=== PATIENT | male | born 1940 | race Caucasian/White ===

== ENCOUNTER 2023-05-02 14:39 | Inpatient (IN) | payer MEDICARE, SELFPAY ==
[2023-05-02] VITALS (7 sets, daily range): BP systolic 129–181; BP diastolic 87–95; PULSE 70–120; RESP 15–20; TEMP 36–36.6; O2SAT 93–97; BMI 24.8; BMI 24.3
--- NOTE | 2023-05-02 15:19 | EKG12_ITS ---
Test Reason : GEN ILLNESS Blood Pressure : / mmHG Vent. Rate : 091 BPM Atrial Rate : 091 BPM P-R Int : 204 ms QRS Dur : 074 ms QT Int : 342 ms P-R-T Axes : 068 -07 039 degrees QTc Int : 420 ms Normal sinus rhythm Low voltage QRS T wave abnormality, consider anterior ischemia Abnormal ECG Confirmed by BAN PALENCIA, ANA ([id number]), editor & co founder JENNIFFER BLANKENSHIP ([id number]) on 05/05/2023 9:10:39 AM Referred By: Confirmed By:ANA CEVALLOS MD
--- NOTE | 2023-05-02 15:19 | CT_ITS ---
EXAM: CT ABDOMEN AND PELVIS WITHOUT INTRAVENOUS CONTRAST CLINICAL INDICATION: Pain upper abd, n/v TECHNIQUE: Helically acquired images were obtained of the abdomen and pelvis without intravenous contrast. This CT exam was performed using one or more of the following dose reduction techniques: automated exposure control, adjustment of the mA and/or kV according to patient size, and/or use of iterative reconstruction technique. COMPARISON: No relevant prior studies available. FINDINGS: LOWER THORAX: There is a small bubble of gas in the pulmonary trunk likely iatrogenic from an IV line. There is minimal scarring in the right middle lobe. There is no focal consolidation. No cardiomegaly. No significant pericardial effusion. ABDOMEN: LIVER: Unremarkable. Homogeneous. GALLBLADDER AND BILE DUCTS: Unremarkable. No calcified gallstones. No gallbladder distention or wall edema. No intra- or extrahepatic biliary ductal dilation. PANCREAS: There is questionable haziness surrounding the head of the pancreas is vague to be due to very minimal pancreatitis or duodenitis. There is no fluid collection. No focal cystic mass. SPLEEN: Unremarkable. Normal size without focal cystic or solid mass. ADRENALS: Unremarkable. No nodules. KIDNEYS AND URETERS: Unremarkable. Normal renal size and position. No hydronephrosis. STOMACH AND BOWEL: Unremarkable. No stomach or bowel distention. No focal inflammatory change. PELVIS: APPENDIX: No evidence of acute appendicitis. BLADDER: Unremarkable. REPRODUCTIVE: Unremarkable as visualized. No mass. ABDOMEN and PELVIS: INTRAPERITONEAL SPACE: Unremarkable. No ascites or other fluid collection. No free air. BONES/JOINTS: Unremarkable. No suspicious lytic or blastic abnormality. SOFT TISSUES: Unremarkable. No discrete abdominal or pelvic wall hernia. VASCULATURE: Unremarkable. Abdominal aorta is non-dilated. LYMPH NODES: Unremarkable. No enlarged lymph nodes. CT/Abdomen/Pelvis without Cont IMPRESSION: Questionable haziness around the head of the pancreas which may be due to mild pancreatitis or duodenitis. No fluid collections are seen. No other acute abnormalities are identified. Electronically Signed: Stiven Rodriges MD at 16:15 EDT ,
--- NOTE | 2023-05-02 15:20 | EDS_ITS ---
HPI History of Present Illness Chief Complaint: General Illness Informant: patient and family (son) Onset/Context/Timing Onset: Days (2) Narrative Narrative: 83-year-old patient very poor historian presents with his son for vomiting for the past 2 days, unable to keep any fluids down. States he has been having some off and on periumbilical abdominal pain that he cannot describe further. It is not currently there. Due to gaze ago he also was having chest pain substernal that he also cannot describe but he does say that he was sweating for a good half hour without any good reason while he was having the pain. Chronic cough unchanged nonproductive, he is a smoker, does not have any known medical problems but that is because he states he has not seen a doctor in past 50+ years. No known fevers or chills. No known contacts with similar symptoms that he knows of. No diarrhea. States he is urinating but less than normal. Denies any travel out of the area recently. Son states he basically stays at home all the time. PFSH PFSH Medical History no medical history no medical history Home Medications NK 05/02/23 [History Last Taken Unknown] Allergy/AdvReac Type Severity Reaction Status Date / Time No Known Allergies Allergy Verified 05/02/23 14:40 Social History (Updated 05/02/23 @ 15:[address] Demetris Mcdonald MD) Smoking Status: Current every day smoker tobacco type: cigarettes ROS ROS ED Constitutional Constitutional ED: Reports weakness; Denies chills or fever(s) Eyes Eyes: Denies change in vision or diplopia ENT ENT ED: Denies rhinorrhea or sore throat Cardiovascular Cardiovascular: Reports chest pain; Denies palpitations Respiratory/Chest Respiratory/Chest: Reports cough; Denies dyspnea Gastrointestinal Gastrointestinal: Reports abdominal pain, nausea and vomiting; Denies diarrhea or melena Genitourinary Genitourinary ED: Denies dysuria, hematuria or urinary frequency Musculoskeletal Musculoskeletal: Denies back pain or neck pain Integumentary Denies abscess or rash Neurologic Neurologic: Denies headache(s), paresthesias or weakness Psychiatric Psychiatric: Denies anxiety or suicidal thoughts EXAM Physical Exam Const Vital Signs: 05/02/23 14:40 05/02/23 15:18 05/02/23 16:40 Temperature 98 F Temperature Source Temporal Pulse Rate 120 H 91 Respiratory Rate 20 H 15 Respiratory Effort Normal Non-Labored Respiratory Pattern Normal Blood Pressure 129/90 H Blood Pressure Mean 103 Pulse Ox 95 97 Oxygen Delivery Method Room Air Room Air 05/02/23 18:00 Temperature Temperature Source Pulse Rate 93 Respiratory Rate 15 Respiratory Effort Respiratory Pattern Blood Pressure Blood Pressure Mean Pulse Ox 97 Oxygen Delivery Method Room Air Positive well nourished and well developed General Appearance ED: well developed and NAD HEENT Reports moist mucous membranes normocephalic and atraumatic Eyes PERRL and EOMs intact bilaterally Neck full ROM and supple Resp normal respiratory effort Resp Narrative: Very faint/diminished breath sounds, symmetric, with end expiratory wheezes throughout. Effort and Inspection: able to speak in complete sentences Cardio regular rate and regular rhythm Cardio Narrative: Very faint heart sounds Rate: tachycardic GI non-tender and non-distended Auscultation: normoactive bowel sounds Palpation: soft Back/Spine no CVA tenderness General Back: other FROM Extremity normal to inspection and no calf tenderness General Extremety ED: Negative for edema, pulses abnormal or tenderness General Extremity: Negative for edema or pulses abnormal Neuro oriented x3, CN's II-XII intact bilaterally and no sensory deficits noted Sensorium / Orientation: awake and alert Motor Exam: strength 5/5 throughout Psych mental status grossly normal Skin no rashes or lesions noted and no wounds MDM MDM MDM Narrative Medical decision making narrative: Differential here includes lower lobe pneumonia, acute coronary syndrome/myocardial infarction, bowel obstruction, cholecystitis, pancreatitis, other GI functional process, including viral gastritis. Started with EKG, chest x-ray, CT of the abdomen and pelvis and labs/urinalysis. Chest x-ray 2 views of my interpretation shows no sign of pneumonia radiology in agreement. CT of the abdomen/pelvis images are reviewed, as well as the interpretation and agree with it, some potential radiographic signs of pancreatitis. I also note that he may have a few small gallstones however CT is not the best test for this, so I added an ultrasound since there was not a better explanation for his significant leukocytosis, his lipase is only 94, slightly elevated, total bilirubin is normal, arguing against an obstructive biliary process. On recheck the patient after IV fluids and Zofran he is doing well and not in significant pain declines an offer for analgesics his tachycardia is much better after the fluids. His EKG shows no acute ischemic abnormality and his high-sensitivity troponin is within normal limits. I reviewed the gallbladder ultrasound images and report which I agree with, basically a stone lodged in the neck of the gallbladder is a thickened wall mild pericholecystic fluid consistent with early acute cholecystitis, although sonographic Simpson was negative. Empiric Zosyn started, and it took a while to get urine from the patient. He tried multiple times to urinate, the nurses did a bladder scan and he was over 800 cc. He was able to give us about 150 cc urine with over 600 cc still left in his bladder but since he felt okay and did not feel comfortable, and did not want a catheter we held off. Family states that he has had issues urinating for some time, standing up and sitting down multiple times to try to get urine out. Discussed with surgery Dr. Hewitt. He saw and evaluated patient, no clinical positive Simpson's which I concur with, certainly cholecystitis is in the differential diagnosis but this may not be and he does have some inflammation around the duodenum, unclear if he needs to have his gallbladder out for this or not given his age and general health, will also consult medicine I discussed with. Will be admitted regardless. Lab Data Attestation: I reviewed the patient's lab results. Labs: Laboratory Results - last 24 hr 05/02/23 05/02/23 15:29 18:34 WBC 24.7 H RBC 5.32 Hgb 17.0 H Hct 49.4 MCV 92.9 MCH 32.0 MCHC 34.4 RDW Std Deviation 45.1 H RDW Coeff of Yari 13.2 Plt Count 211 MPV 8.4 Immature Gran % (Auto) 0.400 Neut % (Auto) 91.8 H Lymph % (Auto) 3.0 L Dawson % (Auto) 4.6 Eos % (Auto) 0.0 Baso % (Auto) 0.2 Absolute Neuts (auto) 22.7 H Absolute Lymphs (auto) 0.73 L Nucleated RBC % 0 Differential Comment SCANNED Sodium 137 Potassium 3.4 L Chloride 101 Carbon Dioxide 28.0 Anion Gap 8 BUN 24 H Creatinine 1.57 H Estim Creat Clear Calc 35.02 Est GFR (MDRD) Af Amer 59 L Est GFR (MDRD) Non-Af 49 L BUN/Creatinine Ratio 15.3 Glucose 135 H Calcium 9.7 Total Bilirubin 0.90 AST 19 ALT 36 Alkaline Phosphatase 82 Troponin I High Sens 35 Total Protein 7.7 Albumin 3.7 Globulin 4.0 Albumin/Globulin Ratio 0.9 Lipase 94 H Urine Color Yellow Urine Clarity Sl. Cloudy Urine pH 6.5 Ur Specific [place] 1.020 Urine Protein 100 H Urine Glucose (UA) 50 H Urine Ketones 5 H Urine Occult Blood 150 H Urine Nitrite Negative Urine Bilirubin Negative Urine Urobilinogen 1 H Ur Leukocyte Esterase 25 H Urine RBC 10-25 SEEN Urine WBC 0-5 SEEN Ur Squamous Epith Cells 0-5 SEEN Amorphous Sediment 1+ URATE Urine Bacteria 0 SEEN Urine Mucus 0 SEEN Radiography Diagnostic Testing: Clinical Impression(s) from Imaging Studies Abdomen/Pelvis CT 05/02/23 15:19 IMPRESSION: Questionable haziness around the head of the pancreas which may be due to mild pancreatitis or duodenitis. No fluid collections are seen. No other acute abnormalities are identified. Electronically Signed: Stiven Rodriges MD at 16:15 EDT , Chest X-Ray 05/02/23 15:50 IMPRESSION: No acute findings in the chest. Electronically Signed: Stiven Rodriges MD at 16:30 EDT , Gallbladder Ultrasound 05/02/23 16:43 IMPRESSION: Cholelithiasis with gallbladder wall thickening. There is questionable pericholecystic fluid. These findings can be seen in cholecystitis. Patient had a negative sonographic Simpson''s sign. 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
[2023-05-02] MEDS: Ondansetron 4 MG/2 ML Vial IV (15:28)
[2023-05-02] MEDS: 0.9% Normal Saline 1,000 ML 1000 ML IV (15:28)
--- NOTE | 2023-05-02 15:28 | NURSING ---
NO OLD EKGS
[2023-05-02 15:36] LABS: Absolute Lymphocyte Count 0.73 X10^3/uL (0.83-4.51); Absolute Neutrophil Count 22.7 X10^3/uL (2.0-7.7); Basophil# 0.04 X10^3/uL; Basophil% 0.2 % (0-1); Eosinophil# 0.01 X10^3/uL; Hematocrit 49.4 % (40-54); Lymphocyte # 0.73 X10^3/ul (0.83-4.51); Mean Corp Hgb Conc 34.4 g/dL (32-36); Mean Corpuscular Volume 92.9 fL (80-94); Mean Platelet Vol. 8.4 fl (6.2-12.0); Monocyte# 1.13 X10^3/uL; Monocyte% 4.6 % (0-10); NRBC Flagged by Analyzer 0 % (0-5); Neutrophil # 22.69 X10^3/uL (2.7-7.7); Neutrophil % 91.8 % (47-70); POSITIVE DIFFERENTIAL YES; Platelet Count 211 K/mm3 (150-450); RBC Distribution Width CV 13.2 % (11.6-14.6); RBC Distribution Width SD 45.1 fl (35.1-43.9); Red Blood Count 5.32 M/mm3 (4.6-6.2); White Blood Count 24.7 K/mm3 (4.4-11.0)
[2023-05-02 15:40] LABS: Differential Indicated SCAN CRITERIA MET
--- NOTE | 2023-05-02 15:50 | RAD_ITS ---
EXAM: XR CHEST, 2 VIEWS CLINICAL INDICATION: cough, cp TECHNIQUE: Frontal and lateral views of the chest. COMPARISON: No relevant prior studies available. FINDINGS: LUNGS AND PLEURAL SPACES: There is minimal scarring in the right lower lobe side port. No pneumothorax. No effusion. HEART: Unremarkable. Cardiac silhouette not enlarged. MEDIASTINUM: Central airways and mediastinal contour are unremarkable. BONES/JOINTS: Unremarkable. SOFT TISSUES: Unremarkable. RAD/Chest PA and Lateral IMPRESSION: No acute findings in the chest. Electronically Signed: Stiven Rodriges MD at 16:30 EDT ,
[2023-05-02 15:57] LABS: ALB/GLOB Ratio 0.9 RATIO (0.9-2.4); AST(SGOT) 19 U/L (15-37); Alanine Aminotransfer ALT/SGPT 36 U/L (16-61); Albumin, Serum 3.7 g/dL (3.2-5.0); Alkaline Phosphatase 82 U/L (45-117); Anion Gap 8 (5-15); BUN 24 mg/dL (7-18); BUN/Creat Ratio 15.3 RATIO (10-20); Calcium,Total 9.7 mg/dL (8.5-10.1); Chloride 101 mmol/L (98-107); Creatinine, Serum 1.57 mg/dL (0.70-1.30); EST Glomerular Filtration Rate 49 mL/min (>60); Est Glom Filt Rate - Afr Amer 59 mL/min (>60); Estimated Creatinine Clearance 35.02 ml/min; Glucose 135 mg/dL (74-106); Lipase 94 U/L (13-75); Potassium 3.4 mmol/L (3.5-5.1); Protein, Total 7.7 g/dL (6.4-8.2); Sodium Level 137 mmol/L (136-145); Troponin-I HS 35 pg/mL (3.0-78.0)
[2023-05-02 16:01] LABS: Differential Comment SCANNED
--- NOTE | 2023-05-02 16:43 | US_ITS ---
EXAM: US ABDOMEN LIMITED, RIGHT UPPER QUADRANT CLINICAL INDICATION: pain, n/v, leukocytosis TECHNIQUE: Real-time ultrasound of the right upper quadrant with image documentation. COMPARISON: No relevant prior studies available. FINDINGS: LIVER: The liver measures 12.7 cm in length. There is normal echotexture. No intrahepatic biliary ductal dilation. GALLBLADDER: There are multiple echogenic foci in the gallbladder compatible with gallstones. The gallbladder wall thickened measuring 8 mm. There is a small hypoechoic area adjacent gallbladder may represent fatty sparing of the liver possibly a trace amount of pericholecystic fluid. Negative sonographic Simpson''s sign. COMMON BILE DUCT: Common bile duct measures 4 mm. The proximal common bile duct is within normal limits for the patient''s age. PANCREAS: The pancreas is obscured by overlying bowel gas. RIGHT KIDNEY: Right kidney measures 11.0 x 5.1 x 4.7 cm. There is no hydronephrosis. No shadowing calculus. No focal lesion or perinephric collection is demonstrated. US/Gallbladder IMPRESSION: Cholelithiasis with gallbladder wall thickening. There is questionable pericholecystic fluid. These findings can be seen in cholecystitis. Patient had a negative sonographic Simpson''s sign. Electronically Signed: Stiven Rodriges MD at 19:18 EDT ,
[2023-05-02 18:37] LABS: Bacteria 0 SEEN /hpf (None Seen); Mucous, Urine 0 SEEN /hpf (<or=2+)
[2023-05-02 18:38] LABS: Color, Urine Yellow (Yellow); Glucose, Dipstick 50 mg/dl (Normal); Ketone-Dipstick 5 mg/dl (Negative); Leukocyte Esterase-Dipstick 25 /ul (Negative); Nitrite-Dipstick Negative (Negative); Occult Blood-Urine 150 /ul (Negative); Protein-Dipstick 100 mg/dl (Negative); Urine Bilirubin Dipstick Negative (Negative); Urine Clarity Sl. Cloudy (Clear); Urine Urobilinogen 1 mg/dl (Normal); Urine pH 6.5 (5.0 - 8.0)
[2023-05-02 18:47] LABS: Amorphous Sediment 1+ URATE; Red Blood Cells-Urine 10-25 SEEN /hpf (0-5); Squamous Epithelial Cells - UA 0-5 SEEN /hpf (0-5); White Blood Cells 0-5 SEEN /hpf (0-5)
--- NOTE | 2023-05-02 20:35 | PCM.HP.STD ---
[facility][1] Date of Service: 05/02/23 Chief Complaint: Nausea vomiting and inability to tolerate oral intake [facility] Narrative NATHALIE POWELL, is a 83 M who presents to [facility] at the prompting of his daughter after developing intractable nausea and vomiting on 04/30/2023. Patient lives with his son and he states his son brought him breakfast the morning his symptoms started. He states his breakfast consisted of a [employer] sausage biscuit. Shortly thereafter he began with nausea, vomiting, and some sweating. He states he had a rather large bowel movement the same day, but since has not had any further bowel activity. He has been unable to tolerate further oral intake since this time and patient's daughter reports that the vomitus has been described as brown like feces. In addition to the above the remarks of some abdominal discomfort which she states actually originated in his chest and then moved down into the stomach. Despite request for further details he is unable to provide this information. Patient's ER work-up is notable for CBC that demonstrates a leukocytosis and left shift as well as increased hemoglobin. Notably patient's LFTs and bilirubin are completely within normal limits. His lipase is mildly elevated at 94. CT of the abdomen pelvis was originally performed and shows evidence of possible mild pancreatitis versus duodenitis. Gallbladder was read by radiology as normal and yet follow-up right upper quadrant ultrasound on clinical suspicion demonstrates evidence of gallbladder wall thickening to 8 mm width and some trace pericholecystic fluid. Patient's daughter, and Mr. Powell agrees, relates that her father has very minimal contact with the medical community. Apparently 2 to 3 years ago he underwent injections for macular degeneration in his eyes before giving this up. Prior to this he has had very limited medical following even for maintenance care. To this end he has never had a colonoscopy. He does not take any medications and is unaware of any allergies. He reports at the age of 21 he was diagnosed with a busted appendix but when he went in to see a doctor he was given a series of shots and then dismissed home. He assumes that everything healed well and he has not had any subsequent troubles. He has no prior surgical history. He does smoke and states that he has done so since about the age of 4. At his most he smoked approximately 1 pack/day but is down to less than half a pack per day currently. He has limited activity simply shuffling between his room, his son's room, and the outdoor deck. He admits that he is otherwise isolated. [facility] Medical History no medical history Home Medications NK 05/02/23 [History Last Taken Unknown] Allergy/AdvReac Type Severity Reaction Status Date / Time No Known Allergies Allergy Verified 05/02/23 14:40 Social History (Updated 05/02/23 @ 15:[address] Demetris Mcdonald MD) Smoking Status: Current every day smoker tobacco type: cigarettes ROS Constitutional Constitutional: Reports anorexia, night sweats, weakness and weight loss; Denies chills Gastrointestinal Gastrointestinal: Reports abdominal pain, constipation, nausea and vomiting Vital Signs Vital Signs Vital Signs: 05/02/23 14:40 05/02/23 15:18 05/02/23 16:40 Temperature 98 F Temperature Source Temporal Pulse Rate 120 H 91 Respiratory Rate 20 H 15 Respiratory Effort Normal Non-Labored Respiratory Pattern Normal Blood Pressure 129/90 H Blood Pressure Mean 103 Pulse Ox 95 97 Oxygen Delivery Method Room Air Room Air 05/02/23 18:00 Temperature Temperature Source Pulse Rate 93 Respiratory Rate 15 Respiratory Effort Respiratory Pattern Blood Pressure Blood Pressure Mean Pulse Ox 97 Oxygen Delivery Method Room Air Weight Weight: 168 lb 6.931 oz Body Mass Index (BMI) 24.8 Physical Exam Resp normal respiratory effort GI GI Narrative: No scars, nondistended, soft, mildly tender to palpation right upper quadrant. Negative Simpson sign. Mild tenderness to palpation in the right lower quadrant. No visible or palpable hernia. Results Lab / Micro Data 05/02/23 15:29 05/02/23 15:29 Labs: Laboratory Results - last 24 hr 05/02/23 15:29: WBC 24.7 H, RBC 5.32, Hgb 17.0 H, Hct 49.4, MCV 92.9, MCH 32.0, MCHC 34.4, RDW Std Deviation 45.1 H, RDW Coeff of Yari 13.2, Plt Count 211, MPV 8.4, Immature Gran % (Auto) 0.400, Neut % (Auto) 91.8 H, Lymph % (Auto) 3.0 L, [place] % (Auto) 4.6, Eos % (Auto) 0.0, Baso % (Auto) 0.2, Absolute Neuts (auto) 22.7 H, Absolute Lymphs (auto) 0.73 L, Nucleated RBC % 0, Differential Comment SCANNED, Sodium 137, Potassium 3.4 L, Chloride 101, Carbon Dioxide 28.0, Anion Gap 8, BUN 24 H, Creatinine 1.57 H, Estim Creat Clear Calc 35.02, Est GFR (MDRD) Af Amer 59 L, Est GFR (MDRD) Non-Af 49 L, BUN/Creatinine Ratio 15.3, Glucose 135 H, Calcium 9.7, Total Bilirubin 0.90, AST 19, ALT 36, Alkaline Phosphatase 82, Troponin I High Sens 35, Total Protein 7.7, Albumin 3.7, Globulin 4.0, Albumin/Globulin Ratio 0.9, Lipase 94 H 05/02/23 18:34: Urine Color Yellow, Urine Clarity Sl. Cloudy, Urine pH 6.5, Ur Specific [place] 1.020, Urine Protein 100 H, Urine Glucose (UA) 50 H, Urine Ketones 5 H, Urine Occult Blood 150 H, Urine Nitrite Negative, Urine Bilirubin Negative, Urine Urobilinogen 1 H, Ur Leukocyte Esterase 25 H, Urine RBC 10-25 SEEN, Urine WBC 0-5 SEEN, Ur Squamous Epith Cells 0-5 SEEN, Amorphous Sediment 1+ URATE, Urine Bacteria 0 SEEN, Urine Mucus 0 SEEN Rhythm Strip Rhythm Strip: Sinus Tach Rate: 110 Ectopy: None Radiology Impression Abdomen/Pelvis CT 05/02/23 15:19 IMPRESSION: Questionable haziness around the head of the pancreas which may be due to mild pancreatitis or duodenitis. No fluid collections are seen. No other acute abnormalities are identified. Electronically Signed: Stiven Rodriges MD at 16:15 EDT , Chest X-Ray 05/02/23 15:50 IMPRESSION: No acute findings in the chest. Electronically Signed: Stiven Rodriges MD at 16:30 EDT , Gallbladder Ultrasound 05/02/23 16:43 IMPRESSION: Cholelithiasis with gallbladder wall thickening. There is questionable pericholecystic fluid. These findings can be seen in cholecystitis. Patient had a negative sonographic Simpson''s sign. Electronically Signed: Stiven Rodriges MD at 19:18 EDT , Assessment & Plan Assessment/Plan (1) Leukocytosis: (2) Cholelithiasis: (3) Acute upper abdominal pain: PLAN: Plan This is a 83-year-old male, with minimal medical community contact, who presents for intractable nausea and vomiting as well as some associated abdominal pain. History is very difficult to elicit both due to his lack of contact with the medical community as well as his seeming unwillingness to divulge much information. ER work-up is remarkable for significantly elevated white blood cell count as well as sonographic evidence of cholelithiasis and some gallbladder wall thickening. In my independent review of the imaging and hearing patient's story firsthand, I would question whether or not this actually represents primary gastroenteritis with an incidental finding of cholelithiasis and even possible chronic cholecystitis. However, given his reports of an inability to tolerate p.o. intake and his elevated white blood cell count, I find he warrants inpatient admission and further evaluation. Based on his exam demonstrated only mild evidence of cholecystitis and readily evident frailty, I would like to have our hospitalist service weigh in on his case as well as provide some risk stratification for Mr. Powell's risk for a general anesthetic. We will plan to reassess tomorrow and make a decision for surgery. Neuro: As needed Dilaudid Pulm/CV: I-S, as needed antihypertensives given evidence of hypertension with vitals, cardiac work-up per hospitalist service? FEN/GI: Trend electrolytes and creatinine, clear liquid diet and n.p.o. past midnight, trend CMP : No current issues Heme/ID: Trend CBC, provide empiric Zosyn therapy Endo: No current issues Proph: SCDs Dispo: Admit to inpatient with consult to hospitalist service
--- NOTE | 2023-05-02 21:15 | PCM.PN.HOSP ---
Reason for Visit Reason for Visit: Diagnoses Elevated white blood cell count, unspecified (05/02/23) Calculus of gallbladder without cholecystitis without obstruction (05/02/23) Upper abdominal pain, unspecified (05/02/23) Subjective Subjective Patient is an 83-year-old male with a significant history of tobacco abuse but have not seen a doctor for many years presents to the emergency department with abdominal pain. Patient is unable to elaborate on the exact position of the pain. However he states that his pain is with eating. Reports of nausea or vomiting. A week before presentation he has some chest pain but the chest pain has since resolved. Objective Data Objective Data Vital Signs: Vital Signs Temp Pulse Resp BP Pulse Ox O2 Del Method 96.8 F L 70 19 H 181/88 H 93 Room Air 05/02/23 20:43 05/02/23 20:43 05/02/23 20:43 05/02/23 20:43 05/02/23 20:43 05/02/23 20:43 Oxygen Delivery Method Room Air Weight: 76.4 kg Body Mass Index (BMI) 24.8 Intake & Output: Intake and Output for Last 24 Hours 04/30/23 05/01/23 05/02/23 23:59 23:59 23:59 Intake Total 1050 / 1050 Output Total 150 / 150 Balance 900 / 900 Lab / Micro Data 05/03/23 05:20 05/03/23 05:20 Labs: Laboratory Results - last 24 hr 05/02/23 15:29: WBC 24.7 H, RBC 5.32, Hgb 17.0 H, Hct 49.4, MCV 92.9, MCH 32.0, MCHC 34.4, RDW Std Deviation 45.1 H, RDW Coeff of Yari 13.2, Plt Count 211, MPV 8.4, Immature Gran % (Auto) 0.400, Neut % (Auto) 91.8 H, Lymph % (Auto) 3.0 L, [place] % (Auto) 4.6, Eos % (Auto) 0.0, Baso % (Auto) 0.2, Absolute Neuts (auto) 22.7 H, Absolute Lymphs (auto) 0.73 L, Nucleated RBC % 0, Differential Comment SCANNED, Sodium 137, Potassium 3.4 L, Chloride 101, Carbon Dioxide 28.0, Anion Gap 8, BUN 24 H, Creatinine 1.57 H, Estim Creat Clear Calc 35.02, Est GFR (MDRD) Af Amer 59 L, Est GFR (MDRD) Non-Af 49 L, BUN/Creatinine Ratio 15.3, Glucose 135 H, Calcium 9.7, Total Bilirubin 0.90, AST 19, ALT 36, Alkaline Phosphatase 82, Troponin I High Sens 35, Total Protein 7.7, Albumin 3.7, Globulin 4.0, Albumin/Globulin Ratio 0.9, Lipase 94 H 05/02/23 18:34: Urine Color Yellow, Urine Clarity Sl. Cloudy, Urine pH 6.5, Ur Specific [place] 1.020, Urine Protein 100 H, Urine Glucose (UA) 50 H, Urine Ketones 5 H, Urine Occult Blood 150 H, Urine Nitrite Negative, Urine Bilirubin Negative, Urine Urobilinogen 1 H, Ur Leukocyte Esterase 25 H, Urine RBC 10-25 SEEN, Urine WBC 0-5 SEEN, Ur Squamous Epith Cells 0-5 SEEN, Amorphous Sediment 1+ URATE, Urine Bacteria 0 SEEN, Urine Mucus 0 SEEN Radiography Diagnostic Testing: Radiology Impression Abdomen/Pelvis CT 05/02/23 15:19 IMPRESSION: Questionable haziness around the head of the pancreas which may be due to mild pancreatitis or duodenitis. No fluid collections are seen. No other acute abnormalities are identified. Electronically Signed: Stiven Rodriges MD at 16:15 EDT , Chest X-Ray 05/02/23 15:50 IMPRESSION: No acute findings in the chest. Electronically Signed: Stiven Rodriges MD at 16:30 EDT , Gallbladder Ultrasound 05/02/23 16:43 IMPRESSION: Cholelithiasis with gallbladder wall thickening. There is questionable pericholecystic fluid. These findings can be seen in cholecystitis. Patient had a negative sonographic Simpson''s sign. Electronically Signed: Stiven Rodriges MD at 19:18 EDT , Rhythm Strip Rhythm Strip: Sinus Tach Rate: 110 Ectopy: None Physical Exam Narrative Physical exam: General: Well-nourished, well-developed. Head: Normocephalic, atraumatic, no tenderness Eyes: Vision is grossly intact. EOMI ENT, no trauma, moist mucous membranes, no rhinorrhea Neck: Nontender, No thyromegaly. CVS: Regular rate and rhythm. S1-S2 present. No murmur, gallop or rub. Respiratory : Diminished; mild wheezing; mild rhonchi chest wall nontender Abdomen: Soft, nontender, nondistended, normal bowel sounds, no masses : Deferred Back: Nontender, no CVA tenderness, no midline spinal tenderness, deformities, step-offs Extremities: Nontender full range of motion, no trauma Skin: Normal color, no trauma, abrasions Neuro: Alert, oriented, cranial nerves II through XII grossly intact. Psychiatry: Normal mood. Normal affect. Not depressed. Not anxious. Assessment & Plan Assessment/Plan (1) Acute upper abdominal pain: (2) Leukocytosis: QUALIFIERS: Leukocytosis type: unspecified Qualified Code(s): D72.829 - Elevated white blood cell count, unspecified (3) Cholelithiasis: QUALIFIERS: Biliary obstruction: without biliary obstruction Cholecystitis acuity: unspecified acuity Cholecystitis presence: with cholecystitis Cholelithiasis location: gallbladder and bile duct Qualified Code(s): K80.60 - Calculus of gallbladder and bile duct with cholecystitis, unspecified, without obstruction (4) Pre-operative cardiovascular examination: PLAN: Plan Preoperative cardiovascular examination Patient with T wave inversions in lead V1 to V4 and T wave flattening in lateral leads. We will get BNP and echocardiogram for baseline. Patient has no active chest pain although he had chest pain a week before presentation. If echocardiogram is okay I think is reasonable to go on with surgery. Leukocytosis/cholelithiasis/abdominal pain/Possible duodenitis. Radiologist interpretation of CT scan with Questionable haziness around the head of the pancreas which may be due to mild pancreatitis or duodenitis. No fluid collections are seen. No other acute abnormalities are identified. CT abdomen and pelvis was independently interpreted by Hospitalist and I agree. Cannot rule out cholecystitis. Agree with Zosyn and pain control.. Also will add scheduled Protonix to regimen.Check lipase. Elevated creatinine Unclear whether GENOVEVA or CKD. No records in community system. Gentle IV fluids. Trend CMP DVT prophylaxis: SCD ordered. Time spent in the patient's overall evaluation,decision-making process, review of diagnostic data, adjustment of management, discussion with other providers, nursing nursing and ancillary staff involved in patient's care documentation, 30 minutes. Total clinical time spent by myself addressing the patient's medical issues, reviewing all the data, and collaborating with the patient's care team: 45 minutes Charges/Coding Visit Charges Inpatient E&M: 03236 [facility] Hosp L3
--- NOTE | 2023-05-02 21:38 | ECHOCS_ITS ---
Reason For Study: Pre Op Procedure This was a 2D Doppler, Color Flow transthoracic echocardiogram. The study was technically difficult. Contrast injection was performed. Exam performed portable in patient room. Left Ventricle Normal LV size. Left ventricular systolic function is normal. The estimated ejection fraction is 65 %. Stage 1 diastolic dysfunction. No regional wall motion abnormalities noted. Right Ventricle Normal RV size. Normal systolic function. Atria Normal left atrium. Normal right atrium. Mitral Valve Normal mitral valve. Tricuspid Valve Normal tricuspid valve. Aortic Valve Normal aortic valve. Pulmonic Valve Normal pulmonic valve. Great Vessels Mildly dilated aortic root. The pulmonary artery is normal size. Normal inferior vena cava. Pericardium/Pleural No pericardial effusion. Medication Diluted definity 2.5ml given slow IV push to enhance endocardial definition. MMode/2D Measurements & Calculations LVIDd: 3.4 cm IVSd: 0.83 cm Ao root diam: 4.4 cm LVIDs: 2.0 cm LVPWd: 0.87 cm LA dimension: 3.3 cm FS: 40.9 % LAV(MOD-bp): 19.2 ml LA A4 area: 10.6 cm2 RA A4 area: 9.4 cm2 LAV(MOD-bp) Indexed: 10.0 ml/m2 LAV(MOD-sp2): 18.9 ml LAV(MOD-sp4): 19.0 ml Time Measurements MV dec time: 0.16 sec Doppler Measurements & Calculations MV E max pb: 56.5 cm/sec Lat Peak E' Pb: 4.2 cm/sec Med Peak E' Pb: 7.4 cm/sec MV A max pb: 114.0 cm/sec E/E' lat: 13.5 E/E' med: 7.6 MV E/A: 0.50 MV V2 max: 111.2 cm/sec MV P1/2t max pb: 73.5 cm/sec Ao V2 max: 121.6 cm/sec MV max P.9 mmHg MV P1/2t: 71.8 msec Ao max P.9 mmHg MV V2 mean: 62.4 cm/sec MV dec slope: 299.5 cm/sec2 Ao V2 mean: 88.9 cm/sec MV mean P.8 mmHg Ao mean P.5 mmHg MV V2 VTI: 18.6 cm MVA(P1/2t): 3.1 cm2 Ao V2 VTI: 22.3 cm AV (velocity ratio): 0.87 LV V1 max: 100.6 cm/sec LV V1 max P.1 mmHg LV V1 mean P.1 mmHg LV V1 mean: 66.7 cm/sec LV V1 VTI: 19.5 cm ECHO/Echo Complete W/ Contrast Interpretation Summary Normal LV size. Left ventricular systolic function is normal. The estimated ejection fraction is 65 %. Stage 1 diastolic dysfunction. Contrast injection was performed. Ordering Physician: Chetan Duffy Referring Physician: Cheryl Sage [facility] Performed By: Justin Brown RCS
[2023-05-02] MEDS: hydrALAZINE 20 MG/ML Vial 10 MG IV (22:29)
[2023-05-02] MEDS: 0.9% Normal Saline 1,000 ML 100 ML IV (22:29)
[2023-05-03] VITALS (10 sets, daily range): BP systolic 147–187; BP diastolic 67–97; PULSE 85–102; RESP 16–24; TEMP 36.3–37.1; O2SAT 94–97
[2023-05-03] MEDS: Nystatin Powder 15gm Bottle 1 APPLIC TOPICAL ×3 (00:06→20:56)
[2023-05-03] MEDS: hydrALAZINE 20 MG/ML Vial 10 MG IV ×2 (05:22→20:55)
[2023-05-03 05:31] LABS: Absolute Lymphocyte Count 0.83 X10^3/uL (0.83-4.51); Basophil# 0.02 X10^3/uL; Basophil% 0.1 % (0-1); Eosinophil# 0.02 X10^3/uL; Eosinophils% 0.1 % (0-5); Hematocrit 42.8 % (40-54); Hemoglobin 14.7 g/dL (13.0-16.5); Lymphocyte # 0.83 X10^3/ul (0.83-4.51); Lymphocyte % 3.9 % (19-41); Mean Corp Hgb Conc 34.3 g/dL (32-36); Mean Corpuscular Volume 93.2 fL (80-94); Mean Platelet Vol. 7.9 fl (6.2-12.0); Monocyte# 1.27 X10^3/uL; NRBC Flagged by Analyzer 0 % (0-5); Neutrophil # 19.04 X10^3/uL (2.7-7.7); Neutrophil % 89.4 % (47-70); Platelet Count 166 K/mm3 (150-450); RBC Distribution Width CV 13.3 % (11.6-14.6); RBC Distribution Width SD 45.6 fl (35.1-43.9); Red Blood Count 4.59 M/mm3 (4.6-6.2); White Blood Count 21.3 K/mm3 (4.4-11.0)
[2023-05-03 06:03] LABS: AST(SGOT) 26 U/L (15-37); Alanine Aminotransfer ALT/SGPT 41 U/L (16-61); Alkaline Phosphatase 66 U/L (45-117); Anion Gap 5 (5-15); BUN 18 mg/dL (7-18); BUN/Creat Ratio 16.5 RATIO (10-20); Calcium,Total 8.4 mg/dL (8.5-10.1); Chloride 110 mmol/L (98-107); Creatinine, Serum 1.09 mg/dL (0.70-1.30); EST Glomerular Filtration Rate 68 mL/min (>60); Est Glom Filt Rate - Afr Amer 83 mL/min (>60); Estimated Creatinine Clearance 50.45 ml/min; Globulin 3.1 g/dL (2.2-4.2); Glucose 106 mg/dL (74-106); Magnesium 1.9 mg/dL (1.6-2.6); Phosphorus 1.8 mg/dL (2.5-4.9); Potassium 3.4 mmol/L (3.5-5.1); Protein, Total 6.1 g/dL (6.4-8.2); Sodium Level 139 mmol/L (136-145)
[2023-05-03 06:42] LABS: Lipase 35 U/L (13-75)
[2023-05-03 08:20] LABS: BNP,B-Type NATRIURETIC PEPTIDE 76.6 pg/mL (0-100)
--- NOTE | 2023-05-03 08:30 | PN.HOSP_ITS ---
Reason for Visit Reason for Visit: Diagnoses Elevated white blood cell count, unspecified (05/02/23) Calculus of gallbladder without cholecystitis without obstruction (05/02/23) Calculus of gallbladder and bile duct with cholecystitis, unspecified, without obstruction (05/02/23) Upper abdominal pain, unspecified (05/02/23) Encounter for preprocedural cardiovascular examination (05/02/23) Subjective Subjective Patient is an 83-year-old gentleman admitted with abdominal pain nausea and vomiting of 3 days duration Objective Data Objective Data Vital Signs: Vital Signs Temp Pulse Resp BP Pulse Ox O2 Del Method 97.4 F L 92 16 154/87 H 94 Room Air 05/03/23 05:20 05/03/23 05:22 05/03/23 05:20 05/03/23 06:32 05/03/23 05:20 05/03/23 05:20 Oxygen Delivery Method Room Air Weight: 74.6 kg Body Mass Index (BMI) 24.3 Intake & Output: Intake and Output for Last 24 Hours 05/01/23 05/02/23 05/03/23 23:59 23:59 23:59 Intake Total 1050 / 1100 50 / 50 Output Total 150 / 450 650 / 650 Balance 900 / 650 -600 / -600 Lab / Micro Data 05/03/23 05:20 05/03/23 05:20 Labs: Laboratory Results - last 24 hr 05/02/23 15:29: WBC 24.7 H, RBC 5.32, Hgb 17.0 H, Hct 49.4, MCV 92.9, MCH 32.0, MCHC 34.4, RDW Std Deviation 45.1 H, RDW Coeff of Yari 13.2, Plt Count 211, MPV 8.4, Immature Gran % (Auto) 0.400, Neut % (Auto) 91.8 H, Lymph % (Auto) 3.0 L, [place] % (Auto) 4.6, Eos % (Auto) 0.0, Baso % (Auto) 0.2, Absolute Neuts (auto) 22.7 H, Absolute Lymphs (auto) 0.73 L, Nucleated RBC % 0, Differential Comment SCANNED, Sodium 137, Potassium 3.4 L, Chloride 101, Carbon Dioxide 28.0, Anion Gap 8, BUN 24 H, Creatinine 1.57 H, Estim Creat Clear Calc 35.02, Est GFR (MDRD) Af Amer 59 L, Est GFR (MDRD) Non-Af 49 L, BUN/Creatinine Ratio 15.3, Glucose 135 H, Calcium 9.7, Total Bilirubin 0.90, AST 19, ALT 36, Alkaline Phosphatase 82, Troponin I High Sens 35, Total Protein 7.7, Albumin 3.7, Globulin 4.0, Albumin/Globulin Ratio 0.9, Lipase 94 H 05/02/23 18:34: Urine Color Yellow, Urine Clarity Sl. Cloudy, Urine pH 6.5, Ur Specific [place] 1.020, Urine Protein 100 H, Urine Glucose (UA) 50 H, Urine Ketones 5 H, Urine Occult Blood 150 H, Urine Nitrite Negative, Urine Bilirubin Negative, Urine Urobilinogen 1 H, Ur Leukocyte Esterase 25 H, Urine RBC 10-25 SEEN, Urine WBC 0-5 SEEN, Ur Squamous Epith Cells 0-5 SEEN, Amorphous Sediment 1+ URATE, Urine Bacteria 0 SEEN, Urine Mucus 0 SEEN 05/03/23 05:20: WBC 21.3 H, RBC 4.59 L, Hgb 14.7, Hct 42.8, MCV 93.2, MCH 32.0, MCHC 34.3, RDW Std Deviation 45.6 H, RDW Coeff of Yari 13.3, Plt Count 166, MPV 7.9, Immature Gran % (Auto) 0.500, Neut % (Auto) 89.4 H, Lymph % (Auto) 3.9 L, [place] % (Auto) 6.0, Eos % (Auto) 0.1, Baso % (Auto) 0.1, Absolute Neuts (auto) 19.0 H, Absolute Lymphs (auto) 0.83, Nucleated RBC % 0, Sodium 139, Potassium 3.4 L, Chloride 110 H, Carbon Dioxide 24.0, Anion Gap 5, BUN 18, Creatinine 1.09, Estim Creat Clear Calc 50.45, Est GFR (MDRD) Af Amer 83, Est GFR (MDRD) Non-Af 68, BUN/Creatinine Ratio 16.5, Glucose 106, Calcium 8.4 L, Phosphorus 1.8 L, Magnesium 1.9, Total Bilirubin 0.90, AST 26, ALT 41, Alkaline Phosphatase 66, B-Natriuretic Peptide 76.6, Total Protein 6.1 L, Albumin 3.0 L, Globulin 3.1, Albumin/Globulin Ratio 1.0, Lipase 35 Radiography Diagnostic Testing: Radiology Impression Abdomen/Pelvis CT 05/02/23 15:19 IMPRESSION: Questionable haziness around the head of the pancreas which may be due to mild pancreatitis or duodenitis. No fluid collections are seen. No other acute abnormalities are identified. Electronically Signed: Stiven Rodriges MD at 16:15 EDT , Chest X-Ray 05/02/23 15:50 IMPRESSION: No acute findings in the chest. Electronically Signed: Stiven Rodriges MD at 16:30 EDT , Gallbladder Ultrasound 05/02/23 16:43 IMPRESSION: Cholelithiasis with gallbladder wall thickening. There is questionable pericholecystic fluid. These findings can be seen in cholecystitis. Patient had a negative sonographic Simpson''s sign. Electronically Signed: Stiven Rodriges MD at 19:18 EDT , Rhythm Strip Rhythm Strip: Sinus Tach Rate: 110 Ectopy: None Physical Exam Narrative GENERAL: cooperative HEENT: Atraumatic; normocephalic EYES; Anicteric, Normal Conjunctiva NECK; supple, normal thyroid, RESPIRATORY: Diminished to auscultation CARDIOVASCULAR: Regular S1 S2, GI: soft, normoactive bowel sounds, : No Renal angle tenderness; EXTREMITIES: No edema, no clubbing, MUSCULOSKELETAL: no muscle wasting NEURO: Awake; no lateralizing signs. SKIN: No Rash PSYCH; Flat affect Assessment & Plan Assessment/Plan (1) Acute upper abdominal pain: (2) Leukocytosis: QUALIFIERS: Leukocytosis type: unspecified Qualified Code(s): D72 .829 - Elevated white blood cell count, unspecified (3) Cholelithiasis: QUALIFIERS: Biliary obstruction: without biliary obstruction Cholecystitis acuity: unspecified acuity Cholecystitis presence: with cholecystitis Cholelithiasis location: gallbladder and bile duct Qualified Code(s): K80.60 - Calculus of gallbladder and bile duct with cholecystitis, unspecified, without obstruction (4) Pre-operative cardiovascular examination: PLAN: Plan Patient is an 83-year-old gentleman admitted with abdominal pain nausea and vomiting of 3 days duration 1. Abdominal pain ? Gallbladder ultrasound did show Cholelithiasis with gallbladder wall thickening. There is questionable pericholecystic fluid. These findings can be seen in cholecystitis. Patient had a negative sonographic Simpson''s sign. CT of the abdomen demonstrated Questionable haziness around the head of the pancreas which may be due to mild pancreatitis or duodenitis. Patient has been admitted to the surgical service. Definitive management deferred to general surgery 2. Hypophosphatemia ? Corrected per protocol 3. Hypokalemia -corrected per protocol 4. Acute kidney injury ? Creatinine on admission was 1.57 rehydrated down to 1.09 subsequent monitoring with daily electrolytes ordered 5. DVT prophylaxis ? SCDs for now with plans to initiate low molecular weight heparin following patient surgical procedure Time spent in the patient's overall evaluation,decision-making process, review of diagnostic data, adjustment of management, discussion with other providers, nursing nursing and ancillary staff involved in patient's care documentation, 50 Minutes Charges/Coding Visit Charges Inpatient E&M: [id number] [place] [address]
--- NOTE | 2023-05-03 08:33 | NM_ITS ---
CLINICAL: 83-year-old male with history of abdominal pain and nausea. RADIONUCLIDE HEPATOBILIARY SCINTIGRAPHY COMPARISON: CT of the abdomen-pelvis and gallbladder ultrasound reports 05/02/2023 FINDINGS: Following the intravenous administration of 5.5 mCi of 99m Tc Mebrofenin, hepatobiliary images reveal: 1. Relatively prompt and homogeneous radiopharmaceutical concentration is noted by a normal sized liver. No parenchymal defects are identified. 2. Gallbladder activity is identified at approximately 12 minutes post radiopharmaceutical administration. 3. Small intestinal tract is observed at 31-32 minutes post radiopharmaceutical administration. 4. Washout of the radiopharmaceutical by the hepatic parenchyma appears qualitatively delayed. NM/Hepatobilliary Imaging IMPRESSION: 1. Visualization of the gallbladder within 60 minutes post radiopharmaceutical administration excludes acute cholecystitis with 97% certitude. (Dimitrios et al, Nucl Med Liyah Kristel Press pg. 35, 1981). 2. 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 Electronically Signed: Abelino Torres, at 12:36 EDT ,
[2023-05-03] MEDS: 0.9% Normal Saline 1,000 ML 100 ML IV ×2 (08:55→20:03)
--- NOTE | 2023-05-03 09:46 | PN.SURG_ITS ---
Subjective Subjective Patient seen and examined during AM rounds. Is found resting in bed. He denies any nausea or vomiting overnight. He states that he is thirsty. He denies any abdominal pain this morning. Objective Data Objective Data Vital Signs: Vital Signs Temp Pulse Resp BP Pulse Ox O2 Del Method 97.4 F L 92 16 154/87 H 94 Room Air 05/03/23 05:20 05/03/23 05:22 05/03/23 05:20 05/03/23 06:32 05/03/23 05:20 05/03/23 09:04 Oxygen Delivery Method Room Air Weight: 164 lb 7.437 oz Body Mass Index (BMI) 24.3 Intake & Output: Intake and Output for Last 24 Hours 05/01/23 05/02/23 05/03/23 23:59 23:59 23:59 Intake Total 1050 / 1100 1100 / 1100 Output Total 150 / 450 650 / 650 Balance 900 / 650 450 / 450 Lab / Micro Data 05/03/23 05:20 05/03/23 05:20 Labs: Laboratory Results - last 24 hr 05/02/23 15:29: WBC 24.7 H, RBC 5.32, Hgb 17.0 H, Hct 49.4, MCV 92.9, MCH 32.0, MCHC 34.4, RDW Std Deviation 45.1 H, RDW Coeff of Yari 13.2, Plt Count 211, MPV 8.4, Immature Gran % (Auto) 0.400, Neut % (Auto) 91.8 H, Lymph % (Auto) 3.0 L, [place] % (Auto) 4.6, Eos % (Auto) 0.0, Baso % (Auto) 0.2, Absolute Neuts (auto) 22.7 H, Absolute Lymphs (auto) 0.73 L, Nucleated RBC % 0, Differential Comment SCANNED, Sodium 137, Potassium 3.4 L, Chloride 101, Carbon Dioxide 28.0, Anion Gap 8, BUN 24 H, Creatinine 1.57 H, Estim Creat Clear Calc 35.02, Est GFR (MDRD) Af Amer 59 L, Est GFR (MDRD) Non-Af 49 L, BUN/Creatinine Ratio 15.3, Glucose 135 H, Calcium 9.7, Total Bilirubin 0.90, AST 19, ALT 36, Alkaline Phosphatase 82, Troponin I High Sens 35, Total Protein 7.7, Albumin 3.7, Globulin 4.0, Albumin/Globulin Ratio 0.9, Lipase 94 H 05/02/23 18:34: Urine Color Yellow, Urine Clarity Sl. Cloudy, Urine pH 6.5, Ur Specific [place] 1.020, Urine Protein 100 H, Urine Glucose (UA) 50 H, Urine Ketones 5 H, Urine Occult Blood 150 H, Urine Nitrite Negative, Urine Bilirubin Negative, Urine Urobilinogen 1 H, Ur Leukocyte Esterase 25 H, Urine RBC 10-25 SEEN, Urine WBC 0-5 SEEN, Ur Squamous Epith Cells 0-5 SEEN, Amorphous Sediment 1+ URATE, Urine Bacteria 0 SEEN, Urine Mucus 0 SEEN 05/03/23 05:20: WBC 21.3 H, RBC 4.59 L, Hgb 14.7, Hct 42.8, MCV 93.2, MCH 32.0, MCHC 34.3, RDW Std Deviation 45.6 H, RDW Coeff of Yari 13.3, Plt Count 166, MPV 7.9, Immature Gran % (Auto) 0.500, Neut % (Auto) 89.4 H, Lymph % (Auto) 3.9 L, [place] % (Auto) 6.0, Eos % (Auto) 0.1, Baso % (Auto) 0.1, Absolute Neuts (auto) 19.0 H, Absolute Lymphs (auto) 0.83, Nucleated RBC % 0, Sodium 139, Potassium 3.4 L, Chloride 110 H, Carbon Dioxide 24.0, Anion Gap 5, BUN 18, Creatinine 1.09, Estim Creat Clear Calc 50.45, Est GFR (MDRD) Af Amer 83, Est GFR (MDRD) Non-Af 68, BUN/Creatinine Ratio 16.5, Glucose 106, Calcium 8.4 L, Phosphorus 1.8 L, Magnesium 1.9, Total Bilirubin 0.90, AST 26, ALT 41, Alkaline Phosphatase 66, B-Natriuretic Peptide 76.6, Total Protein 6.1 L, Albumin 3.0 L, Globulin 3.1, Albumin/Globulin Ratio 1.0, Lipase 35 Radiography Diagnostic Testing: Radiology Impression Abdomen/Pelvis CT 05/02/23 15:19 IMPRESSION: Questionable haziness around the head of the pancreas which may be due to mild pancreatitis or duodenitis. No fluid collections are seen. No other acute abnormalities are identified. Electronically Signed: Stiven Rodriges MD at 16:15 EDT , Chest X-Ray 05/02/23 15:50 IMPRESSION: No acute findings in the chest. Electronically Signed: Stiven Rodriges MD at 16:30 EDT , Gallbladder Ultrasound 05/02/23 16:43 IMPRESSION: Cholelithiasis with gallbladder wall thickening. There is questionable pericholecystic fluid. These findings can be seen in cholecystitis. Patient had a negative sonographic Simpson''s sign. Electronically Signed: Stiven Rodriges MD at 19:18 EDT , Rhythm Strip Rhythm Strip: Sinus Tach Rate: 110 Ectopy: None Physical Exam Const no apparent distress Constitutional Narrative: Oriented to person and place Resp normal respiratory effort GI GI Narrative: Nondistended, soft, minimally tender to palpation bilateral upper quadrants. Negative Simpson sign. Assessment & Plan Assessment/Plan (1) Leukocytosis: QUALIFIERS: Leukocytosis type: unspecified Qualified Code(s): D72.829 - Elevated white blood cell count, unspecified (2) Cholelithiasis: QUALIFIERS: Cholelithiasis location: gallbladder and bile duct Cholecystitis presence: with cholecystitis Cholecystitis acuity: unspecified acuity Biliary obstruction: without biliary obstruction Qualified Code(s): K80.60 - Calculus of gallbladder and bile duct with cholecystitis, unspecified, without obstruction (3) Acute upper abdominal pain: PLAN: Plan This is a 83-year-old male, with minimal medical community contact, who presents for intractable nausea and vomiting as well as some associated abdominal pain. Prior work-up shows cholelithiasis with gallbladder wall thickening on sonogram, yet this was read as unremarkable from patient's CT imaging of the abdomen. Patient's exam has been largely unremarkable with negative Simpson sign. Continuing work-up for this frail 83-year-old gentleman with minimal health history as to both his current fitness for surgery and need for an operation. To help better understand his gallbladder issue I would like him to go for a HIDA scan today to see if there is visualization of the gallbladder. We will plan to visit with both him and his family regarding this and the work-up initiated by hospitalist service. Appreciate their input. Neuro: As needed Dilaudid Pulm/CV: I-S, as needed antihypertensives given evidence of hypertension with vitals, cardiac work-up per hospitalist service FEN/GI: Trend electrolytes and creatinine, clear liquid diet and n.p.o. past midnight, trend CMP, follow-up HIDA : No current issues Heme/ID: Trend CBC, provide empiric Zosyn therapy Endo: No current issues Proph: SCDs Dispo: Continue inpatient stay Charges/Coding Visit Charges Inpatient E&M: 41215 Subs Hosp L2
[2023-05-03] MEDS: 0.9% Saline Lock 10 ML Syringe IV (11:59)
--- NOTE | 2023-05-03 13:30 | CASEMGMT ---
SIGRID OSORIO Assessment: Face to Face with pt for initial transition planning/care coordination assessment. SIGRID OSORIO introduced self and role at [facility], pt voices understanding and consents to assessment. Pt is A/O x4 and answers all questions appropriately at this time. Pt sitting up in chair in no distress. Family at bedside. Pt agreeable to assessment with family present, 2 dtrs and son. Care providers, pharmacy, and demographics verified/updated. Admitting Dx: cholecystitis PCP:Cheryl Sage NP Specialists:Pt denies [facility]erred [facility]acy[facility] Insurance: [facility] Prescription Benefit: yes LNOK: Hieu Noriega, son; Rubi Uriostegui, dtr Living Arrangements: Pt lives with son in a mobile home with 5 steps to enter with a rail. Pt reports he is I in ADL's but son does IADL's. Pt denies concerns at home. Transportation: Pt son transports him to medical appts. DME/HHC/SNF: Pt recently had a walk in shower put in with grab bars and a bath bench. Pt has a lift chair and cane and walker. Pt does not use AD to ambulate. Pt denies hx of HHC or SNF stays. Pt states no concerns with going home at time of dc. Family are interested in [facility] for pt for therapy. Pt is agreeable to this. Ordered therapy. Pt states no further concerns/needs. CM to follow. Advised pt to ask CM if any further question/concerns/needs arise, voices understanding. Pt Goal: Home, agreeable to HHC Plan: Home vs Home with HHC, pending therapy kristyn
--- NOTE | 2023-05-03 14:39 | CASEMGMT ---
Discharge Planning Asst. HH list created and given to RN CM. Lakshmi Storey, Discharge Planning Asst.
[2023-05-04] VITALS (11 sets, daily range): BP systolic 150–192; BP diastolic 74–96; PULSE 88–108; RESP 16–24; TEMP 36.4–36.7; O2SAT 94–97
[2023-05-04] MEDS: hydrALAZINE 20 MG/ML Vial 10 MG IV ×4 (00:51→22:33)
[2023-05-04] MEDS: 0.9% Normal Saline 1,000 ML 100 ML IV ×2 (04:59→15:43)
[2023-05-04 06:44] LABS: Absolute Lymphocyte Count 0.99 X10^3/uL (0.83-4.51); Absolute Neutrophil Count 15.5 X10^3/uL (2.0-7.7); Basophil# 0.03 X10^3/uL; Basophil% 0.2 % (0-1); Eosinophil# 0.09 X10^3/uL; Eosinophils% 0.5 % (0-5); Hematocrit 44.3 % (40-54); Hemoglobin 15.5 g/dL (13.0-16.5); Lymphocyte # 0.99 X10^3/ul (0.83-4.51); Lymphocyte % 5.6 % (19-41); Mean Corpuscular Hgb 32.5 pg (27.0-32.0); Mean Corpuscular Volume 92.9 fL (80-94); Mean Platelet Vol. 8.4 fl (6.2-12.0); Monocyte# 0.96 X10^3/uL; Monocyte% 5.4 % (0-10); NRBC Flagged by Analyzer 0 % (0-5); Neutrophil # 15.46 X10^3/uL (2.7-7.7); Neutrophil % 87.5 % (47-70); Platelet Count 177 K/mm3 (150-450); RBC Distribution Width CV 13.4 % (11.6-14.6); RBC Distribution Width SD 45.5 fl (35.1-43.9); Red Blood Count 4.77 M/mm3 (4.6-6.2); White Blood Count 17.7 K/mm3 (4.4-11.0)
[2023-05-04 07:18] LABS: AST(SGOT) 58 U/L (15-37); Alanine Aminotransfer ALT/SGPT 99 U/L (16-61); Albumin, Serum 2.6 g/dL (3.2-5.0); Alkaline Phosphatase 67 U/L (45-117); Anion Gap 7 (5-15); BUN 16 mg/dL (7-18); BUN/Creat Ratio 13.7 RATIO (10-20); Bilirubin, Direct 0.53 mg/dL (0.00-0.30); Calcium,Total 8.6 mg/dL (8.5-10.1); Chloride 110 mmol/L (98-107); Creatinine, Serum 1.17 mg/dL (0.70-1.30); EST Glomerular Filtration Rate 63 mL/min (>60); Est Glom Filt Rate - Afr Amer 76 mL/min (>60); Globulin 3.4 g/dL (2.2-4.2); Glucose 109 mg/dL (74-106); Lipase 53 U/L (13-75); Magnesium 2.1 mg/dL (1.6-2.6); Phosphorus 1.8 mg/dL (2.5-4.9); Sodium Level 138 mmol/L (136-145)
--- NOTE | 2023-05-04 07:47 | PCM.PN.HOSP ---
Reason for Visit Reason for Visit: Diagnoses Elevated white blood cell count, unspecified (05/02/23) Calculus of gallbladder without cholecystitis without obstruction (05/02/23) Calculus of gallbladder and bile duct with cholecystitis, unspecified, without obstruction (05/02/23) Upper abdominal pain, unspecified (05/02/23) Encounter for preprocedural cardiovascular examination (05/02/23) Subjective Subjective Patient seen appears stable at rest. HIDA scan was negative for acute cholecystitis. Case discussed with Dr. Hewitt. Plan is for patient to be assessed for possible discharge home Objective Data Objective Data Vital Signs: Vital Signs Temp Pulse Resp BP Pulse Ox O2 Del Method 97.7 F L 92 22 H 163/89 H 95 Room Air 05/04/23 04:46 05/04/23 04:48 05/04/23 04:46 05/04/23 06:52 05/04/23 04:46 05/04/23 04:46 Oxygen Delivery Method Room Air Weight: 74.6 kg Body Mass Index (BMI) 24.3 Intake & Output: Intake and Output for Last 24 Hours 05/02/23 05/03/23 05/04/23 23:59 23:59 23:59 Intake Total 1050 / 1100 2780.33 / 2880.33 1143.33 / 1143.33 Output Total 150 / 450 650 / 725 250 / 250 Balance 900 / 650 2130.33 / 2155.33 893.33 / 893.33 Lab / Micro Data 05/04/23 06:29 05/04/23 06:29 Labs: Laboratory Results - last 24 hr 05/03/23 05:20: B-Natriuretic Peptide 76.6 05/04/23 06:29: WBC 17.7 H, RBC 4.77, Hgb 15.5, Hct 44.3, MCV 92.9, MCH 32.5 H, MCHC 35.0, RDW Std Deviation 45.5 H, RDW Coeff of Yari 13.4, Plt Count 177, MPV 8.4, Immature Gran % (Auto) 0.800, Neut % (Auto) 87.5 H, Lymph % (Auto) 5.6 L, [place] % (Auto) 5.4, Eos % (Auto) 0.5, Baso % (Auto) 0.2, Absolute Neuts (auto) 15.5 H, Absolute Lymphs (auto) 0.99, Nucleated RBC % 0, Sodium 138, Potassium 3.0 L, Chloride 110 H, Carbon Dioxide 21.0, Anion Gap 7, BUN 16, Creatinine 1.17, Estim Creat Clear Calc 47.00, Est GFR (MDRD) Af Amer 76, Est GFR (MDRD) Non-Af 63, BUN/Creatinine Ratio 13.7, Glucose 109 H, Calcium 8.6, Phosphorus 1.8 L, Magnesium 2.1, Total Bilirubin 1.10 H, Direct Bilirubin 0.53 H, AST 58 H, ALT 99 H, Alkaline Phosphatase 67, Total Protein 6.0 L, Albumin 2.6 L, Globulin 3.4, Lipase 53 Radiography Diagnostic Testing: Radiology Impression Echocardiogram 05/02/23 21:38 Interpretation Summary Normal LV size. Left ventricular systolic function is normal. The estimated ejection fraction is 65 %. Stage 1 diastolic dysfunction. Contrast injection was performed. Ordering Physician: Chetan Duffy Referring Physician: Cheryl Sage [employer] Performed By: Justin Brown RCS Hepatobiliary Scan Nuclear Medicine 05/03/23 08:33 IMPRESSION: 1. Visualization of the gallbladder within 60 minutes post radiopharmaceutical administration excludes acute cholecystitis with 97% certitude. (Aj, Nucl Med Liyah Kristel Press pg. 35, 1981). 2. 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 Electronically Signed: Abelino Torres, at 12:36 EDT , Rhythm Strip Rhythm Strip: Sinus Tach Rate: 110 Ectopy: None Physical Exam Narrative GENERAL: cooperative HEENT: Atraumatic; normocephalic EYES; Anicteric, Normal Conjunctiva NECK; supple, normal thyroid, RESPIRATORY: Diminished to auscultation CARDIOVASCULAR: Regular S1 S2, GI: soft, normoactive bowel sounds, : No Renal angle tenderness; EXTREMITIES: No edema, no clubbing, MUSCULOSKELETAL: no muscle wasting NEURO: Awake; no lateralizing signs. SKIN: No Rash PSYCH; Flat affect Assessment & Plan Assessment/Plan (1) Acute upper abdominal pain: (2) Leukocytosis: QUALIFIERS: Leukocytosis type: unspecified Qualified Code(s): D72.829 - Elevated white blood cell count, unspecified (3) Cholelithiasis: QUALIFIERS: Biliary obstruction: without biliary obstruction Cholecystitis acuity: unspecified acuity Cholecystitis presence: with cholecystitis Cholelithiasis location: gallbladder and bile duct Qualified Code(s): K80.60 - Calculus of gallbladder and bile duct with cholecystitis, unspecified, without obstruction (4) Pre-operative cardiovascular examination: PLAN: Plan Patient is an 83-year-old gentleman admitted with abdominal pain nausea and vomiting of 3 days duration 1. Abdominal pain ? Gallbladder ultrasound did show Cholelithiasis with gallbladder wall thickening. There is questionable pericholecystic fluid. These findings can be seen in cholecystitis. Patient had a negative sonographic Simpson''s sign. CT of the abdomen demonstrated Questionable haziness around the head of the pancreas which may be due to mild pancreatitis or duodenitis. Patient has been admitted to the surgical service. Definitive management deferred to general surgery 2. Hypophosphatemia ? Corrected per protocol 3. Hypokalemia -corrected per protocol 4. Acute kidney injury ? Creatinine on admission was 1.57 rehydrated down to 1.09 subsequent monitoring with daily electrolytes ordered 5. DVT prophylaxis ? SCDs for now with plans to initiate low molecular weight heparin following patient surgical procedure Time spent in the patient's overall evaluation,decision-making process, review of diagnostic data, adjustment of management, discussion with other providers, nursing nursing and ancillary staff involved in patient's care documentation, 35 minutes Charges/Coding Visit Charges Inpatient E&M: 76287 Subs Hosp L2
--- NOTE | 2023-05-04 07:55 | RAD_ITS ---
STUDY: X-RAY - ABDOMEN/PELVIS REASON FOR EXAM: Male, 83 years old. Ab distention TECHNIQUE: Single AP view of the abdomen / pelvis. COMPARISON: None. FINDINGS: Normal visualized lung bases. Gaseous distention of the colon to the region of the splenic flexure. Gaseous distention of small bowel loops. Findings most likely represent an ileus pattern. There is no demonstrated free abdominal air. The visualized liver, spleen and kidneys are grossly normal in size and morphology. Normal soft tissue structures. There are diffuse degenerative changes of the visualized lumbar spine. RAD/Abdomen Single View IMPRESSION: Findings suggestive of ileus gas pattern. Electronically Signed: Gomez Beth MD at 12:19 EDT ,
[2023-05-04] MEDS: Ensure Clear 120 ML Liquid PO ×2 (08:26→22:23)
[2023-05-04] MEDS: Nystatin Powder 15gm Bottle 1 APPLIC TOPICAL ×2 (08:26→22:18)
[2023-05-04] MEDS: 0.9% Saline Lock 10 ML Syringe IV ×2 (08:27→14:12)
[2023-05-04] MEDS: Potassium Chloride Oral Tablet 20 MEQ 40 MEQ PO (09:47)
--- NOTE | 2023-05-04 11:11 | PCM.PN.SRG ---
Subjective Subjective Patient seen and examined during AM rounds. He reports feeling better today. He states that he did well with his clear liquid diet and expresses an appetite. He is hiccuping this morning, but states that he does this from time to time even at home. He also wishes to know when he will be able to go home. Objective Data Objective Data Vital Signs: Vital Signs Temp Pulse Resp BP Pulse Ox O2 Del Method 97.7 F L 108 H 18 150/74 H 97 Room Air 05/04/23 10:00 05/04/23 10:00 05/04/23 10:00 05/04/23 10:00 05/04/23 10:00 05/04/23 10:00 Oxygen Delivery Method Room Air Weight: 164 lb 7.437 oz Body Mass Index (BMI) 24.3 Intake & Output: Intake and Output for Last 24 Hours 05/02/23 05/03/23 05/04/23 23:59 23:59 23:59 Intake Total 1050 / 1100 2780.33 / 2880.33 1303.33 / 1303.33 Output Total 150 / 450 650 / 725 250 / 250 Balance 900 / 650 2130.33 / 2155.33 1053.33 / 1053.33 Lab / Micro Data 05/04/23 06:29 05/04/23 06:29 Labs: Laboratory Results - last 24 hr 05/04/23 06:29: WBC 17.7 H, RBC 4.77, Hgb 15.5, Hct 44.3, MCV 92.9, MCH 32.5 H, MCHC 35.0, RDW Std Deviation 45.5 H, RDW Coeff of Yari 13.4, Plt Count 177, MPV 8.4, Immature Gran % (Auto) 0.800, Neut % (Auto) 87.5 H, Lymph % (Auto) 5.6 L, [place] % (Auto) 5.4, Eos % (Auto) 0.5, Baso % (Auto) 0.2, Absolute Neuts (auto) 15.5 H, Absolute Lymphs (auto) 0.99, Nucleated RBC % 0, Sodium 138, Potassium 3.0 L, Chloride 110 H, Carbon Dioxide 21.0, Anion Gap 7, BUN 16, Creatinine 1.17, Estim Creat Clear Calc 47.00, Est GFR (MDRD) Af Amer 76, Est GFR (MDRD) Non-Af 63, BUN/Creatinine Ratio 13.7, Glucose 109 H, Calcium 8.6, Phosphorus 1.8 L, Magnesium 2.1, Total Bilirubin 1.10 H, Direct Bilirubin 0.53 H, AST 58 H, ALT 99 H, Alkaline Phosphatase 67, Total Protein 6.0 L, Albumin 2.6 L, Globulin 3.4, Lipase 53 Radiography Diagnostic Testing: Radiology Impression Hepatobiliary Scan Nuclear Medicine 05/03/23 08:33 IMPRESSION: 1. Visualization of the gallbladder within 60 minutes post radiopharmaceutical administration excludes acute cholecystitis with 97% certitude. (Dimitrios et al, Nucl Med Liyah Kristel Press pg. 35, 1980). 2. 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 Electronically Signed: Abelino Torres, at 12:36 EDT , Rhythm Strip Rhythm Strip: Sinus Tach Rate: 110 Ectopy: None Physical Exam Const no apparent distress Resp normal respiratory effort GI GI Narrative: Mildly distended and hiccuping. Soft and nontender to palpation x4 quadrants. Assessment & Plan Assessment/Plan (1) Leukocytosis: QUALIFIERS: Leukocytosis type: unspecified Qualified Code(s): D72.829 - Elevated white blood cell count, unspecified PLAN: Improved now hospital day 2 (17 from ) (2) Cholelithiasis: QUALIFIERS: Cholelithiasis location: gallbladder and bile duct Cholecystitis presence: with cholecystitis Cholecystitis acuity: unspecified acuity Biliary obstruction: without biliary obstruction Qualified Code(s): K80.60 - Calculus of gallbladder and bile duct with cholecystitis, unspecified, without obstruction PLAN: HIDA normal yesterday for gallbladder, but shows delayed parenchymal transit 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 Prior work-up shows cholelithiasis with gallbladder wall thickening on sonogram, yet this was read as unremarkable from patient's CT imaging of the abdomen. Patient's exam was largely unremarkable so HIDA imaging was pursued 05/03/2023 and radiology noted uptake by the gallbladder at 12 minutes?thereby rendering acute cholecystitis and probable. 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 Patient states that he feels better today, however is hiccuping and exhibits abdominal distention. KUB was performed given this finding and he demonstrates an ileus pattern with this x-ray. Neuro: As needed Dilaudid Pulm/CV: I-S, as needed antihypertensives given evidence of hypertension with vitals, echo performed yesterday with only mild dysfunction FEN/GI: Trend electrolytes and creatinine, patient requires repletion of potassium and phosphorus for the second day in a row, continue sips of clear liquid diet and await the results of Gastrografin enema study since there is poor visualization of the descending colon beginning at the level of the splenic flexure : No current issues Heme/ID: Trend CBC, provide empiric Zosyn therapy Endo: No current issues Proph: SCDs Dispo: Continue inpatient stay Charges/Coding Visit Charges Inpatient E&M: 05995 Subs Hosp L2
[2023-05-04] MEDS: Na Biphos/Potassium Phosphate PACKET 1 PACKET PO (13:56)
[2023-05-04] MEDS: HYDROmorphone 0.5 MG/0.5 ML SYRINGE IV (14:12)
--- NOTE | 2023-05-04 14:15 | RAD_ITS ---
INDICATION: eval distal large bowel -- GASTROGRAFIN EXAMINATION/TECHNIQUE: Single contrast Gastrograffin enema was performed. Total Fluoroscopic Time: 78 seconds AND number of Fluoroscopic Images: 8 OR Radiation dosage index: 34.58 mGy COMPARISON: FINDINGS: Single contrast study precludes mucosal detail. No obstructive lesions are identified. No strictures are identified. RAD/Barium Enema No Air Cont IMPRESSION: Negative single contrast enema. Electronically Signed: Gomez Beth MD at 15:01 EDT ,
--- NOTE | 2023-05-04 14:44 | CASEMGMT ---
Per hospitalist, pt is in need of PCP list. RN CM into pt room, pt is off of the floor at this time.
[2023-05-04] MEDS: Potassium Chloride Oral Tablet 20 MEQ PO (16:42)
[2023-05-05] VITALS (10 sets, daily range): BP systolic 148–178; BP diastolic 80–92; PULSE 73–106; RESP 18–22; TEMP 36.5–36.8; O2SAT 94–97
[2023-05-05] MEDS: 0.9% Normal Saline 1,000 ML 100 ML IV ×3 (01:16→20:22)
[2023-05-05] MEDS: Albuterol 2.5 MG/3 ML VIAL.NEB. INHALATION ×2 (01:25→07:46)
--- NOTE | 2023-05-05 05:55 | RAD_ITS ---
INDICATION: Dyspnea EXAMINATION/TECHNIQUE: X-RAY - XR Chest 1 View COMPARISON: May 02, 2023. FINDINGS: LINES/DEVICES: None. LUNGS: Symmetric low lung volumes, decreased from prior exam. Increased scattered subsegmental atelectasis in the left retrocardiac and right retrodiaphragmatic lower lung. Unchanged linear atelectasis scarring in the the lateral right lower lung. No florid edema or effusion. No pneumothorax. MEDIASTINUM AND CARDIOVASCULAR STRUCTURES: Cardiac silhouette not enlarged. BONES AND SOFT TISSUES: Unremarkable. RAD/Chest 1 View (Portable) IMPRESSION: Decreased lung volumes with increased atelectasis in the bilateral lung bases. Radiographic follow-up recommended to exclude developing pneumonia. Electronically Signed: Bala Gresham MD at 6:03 EDT ,
[2023-05-05] MEDS: Na Biphos/Potassium Phosphate PACKET 1 PACKET PO ×3 (06:09→22:15)
[2023-05-05 06:14] LABS: Absolute Neutrophil Count 12.6 X10^3/uL (2.0-7.7); Basophil# 0.02 X10^3/uL; Basophil% 0.1 % (0-1); Eosinophil# 0.31 X10^3/uL; Eosinophils% 2.1 % (0-5); Hematocrit 42.9 % (40-54); Hemoglobin 14.4 g/dL (13.0-16.5); Lymphocyte % 5.4 % (19-41); Mean Corp Hgb Conc 33.6 g/dL (32-36); Mean Corpuscular Hgb 31.4 pg (27.0-32.0); Mean Corpuscular Volume 93.7 fL (80-94); Mean Platelet Vol. 8.7 fl (6.2-12.0); Monocyte# 1.01 X10^3/uL; Monocyte% 6.8 % (0-10); NRBC Flagged by Analyzer 0 % (0-5); Neutrophil # 12.56 X10^3/uL (2.7-7.7); Neutrophil % 84.9 % (47-70); Platelet Count 177 K/mm3 (150-450); RBC Distribution Width CV 13.5 % (11.6-14.6); RBC Distribution Width SD 46.7 fl (35.1-43.9); Red Blood Count 4.58 M/mm3 (4.6-6.2); White Blood Count 14.8 K/mm3 (4.4-11.0)
[2023-05-05] MEDS: hydrALAZINE 20 MG/ML Vial 10 MG IV ×3 (06:17→18:16)
[2023-05-05 07:27] LABS: Anion Gap 6 (5-15); BUN 15 mg/dL (7-18); Calcium,Total 8.4 mg/dL (8.5-10.1); Chloride 113 mmol/L (98-107); Creatinine, Serum 1.15 mg/dL (0.70-1.30); EST Glomerular Filtration Rate 64 mL/min (>60); Est Glom Filt Rate - Afr Amer 78 mL/min (>60); Estimated Creatinine Clearance 47.82 ml/min; Glucose 94 mg/dL (74-106); Potassium 3.1 mmol/L (3.5-5.1); Sodium Level 141 mmol/L (136-145)
[2023-05-05] MEDS: Budesonide Respules 0.5 MG/2 ML AMPUL.NEB. INHALATION ×2 (07:46→19:40)
--- NOTE | 2023-05-05 08:02 | PN.HOSP_ITS ---
Reason for Visit Reason for Visit: Diagnoses Elevated white blood cell count, unspecified (05/02/23) Calculus of gallbladder without cholecystitis without obstruction (05/02/23) Calculus of gallbladder and bile duct with cholecystitis, unspecified, without obstruction (05/02/23) Upper abdominal pain, unspecified (05/02/23) Encounter for preprocedural cardiovascular examination (05/02/23) Subjective Subjective Patient WBC count trending down chest x-ray obtained this morning due to decreased volume as well as concern for atelectasis versus developing pneumonia. KUB obtained the day prior demonstrated ileus gas pattern. Objective Data Objective Data Vital Signs: Vital Signs Temp Pulse Resp BP Pulse Ox O2 Del Method 98.1 F 96 22 H 169/90 H 94 Room Air 05/05/23 01:55 05/05/23 06:17 05/05/23 01:55 05/05/23 06:12 05/05/23 01:55 05/05/23 01:55 Oxygen Delivery Method Room Air Weight: 74.6 kg Body Mass Index (BMI) 24.3 Intake & Output: Intake and Output for Last 24 Hours 05/03/23 05/04/23 05/05/23 23:59 23:59 23:59 Intake Total 2780.33 / 2880.33 2428.58 / 2578.58 1355 / 1355 Output Total 650 / 725 250 / 250 Balance 2130.33 / 2155.33 2178.58 / 2328.58 1355 / 1355 Lab / Micro Data 05/05/23 05:46 05/05/23 05:46 Labs: Laboratory Results - last 24 hr 05/05/23 05:46: WBC 14.8 H, RBC 4.58 L, Hgb 14.4, Hct 42.9, MCV 93.7, MCH 31.4, MCHC 33.6, RDW Std Deviation 46.7 H, RDW Coeff of Yari 13.5, Plt Count 177, MPV 8.7, Immature Gran % (Auto) 0.700, Neut % (Auto) 84.9 H, Lymph % (Auto) 5.4 L, [place] % (Auto) 6.8, Eos % (Auto) 2.1, Baso % (Auto) 0.1, Absolute Neuts (auto) 12.6 H, Absolute Lymphs (auto) 0.80 L, Nucleated RBC % 0, Sodium 141, Potassium 3.1 L, Chloride 113 H, Carbon Dioxide 22.0, Anion Gap 6, BUN 15, Creatinine 1.15, Estim Creat Clear Calc 47.82, Est GFR (MDRD) Af Amer 78, Est GFR (MDRD) Non-Af 64, BUN/Creatinine Ratio 13.0, Glucose 94, Calcium 8.4 L Radiography Diagnostic Testing: Radiology Impression KUB X-Ray 05/04/23 07:55 IMPRESSION: Findings suggestive of ileus gas pattern. Electronically Signed: Gomez Beth MD at 12:19 EDT , Barium Enema 05/04/23 14:15 IMPRESSION: Negative single contrast enema. Electronically Signed: Gomez Beth MD at 15:01 EDT , Chest X-Ray 05/05/23 05:55 IMPRESSION: Decreased lung volumes with increased atelectasis in the bilateral lung bases. Radiographic follow-up recommended to exclude developing pneumonia. Electronically Signed: Bala Gresham MD at 6:03 EDT , Rhythm Strip Rhythm Strip: Sinus Tach Rate: 110 Ectopy: None Physical Exam Narrative GENERAL: cooperative HEENT: Atraumatic; normocephalic EYES; Anicteric, Normal Conjunctiva NECK; supple, normal thyroid, RESPIRATORY: Diminished to auscultation CARDIOVASCULAR: Regular S1 S2, GI: Abdomen is distended and tympanitic to percussion : No Renal angle tenderness; EXTREMITIES: No edema, no clubbing, MUSCULOSKELETAL: no muscle wasting NEURO: Awake; no lateralizing signs. SKIN: No Rash PSYCH; Flat affect Assessment & Plan Assessment/Plan (1) Acute upper abdominal pain: (2) Leukocytosis: QUALIFIERS: Leukocytosis type: unspecified Qualified Code(s): D72.829 - Elevated white blood cell count, unspecified (3) Cholelithiasis: QUALIFIERS: Biliary obstruction: without biliary obstruction [place] lecystitis acuity: unspecified acuity Cholecystitis presence: with cholecystitis Cholelithiasis location: gallbladder and bile duct Qualified Code(s): K80.60 - Calculus of gallbladder and bile duct with cholecystitis, unspecified, without obstruction (4) Pre-operative cardiovascular examination: PLAN: Plan Patient is an 83-year-old gentleman admitted with abdominal pain nausea and vomiting of 3 days duration 1. Abdominal pain ? Gallbladder ultrasound did show Cholelithiasis with gallbladder wall thickening. There is questionable pericholecystic fluid. These findings can be seen in cholecystitis. Patient had a negative sonographic Simpson''s sign. CT of the abdomen demonstrated Questionable haziness around the head of the pancreas which may be due to mild pancreatitis or duodenitis. Patient has been admitted to the surgical service. Definitive management deferred to general surgery ? 05/05/2023; Patient WBC count trending down chest x-ray obtained this morning due to decreased volume as well as concern for atelectasis versus developing pneumonia. KUB obtained the day prior demonstrated ileus gas pattern. 2. Hypophosphatemia ? Corrected per protocol 3. Hypokalemia -corrected per protocol 4. Acute kidney injury ? Creatinine on admission was 1.57 rehydrated down to 1.09 subsequent monitoring with daily electrolytes ordered 5. DVT prophylaxis ? SCDs for now with plans to initiate low molecular weight heparin following patient surgical procedure Time spent in the patient's overall evaluation,decision-making process, review of diagnostic data, adjustment of management, discussion with other providers, nursing nursing and ancillary staff involved in patient's care documentation, 50 minutes Charges/Coding Visit Charges Inpatient E&M: 78747 [facility] Hosp L3
--- NOTE | 2023-05-05 08:29 | PCM.PN.SRG ---
Subjective Subjective Patient seen and examined during AM rounds. He reports diarrhea overnight, but states that he has not passed gas this morning. He also denies an appetite. He states that he was short of breath overnight, but this is better after coughing up some mucus. Chest x-ray was obtained yesterday and shows concern for possible developing pneumonia. Objective Data Objective Data Vital Signs: Vital Signs Temp Pulse Resp BP Pulse Ox O2 Del Method 98.1 F 96 22 H 169/90 H 94 Room Air 05/05/23 01:55 05/05/23 06:17 05/05/23 01:55 05/05/23 06:12 05/05/23 01:55 05/05/23 01:55 Oxygen Delivery Method Room Air Weight: 164 lb 7.437 oz Body Mass Index (BMI) 24.3 Intake & Output: Intake and Output for Last 24 Hours 05/03/23 05/04/23 05/05/23 23:59 23:59 23:59 Intake Total 2780.33 / 2880.33 2428.58 / 2578.58 1355 / 1355 Output Total 650 / 725 250 / 250 Balance 2130.33 / 2155.33 2178.58 / 2328.58 1355 / 1355 Lab / Micro Data 05/05/23 05:46 05/05/23 05:46 Labs: Laboratory Results - last 24 hr 05/05/23 05:46: WBC 14.8 H, RBC 4.58 L, Hgb 14.4, Hct 42.9, MCV 93.7, MCH 31.4, MCHC 33.6, RDW Std Deviation 46.7 H, RDW Coeff of Yari 13.5, Plt Count 177, MPV 8.7, Immature Gran % (Auto) 0.700, Neut % (Auto) 84.9 H, Lymph % (Auto) 5.4 L, [place] % (Auto) 6.8, Eos % (Auto) 2.1, Baso % (Auto) 0.1, Absolute Neuts (auto) 12.6 H, Absolute Lymphs (auto) 0.80 L, Nucleated RBC % 0, Sodium 141, Potassium 3.1 L, Chloride 113 H, Carbon Dioxide 22.0, Anion Gap 6, BUN 15, Creatinine 1.15, Estim Creat Clear Calc 47.82, Est GFR (MDRD) Af Amer 78, Est GFR (MDRD) Non-Af 64, BUN/Creatinine Ratio 13.0, Glucose 94, Calcium 8.4 L Radiography Diagnostic Testing: Radiology Impression KUB X-Ray 05/04/23 07:55 IMPRESSION: Findings suggestive of ileus gas pattern. Electronically Signed: Gomez Beth MD at 12:19 EDT , Barium Enema 05/04/23 14:15 IMPRESSION: Negative single contrast enema. Electronically Signed: Gomez Beth MD at 15:01 EDT , Chest X-Ray 05/05/23 05:55 IMPRESSION: Decreased lung volumes with increased atelectasis in the bilateral lung bases. Radiographic follow-up recommended to exclude developing pneumonia. Electronically Signed: Bala Gresham MD at 6:03 EDT , Rhythm Strip Rhythm Strip: Sinus Tach Rate: 110 Ectopy: None Physical Exam Const no apparent distress Constitutional Narrative: Oriented Resp Resp Narrative: Slightly shallow inspirations GI GI Narrative: Increased abdominal distention, nontender with palpation Assessment & Plan Assessment/Plan (1) Ileus: PLAN: Patient with hiccuping abdominal distention yesterday. KUB demonstrated diffuse distention of the small and large bowel through the splenic flexure. The distal segment to the splenic flexure was further evaluated with dedicated Gastrografin enema did not show any signs of mechanical obstruction. Suspect this is all secondary to patient's underlying infectious/inflammatory process yet to be identified. (2) Leukocytosis: QUALIFIERS: Leukocytosis type: unspecified Qualified Code(s): D72.829 - Elevated white blood cell count, unspecified PLAN: Further improved now hospital day 3 (14 from 17) (3) Cholelithiasis: QUALIFIERS: Cholelithiasis location: gallbladder and bile duct Cholecystitis presence: with cholecystitis Cholecystitis acuity: unspecified acuity Biliary obstruction: without biliary obstruction Qualified Code(s): K80.60 - Calculus of gallbladder and bile duct with cholecystitis, unspecified, without obstruction PLAN: HIDA normal for gallbladder visualization, but shows delayed parenchymal transit 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 Prior work-up shows cholelithiasis with gallbladder wall thickening on sonogram, yet this was read as unremarkable from patient's CT imaging of the abdomen. Patient's exam was largely unremarkable so HIDA imaging was pursued 05/03/2023 and radiology noted uptake by the gallbladder at 12 minutes?thereby rendering acute cholecystitis and probable. 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 Once again patient states that he feels better today, however he denies an appetite and has persistent abdominal distention. I would like to repeat his KUB to be sure that he is not developing any evidence of Racheal syndrome. If not, would consider potentially trying to stimulate bowel function from below with a suppository. We will continue to work to correct his electrolytes as this can play a role in this process. Neuro: As needed Dilaudid Pulm/CV: I-S, as needed antihypertensives given evidence of hypertension, echo performed FEN/GI: Trend electrolytes and creatinine, patient requires repletion of potassium once again, but is hyperchloremic. With ongoing abdominal distention, continue sips of clear liquid diet, Gastrografin enema study did not demonstrate any signs of distal obstruction : No current issues Heme/ID: Trend CBC, provide empiric Zosyn therapy Endo: No current issues Proph: SCDs Dispo: Continue inpatient stay Charges/Coding Visit Charges Inpatient E&M: 27558 Subs Hosp L2
[2023-05-05] MEDS: Potassium Chloride 10mEq/100mL 10 MEQ/100 ML IV.SOLN. 100 MEQ IV BOLUS ×4 (08:48→13:01)
[2023-05-05] MEDS: Potassium Chloride Oral Tablet 20 MEQ PO ×2 (08:48→16:49)
--- NOTE | 2023-05-05 09:07 | RAD_ITS ---
INDICATION: Abdominal distention EXAMINATION/TECHNIQUE: X-RAY - XR Abdomen 1 View COMPARISON: May 04 FINDINGS: BOWEL GAS PATTERN: There are moderately dilated loops of gas-filled small and large bowel throughout the abdomen appearing similar to the prior study. FREE AIR: Not assessed on a single supine view. ORGANOMEGALY: Not seen. CALCIFICATIONS: No abnormal calcifications observed. LOWER CHEST: No acute pathology. BONES AND SOFT TISSUES: No acute pathology. RAD/Abdomen Single View (Portable) IMPRESSION: Diffusely dilated loops of gas-filled bowel described may be consistent with ileus as previously noted. Correlate with recent studies. Electronically Signed: Yosef Bustamante, at 9:29 EDT ,
[2023-05-05] MEDS: Nystatin Powder 15gm Bottle 1 APPLIC TOPICAL ×2 (10:41→22:17)
[2023-05-05] MEDS: Ensure Clear 120 ML Liquid PO ×3 (10:41→17:26)
--- NOTE | 2023-05-05 14:16 | CASEMGMT ---
Addendum entered by Gege Trevino 05/05/23 15:50: Pt son and pt gave permission for SIGRID OSORIO to schedule appt with Cheryl Sage NP. TC to office, she is now not accepting new patients. Pt and family agreeable to anyone in the office. Appt set up with Digna AGUIRRE on 05/13/2023 at 10am. Placed on dc instructions and notified pt son. Pt will be receiving paperwork in the mail that will need completed and brought to appt along with insurance cards and ID. Pt son aware. Addendum entered by Gege Trevino 05/05/23 14:36: Received tc from Radha at [facility], she states Cheryl Sage's office will not follow for HHC as pt has not been seen in 5 years. HHC unable to see pt. RN JO into pt room, pt family still present. Pt is aware that HHC cannot come out. Pt son states he will schedule appt to follow upon dc. Instructed to take HH list and ask for referral for therapy. He verbalizes understanding and pt is agreeable to this as well. Original Note: SIGRID OSORIO into pt room, pt son and grandson present. Pt does see Cheryl Sage NP and will see her post hospitalization. Discussed [facility], pt is agreeable to therapy but declines a nurse. Patient was provided a list of [facility] providers including quality and resource use data and consistent with the patient?s preferred geographic region, medical needs, and insurance network were provided from the [employer] Guide. Pt asks for his grandson to choose an agency. He chose [facility]. TC to Radha at [facility], referral made, will await decision for acceptance.
[2023-05-05] MEDS: Bisacodyl 10 MG Suppository RC (16:49)
[2023-05-06] VITALS (8 sets, daily range): BP systolic 143–156; BP diastolic 72–78; PULSE 81–88; RESP 18–20; TEMP 36.6–37.1; O2SAT 94–96
[2023-05-06] MEDS: Na Biphos/Potassium Phosphate PACKET 1 PACKET PO ×3 (05:32→21:20)
[2023-05-06] MEDS: 0.9% Normal Saline 1,000 ML 100 ML IV ×2 (05:52→18:19)
[2023-05-06 06:00] LABS: Absolute Neutrophil Count 9.7 X10^3/uL (2.0-7.7); Basophil# 0.03 X10^3/uL; Basophil% 0.2 % (0-1); Eosinophil# 0.49 X10^3/uL; Hematocrit 39.4 % (40-54); Hemoglobin 13.2 g/dL (13.0-16.5); Lymphocyte % 7.4 % (19-41); Mean Corp Hgb Conc 33.5 g/dL (32-36); Mean Corpuscular Hgb 31.6 pg (27.0-32.0); Mean Corpuscular Volume 94.3 fL (80-94); Mean Platelet Vol. 8.6 fl (6.2-12.0); Monocyte# 0.93 X10^3/uL; Monocyte% 7.7 % (0-10); NRBC Flagged by Analyzer 0 % (0-5); Neutrophil # 9.66 X10^3/uL (2.7-7.7); Neutrophil % 79.9 % (47-70); Platelet Count 171 K/mm3 (150-450); RBC Distribution Width CV 13.3 % (11.6-14.6); RBC Distribution Width SD 45.7 fl (35.1-43.9); Red Blood Count 4.18 M/mm3 (4.6-6.2); White Blood Count 12.1 K/mm3 (4.4-11.0)
[2023-05-06 06:30] LABS: Phosphorus 2.1 mg/dL (2.5-4.9)
[2023-05-06 06:35] LABS: Anion Gap 4 (5-15); BUN 13 mg/dL (7-18); BUN/Creat Ratio 11.8 RATIO (10-20); Calcium,Total 8.2 mg/dL (8.5-10.1); Chloride 114 mmol/L (98-107); EST Glomerular Filtration Rate 68 mL/min (>60); Est Glom Filt Rate - Afr Amer 82 mL/min (>60); Estimated Creatinine Clearance 49.99 ml/min; Glucose 85 mg/dL (74-106); Magnesium 2.2 mg/dL (1.6-2.6); Potassium 3.4 mmol/L (3.5-5.1); Sodium Level 138 mmol/L (136-145)
[2023-05-06] MEDS: Budesonide Respules 0.5 MG/2 ML AMPUL.NEB. INHALATION ×2 (06:46→19:35)
--- NOTE | 2023-05-06 07:14 | PCM.PN.HOSP ---
Reason for Visit Reason for Visit: Diagnoses Elevated white blood cell count, unspecified (05/02/23) Ileus, unspecified (05/02/23) Calculus of gallbladder without cholecystitis without obstruction (05/02/23) Calculus of gallbladder and bile duct with cholecystitis, unspecified, without obstruction (05/02/23) Upper abdominal pain, unspecified (05/02/23) Encounter for preprocedural cardiovascular examination (05/02/23) Subjective Subjective Diagnostic data reviewed significant for potassium of 3.4 correction initiated. Imaging studies obtained the day prior did show evidence of persistent ileus. Objective Data Objective Data Vital Signs: Vital Signs Temp Pulse Resp BP Pulse Ox O2 Del Method 97.8 F 81 18 156/75 H 95 Room Air 05/06/23 05:45 05/06/23 06:48 05/06/23 06:48 05/06/23 05:45 05/06/23 05:45 05/06/23 06:00 Oxygen Delivery Method Room Air Weight: 74.6 kg Body Mass Index (BMI) 24.3 Intake & Output: Intake and Output for Last 24 Hours 05/04/23 05/05/23 05/06/23 23:59 23:59 23:59 Intake Total 2428.58 / 2578.58 3748.33 / 3748.33 1000 / 1000 Output Total 250 / 250 Balance 2178.58 / 2328.58 3748.33 / 3748.33 1000 / 1000 Lab / Micro Data 05/06/23 05:35 05/06/23 05:35 Labs: Laboratory Results - last 24 hr 05/05/23 05:46: Sodium 141, Potassium 3.1 L, Chloride 113 H, Carbon Dioxide 22.0, Anion Gap 6, BUN 15, Creatinine 1.15, Estim Creat Clear Calc 47.82, Est GFR (MDRD) Af Amer 78, Est GFR (MDRD) Non-Af 64, BUN/Creatinine Ratio 13.0, Glucose 94, Calcium 8.4 L 05/06/23 05:35: WBC 12.1 H, RBC 4.18 L, Hgb 13.2, Hct 39.4 L, MCV 94.3 H, MCH 31.6, MCHC 33.5, RDW Std Deviation 45.7 H, RDW Coeff of Yari 13.3, Plt Count 171, MPV 8.6, Immature Gran % (Auto) 0.800, Neut % (Auto) 79.9 H, Lymph % (Auto) 7.4 L, [place] % (Auto) 7.7, Eos % (Auto) 4.0, Baso % (Auto) 0.2, Absolute Neuts (auto) 9.7 H, Absolute Lymphs (auto) 0.90, Nucleated RBC % 0, Sodium 138, Potassium 3.4 L, Chloride 114 H, Carbon Dioxide 20.0 L, Anion Gap 4 L, BUN 13, Creatinine 1.10, Estim Creat Clear Calc 49.99, Est GFR (MDRD) Af Amer 82, Est GFR (MDRD) Non-Af 68, BUN/Creatinine Ratio 11.8, Glucose 85, Calcium 8.2 L, Phosphorus 2.1 L, Magnesium 2.2 Radiography Diagnostic Testing: Radiology Impression Chest X-Ray 05/05/23 05:55 IMPRESSION: Decreased lung volumes with increased atelectasis in the bilateral lung bases. Radiographic follow-up recommended to exclude developing pneumonia. Electronically Signed: Bala Gresham MD at 6:03 EDT , KUB X-Ray 05/05/23 09:07 IMPRESSION: Diffusely dilated loops of gas-filled bowel described may be consistent with ileus as previously noted. Correlate with recent studies. Electronically Signed: Yosef Bustamante at 9:29 EDT , Rhythm Strip Rhythm Strip: Sinus Tach Rate: 110 Ectopy: None Physical Exam Narrative GENERAL: cooperative HEENT: Atraumatic; normocephalic EYES; Anicteric, Normal Conjunctiva NECK; supple, normal thyroid, RESPIRATORY: Diminished to auscultation CARDIOVASCULAR: Regular S1 S2, GI: Abdomen is distended and tympanitic to percussion : No Renal angle tenderness; EXTREMITIES: No edema, no clubbing, MUSCULOSKELETAL: no muscle wasting NEURO: Awake; no lateralizing signs. SKIN: No Rash PSYCH; Flat affect Assessment & Plan Assessment/Plan (1) Acute upper abdominal pain: (2) Leukocytosis: QUALIFIERS: Leukocytosis type: unspecified Qualified Code(s): D72.829 - Elevated white blood cell count, unspecified (3) Cholelithiasis: QUALIFIERS: Biliary obstruction: without biliary obstruction Cholecystitis acuity: unspecified acuity Cholecystitis presence: with cholecystitis Cholelithiasis location: gallbladder and bile duct Qualified Code(s): K80.60 - Calculus of gallbladder and bile duct with cholecystitis, unspecified, without obstruction (4) Pre-operative cardiovascular examination: PLAN: Plan Patient is an 83-year-old gentleman admitted with abdominal pain nausea and vomiting of 3 days duration 1. Abdominal pain ? Gallbladder ultrasound did show Cholelithiasis with gallbladder wall thickening. There is questionable pericholecystic fluid. These findings can be seen in cholecystitis. Patient had a negative sonographic Simpson''s sign. CT of the abdomen demonstrated Questionable haziness around the head of the pancreas which may be due to mild pancreatitis or duodenitis. Patient has been admitted to the surgical service. Definitive management deferred to general surgery ? 05/05/2023; Patient WBC count trending down chest x-ray obtained this morning due to decreased volume as well as concern for atelectasis versus developing pneumonia. KUB obtained the day prior demonstrated ileus gas pattern. ?05/06/2023; patient's ileus persists 2. Hypophosphatemia ? Corrected per protocol 3. Hypokalemia -corrected per protocol 4. Acute kidney injury ? Creatinine on admission was 1.57 rehydrated down to 1.09 subsequent monitoring with daily electrolytes ordered 05/06/2023; GENOVEVA resolved 5. DVT prophylaxis ? SCDs for now with plans to initiate low molecular weight heparin following patient surgical procedure Time spent in the patient's overall evaluation,decision-making process, review of diagnostic data, adjustment of management, discussion with other providers, nursing nursing and ancillary staff involved in patient's care documentation, 35 minutes Charges/Coding Visit Charges Inpatient E&M: 41789 Subs Hosp L2
[2023-05-06] MEDS: Potassium Chloride Oral Tablet 20 MEQ PO ×2 (08:06→18:18)
[2023-05-06] MEDS: Potassium Chloride 10mEq/100mL 10 MEQ/100 ML IV.SOLN. 100 MEQ IV BOLUS ×4 (08:30→12:02)
[2023-05-06] MEDS: Nystatin Powder 15gm Bottle 1 APPLIC TOPICAL ×2 (09:45→21:13)
[2023-05-06] MEDS: Ensure Clear 120 ML Liquid PO ×3 (09:45→18:18)
--- NOTE | 2023-05-06 10:30 | RAD_ITS ---
STUDY: X-RAY - ABDOMEN/PELVIS REASON FOR EXAM: Male, 83 years old. F/u ileus TECHNIQUE: Single AP view of the abdomen / pelvis. COMPARISON: Comparison is made with prior study dated May 05, 2023. FINDINGS: Normal visualized lung bases. Residual dilatation of the colon. Less small bowel dilatation. The visualized liver, spleen and kidneys are grossly normal in size and morphology. Normal soft tissue structures. Normal visualized osseous structures. RAD/Abdomen Single View (Portable) IMPRESSION: Improvement in the ileus pattern. Electronically Signed: Gomez Beth MD at 13:53 EDT ,
--- NOTE | 2023-05-06 11:44 | PN.SURG_ITS ---
Subjective Subjective Patient seen and examined during AM rounds. He is found resting in bed but states that he had a restless night due to interruptions. He confirms that he had a number of bowel movements and has been passing gas. He states that his experience of hiccups and burping has been lessened. He still denies an appetite. Objective Data Objective Data Vital Signs: Vital Signs Temp Pulse Resp BP Pulse Ox O2 Del Method 97.8 F 88 18 143/72 H 94 Room Air 05/06/23 08:08 05/06/23 08:08 05/06/23 08:08 05/06/23 08:08 05/06/23 08:37 05/06/23 09:17 Oxygen Delivery Method Room Air Weight: 164 lb 7.437 oz Body Mass Index (BMI) 24.3 Intake & Output: Intake and Output for Last 24 Hours 05/04/23 05/05/23 05/06/23 23:59 23:59 23:59 Intake Total 2428.58 / 2578.58 3748.33 / 3748.33 1623.33 / 1623.33 Output Total 250 / 250 Balance 2178.58 / 2328.58 3748.33 / 3748.33 1623.33 / 1623.33 Lab / Micro Data 05/06/23 05:35 05/06/23 05:35 Labs: Laboratory Results - last 24 hr 05/06/23 05:35: WBC 12.1 H, RBC 4.18 L, Hgb 13.2, Hct 39.4 L, MCV 94.3 H, MCH 31.6, MCHC 33.5, RDW Std Deviation 45.7 H, RDW Coeff of Yari 13.3, Plt Count 171, MPV 8.6, Immature Gran % (Auto) 0.800, Neut % (Auto) 79.9 H, Lymph % (Auto) 7.4 L, [place] % (Auto) 7.7, Eos % (Auto) 4.0, Baso % (Auto) 0.2, Absolute Neuts (auto) 9.7 H, Absolute Lymphs (auto) 0.90, Nucleated RBC % 0, Sodium 138, Potassium 3.4 L, Chloride 114 H, Carbon Dioxide 20.0 L, Anion Gap 4 L, BUN 13, Creatinine 1.10, Estim Creat Clear Calc 49.99, Est GFR (MDRD) Af Amer 82, Est GFR (MDRD) Non-Af 68, BUN/Creatinine Ratio 11.8, Glucose 85, Calcium 8.2 L, Phosphorus 2.1 L, Magnesium 2.2 Rhythm Strip Rhythm Strip: Sinus Tach Rate: 110 Ectopy: None Physical Exam Const oriented x3 and no apparent distress Resp Resp Narrative: Slightly tachypneic GI GI Narrative: Decreased abdominal distention, but remains mildly tympanic, nontender to palpation x4 quadrants Assessment & Plan Assessment/Plan (1) Ileus: PLAN: Patient with hiccuping abdominal distention both improved. We will plan to repeat KUB which has shown evidence of ileus. If there are improvements we will plan to advance patient's diet as his last known substantial intake was 04/30/2023. (2) Leukocytosis: QUALIFIERS: Leukocytosis type: unspecified Qualified Code(s): D72.829 - Elevated white blood cell count, unspecified PLAN: Further improved now hospital day 4 (12 from 14) (3) Cholelithiasis: QUALIFIERS: Cholelithiasis location: gallbladder and bile duct Cholecystitis presence: with cholecystitis Cholecystitis acuity: unspecified acuity Biliary obstruction: without biliary obstruction Qualified Code(s): K80.60 - Calculus of gallbladder and bile duct with cholecystitis, unspecified, without obstruction PLAN: HIDA normal for gallbladder visualization, but shows delayed parenchymal transit 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 Prior work-up shows cholelithiasis with gallbladder wall thickening on sonogram, yet this was read as unremarkable from patient's CT imaging of the abdomen. P atient's exam was largely unremarkable so HIDA imaging was pursued 05/03/2023 and radiology noted uptake by the gallbladder at 12 minutes?thereby rendering acute cholecystitis and probable. 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 Once again patient states that he feels better today, however he denies an appetite and has persistent abdominal distention. This distention is mildly improved, but I would like to repeat a KUB to continue to objectively follow this issue. If it is improved I will look to advance his diet. We may need to repeat a suppository again today which did result in some diarrhea yesterday. Overall, Mr. Noriega's electrolytes are much improved over where they have been previously. Neuro: As needed Dilaudid Pulm/CV: I-S, as needed antihypertensives given evidence of hypertension, echo performed FEN/GI: Trend electrolytes and creatinine, patient requires repletion of potassium and phosphorus once again. Repeat KUB seems to show some modest improvement in small bowel loops, will advance patient's diet to full liquids to try to improve his nutrition, Gastrografin enema study did not demonstrate any signs of distal obstruction : No current issues Heme/ID: Trend CBC, provide empiric Zosyn therapy Endo: No current issues Proph: SCDs Dispo: Continue inpatient stay Charges/Coding Visit Charges Inpatient E&M: 92881 Subs Hosp L2
[2023-05-06] MEDS: Bisacodyl 10 MG Suppository RC (11:56)
[2023-05-07] VITALS (9 sets, daily range): BP systolic 151–176; BP diastolic 75–87; PULSE 71–86; RESP 15–20; TEMP 36.6–37.1; O2SAT 94–97
[2023-05-07] MEDS: Albuterol 2.5 MG/3 ML VIAL.NEB. INHALATION (03:04)
[2023-05-07] MEDS: 0.9% Normal Saline 1,000 ML 100 ML IV ×2 (04:39→13:46)
[2023-05-07] MEDS: Na Biphos/Potassium Phosphate PACKET 1 PACKET PO ×3 (05:14→20:31)
[2023-05-07 06:16] LABS: Absolute Lymphocyte Count 1.07 X10^3/uL (0.83-4.51); Absolute Neutrophil Count 7.5 X10^3/uL (2.0-7.7); Basophil# 0.03 X10^3/uL; Basophil% 0.3 % (0-1); Eosinophil# 0.66 X10^3/uL; Eosinophils% 6.5 % (0-5); Hematocrit 38.1 % (40-54); Hemoglobin 12.9 g/dL (13.0-16.5); Lymphocyte # 1.07 X10^3/ul (0.83-4.51); Lymphocyte % 10.5 % (19-41); Mean Corp Hgb Conc 33.9 g/dL (32-36); Mean Corpuscular Hgb 31.7 pg (27.0-32.0); Mean Corpuscular Volume 93.6 fL (80-94); Mean Platelet Vol. 8.4 fl (6.2-12.0); Monocyte# 0.89 X10^3/uL; Monocyte% 8.7 % (0-10); NRBC Flagged by Analyzer 0 % (0-5); Neutrophil # 7.45 X10^3/uL (2.7-7.7); Neutrophil % 73.1 % (47-70); Platelet Count 162 K/mm3 (150-450); RBC Distribution Width CV 13.4 % (11.6-14.6); Red Blood Count 4.07 M/mm3 (4.6-6.2); White Blood Count 10.2 K/mm3 (4.4-11.0)
[2023-05-07 07:02] LABS: Anion Gap 7 (5-15); BUN 9 mg/dL (7-18); BUN/Creat Ratio 7.9 RATIO (10-20); Chloride 111 mmol/L (98-107); Creatinine, Serum 1.14 mg/dL (0.70-1.30); EST Glomerular Filtration Rate 65 mL/min (>60); Est Glom Filt Rate - Afr Amer 79 mL/min (>60); Estimated Creatinine Clearance 48.24 ml/min; Glucose 87 mg/dL (74-106); Magnesium 1.7 mg/dL (1.6-2.6); Phosphorus 2.9 mg/dL (2.5-4.9); Potassium 3.5 mmol/L (3.5-5.1); Sodium Level 137 mmol/L (136-145)
[2023-05-07] MEDS: Budesonide Respules 0.5 MG/2 ML AMPUL.NEB. INHALATION ×2 (07:09→19:59)
--- NOTE | 2023-05-07 07:37 | PCM.PN.HOSP ---
Reason for Visit Reason for Visit: Diagnoses Elevated white blood cell count, unspecified (05/02/23) Ileus, unspecified (05/02/23) Calculus of gallbladder without cholecystitis without obstruction (05/02/23) Calculus of gallbladder and bile duct with cholecystitis, unspecified, without obstruction (05/02/23) Upper abdominal pain, unspecified (05/02/23) Encounter for preprocedural cardiovascular examination (05/02/23) Subjective Subjective Imaging studies obtained the day prior did show improvement in the ileus pattern. Patient WBC count also continue to trend down. Objective Data Objective Data Vital Signs: Vital Signs Temp Pulse Resp BP Pulse Ox O2 Del Method 98.4 F 71 15 165/80 H 94 Room Air 05/07/23 02:37 05/07/23 07:09 05/07/23 07:09 05/07/23 02:37 05/07/23 07:09 05/07/23 07:09 Oxygen Delivery Method Room Air Weight: 74.6 kg Body Mass Index (BMI) 24.3 Intake & Output: Intake and Output for Last 24 Hours 05/05/23 05/06/23 05/07/23 23:59 23:59 23:59 Intake Total 3748.33 / 3748.33 2593.33 / 2593.33 1050 / 1050 Balance 3748.33 / 3748.33 2593.33 / 2593.33 1050 / 1050 Lab / Micro Data 05/07/23 05:45 05/07/23 05:45 Labs: Laboratory Results - last 24 hr 05/07/23 05:45: WBC 10.2, RBC 4.07 L, Hgb 12.9 L, Hct 38.1 L, MCV 93.6, MCH 31.7, MCHC 33.9, RDW Std Deviation 46.0 H, RDW Coeff of Yari 13.4, Plt Count 162, MPV 8.4, Immature Gran % (Auto) 0.900, Neut % (Auto) 73.1 H, Lymph % (Auto) 10.5 L, [place] % (Auto) 8.7, Eos % (Auto) 6.5 H, Baso % (Auto) 0.3, Absolute Neuts (auto) 7.5, Absolute Lymphs (auto) 1.07, Nucleated RBC % 0, Sodium 137, Potassium 3.5, Chloride 111 H, Carbon Dioxide 19.0 L, Anion Gap 7, BUN 9, Creatinine 1.14, Estim Creat Clear Calc 48.24, Est GFR (MDRD) Af Amer 79, Est GFR (MDRD) Non-Af 65, BUN/Creatinine Ratio 7.9 L, Glucose 87, Calcium 8.0 L, Phosphorus 2.9, Magnesium 1.7 Radiography Diagnostic Testing: Radiology Impression KUB X-Ray 05/06/23 10:30 IMPRESSION: Improvement in the ileus pattern. Electronically Signed: Gomez Beth MD at 13:53 EDT , Rhythm Strip Rhythm Strip: Sinus Tach Rate: 110 Ectopy: None Physical Exam Narrative GENERAL: cooperative HEENT: Atraumatic; normocephalic EYES; Anicteric, Normal Conjunctiva NECK; supple, normal thyroid, RESPIRATORY: Diminished to auscultation CARDIOVASCULAR: Regular S1 S2, GI: Abdomen is distended and tympanitic to percussion : No Renal angle tenderness; EXTREMITIES: No edema, no clubbing, MUSCULOSKELETAL: no muscle wasting NEURO: Awake; no lateralizing signs. SKIN: No Rash PSYCH; Flat affect Assessment & Plan Assessment/Plan (1) Acute upper abdominal pain: (2) Leukocytosis: QUALIFIERS: Leukocytosis type: unspecified Qualified Code(s): D72.829 - Elevated white blood cell count, unspecified (3) Cholelithiasis: QUALIFIERS: Biliary obstruction: without biliary obstruction Cholecystitis acuity: unspecified acuity Cholecystitis presence: with cholecystitis Cholelithiasis location: gallbladder and bile duct Qualified Code(s): K80.60 - Calculus of gallbladder and bile duct with cholecystitis, unspecified, without obstruction (4) Pre-operative cardiovascular examination: PLAN: Plan Patient is an 83-year-old gentleman admitted with abdominal pain nausea and vomiting of 3 days duration 1. Abdominal pain ? Gallbladder ultrasound did show Cholelithiasis with gallbladder wall thickening. There is questionable pericholecystic fluid. These findings can be seen in cholecystitis. Patient had a negative sonographic Simpson''s sign. CT of the abdomen demonstrated Questionable haziness around the head of the pancreas which may be due to mild pancreatitis or duodenitis. Patient has been admitted to the surgical service. Definitive management deferred to general surgery ? 05/05/2023; Patient WBC count trending down chest x-ray obtained this morning due to decreased volume as well as concern for atelectasis versus developing pneumonia. KUB obtained the day prior demonstrated ileus gas pattern. ?05/06/2023; patient's ileus persists 05/07/2023; patient still has some abdominal distention 2. Hypophosphatemia ? Corrected per protocol 3. Hypokalemia -corrected per protocol 4. Acute kidney injury ? Creatinine on admission was 1.57 rehydrated down to 1.09 subsequent monitoring with daily electrolytes ordered 05/06/2023; GENOVEVA resolved 5. DVT prophylaxis ? SCDs for now with plans to initiate low molecular weight heparin following patient surgical procedure Time spent in the patient's overall evaluation,decision-making process, review of diagnostic data, adjustment of management, discussion with other providers, nursing nursing and ancillary staff involved in patient's care documentation, 35 minutes Charges/Coding Visit Charges Inpatient E&M: 04373 Subs Hosp L2
--- NOTE | 2023-05-07 07:58 | PN.SURG_ITS ---
Subjective Subjective Patient seen and examined during AM rounds. He reports that he is still having a little bit of hiccuping and burping. He denies any nausea. He repeatedly asked whether or not it would be possible for him to go home today. Overnight nursing reported that patient had 2 medium sized bowel movements and lots of g as. Objective Data Objective Data Vital Signs: Vital Signs Temp Pulse Resp BP Pulse Ox O2 Del Method 98.4 F 71 15 165/80 H 94 Room Air 05/07/23 02:37 05/07/23 07:09 05/07/23 07:09 05/07/23 02:37 05/07/23 07:09 05/07/23 07:09 Oxygen Delivery Method Room Air Weight: 164 lb 7.437 oz Body Mass Index (BMI) 24.3 Intake & Output: Intake and Output for Last 24 Hours 05/05/23 05/06/23 05/07/23 23:59 23:59 23:59 Intake Total 3748.33 / 3748.33 2593.33 / 2593.33 1050 / 1050 Balance 3748.33 / 3748.33 2593.33 / 2593.33 1050 / 1050 Lab / Micro Data 05/07/23 05:45 05/07/23 05:45 Labs: Laboratory Results - last 24 hr 05/07/23 05:45: WBC 10.2, RBC 4.07 L, Hgb 12.9 L, Hct 38.1 L, MCV 93.6, MCH 31.7, MCHC 33.9, RDW Std Deviation 46.0 H, RDW Coeff of Yari 13.4, Plt Count 162, MPV 8.4, Immature Gran % (Auto) 0.900, Neut % (Auto) 73.1 H, Lymph % (Auto) 10.5 L, [place] % (Auto) 8.7, Eos % (Auto) 6.5 H, Baso % (Auto) 0.3, Absolute Neuts (auto) 7.5, Absolute Lymphs (auto) 1.07, Nucleated RBC % 0, Sodium 137, Potassium 3.5, Chloride 111 H, Carbon Dioxide 19.0 L, Anion Gap 7, BUN 9, Creatinine 1.14, Estim Creat Clear Calc 48.24, Est GFR (MDRD) Af Amer 79, Est GFR (MDRD) Non-Af 65, BUN/Creatinine Ratio 7.9 L, Glucose 87, Calcium 8.0 L, Phosphorus 2.9, Magnesium 1.7 Radiography Diagnostic Testing: Radiology Impression KUB X-Ray 05/06/23 10:30 IMPRESSION: Improvement in the ileus pattern. Electronically Signed: Gomez Beth MD at 13:53 EDT , Rhythm Strip Rhythm Strip: Sinus Tach Rate: 110 Ectopy: None Physical Exam Const Constitutional Narrative: Oriented and mildly agitated GI GI Narrative: Abdominal distention present, firm, nontender Assessment & Plan Assessment/Plan (1) Ileus: PLAN: Patient with hiccuping abdominal distention both improved. We will plan to repeat KUB which has shown evidence of ileus. If there are improvements we will plan to advance patient's diet as his last known substantial intake was 04/30/2023. (2) Leukocytosis: QUALIFIERS: Leukocytosis type: unspecified Qualified Code(s): D72.829 - Elevated white blood cell count, unspecified PLAN: Further improved and now normal hospital day 5 (10 from 12) (3) Cholelithiasis: QUALIFIERS: Cholelithiasis location: gallbladder and bile duct Cholecystitis presence: with cholecystitis Cholecystitis acuity: unspecified acuity Biliary obstruction: without biliary obstruction Qualified Code(s): K80.60 - Calculus of gallbladder and bile duct with cholecystitis, unspecified, without obstruction PLAN: HIDA normal for gallbladder visualization, but shows delayed parenchymal transit 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 Prior work-up shows cholelithiasis with gallbladder wall thickening on sonogram, yet this was read as unremarkable from patient's CT imaging of the abdomen. Patient's exam was largely unremarkable so HIDA imaging was pursued 05/03/2023 a nd radiology noted uptake by the gallbladder at 12 minutes?thereby rendering acute cholecystitis and probable. 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 Mr. Noriega denies any nausea and repeatedly requests discharge to home, but has persistent abdominal distention. His motivation for leaving the hospital seems to be ever-increasing and I shared with him that I am concerned about letting him go too soon and experiencing a recurrence of the symptoms with which she presented. Given his persistent distention and questionable reporting, I would once again like to repeat a KUB to continue to objectively follow this issue. If it is improved I will look to further advance his diet. On a positive note Mr. Noriega has resolved his leukocytosis. Neuro: As needed Dilaudid Pulm/CV: I-S, as needed antihypertensives given evidence of hypertension, echo performed FEN/GI: Trend electrolytes and creatinine, patient requires repletion of potassium and phosphorus once again. Continue full liquid diet for now. Repeat KUB today. : No current issues Heme/ID: Trend CBC, provide empiric Zosyn therapy Endo: No current issues Proph: SCDs Dispo: Continue inpatient stay, with reevaluation of disposition later today (patient confirms that he has an outpatient appointment to establish a new primary care provider) Charges/Coding Visit Charges Inpatient E&M: 09929 Subs Hosp L2
[2023-05-07] MEDS: Potassium Chloride Oral Tablet 20 MEQ PO ×2 (08:38→17:21)
[2023-05-07] MEDS: Ensure Clear 120 ML Liquid PO ×4 (08:39→20:31)
[2023-05-07] MEDS: Nystatin Powder 15gm Bottle 1 APPLIC TOPICAL ×2 (08:39→20:31)
[2023-05-07] MEDS: hydrALAZINE 20 MG/ML Vial 10 MG IV (08:47)
--- NOTE | 2023-05-07 09:10 | RAD_ITS ---
STUDY: X-RAY - ABDOMEN/PELVIS REASON FOR EXAM: Male, 83 years old. Increased ab distention with recent ileus TECHNIQUE: Single AP view of the abdomen / pelvis. COMPARISON: Comparison is made with prior study dated May 06, 2023. FINDINGS: Mild increased markings at the lung bases suggestive of atelectasis. There is gaseous distention of the colon. Small bowel is not dilated. The visualized liver, spleen and kidneys are grossly normal in size and morphology. Normal soft tissue structures. There are diffuse degenerative changes of the visualized lumbar spine. RAD/Abdomen Single View (Portable) IMPRESSION: Gaseous distention of the colon down to the rectum. Electronically Signed: Gomez Beth MD at 9:41 EDT ,
[2023-05-07] MEDS: Bisacodyl 10 MG Suppository RC (11:07)
[2023-05-07] MEDS: MELATONIN 3 MG TABLET PO (20:39)
[2023-05-08] VITALS (19 sets, daily range): BP systolic 98–203; BP diastolic 58–108; PULSE 64–98; RESP 18–24; TEMP 36.3–37.1; O2SAT 93–99
[2023-05-08] MEDS: 0.9% Normal Saline 1,000 ML 100 ML IV ×4 (02:05→21:06)
--- NOTE | 2023-05-08 06:49 | RAD_ITS ---
INDICATION: ABD Distention EXAMINATION/TECHNIQUE: X-RAY - XR Abdomen 1 View 04/29/2023. COMPARISON: 05/07/2023. FINDINGS: BOWEL GAS PATTERN: Persistent markedly distended colon up to the level of mid descending colon. Gaseous small bowel loops. FREE AIR: Not assessed on a single supine view. ORGANOMEGALY: Not seen. CALCIFICATIONS: No abnormal calcifications observed. LOWER CHEST: No acute pathology. BONES AND SOFT TISSUES: No demonstrated acute osseous changes. RAD/Abdomen Single View (Portable) IMPRESSION: Persistent markedly distended colon could be due to colonic ileus. Distal colonic obstruction is less likely. Electronically Signed: Wilbur Welch MD at 9:05 EDT ,
[2023-05-08] MEDS: Na Biphos/Potassium Phosphate PACKET 1 PACKET PO ×3 (07:02→21:05)
--- NOTE | 2023-05-08 07:07 | PCM.PN.HOSP ---
Reason for Visit Reason for Visit: Diagnoses Elevated white blood cell count, unspecified (05/02/23) Ileus, unspecified (05/02/23) Calculus of gallbladder without cholecystitis without obstruction (05/02/23) Calculus of gallbladder and bile duct with cholecystitis, unspecified, without obstruction (05/02/23) Upper abdominal pain, unspecified (05/02/23) Encounter for preprocedural cardiovascular examination (05/02/23) Subjective Subjective Patient abdominal distention persist. Plan is for patient to be transferred to the intensive care unit for administration of neostigmine for his acute colonic pseudoobstruction Objective Data Objective Data Vital Signs: Vital Signs Temp Pulse Resp BP Pulse Ox O2 Del Method 98.4 F 84 18 154/74 H 97 Room Air 05/08/23 03:01 05/08/23 03:01 05/08/23 03:01 05/08/23 03:01 05/08/23 03:01 05/08/23 03:01 Oxygen Delivery Method Room Air Weight: 74.6 kg Body Mass Index (BMI) 24.3 Intake & Output: Intake and Output for Last 24 Hours 05/06/23 05/07/23 05/08/23 23:59 23:59 23:59 Intake Total 2593.33 / 2593.33 3281.67 / 3281.67 650 / 650 Output Total Balance 2593.33 / 2593.33 3280.67 / 3280.67 650 / 650 Lab / Micro Data 05/07/23 05:45 05/07/23 05:45 Radiography Diagnostic Testing: Radiology Impression KUB X-Ray 05/07/23 09:10 IMPRESSION: Gaseous distention of the colon down to the rectum. Electronically Signed: Gomez Beth MD at 9:41 EDT , Rhythm Strip Rhythm Strip: Sinus Tach Rate: 110 Ectopy: None Physical Exam Narrative GENERAL: cooperative HEENT: Atraumatic; normocephalic EYES; Anicteric, Normal Conjunctiva NECK; supple, normal thyroid, RESPIRATORY: Diminished to auscultation CARDIOVASCULAR: Regular S1 S2, GI: Abdomen is distended and tympanitic to percussion : No Renal angle tenderness; EXTREMITIES: No edema, no clubbing, MUSCULOSKELETAL: no muscle wasting NEURO: Awake; no lateralizing signs. SKIN: No Rash PSYCH; Flat affect Assessment & Plan Assessment/Plan (1) Acute upper abdominal pain: (2) Leukocytosis: QUALIFIERS: Leukocytosis type: unspecified Qualified Code(s): D72.829 - Elevated white blood cell count, unspecified (3) Cholelithiasis: QUALIFIERS: Biliary obstruction: without biliary obstruction Cholecystitis acuity: unspecified acuity Cholecystitis presence: with cholecystitis Cholelithiasis location: gallbladder and bile duct Qualified Code(s): K80.60 - Calculus of gallbladder and bile duct with cholecystitis, unspecified, without obstruction (4) Pre-operative cardiovascular examination: PLAN: Plan Patient is an 83-year-old gentleman admitted with abdominal pain nausea and vomiting of 3 days duration 1. Abdominal pain secondary to acute colonic pseudoobstruction ([place] syndrome) ? Gallbladder ultrasound did show Cholelithiasis with gallbladder wall thickening. There is questionable pericholecystic fluid. These findings can be seen in cholecystitis. Patient had a negative sonographic Simpson''s sign. CT of the abdomen demonstrated Questionable haziness around the head of the pancreas which may be due to mild pancreatitis or duodenitis. Patient has been admitted to the surgical service. Definitive management deferred to general surgery ? 05/05/2023; Patient WBC count trending down chest x-ray obtained this morning due to decreased volume as well as concern for atelectasis versus developing pneumonia. KUB obtained the day prior demonstrated ileus gas pattern. 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 Case discussed with general surgeon Dr. Louie Hicks plan is for patient to be transferred to the intensive care unit for administration of neostigmine 2. Hypophosphatemia ? Corrected per protocol 3. Hypokalemia -corrected per protocol 4. Acute kidney injury ? Creatinine on admission was 1.57 rehydrated down to 1.09 subsequent monitoring with daily electrolytes ordered 05/06/2023; GENOVEVA resolved 5. DVT prophylaxis ? SCDs for now with plans to initiate low molecular weight heparin following patient surgical procedure Time spent in the patient's overall evaluation,decision-making process, review of diagnostic data, adjustment of management, discussion with other providers, nursing nursing and ancillary staff involved in patient's care documentation, 50 minutes Charges/Coding Visit Charges Inpatient E&M: 08786 [facility] H[facility] L[facility]
--- NOTE | 2023-05-08 07:57 | PCM.PN.SRG ---
Subjective Subjective denies abd pain, abd still firm and distended Objective Data Objective Data Vital Signs: Vital Signs Temp Pulse Resp BP Pulse Ox O2 Del Method 98.4 F 84 18 154/74 H 97 Room Air 05/08/23 03:01 05/08/23 03:01 05/08/23 03:01 05/08/23 03:01 05/08/23 03:01 05/08/23 03:01 Oxygen Delivery Method Room Air Weight: 164 lb 7.437 oz Body Mass Index (BMI) 24.3 Intake & Output: Intake and Output for Last 24 Hours 05/06/23 05/07/23 05/08/23 23:59 23:59 23:59 Intake Total 2593.33 / 2593.33 3281.67 / 3281.67 650 / 650 Output Total Balance 2593.33 / 2593.33 3280.67 / 3280.67 650 / 650 Lab / Micro Data 05/07/23 05:45 05/07/23 05:45 Radiography Diagnostic Testing: Radiology Impression KUB X-Ray 05/07/23 09:10 IMPRESSION: Gaseous distention of the colon down to the rectum. Electronically Signed: Gomez Beth MD at 9:41 EDT , Rhythm Strip Rhythm Strip: Sinus Tach Rate: 110 Ectopy: None Physical Exam Const no apparent distress Resp normal respiratory effort Cardio regular rate GI GI Narrative: Abdomen firm no guarding or rebound Inspection: abdominal distention Palpation: Negative for tender Assessment & Plan Assessment/Plan (1) Ileus: PLAN: increased diameter of colon on KUB- ogilvies (2) Leukocytosis: QUALIFIERS: Leukocytosis type: unspecified Qualified Code(s): D72.829 - Elevated white blood cell count, unspecified PLAN: Further improved and now normal hospital day 5 (10 from 12) (3) Cholelithiasis: QUALIFIERS: Cholelithiasis location: gallbladder and bile duct Cholecystitis presence: with cholecystitis Cholecystitis acuity: unspecified acuity Biliary obstruction: without biliary obstruction Qualified Code(s): K80.60 - Calculus of gallbladder and bile duct with cholecystitis, unspecified, without obstruction PLAN: HIDA normal for gallbladder visualization, but shows delayed parenchymal transit 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 Also discussed with Dr. Youngblood and Dr. Bryant. Annika Hicks M.D. Pager: [phone] [facility] [address] [place] [address], [facility], [address] [place] [address] Office: [phone] Charges/Coding Visit Charges Inpatient E&M: 41998 Subs Hosp L3
[2023-05-08] MEDS: Budesonide Respules 0.5 MG/2 ML AMPUL.NEB. INHALATION ×2 (08:13→20:53)
[2023-05-08 08:32] LABS: Anion Gap 5 (5-15); BUN 7 mg/dL (7-18); BUN/Creat Ratio 5.4 RATIO (10-20); Calcium,Total 8.3 mg/dL (8.5-10.1); Chloride 109 mmol/L (98-107); Creatinine, Serum 1.29 mg/dL (0.70-1.30); EST Glomerular Filtration Rate 56 mL/min (>60); Est Glom Filt Rate - Afr Amer 68 mL/min (>60); Estimated Creatinine Clearance 42.63 ml/min; Glucose 88 mg/dL (74-106); Phosphorus 3.1 mg/dL (2.5-4.9); Potassium 3.3 mmol/L (3.5-5.1); Sodium Level 137 mmol/L (136-145)
[2023-05-08] MEDS: Potassium Chloride Oral Tablet 20 MEQ PO ×2 (08:32→17:36)
[2023-05-08] MEDS: Potassium Chloride 10mEq/100mL 10 MEQ/100 ML IV.SOLN. 100 MEQ IV BOLUS ×6 (10:03→22:56)
[2023-05-08] MEDS: Nystatin Powder 15gm Bottle 1 APPLIC TOPICAL ×2 (10:18→21:05)
[2023-05-08] MEDS: 0.9% Saline Lock 10 ML Syringe IV (14:38)
[2023-05-08] MEDS: hydrALAZINE 20 MG/ML Vial 10 MG IV (14:53)
[2023-05-08] MEDS: MELATONIN 3 MG TABLET PO (21:05)
[2023-05-09] VITALS (16 sets, daily range): BP systolic 106–171; BP diastolic 56–92; PULSE 71–85; RESP 16–25; TEMP 36.4–36.7; O2SAT 94–98
[2023-05-09 04:03] LABS: Absolute Lymphocyte Count 1.09 X10^3/uL (0.83-4.51); Basophil# 0.04 X10^3/uL; Basophil% 0.4 % (0-1); Eosinophil# 0.51 X10^3/uL; Eosinophils% 4.8 % (0-5); Hematocrit 37.8 % (40-54); Hemoglobin 12.6 g/dL (13.0-16.5); Lymphocyte # 1.09 X10^3/ul (0.83-4.51); Lymphocyte % 10.3 % (19-41); Mean Corp Hgb Conc 33.3 g/dL (32-36); Mean Corpuscular Hgb 31.4 pg (27.0-32.0); Mean Corpuscular Volume 94.3 fL (80-94); Mean Platelet Vol. 8.4 fl (6.2-12.0); Monocyte# 0.79 X10^3/uL; Monocyte% 7.5 % (0-10); NRBC Flagged by Analyzer 0 % (0-5); Neutrophil # 7.97 X10^3/uL (2.7-7.7); Neutrophil % 75.4 % (47-70); Platelet Count 183 K/mm3 (150-450); RBC Distribution Width CV 13.3 % (11.6-14.6); RBC Distribution Width SD 46.4 fl (35.1-43.9); Red Blood Count 4.01 M/mm3 (4.6-6.2); White Blood Count 10.6 K/mm3 (4.4-11.0)
[2023-05-09 04:21] LABS: AST(SGOT) 19 U/L (15-37); Alanine Aminotransfer ALT/SGPT 44 U/L (16-61); Albumin, Serum 2.1 g/dL (3.2-5.0); Alkaline Phosphatase 49 U/L (45-117); Anion Gap 7 (5-15); BUN 9 mg/dL (7-18); Bilirubin, Direct 0.27 mg/dL (0.00-0.30); Calcium,Total 7.8 mg/dL (8.5-10.1); Chloride 113 mmol/L (98-107); Creatinine, Serum 1.12 mg/dL (0.70-1.30); EST Glomerular Filtration Rate 66 mL/min (>60); Est Glom Filt Rate - Afr Amer 80 mL/min (>60); Globulin 2.8 g/dL (2.2-4.2); Glucose 78 mg/dL (74-106); Magnesium 1.8 mg/dL (1.6-2.6); Phosphorus 3.1 mg/dL (2.5-4.9); Protein, Total 4.9 g/dL (6.4-8.2); Sodium Level 139 mmol/L (136-145)
--- NOTE | 2023-05-09 05:15 | RAD_ITS ---
EXAM: XR ABDOMEN, 1 VIEW CLINICAL INDICATION: ileus -- portable TECHNIQUE: Frontal supine view of the abdomen/pelvis. COMPARISON: XR Abdomen dated 05/08/2023 FINDINGS: GASTROINTESTINAL TRACT: Improving distention of the large bowel. Persistent distention of multiple small bowel loops. ORGANS: No organomegaly. BONES/JOINTS: No acute abnormality. RAD/Abdomen Single View (Portable) IMPRESSION: Persistent diffuse bowel ileus with improving large bowel component. Electronically Signed: Antonio Galvez MD at 7:22 EDT ,
[2023-05-09] MEDS: Na Biphos/Potassium Phosphate PACKET 1 PACKET PO ×3 (05:29→22:44)
[2023-05-09] MEDS: 0.9% Normal Saline 1,000 ML 100 ML IV (06:10)
--- NOTE | 2023-05-09 06:12 | CON.PCM.CC_ITS ---
Assessment & Plan Assessment/Plan (1) Ileus: PLAN: Plan RECOMMENDATIONS: 1. Neostigmine as needed, per general surgery. 2. Repeat KUB is pending. 3. Encourage incentive spirometer use while in bed. Mobilize patient as tolerated. 4. As the patient has no active ICU needs, we will follow peripherally. We will be available if any issues arise. IMPRESSIONS: 1. Colonic pseudoobstruction ([place] syndrome) The patient developed progressive colonic distention despite conservative management, concerning for pseudoobstruction. Accordingly, the patient was transferred to the medical intensive care unit yesterday to receive neostigmine. The patient tolerated the medication well without any adverse reactions. He is clinically stable and maintaining appropriate oxygen saturations on room air. Will defer additional management to general surgery. This note was generated with [employer] [facility] [employer] dictation software. It may contain incorrect words, spelling, and punctuation that were not noted in checking the note before signing. HPI Consult Data Date of Consult: 05/09/23 HPI Narrative Reason for Consultation: ICU management HPI Narrative: The patient is an 83-year-old male, with a history as outlined below, who presented to the emergency department on May 02 with nausea, vomiting and abdominal pain. The patient has a history of chronic tobacco dependency, but has never regularly seen a doctor for routine preventative healthcare maintenance. As part of his initial work-up in the emergency department, the patient was identified as having cholelithiasis and some gallbladder wall thickening. He was seen in consultation by general surgery. Subsequent HIDA scan, however, excluded acute cholecystitis. The patient then went on to develop an ileus, which then progressed to colonic dilation, following conservative management. The patient's findings and clinical state were discussed by general surgery with the patient and his family. The decision was made to transfer him to the ICU so that he could be administered neostigmine, over concerns for underlying Racheal syndrome. The patient did ultimately receive neostigmine on the afternoon of May 08. PFSH Medical History Poor eyesight Smoker Medical History no medical history Home Medications NK 05/02/23 [History Last Taken Unknown] Allergy/AdvReac Type Severity Reaction Status Date / Time No Known Allergies Allergy Verified 05/02/23 22:10 Surgical History no surgical history Social History (Updated 05/02/23 @ 15:[address] Demetris Mcdonald MD) Smoking Status: Current every day smoker tobacco type: cigarettes ROS ROS Narrative 10 systems were reviewed with pertinent positives as noted in the HPI above. Physical Exam Const alert and no apparent distress General Appearance: cooperative HEENT normocephalic and head/scalp atraumatic HEENT Narrative: A dentulous Eyes PERRL, EOMs intact bilaterally and conjunctivae normal Neck supple General: trachea midline Chest inspection of chest normal Resp normal respiratory effort Auscultation: diminished lung sounds; Negative for rales, rhonchi or wheezes Cardio regular rate and regular rhythm GI soft to palpation Inspection: abdominal distention Extremity no clubbing, cyanosis or edema Skin no rashes or lesions noted Neuro CN's II-XII intact bilaterally and no focal motor deficits Psych Mood & Affect: flat affect Lab / Micro Data 05/09/23 03:55 05/09/23 03:55 Labs: Laboratory Results - last 24 hr 05/08/23 07:32: Sodium 137, Potassium 3.3 L, Chloride 109 H, Carbon Dioxide 23.0, Anion Gap 5, BUN 7, Creatinine 1.29, Estim Creat Clear Calc 42.63, Est GFR (MDRD) Af Amer 68, Est GFR (MDRD) Non-Af 56 L, BUN/Creatinine Ratio 5.4 L, Glucose 88, Calcium 8.3 L, Phosphorus 3.1, Magnesium 2.0 05/09/23 03:55: WBC 10.6, RBC 4.01 L, Hgb 12.6 L, Hct 37.8 L, MCV 94.3 H, MCH 31.4, MCHC 33.3, RDW Std Deviation 46.4 H, RDW Coeff of Yari 13.3, Plt Count 183, MPV 8.4, Immature Gran % (Auto) 1.600 H, Neut % (Auto) 75.4 H, Lymph % (Auto) 10.3 L, [place] % (Auto) 7.5, Eos % (Auto) 4.8, Baso % (Auto) 0.4, Absolute Neuts (auto) 8.0 H, Absolute Lymphs (auto) 1.09, Nucleated RBC % 0, Sodium 139, Potassium 4.0, Chloride 113 H, Carbon Dioxide 19.0 L, Anion Gap 7, BUN 9, Creatinine 1.12, Estim Creat Clear Calc 49.10, Est GFR (MDRD) Af Amer 80, Est GFR (MDRD) Non-Af 66, BUN/Creatinine Ratio 8.0 L, Glucose 78, Calcium 7.8 L, Phosphorus 3.1, Magnesium 1.8, Total Bilirubin 0.70, Direct Bilirubin 0.27, AST 19, ALT 44, Alkaline Phosphatase 49, Total Protein 4.9 L, Albumin 2.1 L, Globulin 2.8 Rhythm Strip Rhythm Strip: Sinus Tach Rate: 110 Ectopy: None Radiology Impression KUB X-Ray 05/08/23 06:49 IMPRESSION: Persistent markedly distended colon could be due to colonic ileus. Distal colonic obstruction is less likely. Electronically Signed: Wilbur Welch MD at 9:05 EDT , Charges/Coding Visit Charges Inpatient E&M: 68980 Init Hosp L2
[2023-05-09] MEDS: Budesonide Respules 0.5 MG/2 ML AMPUL.NEB. INHALATION ×2 (07:12→19:41)
--- NOTE | 2023-05-09 07:25 | PN.HOSP_ITS ---
Reason for Visit Reason for Visit: Diagnoses Elevated white blood cell count, unspecified (05/02/23) Ileus, unspecified (05/02/23) Calculus of gallbladder without cholecystitis without obstruction (05/02/23) Calculus of gallbladder and bile duct with cholecystitis, unspecified, without obstruction (05/02/23) Upper abdominal pain, unspecified (05/02/23) Encounter for preprocedural cardiovascular examination (05/02/23) Subjective Subjective Patient was transferred to the medical intensive care unit on 05/08/2023 to receive neostigmine. The patient tolerated the medication well without any adverse reactions. Per nursing staff patient had a good response following administration of neostigmine Objective Data Objective Data Vital Signs: Vital Signs Temp Pulse Resp BP Pulse Ox O2 Del Method 98.0 F 73 16 154/74 H 95 Room Air 05/09/23 04:00 05/09/23 07:00 05/09/23 07:00 05/09/23 07:00 05/09/23 07:00 05/09/23 07:00 Oxygen Delivery Method Room Air Weight: 74.6 kg Body Mass Index (BMI) 24.3 Intake & Output: Intake and Output for Last 24 Hours 05/07/23 05/08/23 05/09/23 23:59 23:59 23:59 Intake Total 3281.67 / 3281.67 3463.33 / 3563.33 1056.67 / 1056.67 Output Total 150 / 350 300 / 300 Balance 3280.67 / 3280.67 3313.33 / 3213.33 756.67 / 756.67 Lab / Micro Data 05/09/23 03:55 05/09/23 03:55 Labs: Laboratory Results - last 24 hr 05/08/23 07:32: Sodium 137, Potassium 3.3 L, Chloride 109 H, Carbon Dioxide 23.0, Anion Gap 5, BUN 7, Creatinine 1.29, Estim Creat Clear Calc 42.63, Est GFR (MDRD) Af Amer 68, Est GFR (MDRD) Non-Af 56 L, BUN/Creatinine Ratio 5.4 L, Glucose 88, Calcium 8.3 L, Phosphorus 3.1, Magnesium 2.0 05/09/23 03:55: WBC 10.6, RBC 4.01 L, Hgb 12.6 L, Hct 37.8 L, MCV 94.3 H, MCH 31.4, MCHC 33.3, RDW Std Deviation 46.4 H, RDW Coeff of Yari 13.3, Plt Count 183, MPV 8.4, Immature Gran % (Auto) 1.600 H, Neut % (Auto) 75.4 H, Lymph % (Auto) 10.3 L, [place] % (Auto) 7.5, Eos % (Auto) 4.8, Baso % (Auto) 0.4, Absolute Neuts (auto) 8.0 H, Absolute Lymphs (auto) 1.09, Nucleated RBC % 0, Sodium 139, Potassium 4.0, Chloride 113 H, Carbon Dioxide 19.0 L, Anion Gap 7, BUN 9, Creatinine 1.12, Estim Creat Clear Calc 49.10, Est GFR (MDRD) Af Amer 80, Est GFR (MDRD) Non-Af 66, BUN/Creatinine Ratio 8.0 L, Glucose 78, Calcium 7.8 L, Phosphorus 3.1, Magnesium 1.8, Total Bilirubin 0.70, Direct Bilirubin 0.27, AST 19, ALT 44, Alkaline Phosphatase 49, Total Protein 4.9 L, Albumin 2.1 L, Globulin 2.8 Radiography Diagnostic Testing: Radiology Impression KUB X-Ray 05/08/23 06:49 IMPRESSION: Persistent markedly distended colon could be due to colonic ileus. Distal colonic obstruction is less likely. Electronically Signed: Wilbur Welch MD at 9:05 EDT , KUB X-Ray 05/09/23 05:15 IMPRESSION: Persistent diffuse bowel ileus with improving large bowel component. Electronically Signed: Antonio Galvez MD at 7:22 EDT , Rhythm Strip Rhythm Strip: Sinus Tach Rate: 110 Ectopy: None Physical Exam Narrative GENERAL: cooperative HEENT: Atraumatic; normocephalic EYES; Anicteric, Normal Conjunctiva NECK; supple, normal thyroid, RESPIRATORY: Diminished to auscultation CARDIOVASCULAR: Regular S1 S2, GI: Abdomen is distended and tympanitic to percussion : No Renal angle tenderness; EXTREMITIES: No edema, no clubbing, MUSCULOSKELETAL: no muscle wasting NEURO: Awake; no lateralizing signs. SKIN: No Rash PSYCH; Flat affect Assessment & Plan Assessment/Plan (1) Acute upper abdominal pain: (2) Leukocytosis: QUALIFIERS: Leukocytosis type: unspecified Qualified Code(s): D72.829 - Elevated white blood cell count, unspecified (3) Cholelithiasis: QUALIFIERS: Biliary obstruction: without biliary obstruction Cholecystitis acuity: unspecified acuity Cholecystitis presence: with cho lecystitis Cholelithiasis location: gallbladder and bile duct Qualified Code(s): K80.60 - Calculus of gallbladder and bile duct with cholecystitis, unspecified, without obstruction (4) Pre-operative cardiovascular examination: PLAN: Plan Patient is an 83-year-old gentleman admitted with abdominal pain nausea and vomiting of 3 days duration 1. 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 Gallbladder ultrasound did show Cholelithiasis with gallbladder wall thickening. There is questionable pericholecystic fluid. These findings can be seen in cholecystitis. Patient had a negative sonographic Simpson''s sign. CT of the abdomen demonstrated Questionable haziness around the head of the pancreas which may be due to mild pancreatitis or duodenitis. Patient has been admitted to the surgical service. Definitive management deferred to general surgery ? 05/05/2023; Patient WBC count trending down chest x-ray obtained this morning due to decreased volume as well as concern for atelectasis versus developing pneumonia. KUB obtained the day prior demonstrated ileus gas pattern. ?05/06/2023; patient's ileus persists 05/07/2023; patient still has some abdominal distention 05/08/2023 patient presentation consistent with acute colonic pseudoobstruction ([place] syndrome). Case discussed with general surgeon Dr. Louie Hicks plan is for patient to be transferred to the intensive care unit for administration of neostigmine ?; was transferred to the medical intensive care unit on 05/08/2023 to receive neostigmine. The patient tolerated the medication well without any adverse reactions. Per nursing staff patient had a good response following administration of neostigmine. Patient abdominal distention markedly 2. Hypophosphatemia ? Corrected per protocol 3. Hypokalemia -corrected per protocol 4. Acute kidney injury ? Creatinine on admission was 1.57 rehydrated down to 1.09 subsequent monitoring with daily electrolytes ordered 05/06/2023; GENOVEVA resolved 5. DVT prophylaxis ? SCDs for now with plans to initiate low molecular weight heparin following patient surgical procedure Time spent in the patient's overall evaluation,decision-making process, review of diagnostic data, adjustment of management, discussion with other providers, nursing nursing and ancillary staff involved in patient's care documentation, 50 minutes Charges/Coding Visit Charges Inpatient E&M: 02115 [facility] Hosp L3
[2023-05-09] MEDS: 0.9% Saline Lock 10 ML Syringe IV ×2 (08:37→22:44)
[2023-05-09] MEDS: Potassium Chloride Oral Tablet 20 MEQ PO ×2 (08:38→16:06)
--- NOTE | 2023-05-09 08:53 | PCM.PN.SRG ---
Subjective Subjective Patient did have some results with the neostigmine-only brief bradycardia. Patient did also have a bowel movement this morning. KUB shows: Less distended but still has some distended small bowel. Objective Data Objective Data Vital Signs: Vital Signs Temp Pulse Resp BP Pulse Ox O2 Del Method 98.1 F 83 22 H 153/79 H 96 Room Air 05/09/23 08:00 05/09/23 08:00 05/09/23 08:00 05/09/23 08:00 05/09/23 08:00 05/09/23 08:00 Oxygen Delivery Method Room Air Weight: 164 lb 7.437 oz Body Mass Index (BMI) 24.3 Intake & Output: Intake and Output for Last 24 Hours 05/07/23 05/08/23 05/09/23 23:59 23:59 23:59 Intake Total 3281.67 / 3281.67 3463.33 / 3563.33 1316.67 / 1316.67 Output Total 150 / 350 300 / 300 Balance 3280.67 / 3280.67 3313.33 / 3213.33 1016.67 / 1016.67 Lab / Micro Data 05/09/23 03:55 05/09/23 03:55 Labs: Laboratory Results - last 24 hr 05/09/23 03:55: WBC 10.6, RBC 4.01 L, Hgb 12.6 L, Hct 37.8 L, MCV 94.3 H, MCH 31.4, MCHC 33.3, RDW Std Deviation 46.4 H, RDW Coeff of Yari 13.3, Plt Count 183, MPV 8.4, Immature Gran % (Auto) 1.600 H, Neut % (Auto) 75.4 H, Lymph % (Auto) 10.3 L, [place] % (Auto) 7.5, Eos % (Auto) 4.8, Baso % (Auto) 0.4, Absolute Neuts (auto) 8.0 H, Absolute Lymphs (auto) 1.09, Nucleated RBC % 0, Sodium 139, Potassium 4.0, Chloride 113 H, Carbon Dioxide 19.0 L, Anion Gap 7, BUN 9, Creatinine 1.12, Estim Creat Clear Calc 49.10, Est GFR (MDRD) Af Amer 80, Est GFR (MDRD) Non-Af 66, BUN/Creatinine Ratio 8.0 L, Glucose 78, Calcium 7.8 L, Phosphorus 3.1, Magnesium 1.8, Total Bilirubin 0.70, Direct Bilirubin 0.27, AST 19, ALT 44, Alkaline Phosphatase 49, Total Protein 4.9 L, Albumin 2.1 L, Globulin 2.8 Radiography Diagnostic Testing: Radiology Impression KUB X-Ray 05/08/23 06:49 IMPRESSION: Persistent markedly distended colon could be due to colonic ileus. Distal colonic obstruction is less likely. Electronically Signed: Wilbur Welch MD at 9:05 EDT , KUB X-Ray 05/09/23 05:15 IMPRESSION: Persistent diffuse bowel ileus with improving large bowel component. Electronically Signed: Antonio Galvez MD at 7:22 EDT , Rhythm Strip Rhythm Strip: Sinus Tach Rate: 110 Ectopy: None Physical Exam Const no apparent distress Resp normal respiratory effort Cardio regular rate GI GI Narrative: Abdomen firm?as patient is sitting in the chair?no guarding or rebound Inspection: abdominal distention Palpation: Negative for tender Assessment & Plan Assessment/Plan (1) Ileus: PLAN: KUB 05/09?colon distention improved, small bowel still distended (2) Leukocytosis: QUALIFIERS: Leukocytosis type: unspecified Qualified Code(s): D72.829 - Elevated white blood cell count, unspecified PLAN: Further improved and now normal hospital day 5 (10 from 12) (3) Cholelithiasis: QUALIFIERS: Biliary obstruction: without biliary obstruction Cholecystitis acuity: unspecified acuity Cholecystitis presence: with cholecystitis Cholelithiasis location: gallbladder and bile duct Qualified Code(s): K80.60 - Calculus of gallbladder and bile duct with cholecystitis, unspecified, without obstruction PLAN: HIDA normal for gallbladder visualization, but shows delayed parenchymal transit 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 We will advance patient's diet back to full liquids to allow him to get the Ensure. Okay to go to MS floor. Annika Hicks M.D. Pager: [phone] [facility] [address] [place] [address], [facility], [address] [place] [address] Office: [phone] Charges/Coding Visit Charges Inpatient E&M: 66643 Subs Hosp L2
[2023-05-09] MEDS: Nystatin Powder 15gm Bottle 1 APPLIC TOPICAL ×2 (09:53→22:44)
[2023-05-09] MEDS: Ensure Plus High Protein 120 ML LIQUID PO ×3 (13:44→22:44)
[2023-05-09] MEDS: MELATONIN 3 MG TABLET PO (22:44)
[2023-05-10] VITALS (8 sets, daily range): BP systolic 132–165; BP diastolic 58–82; PULSE 67–88; RESP 18–24; TEMP 36.5–36.7; O2SAT 96–99
[2023-05-10 06:10] LABS: Absolute Lymphocyte Count 1.49 X10^3/uL (0.83-4.51); Absolute Neutrophil Count 6.1 X10^3/uL (2.0-7.7); Basophil# 0.05 X10^3/uL; Basophil% 0.5 % (0-1); Eosinophil# 0.62 X10^3/uL; Eosinophils% 6.7 % (0-5); Hematocrit 39.4 % (40-54); Hemoglobin 13.2 g/dL (13.0-16.5); Lymphocyte # 1.49 X10^3/ul (0.83-4.51); Lymphocyte % 16.1 % (19-41); Mean Corp Hgb Conc 33.5 g/dL (32-36); Mean Corpuscular Hgb 31.3 pg (27.0-32.0); Mean Corpuscular Volume 93.4 fL (80-94); Mean Platelet Vol. 8.2 fl (6.2-12.0); Monocyte# 0.84 X10^3/uL; Monocyte% 9.1 % (0-10); NRBC Flagged by Analyzer 0 % (0-5); Neutrophil # 6.05 X10^3/uL (2.7-7.7); Neutrophil % 65.5 % (47-70); Platelet Count 207 K/mm3 (150-450); RBC Distribution Width CV 13.2 % (11.6-14.6); RBC Distribution Width SD 45.1 fl (35.1-43.9); Red Blood Count 4.22 M/mm3 (4.6-6.2); White Blood Count 9.2 K/mm3 (4.4-11.0)
[2023-05-10] MEDS: Na Biphos/Potassium Phosphate PACKET 1 PACKET PO ×2 (06:29→22:56)
[2023-05-10 06:30] LABS: Anion Gap 6 (5-15); BUN 8 mg/dL (7-18); BUN/Creat Ratio 6.7 RATIO (10-20); Calcium,Total 8.3 mg/dL (8.5-10.1); Chloride 109 mmol/L (98-107); EST Glomerular Filtration Rate 61 mL/min (>60); Est Glom Filt Rate - Afr Amer 74 mL/min (>60); Estimated Creatinine Clearance 45.82 ml/min; Glucose 95 mg/dL (74-106); Potassium 3.6 mmol/L (3.5-5.1); Sodium Level 137 mmol/L (136-145)
[2023-05-10] MEDS: Budesonide Respules 0.5 MG/2 ML AMPUL.NEB. INHALATION ×2 (07:20→19:43)
--- NOTE | 2023-05-10 07:22 | PCM.PN.SRG ---
Subjective Subjective Patient seen and examined during AM rounds. He is resting on my arrival to the room, but immediately arouses but whether it is possible for him to start solid food today. He denies any nausea, vomiting, or hiccuping. Objective Data Objective Data Vital Signs: Vital Signs Temp Pulse Resp BP Pulse Ox O2 Del Method 97.7 F L 67 22 H 132/63 H 96 Room Air 05/10/23 04:23 05/10/23 04:23 05/10/23 04:23 05/10/23 04:23 05/10/23 04:05/10/23 04:23 Oxygen Delivery Method Room Air Weight: 164 lb 7.437 oz Body Mass Index (BMI) 24.3 Intake & Output: Intake and Output for Last 24 Hours 05/08/23 05/09/23 05/10/23 23:59 23:59 23:59 Intake Total 3463.33 / 3563.33 1636.67 / 1636.67 50 / 50 Output Total 150 / 350 300 / 400 500 / 500 Balance 3313.33 / 3213.33 1336.67 / 1236.67 -450 / -450 Lab / Micro Data 05/10/23 05:53 05/10/23 05:53 Labs: Laboratory Results - last 24 hr 05/10/23 05:53: WBC 9.2, RBC 4.22 L, Hgb 13.2, Hct 39.4 L, MCV 93.4, MCH 31.3, MCHC 33.5, RDW Std Deviation 45.1 H, RDW Coeff of Yari 13.2, Plt Count 207, MPV 8.2, Immature Gran % (Auto) 2.100 H, Neut % (Auto) 65.5, Lymph % (Auto) 16.1 L, [place] % (Auto) 9.1, Eos % (Auto) 6.7 H, Baso % (Auto) 0.5, Absolute Neuts (auto) 6.1, Absolute Lymphs (auto) 1.49, Nucleated RBC % 0, Sodium 137, Potassium 3.6, Chloride 109 H, Carbon Dioxide 22.0, Anion Gap 6, BUN 8, Creatinine 1.20, Estim Creat Clear Calc 45.82, Est GFR (MDRD) Af Amer 74, Est GFR (MDRD) Non-Af 61, BUN/Creatinine Ratio 6.7 L, Glucose 95, Calcium 8.3 L Radiography Diagnostic Testing: Radiology Impression KUB X-Ray 05/09/23 05:15 IMPRESSION: Persistent diffuse bowel ileus with improving large bowel component. Electronically Signed: Antonio Galvez MD at 7:22 EDT , Rhythm Strip Rhythm Strip: Sinus Tach Rate: 110 Ectopy: None Physical Exam Const oriented x3 Resp Resp Narrative: Tachypneic with shallow inspirations GI GI Narrative: Abdominal distention improved but remains tympanitic. Nontender to palpation Assessment & Plan Assessment/Plan (1) Ileus: PLAN: Abdominal distention modestly improved. We will plan to repeat KUB which has shown evidence of ileus. If there are improvements we will plan to advance patient's diet. 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 Prior work-up shows cholelithiasis with gallbladder wall thickening on sonogram, yet this was read as unremarkable from patient's CT imaging of the abdomen. Patient's exam was largely unremarkable so HIDA imaging was pursued 05/03/2023 and radiology noted uptake by the gallbladder at 12 minutes?thereby rendering acute cholecystitis and probable. 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 Mr. Noriega denies any nausea this morning and requests advancement to regular diet. Still, he exhibits some abdominal distention and is tympanitic (this time to the left upper quadrant). Given his persistent distention, I would once again like to repeat a KUB to continue to objectively follow this issue. If it is improved I will look to further advance his diet. Neuro: As needed Tylenol Pulm/CV: I-S, as needed antihypertensives given evidence of hypertension, echo performed FEN/GI: Trend electrolytes and creatinine. Advance to regular soft diet given that KUB does show some small improvements in patient's ileus and he denies symptoms. : No current issues Heme/ID: Trend CBC, provide empiric Zosyn therapy?we will look to set a stop date with hospitalist service Endo: No current issues Proph: SCDs Dispo: Continue inpatient stay and monitor for tolerance of diet Charges/Coding Visit Charges Inpatient E&M: 36666 Init Hosp L2
[2023-05-10] MEDS: Nystatin Powder 15gm Bottle 1 APPLIC TOPICAL ×2 (09:09→22:57)
[2023-05-10] MEDS: Potassium Chloride Oral Tablet 20 MEQ PO ×2 (09:14→17:02)
--- NOTE | 2023-05-10 09:50 | RAD_ITS ---
STUDY: X-RAY - ABDOMEN/PELVIS REASON FOR EXAM: Male, 83 years old. ab distention and ileus TECHNIQUE: Single AP view of the abdomen / pelvis. COMPARISON: Comparison is made with prior study dated May 09, 2023. FINDINGS: Normal visualized lung bases. Since prior study, there has been improvement in the dilatation of the several small bowel loops. The visualized liver, spleen and kidneys are grossly normal in size and morphology. Normal soft tissue structures. There are diffuse degenerative changes of the visualized lumbar spine. RAD/Abdomen Single View (Portable) IMPRESSION: There has been some improvement in the small bowel distention as compared to prior study. Electronically Signed: Gomez Beth MD at 12:14 EDT ,
--- NOTE | 2023-05-10 11:36 | PCM.PN.HOSP ---
Reason for Visit Reason for Visit: Diagnoses Elevated white blood cell count, unspecified (05/02/23) Ileus, unspecified (05/02/23) Calculus of gallbladder without cholecystitis without obstruction (05/02/23) Calculus of gallbladder and bile duct with cholecystitis, unspecified, without obstruction (05/02/23) Upper abdominal pain, unspecified (05/02/23) Encounter for preprocedural cardiovascular examination (05/02/23) Subjective Subjective Patient feeling fairly well today, looking forward to eating lunch Objective Data Objective Data Vital Signs: Vital Signs Temp Pulse Resp BP Pulse Ox O2 Del Method 97.7 F L 88 19 H 132/63 H 98 Room Air 05/10/23 04:23 05/10/23 07:20 05/10/23 07:20 05/10/23 04:23 05/10/23 07:20 05/10/23 07:20 Oxygen Delivery Method Room Air Weight: 74.6 kg Body Mass Index (BMI) 24.3 Intake & Output: Intake and Output for Last 24 Hours 05/08/23 05/09/23 05/10/23 23:59 23:59 23:59 Intake Total 3463.33 / 3563.33 1636.67 / 1636.67 288.75 / 288.75 Output Total 150 / 350 300 / 400 500 / 500 Balance 3313.33 / 3213.33 1336.67 / 1236.67 -211.25 / -211.25 Lab / Micro Data 05/10/23 05:53 05/10/23 05:53 Labs: Laboratory Results - last 24 hr 05/10/23 05:53: WBC 9.2, RBC 4.22 L, Hgb 13.2, Hct 39.4 L, MCV 93.4, MCH 31.3, MCHC 33.5, RDW Std Deviation 45.1 H, RDW Coeff of Yari 13.2, Plt Count 207, MPV 8.2, Immature Gran % (Auto) 2.100 H, Neut % (Auto) 65.5, Lymph % (Auto) 16.1 L, [place] % (Auto) 9.1, Eos % (Auto) 6.7 H, Baso % (Auto) 0.5, Absolute Neuts (auto) 6.1, Absolute Lymphs (auto) 1.49, Nucleated RBC % 0, Sodium 137, Potassium 3.6, Chloride 109 H, Carbon Dioxide 22.0, Anion Gap 6, BUN 8, Creatinine 1.20, Estim Creat Clear Calc 45.82, Est GFR (MDRD) Af Amer 74, Est GFR (MDRD) Non-Af 61, BUN/Creatinine Ratio 6.7 L, Glucose 95, Calcium 8.3 L Rhythm Strip Rhythm Strip: Sinus Tach Rate: 110 Ectopy: None Physical Exam Narrative General: Alert, oriented, no apparent distress HEENT: Atraumatic, normocephalic Eyes: Anicteric, normal conjunctiva, extraocular movements grossly intact Neck: Supple Respiratory: Clear to auscultation bilaterally, normal respiratory effort Cardiovascular: Regular rate and rhythm GI: Slightly distended with no rebound, guarding, rigidity Extremities: Trace lower extremity edema Musculoskeletal: Moving all extremities Neuro: No overt focal neurological deficits Skin: No rashes appreciated Psych: Cooperative Assessment & Plan Assessment/Plan (1) Acute upper abdominal pain: (2) Leukocytosis: QUALIFIERS: Leukocytosis type: unspecified Qualified Code(s): D72.829 - Elevated white blood cell count, unspecified (3) Cholelithiasis: QUALIFIERS: Biliary obstruction: without biliary obstruction Cholecystitis acuity: unspecified acuity Cholecystitis presence: with cholecystitis Cholelithiasis location: gallbladder and bile duct Qualified Code(s): K80.60 - Calculus of gallbladder and bile duct with cholecystitis, unspecified, without obstruction (4) Pre-operative cardiovascular examination: PLAN: Plan Patient is an 83-year-old gentleman admitted with abdominal pain nausea and vomiting of 3 days duration #bdominal pain secondary to acute colonic pseudoobstruction ([place] syndrome) ? Gallbladder ultrasound did show Cholelithiasis with gallbladder wall thickening. There is questionable pericholecystic fluid. These findings can be seen in cholecystitis. Patient had a negative sonographic Simpson''s sign. CT of the abdomen demonstrated Questionable haziness around the head of the pancreas which may be due to mild pancreatitis or duodenitis. Patient has been admitted to the surgical service. Definitive management deferred to general surgery ? 05/05/2023; Patient WBC count trending down chest x-ray obtained this morning due to decreased volume as well as concern for atelectasis versus developing pneumonia. KUB obtained the day prior demonstrated ileus gas pattern. 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 Case discussed with general surgeon Dr. Louie Hicks plan is for patient to be transferred to the intensive care unit for administration of neostigmine ? was transferred to the medical intensive care unit on 05/08/2023 to receive neostigmine. The patient tolerated the medication well without any adverse reactions. Per nursing staff patient had a good response following administration of neostigmine. Patient abdominal distention markedly -05/10: Still somewhat distended, surgery following, repeat KUB ordered prior to advancing diet. We will continue to monitor on inpatient basis once diet advanced to verify tolerability. #Hypophosphatemia ? Corrected per protocol #Hypokalemia -corrected per protocol #Acute kidney injury ? Creatinine on admission was 1.57 rehydrated down to 1.09 subsequent monitoring with daily electrolytes ordered 05/06/2023; GENOVEVA resolved -05/10: Continue to monitor hydration status, advance diet as tolerated 5. DVT prophylaxis ?lovenox subq Time spent in the patient's overall evaluation,decision-making process, review of diagnostic data, adjustment of management, discussion with other providers, nursing nursing and ancillary staff involved in patient's care documentation, 36 minutes Charges/Coding Visit Charges Inpatient E&M: 66985 Subs Hosp L2
[2023-05-10] MEDS: Ensure Plus High Protein 120 ML LIQUID PO ×3 (14:20→22:57)
[2023-05-10] MEDS: 0.9% Saline Lock 10 ML Syringe IV (17:01)
[2023-05-10] MEDS: MELATONIN 3 MG TABLET PO (22:56)
[2023-05-11 04:00] VITALS: O2SAT 95
[2023-05-11 04:12] VITALS: BP 158/74; PULSE 72; RESP 20; TEMP 36.8; O2SAT 96
[2023-05-11] MEDS: Na Biphos/Potassium Phosphate PACKET 1 PACKET PO (05:36)
--- NOTE | 2023-05-11 05:55 | RAD_ITS ---
STUDY: X-RAY - ABDOMEN/PELVIS REASON FOR EXAM: Male, 83 years old. Ileus -- portable TECHNIQUE: Single AP view of the abdomen / pelvis. COMPARISON: Comparison is made with prior study dated May 10, 2023. FINDINGS: Stable elevation of the right hemidiaphragm. Since prior study, there has been improvement in the small bowel gas pattern. There is less bowel distention. The visualized liver, spleen and kidneys are grossly normal in size and morphology. Normal soft tissue structures. There are diffuse degenerative changes of the visualized lumbar spine. RAD/Abdomen Single View (Portable) IMPRESSION: Since prior study, there has been improvement in the small bowel gaseous distention. Electronically Signed: Gomez Beth MD at 9:10 EDT ,
[2023-05-11 06:05] LABS: Absolute Lymphocyte Count 0.93 X10^3/uL (0.83-4.51); Absolute Neutrophil Count 5.1 X10^3/uL (2.0-7.7); Basophil# 0.02 X10^3/uL; Basophil% 0.3 % (0-1); Eosinophils% 5.6 % (0-5); Hematocrit 36.3 % (40-54); Hemoglobin 12.5 g/dL (13.0-16.5); Lymphocyte # 0.93 X10^3/ul (0.83-4.51); Lymphocyte % 13.1 % (19-41); Mean Corp Hgb Conc 34.4 g/dL (32-36); Mean Corpuscular Hgb 31.8 pg (27.0-32.0); Mean Corpuscular Volume 92.4 fL (80-94); Mean Platelet Vol. 8.2 fl (6.2-12.0); Monocyte# 0.54 X10^3/uL; Monocyte% 7.6 % (0-10); NRBC Flagged by Analyzer 0 % (0-5); Neutrophil # 5.11 X10^3/uL (2.7-7.7); Neutrophil % 71.7 % (47-70); Platelet Count 193 K/mm3 (150-450); RBC Distribution Width CV 13.2 % (11.6-14.6); RBC Distribution Width SD 45.2 fl (35.1-43.9); Red Blood Count 3.93 M/mm3 (4.6-6.2); White Blood Count 7.1 K/mm3 (4.4-11.0)
[2023-05-11 06:38] LABS: Anion Gap 4 (5-15); BUN 7 mg/dL (7-18); BUN/Creat Ratio 5.6 RATIO (10-20); Calcium,Total 8.3 mg/dL (8.5-10.1); Chloride 110 mmol/L (98-107); Creatinine, Serum 1.24 mg/dL (0.70-1.30); EST Glomerular Filtration Rate 59 mL/min (>60); Est Glom Filt Rate - Afr Amer 71 mL/min (>60); Estimated Creatinine Clearance 44.35 ml/min; Glucose 103 mg/dL (74-106); Potassium 3.7 mmol/L (3.5-5.1); Sodium Level 139 mmol/L (136-145)
[2023-05-11] MEDS: Budesonide Respules 0.5 MG/2 ML AMPUL.NEB. INHALATION (07:22)
[2023-05-11 07:23] VITALS: PULSE 72; RESP 18
[2023-05-11 07:33] VITALS: O2SAT 94
--- NOTE | 2023-05-11 09:03 | PN.SURG_ITS ---
Subjective Subjective Patient seen and examined during AM rounds. He is found sitting out of bed in a chair eating a regular breakfast. He is tolerating this well and appears inconvenienced by the interruption to his breakfast. He request to know whether it be possible to go home today. He specifically denies abdominal pain, nausea, or vomiting. Objective Data Objective Data Vital Signs: Vital Signs Temp Pulse Resp BP Pulse Ox O2 Del Method 98.2 F 72 18 158/74 H 94 Room Air 05/11/23 04:12 05/11/23 07:23 05/11/23 07:23 05/11/23 04:12 05/11/23 07:33 05/11/23 07:33 Oxygen Delivery Method Room Air Weight: 164 lb 7.437 oz Body Mass Index (BMI) 24.3 Intake & Output: Intake and Output for Last 24 Hours 05/09/23 05/10/23 05/11/23 23:59 23:59 23:59 Intake Total 1636.67 / 1636.67 1446.75 / 1446.75 170 / 170 Output Total 300 / 400 500 / 500 1050 / 1050 Balance 1336.67 / 1236.67 946.75 / 946.75 -880 / -880 Lab / Micro Data 05/11/23 05:49 05/11/23 05:49 Labs: Laboratory Results - last 24 hr 05/11/23 05:49: WBC 7.1, RBC 3.93 L, Hgb 12.5 L, Hct 36.3 L, MCV 92.4, MCH 31.8, MCHC 34.4, RDW Std Deviation 45.2 H, RDW Coeff of Yari 13.2, Plt Count 193, MPV 8.2, Immature Gran % (Auto) 1.700 H, Neut % (Auto) 71.7 H, Lymph % (Auto) 13.1 L , [place] % (Auto) 7.6, Eos % (Auto) 5.6 H, Baso % (Auto) 0.3, Absolute Neuts (auto) 5.1, Absolute Lymphs (auto) 0.93, Nucleated RBC % 0, Sodium 139, Potassium 3.7, Chloride 110 H, Carbon Dioxide 25.0, Anion Gap 4 L, BUN 7, Creatinine 1.24, Estim Creat Clear Calc 44.35, Est GFR (MDRD) Af Amer 71, Est GFR (MDRD) Non-Af 59 L, BUN/Creatinine Ratio 5.6 L, Glucose 103, Calcium 8.3 L Radiography Diagnostic Testing: Radiology Impression KUB X-Ray 05/10/23 09:50 IMPRESSION: There has been some improvement in the small bowel distention as compared to prior study. Electronically Signed: Gomez Beth MD at 12:14 EDT , Rhythm Strip Rhythm Strip: Sinus Tach Rate: 110 Ectopy: None Physical Exam Const no apparent distress Constitutional Narrative: Oriented to person, place, and time Resp normal respiratory effort GI GI Narrative: Mild abdominal distention persists, patient remains tympanitic to percussion and left upper quadrant, nontender to palpation x4 quadrants Assessment & Plan Assessment/Plan (1) Ileus: PLAN: Abdominal distention modestly improved. KUB still shows persistent ileus with slight improvement in the small bowel affected in the diameter of the small bowel. Patient is tolerating regular diet without difficulty (2) Leukocytosis: QUALIFIERS: Leukocytosis type: unspecified Qualified Code(s): D72.829 - Elevated white blood cell count, unspecified PLAN: Remains normalized (3) Cholelithiasis: QUALIFIERS: Cholelithiasis location: gallbladder and bile duct Cholecystitis presence: with cholecystitis Cholecystitis acuity: unspecified acuity Biliary obstruction: without biliary obstruction Qualified Code(s): K80.60 - Calculus of gallbladder and bile duct with cholecystitis, unspecified, without obstruction PLAN: HIDA normal for gallbladder visualization, but shows delayed parenchymal transit 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 Prior work-up shows cholelithiasis with gallbladder wall thickening on sonogram, yet this was read as unremarkable from patient's CT imaging of the abdomen. Patient's exam was largely unremarkable so HIDA imaging was pursued 05/03/2023 and radiology noted uptake by the gallbladder at 12 minutes?thereby rendering acute cholecystitis and probable. 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 Mr. Noriega, once again, denies any nausea this morning and and appears to be tolerating regular diet. Still, he exhibits some abdominal distention and is tympanitic (this time to the left upper quadrant) and KUB shows some mild dilation of the small bowel. It is difficult to know how long this finding will persist. Given that he does appear to be tolerating a diet I believe we should assess 1 more meal for tolerance and then consider discharge to home with close follow-up. To this end patient's son confirms that he will establish primary care following on 05/13/2023 if he is permitted to go home by then. Neuro: As needed Tylenol Pulm/CV: I-S, as needed antihypertensives given evidence of hypertension, echo performed FEN/GI: Trend electrolytes and creatinine. Continue soft regular diet. Azithromycin 1 g IV was given yesterday, but evidence of mild ileus persists : No current issues Heme/ID: Trend CBC, look for stop date on antibiotic in collaboration with hospitalist service Endo: No current issues Proph: SCDs Dispo: We will consider possible discharge to home if patient continues to demonstrate tolerance of diet. Charges/Coding Visit Charges Inpatient E&M: 80545 Subs Hosp L2
[2023-05-11 09:45] VITALS: BP 161/69; PULSE 72; RESP 18; TEMP 36.6; O2SAT 98
[2023-05-11] MEDS: Potassium Chloride Oral Tablet 20 MEQ PO (09:58)
[2023-05-11] MEDS: Enoxaparin 40 MG/0.4 ML Syringe SC (09:58)
[2023-05-11] MEDS: Nystatin Powder 15gm Bottle 1 APPLIC TOPICAL (09:58)
[2023-05-11] MEDS: Ensure Plus High Protein 120 ML LIQUID PO (09:58)
[2023-05-11] MEDS: Menthol/Lanolin/Calamine/Znox 113 GM Tube 1 APPLIC TOPICAL (10:02)
--- NOTE | 2023-05-11 12:48 | PCM.DC ---
Discharge Instructions Diet Discharge Diet: Soft diet (Low fiber) Activity Discharge Activity: May Shower Dressing / Incision Call your doctor if you observe: Fever of 101 or Higher, Inability to have a bowel movement, Prolonged hiccupping and Uncontrolled pain Follow Up Care Please Follow Up With: pcp When: within one week of discharge Test Results: Test results from this visit will be discussed in further detail at your follow-up appointment, if applicable. Discharge Plan Admission Admit Date/Time: 05/02/23 20:30 Primary Reason for Your Visit: Concern for cholecystitis and ileus Attending Provider: Nava Hill Primary Care Provider: Cheryl Sage NP Consulting Providers: Herber Hewitt; Alivia Grant; Mohinder Block; Marie Blevins; Marie Tracy; Nena Wallace; Katherine Dior; Berto Youngblood; Yosef Caceres; Pedro Benitez; Blaine Perez; Chetan Duffy; Adriel Nichole; Jarocho Reveles; Remedios Ott; Samuel Rodriguez; Anni Danielson; Adi Hernandez; Alen Hu; Supa Recinos; Nava Hill; Thompson Holland; Cheryl Louie NP; Elias Mays; Ozzy Samuels; Ellis Bryant; Tru Couch; Jason Montesinos; Lisa Patrick UNCLAIMED PROPERTY MANAGER Instructions Additional Instructions / Restrictions: Patient should work to continue bowel regimen. I have suggested that he consider regular prune juice administration and suppositories if not having regular bowel movements. Discharge Orders/Prescriptions Prescriptions: No Action NK Referrals / Follow Up: Cheryl Sage NP, UNCLAIMED PROPERTY MANAGER-C [Primary Care Provider] - Disposition Disposition (needs filled in before D/C Order can be placed): Home, Self Care
--- NOTE | 2023-05-11 12:49 | PCM.PN.HOSP ---
Reason for Visit Reason for Visit: Diagnoses Elevated white blood cell count, unspecified (05/02/23) Ileus, unspecified (05/02/23) Calculus of gallbladder without cholecystitis without obstruction (05/02/23) Calculus of gallbladder and bile duct with cholecystitis, unspecified, without obstruction (05/02/23) Upper abdominal pain, unspecified (05/02/23) Encounter for preprocedural cardiovascular examination (05/02/23) Subjective Subjective Patient feeling much better today, tolerated food yesterday and tolerating breakfast today, possible DC if tolerating lunch Objective Data Objective Data Vital Signs: Vital Signs Temp Pulse Resp BP Pulse Ox O2 Del Method 98 F 72 18 161/69 H 98 Room Air 05/11/23 09:45 05/11/23 09:45 05/11/23 09:45 05/11/23 09:45 05/11/23 09:45 05/11/23 10:41 Oxygen Delivery Method Room Air Weight: 74.6 kg Body Mass Index (BMI) 24.3 Intake & Output: Intake and Output for Last 24 Hours 05/09/23 05/10/23 05/11/23 23:59 23:59 23:59 Intake Total 1636.67 / 1636.67 1446.75 / 1446.75 1029.75 / 1029.75 Output Total 300 / 400 500 / 500 1350 / 1350 Balance 1336.67 / 1236.67 946.75 / 946.75 -320.25 / -320.25 Lab / Micro Data 05/11/23 05:49 05/11/23 05:49 Labs: Laboratory Results - last 24 hr 05/11/23 05:49: WBC 7.1, RBC 3.93 L, Hgb 12.5 L, Hct 36.3 L, MCV 92.4, MCH 31.8, MCHC 34.4, RDW Std Deviation 45.2 H, RDW Coeff of Yari 13.2, Plt Count 193, MPV 8.2, Immature Gran % (Auto) 1.700 H, Neut % (Auto) 71.7 H, Lymph % (Auto) 13.1 L, [place] % (Auto) 7.6, Eos % (Auto) 5.6 H, Baso % (Auto) 0.3, Absolute Neuts (auto) 5.1, Absolute Lymphs (auto) 0.93, Nucleated RBC % 0, Sodium 139, Potassium 3.7, Chloride 110 H, Carbon Dioxide 25.0, Anion Gap 4 L, BUN 7, Creatinine 1.24, Estim Creat Clear Calc 44.35, Est GFR (MDRD) Af Amer 71, Est GFR (MDRD) Non-Af 59 L, BUN/Creatinine Ratio 5.6 L, Glucose 103, Calcium 8.3 L Radiography Diagnostic Testing: Radiology Impression KUB X-Ray 05/11/23 05:55 IMPRESSION: Since prior study, there has been improvement in the small bowel gaseous distention. Electronically Signed: Gomez Beth MD at 9:10 EDT , Rhythm Strip Rhythm Strip: Sinus Tach Rate: 110 Ectopy: None Physical Exam Narrative General: Alert, oriented, no apparent distress HEENT: Atraumatic, normocephalic Eyes: extraocular movements grossly intact Neck: Supple Respiratory: normal respiratory effort Cardiovascular: no edema appreciated GI: Slightly firm, nontender, no rebound, guarding, rigidity Extremities: Moving all extremities Neuro: No overt focal neurological deficits Psych: Cooperative Assessment & Plan Assessment/Plan (1) Acute upper abdominal pain: (2) Leukocytosis: QUALIFIERS: Leukocytosis type: unspecified Qualified Code(s): D72.829 - Elevated white blood cell count, unspecified (3) Cholelithiasis: QUALIFIERS: Cholelithiasis location: gallbladder and bile duct Cholecystitis presence: with cholecystitis Cholecystitis acuity: unspecified acuity Biliary obstruction: without biliary obstruction Qualified Code(s): K80.60 - Calculus of gallbladder and bile duct with cholecystitis, unspecified, without obstruction (4) Pre-operative cardiovascular examination: PLAN: Plan Patient is an 83-year-old gentleman admitted with abdominal pain nausea and vomiting of 3 days duration #abdominal pain secondary to acute colonic pseudoobstruction ([place] syndrome) ? Gallbladder ultrasound did show Cholelithiasis with gallbladder wall thickening. There is questionable pericholecystic fluid. These findings can be seen in cholecystitis. Patient had a negative sonographic Simpson''s sign. CT of the abdomen demonstrated Questionable haziness around the head of the pancreas which may be due to mild pancreatitis or duodenitis. Patient has been admitted to the surgical service. Definitive management deferred to general surgery ? 05/05/2023; Patient WBC count trending down chest x-ray obtained this morning due to decreased volume as well as concern for atelectasis versus developing pneumonia. KUB obtained the day prior demonstrated ileus gas pattern. 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 Case discussed with general surgeon Dr. Louie Hicks plan is for patient to be transferred to the intensive care unit for administration of neostigmine ?; was transferred to the medical intensive care unit on 05/08/2023 to receive neostigmine. The patient tolerated the medication well without any adverse reactions. Per nursing staff patient had a good response following administration of neostigmine. Patient abdominal distention markedly -05/10: Still somewhat distended, surgery following, repeat KUB ordered prior to advancing diet. We will continue to monitor on inpatient basis once diet advanced to verify tolerability. -05/11: Proving, possible DC today per surgery if patient is tolerating diet #Hypophosphatemia ? Corrected per protocol #Hypokalemia -corrected per protocol -Would advise patient to have BMP through primary care physician's office in 2 to 3 days to check potassium and phosphorus. Patient has appointment with PCP this for further continuity of care #Acute kidney injury ? Creatinine on admission was 1.57 rehydrated down to 1.09 subsequent monitoring with daily electrolytes ordered 05/06/2023; GENOVEVA resolved -05/10: Continue to monitor hydration status, advance diet as tolerated #Hypertension -Patient treated with supportive care during his admission, patient did continue to be hypertensive however but day of discharge a daily medication had not yet been started and given he is going home and already has PCP appointment will defer starting new medication to PCP 5. DVT prophylaxis ?lovenox subq Time spent in the patient's overall evaluation,decision-making process, review of diagnostic data, adjustment of management, discussion with other providers, nursing nursing and ancillary staff involved in patient's care documentation, 36 minutes Charges/Coding Visit Charges Inpatient E&M: 33417 Subs Hosp L2
--- NOTE | 2023-05-11 12:56 | DS.PCM_ITS ---
Providers Date of Admission: 05/02/23 Primary Care Physician: FRANKIE Haque Consultations 05/02/23 20:30 Consult: Hospitalist Routine Consulting Provider: [facility] Reason for Consult: Risk stratification in frail elderly pt w/o medical hx EMERGENT Consult: No Notified: Yes Date Notified: 05/02/23 Time Notified: 20:33 Method of Notification: Verbal 05/08/23 08:15 Consult: Technology Lab Teacher / Pulmonary Medicine Routine Consulting Provider: [facility] Reason for Consult: icu management EMERGENT Consult: No Notified: Yes Date Notified: 05/08/23 Time Notified: 08:15 Method of Notification: Verbal Reason For Visit: CHOLECYSTITIS Diagnosis Discharge Diagnosis (1) Acute upper abdominal pain: Status: Acute Code(s): R10.10 - Upper abdominal pain, unspecified (2) Leukocytosis: Status: Acute Code(s): D72.829 - Elevated white blood cell count, unspecified Qualifiers: Leukocytosis type: unspecified Qualified Code(s): D72.829 - Elevated white blood cell count, unspecified Plan: Remains normalized (3) Cholelithiasis: Status: Acute Code(s): K80.20 - Calculus of gallbladder without cholecystitis without obstruction Qualifiers: Biliary obstruction: without biliary obstruction Cholecystitis acuity: unspecified acuity Cholecystitis presence: with cholecystitis Cholelithiasis location: gallbladder and bile duct Qualified Code(s): K80.60 - Calculus of gallbladder and bile duct with cholecystitis, unspecified, without obstruction Plan: HIDA normal for gallbladder visualization, but shows delayed parenchymal transit 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 Prior work-up shows cholelithiasis with gallbladder wall thickening on sonogram, yet this was read as unremarkable from patient's CT imaging of the abdomen. Patient's exam was largely unremarkable so HIDA imaging was pursued 05/03/2023 and radiology noted uptake by the gallbladder at 12 minutes?thereby rendering acute cholecystitis and probable. 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 Mr. Noriega, once again, denies any nausea this morning and and appears to be tolerating regular diet. Still, he exhibits some abdominal distention and is tympanitic (this time to the left upper quadrant) and KUB shows some mild dilation of the small bowel. It is difficult to know how long this finding will persist. Given that he does appear to be tolerating a diet I believe we should assess 1 more meal for tolerance and then consider discharge to home with close follow-up. To this end patient's son confirms that he will establish primary care following on 05/13/2023 if he is permitted to go home by then. Neuro: As needed Tylenol Pulm/CV: I-S, as needed antihypertensives given evidence of hypertension, echo performed FEN/GI: Trend electrolytes and creatinine. Continue soft regular diet. Azithromycin 1 g IV was given yesterday, but evidence of mild ileus persists : No current issues Heme/ID: Trend CBC, look for stop date on antibiotic in collaboration with hospitalist service Endo: No current issues Proph: SCDs Dispo: We will consider possible discharge to home if patient continues to demonstrate tolerance of diet. Medications at Discharge Home Medications NK 05/02/23 Hospital Course Operations None Procedures None Summary of Care Provided Hospital Course: Patient is an 83-year-old male who was admitted via the ER on 05/02/2022 with reports of abdominal pain and associated nausea and vomiting. Although CT was unremarkable for findings within the gallbladder, emergency medicine obtained right upper quadrant ultrasound which demonstrated evidence of cholelithiasis, gallbladder wall thickening, and possible pericholecystic fluid. With these features radiology stated that they could not exclude cholecystitis. Patient did have mild tenderness on exam but had a negative Smipson sign and given the unknowns with the rest of his medical history as he has had limited contact with medical personnel through recent decades, I remained suspicious for an alternative source of his leukocytosis that started at 24,000 on intake. Therefore on 05/03/2023 I obtained HIDA imaging which demonstrated visualization of the gallbladder at 12 minutes into the study?effectively excluding cholecystitis. After this negative result, patient was returned to a diet, but the following day, 05/04/2023, he was noted to have some significant abdominal distention and a KUB was obtained which showed diffuse small bowel dilation co nsistent with an ileus pattern. Visualization of the left colon was suboptimal so a contrast enema was performed and showed no evidence of distal obstruction. Therefore I trialed a period of some bowel rest and suppositories, but patient's small bowel remained distended and included the right side of his colon as well. Concerned this could represent a postinfectious ileus I, jointly with the spitalist service, continued Zosyn that had begun empirically for presumptive diagnosis of cholecystitis. It was noted that patient had some evidence for possible pneumonia on his 05/05/2023 chest x-ray. Hospitalist service, however, felt that no further work-up was required given that he was already receiving his antibiotic therapy. Gradually, Mr. Noriega experienced progressive distention of his abdomen and further distention of his right colon, specifically. Therefore, on 05/08/2023 he was transferred to the ICU for administration of neostigmine. Mr. Noriega experienced a favorable result with this medication and his colonic distention dissipated. Still, after return to the floor he persisted with some small bowel dilatation and therefore was administered 1 g of azithromycin IV. He reported no further difficulties with nausea or vomiting and therefore his diet was advanced. He tolerated this advancement to a regular diet for 3 full meals and it was decided that he should be granted discharged home as the duration of this small bowel/abdominal distention could persist somewhat indefinitely and he had obviously demonstrated the ability to take nutrition orally. Establishment of a primary care provider was 1 condition of his discharge and this was arranged for 2 days from date of discharge. On day of discharge Mr. Noriega and his family expressed comfort with the discharge plan and we reviewed foods to consider remaining on until his abdominal distention improved further. I also recommended continuing some natural laxative agents such as prune juice and consideration of a suppository if not having a bowel movement each day. Hospitalist service confirmed that patient had been appropriately treated with empiric antibiotic coverage and did not request further medications upon discharge. Weight / BMI Weight Weight: 164 lb 7.437 oz Body Mass Index (BMI) 24.3 ABG / Lab / Microbiology Data 05/11/23 05:49 05/11/23 05:49 Laboratory: Laboratory Results - last 24 hr 05/11/23 05:49: WBC 7.1, RBC 3.93 L, Hgb 12.5 L, Hct 36.3 L, MCV 92.4, MCH 31.8, MCHC 34.4, RDW Std Deviation 45.2 H, RDW Coeff of Yari 13.2, Plt Count 193, MPV 8.2, Immature Gran % (Auto) 1.700 H, Neut % (Auto) 71.7 H, Lymph % (Auto) 13.1 L , [place] % (Auto) 7.6, Eos % (Auto) 5.6 H, Baso % (Auto) 0.3, Absolute Neuts (auto) 5.1, Absolute Lymphs (auto) 0.93, Nucleated RBC % 0, Sodium 139, Potassium 3.7, Chloride 110 H, Carbon Dioxide 25.0, Anion Gap 4 L, BUN 7, Creatinine 1.24, Estim Creat Clear Calc 44.35, Est GFR (MDRD) Af Amer 71, Est GFR (MDRD) Non-Af 59 L, BUN/Creatinine Ratio 5.6 L, Glucose 103, Calcium 8.3 L Radiography Diagnostic Testing: Radiology Impression KUB X-Ray 05/11/23 05:55 IMPRESSION: Since prior study, there has been improvement in the small bowel gaseous distention. Electronically Signed: Gomez Beth MD at 9:10 EDT , D/C Instructions Discharge Diet: Soft diet (Low fiber) Call your doctor if you observe: Fever of 101 or Higher, Inability to have a bowel movement, Prolonged hiccupping and Uncontrolled pain Please Follow Up With: pcp When: within one week of discharge Meaningful Use Info Meaningful Use Diagnoses (Choose all that apply): None applicable Discharge Plan Admission Admit Date/Time: 05/02/23 20:30 Primary Reason for Your Visit: Concern for cholecystitis and ileus Attending Provider: Nava Hill Primary Care Provider: Cheryl Sage NP Consulting Providers: Herber Hewitt; Alivia Grant; Mohinder Block; Marie Blevins; Marie Tracy; Nena Wallace; Katherine Dior; Berto Youngblood; Yosef Caceres; Pedro Benitez; Blaine Perez; Chetan Duffy; Adriel Nichole; Bridgett Reveles; Remedios Ott; Samuel Rodriguez; Anni Danielson; Adi Hernandez; Alen Hu; Supa Recinos; Nvaa Hill; Thompson Holland; Cheryl Louie NP; Elias Mays; Ozzy Samuels; Ellis Bryant; Tru Couch; Jason Montesinos; Lisa Patrick HEALTH AND SAFETY INSPECTOR Instructions Additional Instructions / Restrictions: Patient should work to continue bowel regimen. I have suggested that he consider regular prune juice administration and suppositories if not having re gular bowel movements. Discharge Orders/Prescriptions Prescriptions: No Action NK Referrals / Follow Up: Cheryl Sage NP, HEALTH AND SAFETY INSPECTOR-C [Primary Care Provider] - Disposition Disposition (needs filled in before D/C Order can be placed): Home, Self Care
--- NOTE | 2023-05-11 13:12 | NS ---
Marika RN requesting home going diet information per pt's son's request--low fiber nutrition therapy printed information from nutrition care manual provided today; questions answered and encouraged to call RD as needed; contact information provided. Oralia Kingsley, MS, RD, LD
--- NOTE | 2023-05-11 13:21 | CASEMGMT ---
SIGRID CM into pt room, pt ready for dc. Pt is aware of his appt on the 3rd to establish with PCP. Pt is aware that he should've received paperwork in the mail that needs to be taken into the appt as well as his insurance cards and ID. Pt verbalizes understanding. Pt aware then he can request HHC to be ordered.
[2023-05-11 14:06] VITALS: BP 160/63; PULSE 75; RESP 20; TEMP 36.8; O2SAT 97
== END 2023-05-11 14:06 | disposition home or self-care (01) | DRG 391 ==
LOC: ED 19:10 → MS3 21:00 → ICU 05-08 14:32 → MS3 05-09 18:36 → ICU 05-10 09:38 → MS3 05-10 09:38
PROVIDERS: Hospitalist; Internal Medicine; Admitting Provider Surgery; Emergency Provider Emergency Medicine; PCP Nurse Practitioner Primary Care; Visit Provider Internal Medicine
DX: K59.81 Ogilvie syndrome (principal); J18.9 Pneumonia, unspecified organism; K56.7 Ileus, unspecified; K80.60 Calculus of gallbladder and bile duct with cholecystitis, unspecified, without obstruction; N17.9 Acute kidney failure, unspecified; E83.39 Other disorders of phosphorus metabolism; D72.829 Elevated white blood cell count, unspecified; E87.6 Hypokalemia; I10 Essential (primary) hypertension; F17.210 Nicotine dependence, cigarettes, uncomplicated
CPT/HCPCS: 36415; 71045; 71046; 74018; 74176; 74270; 76705; 78226; 80048; 80053; 80076; 81001; 83690; 83735; 83880; 84100; 84484; 85025; 93005; 93306; 94640; 94668; 94762; 97110; 97162; 97166; 97530; 97535; 99284; 99406; A9537; J7030; J7050; Q9957; A4216; C8929; J2405

== ENCOUNTER 2025-09-07 23:36 | Emergency (ER) | payer MEDICARE, SELFPAY ==
[2025-09-07 23:37] VITALS: BP 159/71; PULSE 106; RESP 18; TEMP 36.6; O2SAT 95; BMI 24.3
--- NOTE | 2025-09-07 23:49 | EKG12_ITS ---
Test Reason : DYSRHYTHMIA Blood Pressure : */* mmHG Vent. Rate : 96 BPM Atrial Rate : 96 BPM P-R Int : 166 ms QRS Dur : 80 ms QT Int : 350 ms P-R-T Axes : -11 -2 58 degrees QTcB Int : 442 ms Normal sinus rhythm Normal ECG Confirmed by Herber Linda ([id number]), script editor PEDRO PABLO RESENDIZ ([id number]) on 09/10/2025 8:54:21 AM Referred By: Confirmed By: Herber Linda
--- NOTE | 2025-09-07 23:59 | RAD_ITS ---
PROCEDURE: CHEST 1 VIEW (PORTABLE) 09/08/2025 REASON FOR EXAM: WEAKNESS TECHNIQUE: Frontal view of the chest. COMPARISON: None provided. FINDINGS: There is mild left pleural effusion with faint underlying air space opacification Faint right basal infiltrates are seen. No definite pneumothorax or right pleural effusion noted bilaterally. Heart size appears normal. Aortic calcifications noted. Both the riddhi appear normal. Thoracic rib cage is intact. Right diaphragmatic hump is seen. RAD/Chest 1 View (Portable) IMPRESSION: Mild left pleuropulmonary inflammtory process. Faint right basal infiltrates Reading [facility]
[2025-09-08] VITALS (8 sets, daily range): BP systolic 102–142; BP diastolic 54–93; PULSE 84–100; RESP 14–20; TEMP 36.4–36.8; O2SAT 92–99
[2025-09-08] MEDS: 0.9% Normal Saline (1000mL) 1,000 ML 999 ML IV
[2025-09-08 00:13] LABS: SITE Not entered; VBG BASE EXCESS -2 mmol/L (-1.0-3.5); VBG PO2 29 mmHg (25-40); VBG SO2 53 % (50-70); VBG TCO2 25 mmol/L (23-33)
[2025-09-08 00:15] LABS: Hematocrit 41.2 % (40-54); Hemoglobin 13.4 g/dL (13.0-16.5); Immature Granulocytes Count 0.110 X10^3/uL (0.0-0.0); Mean Corp Hgb Conc 32.5 g/dL (32-36); Mean Corpuscular Volume 94.3 fL (80-94); Mean Platelet Vol. 8.4 fl (6.2-12.0); NRBC Flagged by Analyzer 0 % (0-5); Platelet Count 236 K/mm3 (150-450); RBC Distribution Width CV 14.4 % (11.6-14.6); RBC Distribution Width SD 50.0 fl (35.1-43.9); Red Blood Count 4.37 M/mm3 (4.6-6.2); White Blood Count 16.1 K/mm3 (4.4-11.0)
--- NOTE | 2025-09-08 00:20 | EDS_ITS ---
HPI History of Present Illness Chief Complaint: Weakness Narrative Narrative: Patient was seen and examined after presenting to ED for evaluation coming from home son apparently reports that the patient has been moving more slowly than usual does have a history of Parkinson's patient however denies any sort of complaints. [facility] Medical History Parkinson disease Smoker Poor eyesight Home Medications ?Medication ?Instructions ?Recorded ?Last Taken ?Type NK 05/02/23 Unknown History Allergy/AdvReac Type Severity Reaction Status Date / Time No Known Allergies Allergy Verified 09/07/25 23:39 Social History Smoking Status: Current every day smoker tobacco type: cigarettes ROS ROS ED ROS Narrative Pertinent Positives: Moving more slowly per son Pertinent Negatives: Fevers chills vomiting diarrhea black or bloody stools urinary symptoms The remainder of review of systems negative unless otherwise stated in the HPI above. Systems reviewed including constitutional, psychiatric, cardiovascular, respiratory, integument, HENT, gastrointestinal. EXAM Physical Exam Narrative Exam Narrative: Patient is afebrile hemodynamically stable does not appear toxic or in distress he has a resting tremor consistent with his Parkinson's disease. He has normal heart and lung sounds his abdomen is soft nontender nondistended. He has intact MSPs. Seems to be mentating appropriately at this time Const Vital Signs: 09/07/25 23:37 09/08/25 00:04 09/08/25 01:37 Temperature 97.8 F Temperature Source Oral Pulse Rate 106 H 95 Respiratory Rate 18 18 Respiratory Effort Normal Respiratory Pattern Normal Blood Pressure 159/71 H Blood Pressure Mean 100 Pulse Ox 95 99 Oxygen Delivery Method Room Air Room Air 09/08/25 03:00 09/08/25 03:47 09/08/25 03:47 Temperature 98.2 F 98.2 F Temperature Source Oral Pulse Rate 92 88 90 Respiratory Rate 18 14 18 Respiratory Effort Respiratory Pattern Blood Pressure 102/54 L 102/54 L Blood Pressure Mean 70 70 Pulse Ox 95 99 95 Oxygen Delivery Method Room Air Room Air 09/08/25 04:47 09/08/25 06:00 Temperature 98.3 F 98.2 F Temperature Source Oral Oral Pulse Rate 92 85 Respiratory Rate 18 16 Respiratory Effort Respiratory Pattern Blood Pressure 141/93 H 142/64 H Blood Pressure Mean 109 90 Pulse Ox 92 93 Oxygen Delivery Method Room Air Room Air MDM MDM MDM Narrative Medical decision making narrative: Nursing notes, triage notes, available previous documentation, and vital signs were reviewed. Any discrepancies noted were addressed. Differential Diagnoses: Could be a UTI could be viral could be pneumonia although lower suspicion does not seem to be consistent with meningitis Interventions: Antibiotics Given: Ceftriaxone Fluids Given: 1 L normal saline Labs Reviewed: Leukocytosis 16.1 hemoglobin 17.4. No coagulopathy or electrolyte abnormalities does seem to have an elevated BUN of 30 with a creatinine of 1.5 this is above baseline seems to have a bit of an GENOVEVA no transaminitis lactic acid is less than 1. Respiratory panel negative for flu COVID RSV Imaging Reviewed: Personally reviewed and interpreted by me: Chest x-ray interstitial streaking appears like there may be a left pleural effusion EKG: Sinus rhythm rate of [address] segment elevation [place] interval and QTc otherwise are appropriate. EKG interpretation is noted and agreed to in the EMR. The interpretation of this patient's EKG contributed directly to the care and management of this patient. Previous Documentation Reviewed: None available or applicable at this time. ED Course: Patient presenting with reportedly moving more slowly per son patient lives at home patient denies having any issues whatsoever but given my concerns and the mild tachycardia we will go ahead and evaluate. Patient appears to have a developing pneumonia patient was given ceftriaxone patient coming from home and his son was concerned that he was not acting quite like himself we will discuss with hospitalist regarding admission for the pneumonia and weakness 0655: Discussed with hospitalist Dr. Youngblood who is agreeable to admission This note was made utilizing voice recognition software. All attempts were made to correct spelling or other errors prior to note completion. However, due to the fast-paced nature of emergency medicine, some errors may still be present. Lab Data Labs: Laboratory Results - last 24 hr 09/07/25 23:47 WBC 16.1 H RBC 4.37 L Hgb 13.4 Hct 41.2 MCV 94.3 H MCH 30.7 MCHC 32.5 RDW Std Deviation 50.0 H RDW Coeff of Yari 14.4 Plt Count 236 MPV 8.4 Immature Gran % (Auto) 0.700 Neut % (Auto) 89.6 H Lymph % (Auto) 4.3 L [place] % (Auto) 4.5 Eos % (Auto) 0.7 Baso % (Auto) 0.2 Absolute Neuts (auto) 14.4 H Absolute Lymphs (auto) 0.70 L Nucleated RBC % 0 PT 13.7 INR 1.0 APTT 32.2 Sodium 141 Potassium 4.0 Chloride 107 Carbon Dioxide 21.1 Anion Gap 13 BUN 30 H Creatinine 1.51 H Estim Creat Clear Calc 35.12 L Est GFR (MDRD) Non-Af 45 L BUN/Creatinine Ratio 19.7 Glucose 125 H Lactic Acid < 1.0 Calcium 9.3 Total Bilirubin 0.49 AST 17 ALT 11 Alkaline Phosphatase 82 Total Protein 6.9 Albumin 4.0 Globulin 2.9 Albumin/Globulin Ratio 1.4 ABG Data ABG results: ABG 09/08/25 00:09 Specimen Type AGUEDA Sample Site Not entered VBG pH 7.36 VBG pO2 29 VBG HCO3 24 VBG Total CO2 25 VBG O2 Sat (Calc) 53 VBG Base Excess -2 L POC Mix VBG pCO2 Pt Tmp 41.4 O2 Delivery Device Room Air Radiography Diagnostic Testing: Clinical Impression(s) from Imaging Studies Chest X-Ray 09/07/25 23:59 IMPRESSION: Mild left pleuropulmonary inflammtory process. Faint right basal infiltrates Reading Location: [place] [id number] Discharge Plan Triage Chief Complaint: Weakness ED Provider: Jen Costello Dx/Rx/DC Orders Clinical Impression: Pneumonia, Weakness Prescriptions: No Action NK Primary Care Provider: Cheryl Sage NP Referrals: Cheryl Sage NP, RESIDENT MEDICAL OFFICER-C [Primary Care Provider, Family Practice] Print Language: Cypriot
[2025-09-08 00:44] LABS: AST(SGOT) 17 U/L (<=37); Alanine Aminotransfer ALT/SGPT 11 U/L (<=46); Albumin, Serum 4.0 g/dL (3.4-4.8); Alkaline Phosphatase 82 U/L (40-129); Anion Gap 13 (5-15); BUN 30 mg/dL (4-19); BUN/Creat Ratio 19.7 RATIO (10-20); Calcium,Total 9.3 mg/dL (7.6-11.0); Carbon Dioxide 21.1 mmol/L (21.0-32.0); Chloride 107 mmol/L (98-108); Estimated Creatinine Clearance 35.12 ml/min (50-250); Globulin 2.9 g/dL (2.2-4.2); Glucose 125 mg/dL (70-99); Potassium 4.0 mmol/L (3.3-5.1)
[2025-09-08 01:03] LABS: Prothrombin Time (Protime)PT. 13.7 SECONDS (11.7-14.9)
[2025-09-08 01:04] LABS: Partial Thromboplast Time 32.2 Seconds (24.1-36.2)
--- NOTE | 2025-09-08 02:22 | ED.RN ---
Pt unable to urinate. Bladder scan for 400cc. This nurse, SIGRID Flores and SIGRID Tariq attempted to straight cath and place a coude catheter but was unsuccessful. Dr. Costello.
[2025-09-08] MEDS: Ceftriaxone 2 GM in 0.9% Normal Saline (50mL MB+) 50 ML IV (02:30)
--- OUTSIDE RECORDS SUMMARY | 2025-09-08 03:31 | XMS RPT_ITS | CCD ---
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 Demetris Mcdonald Emergency Provider Chu BELT CUTTER, BELT CUTTER-C Cherly Primary Care Provider [phone] Dr. Alivia Grant Other Provider 1([facility])[phone] Mohinder Block Other Provider 1([facility])[phone] Dr. Marie Blevins Other Provider Dr. Marie Tracy Other Provider Dr. Nena Wallace Other Provider 1([facility])[phone] Katherine Dior Other Provider Dr. Berto Youngblood Other Provider Unavailable MD Yosef Caceres Other Provider Dr. Pedro Benitez Other Provider Dr. Blaine Perez Other Provider 1([facility])[phone] Chetan Duffy Other Provider 1([facility])[phone] Adriel Nichole Other Provider Dr. Jarocho Reveles Other Provider 1([facility])[phone] Remedios Ott Other Provider Dr. Samuel Rodriguez Other Provider 1([facility])[phone] Anni Danielson Other Provider 1([facility])[phone] Adi Hernandez Other Provider 1([facility])[phone] Dr. Alen Hu Other Provider 1([facility])[phone] Supa Recinos Other Provider Dr. Nava Hill Referring Provider 1([facility])[phone] Nava Hill Other Provider Dr. Thompson Holland Other Provider 1([facility])[phone] Liban BELT CUTTER, BELT CUTTER-C Cheryl Other Provider Elias Hidalgo Other Provider Unavailable Dr. Herber Hewitt Attending Provider 1([facility])[phone] Dr. Chetan Duffy Attending Provider 1([facility])[phone] Dr. Herber Hewitt Admit Provider 1([facility])[phone] Herber Hewitt Referring Provider 1([facility])[phone] Dr. Herber Hewitt Other Provider 1([facility])[phone] Guillermo Huynh Attending Provider 1([facility])[phone]. Berto Youngblood Attending Provider Unavailable Dr. Ozzy Samuels Other Provider Dr. Tru Couch Other Provider 1([facility])[phone] Dr. Ellis Bryant Other Provider Celina BELT CUTTER, BELT CUTTER-C Lisa Other Provider Dr. Jason Montesinos Other Provider Unavailab Dr. Annika Matute Attending Provider 1([facility])[phone] Dr. Ellis Bryant Attending Provider 1([facility])[phone] Nava Hill Attending Provider 1([facility])[phone] Chetan Duffy Attending Unavailable Juanita, Alivia Consulting Unavailable Cheryl Bartlett Primary Care Unavailable Herber Hewitt Admitting Unavailable Herber Hewitt Referring Unavailable Mohinder Block Consulting Unavailable [place], [place] Consulting Unavailable [place], [place] Consulting Unavailable Nena Wallace Consulting Unavailable Katherine Dior Consulting Unavaila Berto Eric Consulting Unavailable Yosef Caceres Consulting Unavailable Pedro Benitez Consulting Unavailable Blaine Perez Consulting Unavailable Chetan Duffy Consulting Unavailable Adriel Nichole Consulting Unavailable Jarocho Reveles Consulting Unavailable Remedios Ott Consulting Unavailable Samuel Rodriguez Consulting Unavailable Anni Danielson Consulting Unavailable Adi Hernandez Consulting Unavailable Alen Hu Consulting Unavailable Supa Recinos Consulting Unavailable Nava Hill Consulting Unavailable Thompson Holland Consulting Unavailable Liban BELT CUTTER, Cheryl Consulting Unavailable Elias Hidalgo Consulting Unavailable Herber Hewitt Consulting Unavailable Herber Hewitt Attending Unavailable Ozzy Samuels Consulting Unavailable Ellis Bryant Consulting Unavailable Tru Couch Consulting Unavailable Panclazaro, Jason Consulting Unavailable Celina BELT CUTTER, Lisa Consulting Unavailable Annika Hicks Attending Unavailable Berto Youngblood Attending Unavailable [facility] Unavailable Guillermo Huynh Attending Unavailable Nava Hill Attending Unavailable Ellis Bryant Attending Unavailable Nava Hill Referring Unavailable Chu, Cheryl Primary Care Unavailable Nava Hill Attending Unavailable Herber Hewitt Admitting Unavailable Herber Hewitt Consulting Unavailable Juanita, Alivia Consulting Unavailable Mohinder Block Consulting Unavailable [place], [place] Consulting Unavailable [place], [place] Consulting Unavailable Nena Wallace Consulting Unavailable Katherine Dior Consulting Unavaila Berto Eric Consulting Unavailable Yosef Caceres Consulting Unavailable Pedro Benitez Consulting Unavailable Andrews Perezjen Consulting Unavailable Chtean Duffy Consulting Unavailable Adriel Nichole Consulting Unavailable Jarocho Reveles Consulting Unavailable Remedios Ott Consulting Unavailable Samuel Rodriguez Consulting Unavailable Anni Danielson Consulting Unavailable Adi Hernandez Consulting Unavailable Alen Hu Consulting Unavailable Supa Recinos Consulting Unavailable Nava Hill Consulting Unavailable Thompson Holland Consulting Unavailable Liban HANNA, Cheryl Consulting Unavailable Elias Hidalgo Consulting Unavailable Ozzy Samuels Consulting Unavailable Ellis Bryant Consulting Unavailable Tru Couch Consulting Unavailable Yamel, Jason Consulting Unavailable Celina BELT CUTTER, Lisa Consulting Unavailable Juanita, Alivia Consulting Unavailable [place], Cheryl Primary Care Unavailable Nava Hill Referring Unavailable Herber Hewitt Attending Unavailable Mohinder Block Consulting Unavailable [place], [place] Consulting Unavailable [place], [place] Consulting Unavailable Nena Wallace Consulting Unavailable Katherine Dior Consulting Unavaila Berto Eric Consulting Unavailable Yosef Caceres Consulting Unavailable Pedro Benitez Consulting Unavailable Ana, Andrewsjen Consulting Unavailable Chetan Duffy Consulting Unavailable Adriel Nichole Consulting Unavailable Jarocho Reveles Consulting Unavailable Remedios Ott Consulting Unavailable Tereletsky, Samuel Consulting Unavailable Anni Danielson Consulting Unavailable Adi Hernandez Consulting Unavailable Alen Hu Consulting Unavailable Supa Recinos Consulting Unavailable Nava Hill Consulting Unavailable Thompson Holland Consulting Unavailable Liban BELT CUTTER, Cheryl Consulting Unavailable Elias Hidalgo Consulting Unavailable Problems Problem Classification Problem Date Documented Date Episodic/Chronic Abdominal pain (3 sources) Upper abdominal pain; Translations: [Upper abdominal pain, unspecified] Onset: 06-04-2023 05-02-2023 Episodic Biliary tract disease (5 sources) Biliary calculus; Translations: [Calculus of gallbladder without cholecystitis without obstruction] Onset: 06-04-2023 05-02-2023 Episodic Diseases of white blood cells (3 sources) Leukocytosis; Translations: [Elevated white blood cell count, unspecified] Onset: 06-04-2023 05-02-2023 Chronic 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) Intestinal obstruction co-occurrent and due to decreased peristalsis; Translations: [Ileus, unspecified] Onset: 06-04-2023 05-05-2023 Episodic Other connective tissue disease (2 sources) Cramp and spasm; Translations: [Cramp and spasm] Onset: 03-09-2018 Episodic Unclassified (2 sources) Encounter for screening for cardiovascular disorders; Translations: [Encounter for screening for cardiovascular disorders] Onset: 03-09-2018 Episodic Results Test Name Value Interpretation Reference Range Facility Abdomen Single View (Portabl e)on 05-11-2023 Abdomen Single View (Portable) Normal [facility] Absolute lymphocyte countOrd ered By: Nava Hill on 05-11-2023 Lymphocytes Auto (Unsp spec) [#/Vol] 0.93 10*3/uL 0.83-4.51 [facility] Basic Metabolic Profile (BMP )on 05-11-2023 BUN/CRE 5.6 RATIO Low 10-20 [facility] Comment on above: Performed By: #### L 500.2500, L100.0100 ####[facility] [address] [place], [address] CA,Total 8.3 mg/dL Low 8.5-10.1 [facility] Comment on above: Performed By: #### L 500.2500, L100.0100 ####[facility] [address] [place], [address] Chloride [Moles/Vol] 110 mmol/L High 98-107 [facility] Comment on above: Performed By: #### L 500.2500, L100.0100 ####[facility] [address] [place], [address] CO2 [Moles/Vol] 25.0 mmol/L Normal 21.0-32.0 [facility] Comment on above: Performed By: #### L 500.2500, L100.0100 ####[facility] [address] [place], [address] Creatinine [Mass/Vol] 1.24 mg/dL Normal 0.70-1.30 [facility] Comment on above: Result Comment: The validity of the calculated GFR GFRAA in patients over70 years has not been determined. Clinical correlation isessential. Performed By: #### L 500.2500, L100.0100 ####[facility] [address] [place], [address] ECRCL 44.35 ml/min Normal [facility] Comment on above: Performed By: #### L 500.2500, L100.0100 ####[facility] [address] [place], [address] EST GFR - AA 71 mL/min Normal >60 [facility] Comment on above: Result Comment: Afri can Romanian GFR Calc Performed By: #### L 500.2500, L100.0100 ####[facility] [address] [place], [address] GAP 4 Low 5-15 [facility] Comment on above: Performed By: #### L 500.2500, L100.0100 ####[facility] [address] [place], [address] GFR/1.73 sq M.predicted among non-blacks MDRD (S/P/Bld) [Vol rate/Area] 59 mL/min/{1.73_m2} Low >60 [facility] Comment on above: Result Comment: Non- GFR Calc Performed By: #### L 500.2500, L100.0100 ####[facility] [address] [place], [address] Glucose [Mass/Vol] 103 mg/dL Normal 74-106 [facility] Comment on above: Result Comment: Fast ing Glucose result from 100 to 125 mg/dLsuggests IMPAIRED HOMEOSTASIS per A.D.A. criteria. Performed By: #### L 500.2500, L100.0100 ####[facility] [address] [place], [address] Potassium [Moles/Vol] 3.7 mmol/L Normal 3.5-5.1 [facility] Comment on above: Performed By: #### L 500.2500, L100.0100 ####[facility] [address] [place], [address] Sodium [Moles/Vol] 139 mmol/L Normal 136-145 [facility] Comment on above: Performed By: #### L 500.2500, L100.0100 ####[facility] [address] [place], [address] Urea nitrogen [Mass/Vol] 7 mg/dL Normal 7-18 [facility] Comment on above: Performed By: #### L 500.2500, L100.0100 ####[facility] [address] [place], [address] Basophil percentageOrdered B y: Nava Hill on 05-11-2023 Basophils/100 WBC (Bld) 0.3 % 0-1 [facility] Chloride [Moles/Vol] 110 mmol/L 98-107 [facility] Eosinophils/100 WBC (Bld) 5.6 % 0-5 [facility] Glucose [Mass/Vol] 103 mg/dL 74-106 [facility] Comment on above: Fasting Glucose resu lt from 100 to 125 mg/dL suggests IMPAIRED HOMEOSTASIS per A.D.A. criteria. Neutrophils (Bld) [#/Vol] 5.1 10*3/uL 2.0-7.7 [facility] Neutrophils/100 WBC (Bld) 71.7 % 47-70 [facility] Potassium [Moles/Vol] 3.7 mmol/L 3.5-5.1 [facility] Sodium [Moles/Vol] 139 mmol/L 136-145 [facility] WBC (Bld) [#/Vol] 7.1 10*3/uL 4.4-11.0 [facility] Blood erythrocytes count (nu mber/volume)Ordered By: Nava Hill on 05-11-2023 RBC (Bld) [#/Vol] 3.93 10*6/uL 4.6-6.2 [facility] Blood hemoglobin measurement (mass/volume)Ordered By: Nava Hill on 05-11-2023 Hemoglobin (Bld) [Mass/Vol] 12.5 g/dL 13.0-16.5 [facility] Blood lymphocytes/100 leukoc ytesOrdered By: Nava Hill on 05-11-2023 Lymphocytes/100 WBC (Bld) 13.1 % 19-41 [facility] Blood monocytes/100 leukocyt esOrdered By: Nava Hill on 05-11-2023 Monocytes/100 WBC (Bld) 7.6 % 0-10 [facility] Blood platelet mean volumeOr dered By: Nava Hill on 05-11-2023 Platelet mean volume (Bld) [Entitic vol] 8.2 fL 6.2-12.0 [facility] CBC W/Diff, Automatedon Absolute Lymph 0.93 X10 3/uL Normal 0.83-4.51 [facility] Comment on above: Performed By: #### L 500.2500, L100.0100 ####[facility] [address] [place], [address] Absolute Neut 5.1 X10 3/uL Normal 2.0-7.7 [facility] Comment on above: Performed By: #### L 500.2500, L100.0100 ####[facility] [address] [place], [address] Basophils/100 WBC (Bld) 0.3 % Normal 0-1 [facility] Comment on above: Performed By: #### L 500.2500, L100.0100 ####[facility] [address] [place], [address] Eosinophils/100 WBC (Bld) 5.6 % High 0-5 [facility] Comment on above: Performed By: #### L 500.2500, L100.0100 ####[facility] [address] [place], [address] Erythrocyte distribution width (RBC) [Ratio] 13.2 % Normal 11.6-14.6 [facility] Comment on above: Performed By: #### L 500.2500, L100.0100 ####[facility] [address] [place], [address] Hematocrit (Bld) [Volume fraction] 36.3 % Low 40-54 [facility] Comment on above: Performed By: #### L 500.2500, L100.0100 ####[facility] [address] [place], [address] Hemoglobin (Bld) [Mass/Vol] 12.5 g/dL Low 13.0-16.5 [facility] Comment on above: Performed By: #### L 500.2500, L100.0100 ####[facility] [address] [place], [address] IG% 1.700 High 0.0-0.9 [facility] Comment on above: Result Comment: IG% - Immature Granulocytes (promyelocytes, myelocytes andmetamyelocytes) > 1% indicates that a LEFT SHIFT is Present. Performed By: #### L 500.2500, L100.0100 ####[facility] [address] [place], [address] Lymphocytes/100 WBC (Bld) 13.1 % Low 19-41 [facility] Comment on above: Performed By: #### L 500.2500, L100.0100 ####[facility] [address] [place], [address] MCH (RBC) [Entitic mass] 31.8 pg Normal 27.0-32.0 [facility] Comment on above: Performed By: #### L 500.2500, L100.0100 ####[facility] [address] [place], [address] MCHC (RBC) [Mass/Vol] 34.4 g/dL Normal 32-36 [facility] Comment on above: Performed By: #### L 500.2500, L100.0100 ####[facility] [address] [place], [address] MCV (RBC) [Entitic vol] 92.4 fL Normal 80-94 [facility] Comment on above: Performed By: #### L 500.2500, L100.0100 ####[facility] [address] [place], [address] Monocytes/100 WBC (Bld) 7.6 % Normal 0-10 [facility] Comment on above: Performed By: #### L 500.2500, L100.0100 ####[facility] [address] [place], [address] Neutrophils/100 WBC (Bld) 71.7 % High 47-70 [facility] Comment on above: Performed By: #### L 500.2500, L100.0100 ####[facility] [address] [place], [address] Nucleated RBC (Bld) [#/Vol] 0 10*3/uL Normal 0-5 [facility] Comment on above: Performed By: #### L 500.2500, L100.0100 ####[facility] [address] [place], [address] Platelet mean volume (Bld) [Entitic vol] 8.2 fL Normal 6.2-12.0 [facility] Comment on above: Performed By: #### L 500.2500, L100.0100 ####[facility] [address] [place], [address] Platelets (Bld) [#/Vol] 193 10*3/uL Normal 150-450 [facility] Comment on above: Performed By: #### L 500.2500, L100.0100 ####[facility] [address] [place], [address] RBC (Bld) [#/Vol] 3.93 10*6/uL Low 4.6-6.2 [facility] Comment on above: Performed By: #### L 500.2500, L100.0100 ####[facility] [address] [place], [address] RDW SD 45.2 fl High 35.1-43.9 [facility] Comment on above: Performed By: #### L 500.2500, L100.0100 ####[facility] [address] [place], [address] WBC (Bld) [#/Vol] 7.1 10*3/uL Normal 4.4-11.0 [facility] Comment on above: Performed By: #### L 500.2500, L100.0100 ####[facility] [address] [place], [address] Determination of erythrocyte mean corpuscular volume (MCV)Ordered By: Nava Hill on 05-11-2023 MCV (RBC) [Entitic vol] 92.4 fL 80-94 [facility] Discharge Instructionon 08-0 Discharge Instruction Normal [facility] Hematocrit Auto (Bld) [Volum e fraction]Ordered By: Nava Hlil on 05-11-2023 Hematocrit (Bld) [Volume fraction] 36.3 % 40-54 [facility] Laboratory - Chemistry and C hemistry - challengeOrdered By: Nava Hill on 05-11-2023 CO2 [Moles/Vol] 25.0 mmol/L 21.0-32.0 [facility] Urea nitrogen/Creatinine [Mass ratio] 5.6 mg/mg 10-20 [facility] Laboratory - Hematology and Cell countsOrdered By: Nava Hill on 05-11-2023 Erythrocyte distribution width (RBC) [Entitic vol] 45.2 fL 35.1-43.9 [facility] Erythrocyte distribution width (RBC) [Ratio] 13.2 % 11.6-14.6 [facility] Immature granulocytes/100 WBC (Bld) 1.700 % 0.0-0.9 [facility] Comment on above: IG% - Immature Granu locytes (promyelocytes, myelocytes and metamyelocytes) > 1% indicates that a LEFT SHIFT is Present. MCH (RBC) [Entitic mass] 31.8 pg 27.0-32.0 [facility] Nucleated RBC/100 WBC (Bld) [Ratio] 0 % 0-5 [facility] MCHC Auto (RBC) [Mass/Vol]Or dered By: Nava Hill on 05-11-2023 MCHC (RBC) [Mass/Vol] 34.4 g/dL 32-36 [facility] No Panel InformationOrdered By: Nava Hill on 05-11-2023 Estimated Creatinine Clearance Calc 44.35 ml/min [facility] Estimated GFR (MDRD) Amer 71 mL/min >60 [facility] Comment on above: GFR Calc Estimated GFR (MDRD) Non-Af Amer 59 mL/min >60 [facility] Comment on above: Non- GFR Calc Platelets bldOrdered By: Alexandria Hill on 05-11-2023 Platelets (Bld) [#/Vol] 193 10*3/uL 150-450 [facility] Serum or plasma calcium connor urement (mass/volume)Ordered By: Nava Hill on 05-11-2023 Calcium [Mass/Vol] 8.3 mg/dL 8.5-10.1 [facility] Serum or plasma creatinine m easurement (mass/volume)Ordered By: Nava Hill on 05-11-2023 Creatinine [Mass/Vol] 1.24 mg/dL 0.70-1.30 [facility] Comment on above: The validity of the calculated GFR & GFRAA in patients over 70 years has not been determined. Clinical correlation is essential. Serum or plasma urea nitroge n measurement (mass/volume)Ordered By: Nava Hill on 05-11-2023 Urea nitrogen [Mass/Vol] 7 mg/dL 7-18 [facility] Thin prep Papanicolaou smear with manual screeningOrdered By: Nava Hill on 05-11-2023 Thin prep Papanicolaou smear with manual screening 4 5-15 [facility] Abdomen Single View (Portabl e)on 05-10-2023 Abdomen Single View (Portable) Normal [facility] Basic Metabolic Profile (BMP )on 05-10-2023 BUN/CRE 6.7 RATIO Low 10-20 [facility] Comment on above: Performed By: #### L 100.0100, L500.2500 ####[facility] [address] [place], [address] CA,Total 8.3 mg/dL Low 8.5-10.1 [facility] Comment on above: Performed By: #### L 100.0100, L500.2500 ####[facility] [address] [place], [address] Chloride [Moles/Vol] 109 mmol/L High 98-107 [facility] Comment on above: Performed By: #### L 100.0100, L500.2500 ####[facility] [address] [place], [address] CO2 [Moles/Vol] 22.0 mmol/L Normal 21.0-32.0 [facility] Comment on above: Performed By: #### L 100.0100, L500.2500 ####[facility] [address] [place], [address] Creatinine [Mass/Vol] 1.20 mg/dL Normal 0.70-1.30 [facility] Comment on above: Result Comment: The validity of the calculated GFR GFRAA in patients over70 years has not been determined. Clinical correlation isessential. Performed By: #### L 100.0100, L500.2500 ####[facility] [address] [place], [address] ECRCL 45.82 ml/min Normal [facility] Comment on above: Performed By: #### L 100.0100, L500.2500 ####[facility] [address] [place], [address] EST GFR - AA 74 mL/min Normal >60 [facility] Comment on above: Result Comment: Afri can Romanian GFR Calc Performed By: #### L 100.0100, L500.2500 ####[facility] [address] [place], [address] GAP 6 Normal 5-15 [facility] Comment on above: Performed By: #### L 100.0100, L500.2500 ####[facility] [address] [place], [address] GFR/1.73 sq M.predicted among non-blacks MDRD (S/P/Bld) [Vol rate/Area] 61 mL/min/{1.73_m2} Normal >60 [facility] Comment on above: Result Comment: Non- GFR Calc Performed By: #### L 100.0100, L500.2500 ####[facility] [address] [place], [address] Glucose [Mass/Vol] 95 mg/dL Normal 74-106 [facility] Comment on above: Performed By: #### L 100.0100, L500.2500 ####[facility] [address] [place], [address] Potassium [Moles/Vol] 3.6 mmol/L Normal 3.5-5.1 [facility] Comment on above: Performed By: #### L 100.0100, L500.2500 ####[facility] [address] [place], [address] Sodium [Moles/Vol] 137 mmol/L Normal 136-145 [facility] Comment on above: Performed By: #### L 100.0100, L500.2500 ####[facility] [address] [place], [address] Urea nitrogen [Mass/Vol] 8 mg/dL Normal 7-18 [facility] Comment on above: Performed By: #### L 100.0100, L500.2500 ####[facility] [address] [place], [address] CBC W/Diff, Automatedon 07-3 -2022 Absolute Lymph 1.49 X10 3/uL Normal 0.83-4.51 [facility] Comment on above: Performed By: #### L 100.0100, L500.2500 ####[facility] [address] [place], [address] Absolute Neut 6.1 X10 3/uL Normal 2.0-7.7 [facility] Comment on above: Performed By: #### L 100.0100, L500.2500 ####[facility] [address] [place], [address] Basophils/100 WBC (Bld) 0.5 % Normal 0-1 [facility] Comment on above: Performed By: #### L 100.0100, L500.2500 ####[facility] [address] [place], [address] Eosinophils/100 WBC (Bld) 6.7 % High 0-5 [facility] Comment on above: Performed By: #### L 100.0100, L500.2500 ####[facility] [address] [place], [address] Erythrocyte distribution width (RBC) [Ratio] 13.2 % Normal 11.6-14.6 [facility] Comment on above: Performed By: #### L 100.0100, L500.2500 ####[facility] [address] [place], [address] Hematocrit (Bld) [Volume fraction] 39.4 % Low 40-54 [facility] Comment on above: Performed By: #### L 100.0100, L500.2500 ####[facility] [address] [place], [address] Hemoglobin (Bld) [Mass/Vol] 13.2 g/dL Normal 13.0-16.5 [facility] Comment on above: Performed By: #### L 100.0100, L500.2500 ####[facility] [address] [place], [address] IG% 2.100 High 0.0-0.9 [facility] Comment on above: Result Comment: IG% - Immature Granulocytes (promyelocytes, myelocytes andmetamyelocytes) > 1% indicates that a LEFT SHIFT is Present. Performed By: #### L 100.0100, L500.2500 ####[facility] [address] [place], [address] Lymphocytes/100 WBC (Bld) 16.1 % Low 19-41 [facility] Comment on above: Performed By: #### L 100.0100, L500.2500 ####[facility] [address] [place], [address] MCH (RBC) [Entitic mass] 31.3 pg Normal 27.0-32.0 [facility] Comment on above: Performed By: #### L 100.0100, L500.2500 ####[facility] [address] [place], [address] MCHC (RBC) [Mass/Vol] 33.5 g/dL Normal 32-36 [facility] Comment on above: Performed By: #### L 100.0100, L500.2500 ####[facility] [address] [place], [address] MCV (RBC) [Entitic vol] 93.4 fL Normal 80-94 [facility] Comment on above: Performed By: #### L 100.0100, L500.2500 ####[facility] [address] [place], [address] Monocytes/100 WBC (Bld) 9.1 % Normal 0-10 [facility] Comment on above: Performed By: #### L 100.0100, L500.2500 ####[facility] [address] [place], [address] Neutrophils/100 WBC (Bld) 65.5 % Normal 47-70 [facility] Comment on above: Performed By: #### L 100.0100, L500.2500 ####[facility] [address] [place], [address] Nucleated RBC (Bld) [#/Vol] 0 10*3/uL Normal 0-5 [facility] Comment on above: Performed By: #### L 100.0100, L500.2500 ####[facility] [address] [place], [address] Platelet mean volume (Bld) [Entitic vol] 8.2 fL Normal 6.2-12.0 [facility] Comment on above: Performed By: #### L 100.0100, L500.2500 ####[facility] [address] [place], [address] Platelets (Bld) [#/Vol] 207 10*3/uL Normal 150-450 [facility] Comment on above: Performed By: #### L 100.0100, L500.2500 ####[facility] [address] [place], [address] RBC (Bld) [#/Vol] 4.22 10*6/uL Low 4.6-6.2 [facility] Comment on above: Performed By: #### L 100.0100, L500.2500 ####[facility] [address] [place], [address] RDW SD 45.1 fl High 35.1-43.9 [facility] Comment on above: Performed By: #### L 100.0100, L500.2500 ####[facility] [address] [place], [address] WBC (Bld) [#/Vol] 9.2 10*3/uL Normal 4.4-11.0 [facility] Comment on above: Performed By: #### L 100.0100, L500.2500 ####[facility] [address] [place], [address] Abdomen Single View (Portabl e)on 05-09-2023 Abdomen Single View (Portable) Normal [facility] Basic Metabolic Profile (BMP )on 05-09-2023 BUN/CRE 8.0 RATIO Low 10-20 [facility] Comment on above: Performed By: #### L 500.3400, L501.2300, L500.2500, L100.0100, L501.5200 ####[facility] [address] [place], [address] CA,Total 7.8 mg/dL Low 8.5-10.1 [facility] Comment on above: Performed By: #### L 500.3400, L501.2300, L500.2500, L100.0100, L501.5200 ####[facility] [address] [place], [address] Chloride [Moles/Vol] 113 mmol/L High 98-107 [facility] Comment on above: Performed By: #### L 500.3400, L501.2300, L500.2500, L100.0100, L501.5200 ####[facility] [address] [place], [address] CO2 [Moles/Vol] 19.0 mmol/L Low 21.0-32.0 [facility] Comment on above: Performed By: #### L 500.3400, L501.2300, L500.2500, L100.0100, L501.5200 ####[facility] [address] [place], [address] Creatinine [Mass/Vol] 1.12 mg/dL Normal 0.70-1.30 [facility] Comment on above: Result Comment: The validity of the calculated GFR GFRAA in patients over70 years has not been determined. Clinical correlation isessential. Performed By: #### L 500.3400, L501.2300, L500.2500, L100.0100, L501.5200 ####[facility] [address] [place], [address] ECRCL 49.10 ml/min Normal [facility] Comment on above: Performed By: #### L 500.3400, L501.2300, L500.2500, L100.0100, L501.5200 ####[facility] [address] [place], [address] EST GFR - AA 80 mL/min Normal >60 [facility] Comment on above: Result Comment: Afri can Romanian GFR Calc Performed By: #### L 500.3400, L501.2300, L500.2500, L100.0100, L501.5200 ####[facility] [address] [place], [address] GAP 7 Normal 5-15 [facility] Comment on above: Performed By: #### L 500.3400, L501.2300, L500.2500, L100.0100, L501.5200 ####[facility] [address] [place], [address] GFR/1.73 sq M.predicted among non-blacks MDRD (S/P/Bld) [Vol rate/Area] 66 mL/min/{1.73_m2} Normal >60 [facility] Comment on above: Result Comment: Non- GFR Calc Performed By: #### L 500.3400, L501.2300, L500.2500, L100.0100, L501.5200 ####[facility] [address] [place], [address] Glucose [Mass/Vol] 78 mg/dL Normal 74-106 [facility] Comment on above: Performed By: #### L 500.3400, L501.2300, L500.2500, L100.0100, L501.5200 ####[facility] [address] [place], [address] Potassium [Moles/Vol] 4.0 mmol/L Normal 3.5-5.1 [facility] Comment on above: Performed By: #### L 500.3400, L501.2300, L500.2500, L100.0100, L501.5200 ####[facility] [address] [place], [address] Sodium [Moles/Vol] 139 mmol/L Normal 136-145 [facility] Comment on above: Performed By: #### L 500.3400, L501.2300, L500.2500, L100.0100, L501.5200 ####[facility] [address] [place], [address] Urea nitrogen [Mass/Vol] 9 mg/dL Normal 7-18 [facility] Comment on above: Performed By: #### L 500.3400, L501.2300, L500.2500, L100.0100, L501.5200 ####[facility] [address] [place], [address] Basophil percentageOrdered B y: Berto Youngblood on 05-09-2023 Basophil percentage 3.1 mg/dL 2.5-4.9 [facility] Bilirubin [Mass/Vol] 0.70 mg/dL 0.20-1.00 [facility] Comment on above: For patients on eltr ombopag therapy, use of Dimension Boswell TBIL is not recommended. Protein [Mass/Vol] 4.9 g/dL 6.4-8.2 [facility] CBC W/Diff, Automatedon 04-12 Absolute Lymph 1.09 X10 3/uL Normal 0.83-4.51 [facility] Comment on above: Performed By: #### L 500.3400, L501.2300, L500.2500, L100.0100, L501.5200 ####[facility] [address] [place], [address] Absolute Neut 8.0 X10 3/uL High 2.0-7.7 [facility] Comment on above: Performed By: #### L 500.3400, L501.2300, L500.2500, L100.0100, L501.5200 ####[facility] [address] [place], [address] Basophils/100 WBC (Bld) 0.4 % Normal 0-1 [facility] Comment on above: Performed By: #### L 500.3400, L501.2300, L500.2500, L100.0100, L501.5200 ####[facility] [address] [place], [address] Eosinophils/100 WBC (Bld) 4.8 % Normal 0-5 [facility] Comment on above: Performed By: #### L 500.3400, L501.2300, L500.2500, L100.0100, L501.5200 ####[facility] [address] [place], [address] Erythrocyte distribution width (RBC) [Ratio] 13.3 % Normal 11.6-14.6 [facility] Comment on above: Performed By: #### L 500.3400, L501.2300, L500.2500, L100.0100, L501.5200 ####[facility] [address] [place], [address] Hematocrit (Bld) [Volume fraction] 37.8 % Low 40-54 [facility] Comment on above: Performed By: #### L 500.3400, L501.2300, L500.2500, L100.0100, L501.5200 ####[facility] [address] [place], [address] Hemoglobin (Bld) [Mass/Vol] 12.6 g/dL Low 13.0-16.5 [facility] Comment on above: Performed By: #### L 500.3400, L501.2300, L500.2500, L100.0100, L501.5200 ####[facility] [address] [place], [address] IG% 1.600 High 0.0-0.9 [facility] Comment on above: Result Comment: IG% - Immature Granulocytes (promyelocytes, myelocytes andmetamyelocytes) > 1% indicates that a LEFT SHIFT is Present. Performed By: #### L 500.3400, L501.2300, L500.2500, L100.0100, L501.5200 ####[facility] [address] [place], [address] Lymphocytes/100 WBC (Bld) 10.3 % Low 19-41 [facility] Comment on above: Performed By: #### L 500.3400, L501.2300, L500.2500, L100.0100, L501.5200 ####[facility] [address] [place], [address] MCH (RBC) [Entitic mass] 31.4 pg Normal 27.0-32.0 [facility] Comment on above: Performed By: #### L 500.3400, L501.2300, L500.2500, L100.0100, L501.5200 ####[facility] [address] [place], [address] MCHC (RBC) [Mass/Vol] 33.3 g/dL Normal 32-36 [facility] Comment on above: Performed By: #### L 500.3400, L501.2300, L500.2500, L100.0100, L501.5200 ####[facility] [address] [place], [address] MCV (RBC) [Entitic vol] 94.3 fL High 80-94 [facility] Comment on above: Performed By: #### L 500.3400, L501.2300, L500.2500, L100.0100, L501.5200 ####[facility] [address] [place], [address] Monocytes/100 WBC (Bld) 7.5 % Normal 0-10 [facility] Comment on above: Performed By: #### L 500.3400, L501.2300, L500.2500, L100.0100, L501.5200 ####[facility] [address] [place], [address] Neutrophils/100 WBC (Bld) 75.4 % High 47-70 [facility] Comment on above: Performed By: #### L 500.3400, L501.2300, L500.2500, L100.0100, L501.5200 ####[facility] [address] [place], [address] Nucleated RBC (Bld) [#/Vol] 0 10*3/uL Normal 0-5 [facility] Comment on above: Performed By: #### L 500.3400, L501.2300, L500.2500, L100.0100, L501.5200 ####[facility] [address] [place], [address] Platelet mean volume (Bld) [Entitic vol] 8.4 fL Normal 6.2-12.0 [facility] Comment on above: Performed By: #### L 500.3400, L501.2300, L500.2500, L100.0100, L501.5200 ####[facility] [address] [place], [address] Platelets (Bld) [#/Vol] 183 10*3/uL Normal 150-450 [facility] Comment on above: Performed By: #### L 500.3400, L501.2300, L500.2500, L100.0100, L501.5200 ####[facility] [address] [place], [address] RBC (Bld) [#/Vol] 4.01 10*6/uL Low 4.6-6.2 [facility] Comment on above: Performed By: #### L 500.3400, L501.2300, L500.2500, L100.0100, L501.5200 ####[facility] [address] [place], [address] RDW SD 46.4 fl High 35.1-43.9 [facility] Comment on above: Performed By: #### L 500.3400, L501.2300, L500.2500, L100.0100, L501.5200 ####[facility] [address] [place], [address] WBC (Bld) [#/Vol] 10.6 10*3/uL Normal 4.4-11.0 [facility] Comment on above: Performed By: #### L 500.3400, L501.2300, L500.2500, L100.0100, L501.5200 ####[facility] [address] [place], [address] Consultation - Intensiviston 05-09-2023 Consultation - Conservation Or Heritage Architect Normal [facility] Direct bilirubinOrdered By: Berto Youngblood on 05-09-2023 Bilirubin.direct [Mass/Vol] 0.27 mg/dL 0.00-0.30 [facility] Laboratory - Chemistry and C hemistry - challengeOrdered By: Berto Youngblood on 05-09-2023 ALP [Catalytic activity/Vol] 49 U/L 45-117 [facility] ALT [Catalytic activity/Vol] 44 U/L 16-61 [facility] Globulin (S) [Mass/Vol] 2.8 g/dL 2.2-4.2 [facility] Magnesium [Mass/Vol] 1.8 mg/dL 1.6-2.6 [facility] Liver Profileon 05-09-2023 Albumin [Mass/Vol] 2.1 g/dL Low 3.2-5.0 [facility] Comment on above: Performed By: #### L 500.3400, L501.2300, L500.2500, L100.0100, L501.5200 ####[facility] [address] [place], [address] ALK P 49 U/L Normal 45-117 [facility] Comment on above: Performed By: #### L 500.3400, L501.2300, L500.2500, L100.0100, L501.5200 ####[facility] [address] [place], [address] ALT [Catalytic activity/Vol] 44 U/L Normal 16-61 [facility] Comment on above: Performed By: #### L 500.3400, L501.2300, L500.2500, L100.0100, L501.5200 ####[facility] [address] [place], [address] AST [Catalytic activity/Vol] 19 U/L Normal 15-37 [facility] Comment on above: Performed By: #### L 500.3400, L501.2300, L500.2500, L100.0100, L501.5200 ####[facility] [address] [place], [address] Bilirubin [Mass/Vol] 0.70 mg/dL Normal 0.20-1.00 [facility] Comment on above: Result Comment: For patients on eltrombopag therapy, use of Dimension Boswell TBIL is not recommended. Performed By: #### L 500.3400, L501.2300, L500.2500, L100.0100, L501.5200 ####[facility] [address] [place], [address] Bilirubin.direct [Mass/Vol] 0.27 mg/dL Normal 0.00-0.30 [facility] Comment on above: Performed By: #### L 500.3400, L501.2300, L500.2500, L100.0100, L501.5200 ####[facility] [address] [place], [address] Globulin (S) [Mass/Vol] 2.8 g/dL Normal 2.2-4.2 [facility] Comment on above: Performed By: #### L 500.3400, L501.2300, L500.2500, L100.0100, L501.5200 ####[facility] [address] [place], [address] T PROT 4.9 g/dL Low 6.4-8.2 [facility] Comment on above: Performed By: #### L 500.3400, L501.2300, L500.2500, L100.0100, L501.5200 ####[facility] [address] [place], [address] Magnesiumon 05-09-2023 Magnesium [Mass/Vol] 1.8 mg/dL Normal 1.6-2.6 [facility] Comment on above: Performed By: #### L 500.3400, L501.2300, L500.2500, L100.0100, L501.5200 ####[facility] [address] [place], [address] Phosphoruson 05-09-2023 Phosphate [Mass/Vol] 3.1 mg/dL Normal 2.5-4.9 [facility] Comment on above: Performed By: #### L 500.3400, L501.2300, L500.2500, L100.0100, L501.5200 ####[facility] [address] [place], [address] Serum or plasma albumin connor urement (mass/volume)Ordered By: Berto Youngblood on 05-09-2023 Albumin [Mass/Vol] 2.1 g/dL 3.2-5.0 [facility] Thin prep Papanicolaou smear with manual screeningOrdered By: Berto Youngblood on 05-09-2023 Thin prep Papanicolaou smear with manual screening 19 U/L 15-37 [facility] Abdomen Single View (Portabl e)on 05-08-2023 Abdomen Single View (Portable) Normal [facility] Basic Metabolic Profile (BMP )on 05-08-2023 BUN/CRE 5.4 RATIO Low 10-20 [facility] Comment on above: Performed By: #### L 500.2500, L501.2300, L501.5200 ####[facility] [address] [place], [address] CA,Total 8.3 mg/dL Low 8.5-10.1 [facility] Comment on above: Performed By: #### L 500.2500, L501.2300, L501.5200 ####[facility] [address] [place], [address] Chloride [Moles/Vol] 109 mmol/L High 98-107 [facility] Comment on above: Performed By: #### L 500.2500, L501.2300, L501.5200 ####[facility] [address] [place], [address] CO2 [Moles/Vol] 23.0 mmol/L Normal 21.0-32.0 [facility] Comment on above: Performed By: #### L 500.2500, L501.2300, L501.5200 ####[facility] [address] [place], [address] Creatinine [Mass/Vol] 1.29 mg/dL Normal 0.70-1.30 [facility] Comment on above: Result Comment: The validity of the calculated GFR GFRAA in patients over70 years has not been determined. Clinical correlation isessential. Performed By: #### L 500.2500, L501.2300, L501.5200 ####[facility] [address] [place], [address] ECRCL 42.63 ml/min Normal [facility] Comment on above: Performed By: #### L 500.2500, L501.2300, L501.5200 ####[facility] [address] [place], [address] EST GFR - AA 68 mL/min Normal >60 [facility] Comment on above: Result Comment: Afri can Romanian GFR Calc Performed By: #### L 500.2500, L501.2300, L501.5200 ####[facility] [address] [place], [address] GAP 5 Normal 5-15 [facility] Comment on above: Performed By: #### L 500.2500, L501.2300, L501.5200 ####[facility] [address] [place], [address] GFR/1.73 sq M.predicted among non-blacks MDRD (S/P/Bld) [Vol rate/Area] 56 mL/min/{1.73_m2} Low >60 [facility] Comment on above: Result Comment: Non- GFR Calc Performed By: #### L 500.2500, L501.2300, L501.5200 ####[facility] [address] [place], [address] Glucose [Mass/Vol] 88 mg/dL Normal 74-106 [facility] Comment on above: Performed By: #### L 500.2500, L501.2300, L501.5200 ####[facility] [address] [place], [address] Potassium [Moles/Vol] 3.3 mmol/L Low 3.5-5.1 [facility] Comment on above: Performed By: #### L 500.2500, L501.2300, L501.5200 ####[facility] [address] [place], [address] Sodium [Moles/Vol] 137 mmol/L Normal 136-145 [facility] Comment on above: Performed By: #### L 500.2500, L501.2300, L501.5200 ####[facility] [address] [place], [address] Urea nitrogen [Mass/Vol] 7 mg/dL Normal 7-18 [facility] Comment on above: Performed By: #### L 500.2500, L501.2300, L501.5200 ####[facility] [address] [place], [address] Magnesiumon 05-08-2023 Magnesium [Mass/Vol] 2.0 mg/dL Normal 1.6-2.6 [facility] Comment on above: Performed By: #### L 500.2500, L501.2300, L501.5200 ####[facility] [address] [place], [address] Phosphoruson 05-08-2023 Phosphate [Mass/Vol] 3.1 mg/dL Normal 2.5-4.9 [facility] Comment on above: Performed By: #### L 500.2500, L501.2300, L501.5200 ####[facility] [address] [place], [address] Abdomen Single View (Portabl e)on 05-07-2023 Abdomen Single View (Portable) Normal [facility] Basic Metabolic Profile (BMP )on 05-07-2023 BUN/CRE 7.9 RATIO Low 10-20 [facility] Comment on above: Performed By: #### L 501.5200, L100.0100, L500.2500, L501.2300 ####[facility] [address] [place], [address] CA,Total 8.0 mg/dL Low 8.5-10.1 [facility] Comment on above: Performed By: #### L 501.5200, L100.0100, L500.2500, L501.2300 ####[facility] [address] [place], [address] Chloride [Moles/Vol] 111 mmol/L High 98-107 [facility] Comment on above: Performed By: #### L 501.5200, L100.0100, L500.2500, L501.2300 ####[facility] [address] [place], [address] CO2 [Moles/Vol] 19.0 mmol/L Low 21.0-32.0 [facility] Comment on above: Performed By: #### L 501.5200, L100.0100, L500.2500, L501.2300 ####[facility] [address] [place], [address] Creatinine [Mass/Vol] 1.14 mg/dL Normal 0.70-1.30 [facility] Comment on above: Result Comment: The validity of the calculated GFR GFRAA in patients over70 years has not been determined. Clinical correlation isessential. Performed By: #### L 501.5200, L100.0100, L500.2500, L501.2300 ####[facility] [address] [place], [address] ECRCL 48.24 ml/min Normal [facility] Comment on above: Performed By: #### L 501.5200, L100.0100, L500.2500, L501.2300 ####[facility] [address] [place], [address] EST GFR - AA 79 mL/min Normal >60 [facility] Comment on above: Result Comment: Afri can Romanian GFR Calc Performed By: #### L 501.5200, L100.0100, L500.2500, L501.2300 ####[facility] [address] [place], [address] GAP 7 Normal 5-15 [facility] Comment on above: Performed By: #### L 501.5200, L100.0100, L500.2500, L501.2300 ####[facility] [address] [place], [address] GFR/1.73 sq M.predicted among non-blacks MDRD (S/P/Bld) [Vol rate/Area] 65 mL/min/{1.73_m2} Normal >60 [facility] Comment on above: Result Comment: Non- GFR Calc Performed By: #### L 501.5200, L100.0100, L500.2500, L501.2300 ####[facility] [address] [place], [address] Glucose [Mass/Vol] 87 mg/dL Normal 74-106 [facility] Comment on above: Performed By: #### L 501.5200, L100.0100, L500.2500, L501.2300 ####[facility] [address] [place], [address] Potassium [Moles/Vol] 3.5 mmol/L Normal 3.5-5.1 [facility] Comment on above: Performed By: #### L 501.5200, L100.0100, L500.2500, L501.2300 ####[facility] [address] [place], [address] Sodium [Moles/Vol] 137 mmol/L Normal 136-145 [facility] Comment on above: Performed By: #### L 501.5200, L100.0100, L500.2500, L501.2300 ####[facility] [address] [place], [address] Urea nitrogen [Mass/Vol] 9 mg/dL Normal 7-18 [facility] Comment on above: Performed By: #### L 501.5200, L100.0100, L500.2500, L501.2300 ####[facility] [address] [place], [address] CBC W/Diff, Automatedon 07-2 -2022 Absolute Lymph 1.07 X10 3/uL Normal 0.83-4.51 [facility] Comment on above: Performed By: #### L 501.5200, L100.0100, L500.2500, L501.2300 ####[facility] [address] [place], [address] Absolute Neut 7.5 X10 3/uL Normal 2.0-7.7 [facility] Comment on above: Performed By: #### L 501.5200, L100.0100, L500.2500, L501.2300 ####[facility] [address] [place], [address] Basophils/100 WBC (Bld) 0.3 % Normal 0-1 [facility] Comment on above: Performed By: #### L 501.5200, L100.0100, L500.2500, L501.2300 ####[facility] [address] [place], [address] Eosinophils/100 WBC (Bld) 6.5 % High 0-5 [facility] Comment on above: Performed By: #### L 501.5200, L100.0100, L500.2500, L501.2300 ####[facility] [address] [place], [address] Erythrocyte distribution width (RBC) [Ratio] 13.4 % Normal 11.6-14.6 [facility] Comment on above: Performed By: #### L 501.5200, L100.0100, L500.2500, L501.2300 ####[facility] [address] [place], [address] Hematocrit (Bld) [Volume fraction] 38.1 % Low 40-54 [facility] Comment on above: Performed By: #### L 501.5200, L100.0100, L500.2500, L501.2300 ####[facility] [address] [place], [address] Hemoglobin (Bld) [Mass/Vol] 12.9 g/dL Low 13.0-16.5 [facility] Comment on above: Performed By: #### L 501.5200, L100.0100, L500.2500, L501.2300 ####[facility] [address] [place], [address] IG% 0.900 Normal 0.0-0.9 [facility] Comment on above: Result Comment: IG% - Immature Granulocytes (promyelocytes, myelocytes andmetamyelocytes) > 1% indicates that a LEFT SHIFT is Present. Performed By: #### L 501.5200, L100.0100, L500.2500, L501.2300 ####[facility] [address] [place], [address] Lymphocytes/100 WBC (Bld) 10.5 % Low 19-41 [facility] Comment on above: Performed By: #### L 501.5200, L100.0100, L500.2500, L501.2300 ####[facility] [address] [place], [address] MCH (RBC) [Entitic mass] 31.7 pg Normal 27.0-32.0 [facility] Comment on above: Performed By: #### L 501.5200, L100.0100, L500.2500, L501.2300 ####[facility] [address] [place], [address] MCHC (RBC) [Mass/Vol] 33.9 g/dL Normal 32-36 [facility] Comment on above: Performed By: #### L 501.5200, L100.0100, L500.2500, L501.2300 ####[facility] [address] [place], [address] MCV (RBC) [Entitic vol] 93.6 fL Normal 80-94 [facility] Comment on above: Performed By: #### L 501.5200, L100.0100, L500.2500, L501.2300 ####[facility] [address] [place], [address] Monocytes/100 WBC (Bld) 8.7 % Normal 0-10 [facility] Comment on above: Performed By: #### L 501.5200, L100.0100, L500.2500, L501.2300 ####[facility] [address] [place], [address] Neutrophils/100 WBC (Bld) 73.1 % High 47-70 [facility] Comment on above: Performed By: #### L 501.5200, L100.0100, L500.2500, L501.2300 ####[facility] [address] [place], [address] Nucleated RBC (Bld) [#/Vol] 0 10*3/uL Normal 0-5 [facility] Comment on above: Performed By: #### L 501.5200, L100.0100, L500.2500, L501.2300 ####[facility] [address] [place], [address] Platelet mean volume (Bld) [Entitic vol] 8.4 fL Normal 6.2-12.0 [facility] Comment on above: Performed By: #### L 501.5200, L100.0100, L500.2500, L501.2300 ####[facility] [address] [place], [address] Platelets (Bld) [#/Vol] 162 10*3/uL Normal 150-450 [facility] Comment on above: Performed By: #### L 501.5200, L100.0100, L500.2500, L501.2300 ####[facility] [address] [place], [address] RBC (Bld) [#/Vol] 4.07 10*6/uL Low 4.6-6.2 [facility] Comment on above: Performed By: #### L 501.5200, L100.0100, L500.2500, L501.2300 ####[facility] [address] [place], [address] RDW SD 46.0 fl High 35.1-43.9 [facility] Comment on above: Performed By: #### L 501.5200, L100.0100, L500.2500, L501.2300 ####[facility] [address] [place], [address] WBC (Bld) [#/Vol] 10.2 10*3/uL Normal 4.4-11.0 [facility] Comment on above: Performed By: #### L 501.5200, L100.0100, L500.2500, L501.2300 ####[facility] [address] [place], [address] Magnesiumon 05-07-2023 Magnesium [Mass/Vol] 1.7 mg/dL Normal 1.6-2.6 [facility] Comment on above: Performed By: #### L 501.5200, L100.0100, L500.2500, L501.2300 ####[facility] [address] [place], [address] Phosphoruson 05-07-2023 Phosphate [Mass/Vol] 2.9 mg/dL Normal 2.5-4.9 [facility] Comment on above: Performed By: #### L 501.5200, L100.0100, L500.2500, L501.2300 ####[facility] [address] [place], [address] Abdomen Single View (Portabl e)on 05-06-2023 Abdomen Single View (Portable) Normal [facility] Basic Metabolic Profile (BMP )on 05-06-2023 BUN/CRE 11.8 RATIO Normal 10-20 [facility] Comment on above: Performed By: #### L 501.5200, L500.2500, L100.0100 ####[facility] [address] [place], [address] CA,Total 8.2 mg/dL Low 8.5-10.1 [facility] Comment on above: Performed By: #### L 501.5200, L500.2500, L100.0100 ####[facility] [address] [place], [address] Chloride [Moles/Vol] 114 mmol/L High 98-107 [facility] Comment on above: Performed By: #### L 501.5200, L500.2500, L100.0100 ####[facility] [address] [place], [address] CO2 [Moles/Vol] 20.0 mmol/L Low 21.0-32.0 [facility] Comment on above: Performed By: #### L 501.5200, L500.2500, L100.0100 ####[facility] [address] [place], [address] Creatinine [Mass/Vol] 1.10 mg/dL Normal 0.70-1.30 [facility] Comment on above: Result Comment: The validity of the calculated GFR GFRAA in patients over70 years has not been determined. Clinical correlation isessential. Performed By: #### L 501.5200, L500.2500, L100.0100 ####[facility] [address] [place], [address] ECRCL 49.99 ml/min Normal [facility] Comment on above: Performed By: #### L 501.5200, L500.2500, L100.0100 ####[facility] [address] [place], [address] EST GFR - AA 82 mL/min Normal >60 [facility] Comment on above: Result Comment: Afri can Romanian GFR Calc Performed By: #### L 501.5200, L500.2500, L100.0100 ####[facility] [address] [place], [address] GAP 4 Low 5-15 [facility] Comment on above: Performed By: #### L 501.5200, L500.2500, L100.0100 ####[facility] [address] [place], [address] GFR/1.73 sq M.predicted among non-blacks MDRD (S/P/Bld) [Vol rate/Area] 68 mL/min/{1.73_m2} Normal >60 [facility] Comment on above: Result Comment: Non- GFR Calc Performed By: #### L 501.5200, L500.2500, L100.0100 ####[facility] [address] [place], [address] Glucose [Mass/Vol] 85 mg/dL Normal 74-106 [facility] Comment on above: Performed By: #### L 501.5200, L500.2500, L100.0100 ####[facility] [address] [place], [address] Potassium [Moles/Vol] 3.4 mmol/L Low 3.5-5.1 [facility] Comment on above: Performed By: #### L 501.5200, L500.2500, L100.0100 ####[facility] [address] [place], [address] Sodium [Moles/Vol] 138 mmol/L Normal 136-145 [facility] Comment on above: Performed By: #### L 501.5200, L500.2500, L100.0100 ####[facility] [address] [place], [address] Urea nitrogen [Mass/Vol] 13 mg/dL Normal 7-18 [facility] Comment on above: Performed By: #### L 501.5200, L500.2500, L100.0100 ####[facility] [address] [place], [address] CBC W/Diff, Automatedon 04-11 Absolute Lymph 0.90 X10 3/uL Normal 0.83-4.51 [facility] Comment on above: Performed By: #### L 501.5200, L500.2500, L100.0100 ####[facility] [address] [place], [address] Absolute Neut 9.7 X10 3/uL High 2.0-7.7 [facility] Comment on above: Performed By: #### L 501.5200, L500.2500, L100.0100 ####[facility] [address] [place], [address] Basophils/100 WBC (Bld) 0.2 % Normal 0-1 [facility] Comment on above: Performed By: #### L 501.5200, L500.2500, L100.0100 ####[facility] [address] [place], [address] Eosinophils/100 WBC (Bld) 4.0 % Normal 0-5 [facility] Comment on above: Performed By: #### L 501.5200, L500.2500, L100.0100 ####[facility] [address] [place], [address] Erythrocyte distribution width (RBC) [Ratio] 13.3 % Normal 11.6-14.6 [facility] Comment on above: Performed By: #### L 501.5200, L500.2500, L100.0100 ####[facility] [address] [place], [address] Hematocrit (Bld) [Volume fraction] 39.4 % Low 40-54 [facility] Comment on above: Performed By: #### L 501.5200, L500.2500, L100.0100 ####[facility] [address] [place], [address] Hemoglobin (Bld) [Mass/Vol] 13.2 g/dL Normal 13.0-16.5 [facility] Comment on above: Performed By: #### L 501.5200, L500.2500, L100.0100 ####[facility] [address] [place], [address] IG% 0.800 Normal 0.0-0.9 [facility] Comment on above: Result Comment: IG% - Immature Granulocytes (promyelocytes, myelocytes andmetamyelocytes) > 1% indicates that a LEFT SHIFT is Present. Performed By: #### L 501.5200, L500.2500, L100.0100 ####[facility] [address] [place], [address] Lymphocytes/100 WBC (Bld) 7.4 % Low 19-41 [facility] Comment on above: Performed By: #### L 501.5200, L500.2500, L100.0100 ####[facility] [address] [place], [address] MCH (RBC) [Entitic mass] 31.6 pg Normal 27.0-32.0 [facility] Comment on above: Performed By: #### L 501.5200, L500.2500, L100.0100 ####[facility] [address] [place], [address] MCHC (RBC) [Mass/Vol] 33.5 g/dL Normal 32-36 [facility] Comment on above: Performed By: #### L 501.5200, L500.2500, L100.0100 ####[facility] [address] [place], [address] MCV (RBC) [Entitic vol] 94.3 fL High 80-94 [facility] Comment on above: Performed By: #### L 501.5200, L500.2500, L100.0100 ####[facility] [address] [place], [address] Monocytes/100 WBC (Bld) 7.7 % Normal 0-10 [facility] Comment on above: Performed By: #### L 501.5200, L500.2500, L100.0100 ####[facility] [address] [place], [address] Neutrophils/100 WBC (Bld) 79.9 % High 47-70 [facility] Comment on above: Performed By: #### L 501.5200, L500.2500, L100.0100 ####[facility] [address] [place], [address] Nucleated RBC (Bld) [#/Vol] 0 10*3/uL Normal 0-5 [facility] Comment on above: Performed By: #### L 501.5200, L500.2500, L100.0100 ####[facility] [address] [place], [address] Platelet mean volume (Bld) [Entitic vol] 8.6 fL Normal 6.2-12.0 [facility] Comment on above: Performed By: #### L 501.5200, L500.2500, L100.0100 ####[facility] [address] [place], [address] Platelets (Bld) [#/Vol] 171 10*3/uL Normal 150-450 [facility] Comment on above: Performed By: #### L 501.5200, L500.2500, L100.0100 ####[facility] [address] [place], [address] RBC (Bld) [#/Vol] 4.18 10*6/uL Low 4.6-6.2 [facility] Comment on above: Performed By: #### L 501.5200, L500.2500, L100.0100 ####[facility] [address] [place], [address] RDW SD 45.7 fl High 35.1-43.9 [facility] Comment on above: Performed By: #### L 501.5200, L500.2500, L100.0100 ####[facility] [address] [place], [address] WBC (Bld) [#/Vol] 12.1 10*3/uL High 4.4-11.0 [facility] Comment on above: Performed By: #### L 501.5200, L500.2500, L100.0100 ####[facility] [address] [place], [address] Magnesiumon 05-06-2023 Magnesium [Mass/Vol] 2.2 mg/dL Normal 1.6-2.6 [facility] Comment on above: Performed By: #### L 501.5200, L500.2500, L100.0100 ####[facility] [address] [place], [address] Phosphoruson 05-06-2023 Phosphate [Mass/Vol] 2.1 mg/dL Low 2.5-4.9 [facility] Comment on above: Performed By: #### L 501.2300 ####[facility] [address] [place], [address] Abdomen Single View (Portabl e)on 05-05-2023 Abdomen Single View (Portable) Normal [facility] Basic Metabolic Profile (BMP )on 05-05-2023 BUN/CRE 13.0 RATIO Normal 10-20 [facility] Comment on above: Performed By: #### L 500.2500, L100.0100 ####[facility] [address] [place], [address] CA,Total 8.4 mg/dL Low 8.5-10.1 [facility] Comment on above: Performed By: #### L 500.2500, L100.0100 ####[facility] [address] [place], [address] Chloride [Moles/Vol] 113 mmol/L High 98-107 [facility] Comment on above: Performed By: #### L 500.2500, L100.0100 ####[facility] [address] [place], [address] CO2 [Moles/Vol] 22.0 mmol/L Normal 21.0-32.0 [facility] Comment on above: Performed By: #### L 500.2500, L100.0100 ####[facility] [address] [place], [address] Creatinine [Mass/Vol] 1.15 mg/dL Normal 0.70-1.30 [facility] Comment on above: Result Comment: The validity of the calculated GFR GFRAA in patients over70 years has not been determined. Clinical correlation isessential. Performed By: #### L 500.2500, L100.0100 ####[facility] [address] [place], [address] ECRCL 47.82 ml/min Normal [facility] Comment on above: Performed By: #### L 500.2500, L100.0100 ####[facility] [address] [place], [address] EST GFR - AA 78 mL/min Normal >60 [facility] Comment on above: Result Comment: Afri can Romanian GFR Calc Performed By: #### L 500.2500, L100.0100 ####[facility] [address] [place], [address] GAP 6 Normal 5-15 [facility] Comment on above: Performed By: #### L 500.2500, L100.0100 ####[facility] [address] [place], [address] GFR/1.73 sq M.predicted among non-blacks MDRD (S/P/Bld) [Vol rate/Area] 64 mL/min/{1.73_m2} Normal >60 [facility] Comment on above: Result Comment: Non- GFR Calc Performed By: #### L 500.2500, L100.0100 ####[facility] [address] [place], [address] Glucose [Mass/Vol] 94 mg/dL Normal 74-106 [facility] Comment on above: Performed By: #### L 500.2500, L100.0100 ####[facility] [address] [place], [address] Potassium [Moles/Vol] 3.1 mmol/L Low 3.5-5.1 [facility] Comment on above: Performed By: #### L 500.2500, L100.0100 ####[facility] [address] [place], [address] Sodium [Moles/Vol] 141 mmol/L Normal 136-145 [facility] Comment on above: Performed By: #### L 500.2500, L100.0100 ####[facility] [address] [place], [address] Urea nitrogen [Mass/Vol] 15 mg/dL Normal 7-18 [facility] Comment on above: Performed By: #### L 500.2500, L100.0100 ####[facility] [address] [place], [address] CBC W/Diff, Automatedon 07-2 6-2022 Absolute Lymph 0.80 X10 3/uL Low 0.83-4.51 [facility] Comment on above: Performed By: #### L 500.2500, L100.0100 ####[facility] [address] [place], [address] Absolute Neut 12.6 X10 3/uL High 2.0-7.7 [facility] Comment on above: Performed By: #### L 500.2500, L100.0100 ####[facility] [address] [place], [address] Basophils/100 WBC (Bld) 0.1 % Normal 0-1 [facility] Comment on above: Performed By: #### L 500.2500, L100.0100 ####[facility] [address] [place], [address] Eosinophils/100 WBC (Bld) 2.1 % Normal 0-5 [facility] Comment on above: Performed By: #### L 500.2500, L100.0100 ####[facility] [address] [place], [address] Erythrocyte distribution width (RBC) [Ratio] 13.5 % Normal 11.6-14.6 [facility] Comment on above: Performed By: #### L 500.2500, L100.0100 ####[facility] [address] [place], [address] Hematocrit (Bld) [Volume fraction] 42.9 % Normal 40-54 [facility] Comment on above: Performed By: #### L 500.2500, L100.0100 ####[facility] [address] [place], [address] Hemoglobin (Bld) [Mass/Vol] 14.4 g/dL Normal 13.0-16.5 [facility] Comment on above: Performed By: #### L 500.2500, L100.0100 ####[facility] [address] [place], [address] IG% 0.700 Normal 0.0-0.9 [facility] Comment on above: Result Comment: IG% - Immature Granulocytes (promyelocytes, myelocytes andmetamyelocytes) > 1% indicates that a LEFT SHIFT is Present. Performed By: #### L 500.2500, L100.0100 ####[facility] [address] [place], [address] Lymphocytes/100 WBC (Bld) 5.4 % Low 19-41 [facility] Comment on above: Performed By: #### L 500.2500, L100.0100 ####[facility] [address] [place], [address] MCH (RBC) [Entitic mass] 31.4 pg Normal 27.0-32.0 [facility] Comment on above: Performed By: #### L 500.2500, L100.0100 ####[facility] [address] [place], [address] MCHC (RBC) [Mass/Vol] 33.6 g/dL Normal 32-36 [facility] Comment on above: Performed By: #### L 500.2500, L100.0100 ####[facility] [address] [place], [address] MCV (RBC) [Entitic vol] 93.7 fL Normal 80-94 [facility] Comment on above: Performed By: #### L 500.2500, L100.0100 ####[facility] [address] [place], [address] Monocytes/100 WBC (Bld) 6.8 % Normal 0-10 [facility] Comment on above: Performed By: #### L 500.2500, L100.0100 ####[facility] [address] [place], [address] Neutrophils/100 WBC (Bld) 84.9 % High 47-70 [facility] Comment on above: Performed By: #### L 500.2500, L100.0100 ####[facility] [address] [place], [address] Nucleated RBC (Bld) [#/Vol] 0 10*3/uL Normal 0-5 [facility] Comment on above: Performed By: #### L 500.2500, L100.0100 ####[facility] [address] [place], [address] Platelet mean volume (Bld) [Entitic vol] 8.7 fL Normal 6.2-12.0 [facility] Comment on above: Performed By: #### L 500.2500, L100.0100 ####[facility] [address] [place], [address] Platelets (Bld) [#/Vol] 177 10*3/uL Normal 150-450 [facility] Comment on above: Performed By: #### L 500.2500, L100.0100 ####[facility] [address] [place], [address] RBC (Bld) [#/Vol] 4.58 10*6/uL Low 4.6-6.2 [facility] Comment on above: Performed By: #### L 500.2500, L100.0100 ####[facility] [address] [place], [address] RDW SD 46.7 fl High 35.1-43.9 [facility] Comment on above: Performed By: #### L 500.2500, L100.0100 ####[facility] [address] [place], [address] WBC (Bld) [#/Vol] 14.8 10*3/uL High 4.4-11.0 [facility] Comment on above: Performed By: #### L 500.2500, L100.0100 ####[facility] [address] [place], [address] Chest 1 View (Portable)on Chest 1 View (Portable) Normal [facility] Abdomen Single Viewon 2022 Abdomen Single View Normal [facility] Barium Enema No Air Conton 0 05-04-2023 Barium Enema No Air Cont Normal [facility] Basic Metabolic Profile (BMP )on 05-04-2023 BUN/CRE 13.7 RATIO Normal 10-20 [facility] Comment on above: Performed By: #### L 100.0100, L500.3400, L500.2500, L501.2450, L501.5200, L501.2300 ####[facility] [address] [place], [address] CA,Total 8.6 mg/dL Normal 8.5-10.1 [facility] Comment on above: Performed By: #### L 100.0100, L500.3400, L500.2500, L501.2450, L501.5200, L501.2300 ####[facility] [address] [place], [address] Chloride [Moles/Vol] 110 mmol/L High 98-107 [facility] Comment on above: Performed By: #### L 100.0100, L500.3400, L500.2500, L501.2450, L501.5200, L501.2300 ####[facility] [address] [place], [address] CO2 [Moles/Vol] 21.0 mmol/L Normal 21.0-32.0 [facility] Comment on above: Performed By: #### L 100.0100, L500.3400, L500.2500, L501.2450, L501.5200, L501.2300 ####[facility] [address] [place], [address] Creatinine [Mass/Vol] 1.17 mg/dL Normal 0.70-1.30 [facility] Comment on above: Result Comment: The validity of the calculated GFR GFRAA in patients over70 years has not been determined. Clinical correlation isessential. Performed By: #### L 100.0100, L500.3400, L500.2500, L501.2450, L501.5200, L501.2300 ####[facility] [address] [place], [address] ECRCL 47.00 ml/min Normal [facility] Comment on above: Performed By: #### L 100.0100, L500.3400, L500.2500, L501.2450, L501.5200, L501.2300 ####[facility] [address] [place], [address] EST GFR - AA 76 mL/min Normal >60 [facility] Comment on above: Result Comment: Afri can Romanian GFR Calc Performed By: #### L 100.0100, L500.3400, L500.2500, L501.2450, L501.5200, L501.2300 ####[facility] [address] [place], [address] GAP 7 Normal 5-15 [facility] Comment on above: Performed By: #### L 100.0100, L500.3400, L500.2500, L501.2450, L501.5200, L501.2300 ####[facility] [address] [place], [address] GFR/1.73 sq M.predicted among non-blacks MDRD (S/P/Bld) [Vol rate/Area] 63 mL/min/{1.73_m2} Normal >60 [facility] Comment on above: Result Comment: Non- GFR Calc Performed By: #### L 100.0100, L500.3400, L500.2500, L501.2450, L501.5200, L501.2300 ####[facility] [address] [place], [address] Glucose [Mass/Vol] 109 mg/dL High 74-106 [facility] Comment on above: Result Comment: Fast ing Glucose result from 100 to 125 mg/dLsuggests IMPAIRED HOMEOSTASIS per A.D.A. criteria. Performed By: #### L 100.0100, L500.3400, L500.2500, L501.2450, L501.5200, L501.2300 ####[facility] [address] [place], [address] Potassium [Moles/Vol] 3.0 mmol/L Low 3.5-5.1 [facility] Comment on above: Performed By: #### L 100.0100, L500.3400, L500.2500, L501.2450, L501.5200, L501.2300 ####[facility] [address] [place], [address] Sodium [Moles/Vol] 138 mmol/L Normal 136-145 [facility] Comment on above: Performed By: #### L 100.0100, L500.3400, L500.2500, L501.2450, L501.5200, L501.2300 ####[facility] [address] [place], [address] Urea nitrogen [Mass/Vol] 16 mg/dL Normal 7-18 [facility] Comment on above: Performed By: #### L 100.0100, L500.3400, L500.2500, L501.2450, L501.5200, L501.2300 ####[facility] [address] [place], [address] CBC W/Diff, Automatedon 07-2 -2022 Absolute Lymph 0.99 X10 3/uL Normal 0.83-4.51 [facility] Comment on above: Performed By: #### L 100.0100, L500.3400, L500.2500, L501.2450, L501.5200, L501.2300 ####[facility] [address] [place], [address] Absolute Neut 15.5 X10 3/uL High 2.0-7.7 [facility] Comment on above: Performed By: #### L 100.0100, L500.3400, L500.2500, L501.2450, L501.5200, L501.2300 ####[facility] [address] [place], [address] Basophils/100 WBC (Bld) 0.2 % Normal 0-1 [facility] Comment on above: Performed By: #### L 100.0100, L500.3400, L500.2500, L501.2450, L501.5200, L501.2300 ####[facility] [address] [place], [address] Eosinophils/100 WBC (Bld) 0.5 % Normal 0-5 [facility] Comment on above: Performed By: #### L 100.0100, L500.3400, L500.2500, L501.2450, L501.5200, L501.2300 ####[facility] [address] [place], [address] Erythrocyte distribution width (RBC) [Ratio] 13.4 % Normal 11.6-14.6 [facility] Comment on above: Performed By: #### L 100.0100, L500.3400, L500.2500, L501.2450, L501.5200, L501.2300 ####[facility] [address] [place], [address] Hematocrit (Bld) [Volume fraction] 44.3 % Normal 40-54 [facility] Comment on above: Performed By: #### L 100.0100, L500.3400, L500.2500, L501.2450, L501.5200, L501.2300 ####[facility] [address] [place], [address] Hemoglobin (Bld) [Mass/Vol] 15.5 g/dL Normal 13.0-16.5 [facility] Comment on above: Performed By: #### L 100.0100, L500.3400, L500.2500, L501.2450, L501.5200, L501.2300 ####[facility] [address] [place], [address] IG% 0.800 Normal 0.0-0.9 [facility] Comment on above: Result Comment: IG% - Immature Granulocytes (promyelocytes, myelocytes andmetamyelocytes) > 1% indicates that a LEFT SHIFT is Present. Performed By: #### L 100.0100, L500.3400, L500.2500, L501.2450, L501.5200, L501.2300 ####[facility] [address] [place], [address] Lymphocytes/100 WBC (Bld) 5.6 % Low 19-41 [facility] Comment on above: Performed By: #### L 100.0100, L500.3400, L500.2500, L501.2450, L501.5200, L501.2300 ####[facility] [address] [place], [address] MCH (RBC) [Entitic mass] 32.5 pg High 27.0-32.0 [facility] Comment on above: Performed By: #### L 100.0100, L500.3400, L500.2500, L501.2450, L501.5200, L501.2300 ####[facility] [address] [place], [address] MCHC (RBC) [Mass/Vol] 35.0 g/dL Normal 32-36 [facility] Comment on above: Performed By: #### L 100.0100, L500.3400, L500.2500, L501.2450, L501.5200, L501.2300 ####[facility] [address] [place], [address] MCV (RBC) [Entitic vol] 92.9 fL Normal 80-94 [facility] Comment on above: Performed By: #### L 100.0100, L500.3400, L500.2500, L501.2450, L501.5200, L501.2300 ####[facility] [address] [place], [address] Monocytes/100 WBC (Bld) 5.4 % Normal 0-10 [facility] Comment on above: Performed By: #### L 100.0100, L500.3400, L500.2500, L501.2450, L501.5200, L501.2300 ####[facility] [address] [place], [address] Neutrophils/100 WBC (Bld) 87.5 % High 47-70 [facility] Comment on above: Performed By: #### L 100.0100, L500.3400, L500.2500, L501.2450, L501.5200, L501.2300 ####[facility] [address] [place], [address] Nucleated RBC (Bld) [#/Vol] 0 10*3/uL Normal 0-5 [facility] Comment on above: Performed By: #### L 100.0100, L500.3400, L500.2500, L501.2450, L501.5200, L501.2300 ####[facility] [address] [place], [address] Platelet mean volume (Bld) [Entitic vol] 8.4 fL Normal 6.2-12.0 [facility] Comment on above: Performed By: #### L 100.0100, L500.3400, L500.2500, L501.2450, L501.5200, L501.2300 ####[facility] [address] [place], [address] Platelets (Bld) [#/Vol] 177 10*3/uL Normal 150-450 [facility] Comment on above: Performed By: #### L 100.0100, L500.3400, L500.2500, L501.2450, L501.5200, L501.2300 ####[facility] [address] [place], [address] RBC (Bld) [#/Vol] 4.77 10*6/uL Normal 4.6-6.2 [facility] Comment on above: Performed By: #### L 100.0100, L500.3400, L500.2500, L501.2450, L501.5200, L501.2300 ####[facility] [address] [place], [place], [address] RDW SD 45.5 fl High 35.1-43.9 [facility] Comment on above: Performed By: #### L 100.0100, L500.3400, L500.2500, L501.2450, L501.5200, L501.2300 ####[facility] [address] [place], [place], [address] WBC (Bld) [#/Vol] 17.7 10*3/uL High 4.4-11.0 [facility] Comment on above: Performed By: #### L 100.0100, L500.3400, L500.2500, L501.2450, L501.5200, L501.2300 ####[facility] [address] [place], [place], [address] Laboratory - Chemistry and C hemistry - challengeOrdered By: Berto Youngblood on 05-04-2023 Lipase [Catalytic activity/Vol] 53 U/L 13-75 [facility] Comment on above: Please note:LIPASE r evised reference range effective 23. New Lipase methodology. Expected to produce lower values than the previous assay method. NEW Reference Range: 13 - 75 U/L Lipaseon 05-04-2023 Lipase [Catalytic activity/Vol] 53 U/L Normal 13-75 [facility] Comment on above: Result Comment: Renata cabrera note:LIPASE revised reference range effective 23.New Lipase methodology. Expected to produce lower valuesthan the previous assay method.NEW Reference Range: 13 - 75 U/L Performed By: #### L 100.0100, L500.3400, L500.2500, L501.2450, L501.5200, L501.2300 ####[facility] [address] [place], [address] Liver Profileon 05-04-2023 Albumin [Mass/Vol] 2.6 g/dL Low 3.2-5.0 [facility] Comment on above: Performed By: #### L 100.0100, L500.3400, L500.2500, L501.2450, L501.5200, L501.2300 ####[facility] [address] [place], [address] ALK P 67 U/L Normal 45-117 [facility] Comment on above: Performed By: #### L 100.0100, L500.3400, L500.2500, L501.2450, L501.5200, L501.2300 ####[facility] [address] [place], [address] ALT [Catalytic activity/Vol] 99 U/L High 16-61 [facility] Comment on above: Performed By: #### L 100.0100, L500.3400, L500.2500, L501.2450, L501.5200, L501.2300 ####[facility] [address] [place], [address] AST [Catalytic activity/Vol] 58 U/L High 15-37 [facility] Comment on above: Performed By: #### L 100.0100, L500.3400, L500.2500, L501.2450, L501.5200, L501.2300 ####[facility] [address] [place], [address] Bilirubin [Mass/Vol] 1.10 mg/dL High 0.20-1.00 [facility] Comment on above: Result Comment: For patients on eltrombopag therapy, use of Dimension Boswell TBIL is not recommended. Performed By: #### L 100.0100, L500.3400, L500.2500, L501.2450, L501.5200, L501.2300 ####[facility] [address] [place], [address] Bilirubin.direct [Mass/Vol] 0.53 mg/dL High 0.00-0.30 [facility] Comment on above: Performed By: #### L 100.0100, L500.3400, L500.2500, L501.2450, L501.5200, L501.2300 ####[facility] [address] [place], [address] Globulin (S) [Mass/Vol] 3.4 g/dL Normal 2.2-4.2 [facility] Comment on above: Performed By: #### L 100.0100, L500.3400, L500.2500, L501.2450, L501.5200, L501.2300 ####[facility] [address] [place], [address] T PROT 6.0 g/dL Low 6.4-8.2 [facility] Comment on above: Performed By: #### L 100.0100, L500.3400, L500.2500, L501.2450, L501.5200, L501.2300 ####[facility] [address] [place], [address] Magnesiumon 05-04-2023 Magnesium [Mass/Vol] 2.1 mg/dL Normal 1.6-2.6 [facility] Comment on above: Performed By: #### L 100.0100, L500.3400, L500.2500, L501.2450, L501.5200, L501.2300 ####[facility] [address] [place], [address] Phosphoruson 05-04-2023 Phosphate [Mass/Vol] 1.8 mg/dL Low 2.5-4.9 [facility] Comment on above: Performed By: #### L 100.0100, L500.3400, L500.2500, L501.2450, L501.5200, L501.2300 ####[facility] [address] [place], [address] BNP,B-Type NATRIURETIC PEPTI Daniela 05-03-2022 Natriuretic peptide B (Bld) [Mass/Vol] 76.6 pg/mL Normal 0-100 [facility] Comment on above: Performed By: #### L 503.6620 ####[facility] [address] [place], [address] CBC W/Diff, Automatedon 04-11 Absolute Lymph 0.83 X10 3/uL Normal 0.83-4.51 [facility] Comment on above: Performed By: #### L 501.5200, L501.2300, L100.0100, L500.4050 ####[facility] [address] [place], [address] Absolute Neut 19.0 X10 3/uL High 2.0-7.7 [facility] Comment on above: Performed By: #### L 501.5200, L501.2300, L100.0100, L500.4050 ####[facility] [address] [place], [address] Basophils/100 WBC (Bld) 0.1 % Normal 0-1 [facility] Comment on above: Performed By: #### L 501.5200, L501.2300, L100.0100, L500.4050 ####[facility] [address] [place], [address] Eosinophils/100 WBC (Bld) 0.1 % Normal 0-5 [facility] Comment on above: Performed By: #### L 501.5200, L501.2300, L100.0100, L500.4050 ####[facility] [address] [place], [address] Erythrocyte distribution width (RBC) [Ratio] 13.3 % Normal 11.6-14.6 [facility] Comment on above: Performed By: #### L 501.5200, L501.2300, L100.0100, L500.4050 ####[facility] [address] [place], [address] Hematocrit (Bld) [Volume fraction] 42.8 % Normal 40-54 [facility] Comment on above: Performed By: #### L 501.5200, L501.2300, L100.0100, L500.4050 ####[facility] [address] [place], [address] Hemoglobin (Bld) [Mass/Vol] 14.7 g/dL Normal 13.0-16.5 [facility] Comment on above: Performed By: #### L 501.5200, L501.2300, L100.0100, L500.4050 ####[facility] [address] [place], [address] IG% 0.500 Normal 0.0-0.9 [facility] Comment on above: Result Comment: IG% - Immature Granulocytes (promyelocytes, myelocytes andmetamyelocytes) > 1% indicates that a LEFT SHIFT is Present. Performed By: #### L 501.5200, L501.2300, L100.0100, L500.4050 ####[facility] [address] [place], [address] Lymphocytes/100 WBC (Bld) 3.9 % Low 19-41 [facility] Comment on above: Performed By: #### L 501.5200, L501.2300, L100.0100, L500.4050 ####[facility] [address] [place], [address] MCH (RBC) [Entitic mass] 32.0 pg Normal 27.0-32.0 [facility] Comment on above: Performed By: #### L 501.5200, L501.2300, L100.0100, L500.4050 ####[facility] [address] [place], [address] MCHC (RBC) [Mass/Vol] 34.3 g/dL Normal 32-36 [facility] Comment on above: Performed By: #### L 501.5200, L501.2300, L100.0100, L500.4050 ####[facility] [address] [place], [address] MCV (RBC) [Entitic vol] 93.2 fL Normal 80-94 [facility] Comment on above: Performed By: #### L 501.5200, L501.2300, L100.0100, L500.4050 ####[facility] [address] [place], [address] Monocytes/100 WBC (Bld) 6.0 % Normal 0-10 [facility] Comment on above: Performed By: #### L 501.5200, L501.2300, L100.0100, L500.4050 ####[facility] [address] [place], [address] Neutrophils/100 WBC (Bld) 89.4 % High 47-70 [facility] Comment on above: Performed By: #### L 501.5200, L501.2300, L100.0100, L500.4050 ####[facility] [address] [place], [address] Nucleated RBC (Bld) [#/Vol] 0 10*3/uL Normal 0-5 [facility] Comment on above: Performed By: #### L 501.5200, L501.2300, L100.0100, L500.4050 ####[facility] [address] [place], [address] Platelet mean volume (Bld) [Entitic vol] 7.9 fL Normal 6.2-12.0 [facility] Comment on above: Performed By: #### L 501.5200, L501.2300, L100.0100, L500.4050 ####[facility] [address] [place], [address] Platelets (Bld) [#/Vol] 166 10*3/uL Normal 150-450 [facility] Comment on above: Performed By: #### L 501.5200, L501.2300, L100.0100, L500.4050 ####[facility] [address] [place], [address] RBC (Bld) [#/Vol] 4.59 10*6/uL Low 4.6-6.2 [facility] Comment on above: Performed By: #### L 501.5200, L501.2300, L100.0100, L500.4050 ####[facility] [address] [place], [address] RDW SD 45.6 fl High 35.1-43.9 [facility] Comment on above: Performed By: #### L 501.5200, L501.2300, L100.0100, L500.4050 ####[facility] [address] [place], [address] WBC (Bld) [#/Vol] 21.3 10*3/uL High 4.4-11.0 [facility] Comment on above: Performed By: #### L 501.5200, L501.2300, L100.0100, L500.4050 ####[facility] [address] [place], [address] [facility] 05-03-2023 Albumin [Mass/Vol] 3.0 g/dL Low 3.2-5.0 [facility] Comment on above: Performed By: #### L 501.5200, L501.2300, L100.0100, L500.4050 ####[facility] [address] [place], [address] Albumin/Globulin [Mass ratio] 1.0 {ratio} Normal 0.9-2.4 [facility] Comment on above: Performed By: #### L 501.5200, L501.2300, L100.0100, L500.4050 ####[facility] [address] [place], [address] ALK P 66 U/L Normal 45-117 [facility] Comment on above: Performed By: #### L 501.5200, L501.2300, L100.0100, L500.4050 ####[facility] [address] [place], [address] ALT [Catalytic activity/Vol] 41 U/L Normal 16-61 [facility] Comment on above: Performed By: #### L 501.5200, L501.2300, L100.0100, L500.4050 ####[facility] [address] [place], [address] AST [Catalytic activity/Vol] 26 U/L Normal 15-37 [facility] Comment on above: Performed By: #### L 501.5200, L501.2300, L100.0100, L500.4050 ####[facility] [address] [place], [address] Bilirubin [Mass/Vol] 0.90 mg/dL Normal 0.20-1.00 [facility] Comment on above: Result Comment: For patients on eltrombopag therapy, use of Dimension Boswell TBIL is not recommended. Performed By: #### L 501.5200, L501.2300, L100.0100, L500.4050 ####[facility] [address] [place], [address] BUN/CRE 16.5 RATIO Normal 10-20 [facility] Comment on above: Performed By: #### L 501.5200, L501.2300, L100.0100, L500.4050 ####[facility] [address] [place], [address] CA,Total 8.4 mg/dL Low 8.5-10.1 [facility] Comment on above: Performed By: #### L 501.5200, L501.2300, L100.0100, L500.4050 ####[facility] [address] [place], [address] Chloride [Moles/Vol] 110 mmol/L High 98-107 [facility] Comment on above: Performed By: #### L 501.5200, L501.2300, L100.0100, L500.4050 ####[facility] [address] [place], [address] CO2 [Moles/Vol] 24.0 mmol/L Normal 21.0-32.0 [facility] Comment on above: Performed By: #### L 501.5200, L501.2300, L100.0100, L500.4050 ####[facility] [address] [place], [address] Creatinine [Mass/Vol] 1.09 mg/dL Normal 0.70-1.30 [facility] Comment on above: Result Comment: The validity of the calculated GFR GFRAA in patients over70 years has not been determined. Clinical correlation isessential. Performed By: #### L 501.5200, L501.2300, L100.0100, L500.4050 ####[facility] [address] [place], [address] ECRCL 50.45 ml/min Normal [facility] Comment on above: Performed By: #### L 501.5200, L501.2300, L100.0100, L500.4050 ####[facility] [address] [place], [address] EST GFR - AA 83 mL/min Normal >60 [facility] Comment on above: Result Comment: Afri can Romanian GFR Calc Performed By: #### L 501.5200, L501.2300, L100.0100, L500.4050 ####[facility] [address] [place], [address] GAP 5 Normal 5-15 [facility] Comment on above: Performed By: #### L 501.5200, L501.2300, L100.0100, L500.4050 ####[facility] [address] [place], [address] GFR/1.73 sq M.predicted among non-blacks MDRD (S/P/Bld) [Vol rate/Area] 68 mL/min/{1.73_m2} Normal >60 [facility] Comment on above: Result Comment: Non- GFR Calc Performed By: #### L 501.5200, L501.2300, L100.0100, L500.4050 ####[facility] [address] [place], [address] Globulin (S) [Mass/Vol] 3.1 g/dL Normal 2.2-4.2 [facility] Comment on above: Performed By: #### L 501.5200, L501.2300, L100.0100, L500.4050 ####[facility] [address] [place], [address] Glucose [Mass/Vol] 106 mg/dL Normal 74-106 [facility] Comment on above: Result Comment: Fast ing Glucose result from 100 to 125 mg/dLsuggests IMPAIRED HOMEOSTASIS per A.D.A. criteria. Performed By: #### L 501.5200, L501.2300, L100.0100, L500.4050 ####[facility] [facility] [address] [place], [address] Potassium [Moles/Vol] 3.4 mmol/L Low 3.5-5.1 [facility] Comment on above: Performed By: #### L 501.5200, L501.2300, L100.0100, L500.4050 ####[facility] [address] [place], [address] Sodium [Moles/Vol] 139 mmol/L Normal 136-145 [facility] Comment on above: Performed By: #### L 501.5200, L501.2300, L100.0100, L500.4050 ####[facility] [address] [place], [address] T PROT 6.1 g/dL Low 6.4-8.2 [facility] Comment on above: Performed By: #### L 501.5200, L501.2300, L100.0100, L500.4050 ####[facility] [address] [place], [address] Urea nitrogen [Mass/Vol] 18 mg/dL Normal 7-18 [facility] Comment on above: Performed By: #### L 501.5200, L501.2300, L100.0100, L500.4050 ####[facility] [address] [place], [address] Hepatobilliary Imagingon Hepatobilliary Imaging Normal [facility] - Chemistry and C hemistry - challengeOrdered By: Chetan Duffy on 05-03-2023 Natriuretic peptide B (Bld) [Mass/Vol] 76.6 pg/mL 0-100 [facility] Lipaseon 05-03-2023 Lipase [Catalytic activity/Vol] 35 U/L Normal 13-75 [facility] Comment on above: Order Comment: ADD T O MORNING RUN Result Comment: Renata cabrera note:LIPASE revised reference range effective 23.New Lipase methodology. Expected to produce lower valuesthan the previous assay method.NEW Reference Range: 13 - 75 U/L Performed By: #### L 501.2450 ####[facility] [address] [place], [address] Magnesiumon 05-03-2023 Magnesium [Mass/Vol] 1.9 mg/dL Normal 1.6-2.6 [facility] Comment on above: Performed By: #### L 501.5200, L501.2300, L100.0100, L500.4050 ####[facility] [address] [place], [address] Phosphoruson 05-03-2023 Phosphate [Mass/Vol] 1.8 mg/dL Low 2.5-4.9 [facility] Comment on above: Performed By: #### L 501.5200, L501.2300, L100.0100, L500.4050 ####[facility] [address] [place], [address] Serum or plasma albumin/glob ulin mass ratioOrdered By: Herber Hewitt on 05-03-2023 Albumin/Globulin [Mass ratio] 1.0 {ratio} 0.9-2.4 [facility] 12 Lead EKGon 05-02-2023 12 Lead EKG Normal [facility] Abdomen/Pelvis without Conto n 05-02-2023 Abdomen/Pelvis without Cont Normal [facility] Amorphous sediment detection in urine sediment by light microscopyOrdered By: Demetris Mcdonald on 05-02-2023 Amorphous sediment LM Ql (Urine sed) 1+ URATE [facility] Basophil percentageOrdered B y: Demetris Mcdonald on 05-02-2023 Basophil percentage 0-5 SEEN /hpf 0-5 [facility] Bilirubin Test strip Ql (U)O rdered By: Demetris Mcdonald on 05-02-2023 Bilirubin Ql (U) Negative Negative [facility] Blood manual differential co mment interpretation (narrative result)Ordered By: Demetris Mcdonald on 05-02-2023 Manual differential comment Wolfgang (Bld) [Interp] SCANNED [facility] CBC W/Diff, Automatedon 04-11 SMEAR COMMENT SCANNED Normal [facility] Comment on above: Performed By: #### L 501.4020, L100.0100, L500.4050, L501.2450 ####[facility] [address] [place], [address] Chest PA and Lateralon 05-02 Chest PA and Lateral Normal [facility] Comprehensive Metabolic Prof ilon 05-02-2023 Albumin [Mass/Vol] 3.7 g/dL Normal 3.2-5.0 [facility] Comment on above: Order Comment: 'TROP ' Serial specimen #1, #2 or #3: 1 Performed By: #### L 501.4020, L100.0100, L500.4050, L501.2450 ####[facility] [address] [place], [address] Albumin/Globulin [Mass ratio] 0.9 {ratio} Normal 0.9-2.4 [facility] Comment on above: Order Comment: 'TROP ' Serial specimen #1, #2 or #3: 1 Performed By: #### L 501.4020, L100.0100, L500.4050, L501.2450 ####[facility] [address] [place], [address] ALK P 82 U/L Normal 45-117 [facility] Comment on above: Order Comment: 'TROP ' Serial specimen #1, #2 or #3: 1 Performed By: #### L 501.4020, L100.0100, L500.4050, L501.2450 ####[facility] [address] [place], [address] ALT [Catalytic activity/Vol] 36 U/L Normal 16-61 [facility] Comment on above: Order Comment: 'TROP ' Serial specimen #1, #2 or #3: 1 Performed By: #### L 501.4020, L100.0100, L500.4050, L501.2450 ####[facility] [address] [place], [address] AST [Catalytic activity/Vol] 19 U/L Normal 15-37 [facility] Comment on above: Order Comment: 'TROP ' Serial specimen #1, #2 or #3: 1 Performed By: #### L 501.4020, L100.0100, L500.4050, L501.2450 ####[facility] [address] [place], [address] Bilirubin [Mass/Vol] 0.90 mg/dL Normal 0.20-1.00 [facility] Comment on above: Order Comment: 'TROP ' Serial specimen #1, #2 or #3: 1 Result Comment: For patients on eltrombopag therapy, use of Dimension Boswell TBIL is not recommended. Performed By: #### L 501.4020, L100.0100, L500.4050, L501.2450 ####[facility] [address] [place], [address] BUN/CRE 15.3 RATIO Normal 10-20 [facility] Comment on above: Order Comment: 'TROP ' Serial specimen #1, #2 or #3: 1 Performed By: #### L 501.4020, L100.0100, L500.4050, L501.2450 ####[facility] [address] [place], [address] CA,Total 9.7 mg/dL Normal 8.5-10.1 [facility] Comment on above: Order Comment: 'TROP ' Serial specimen #1, #2 or #3: 1 Performed By: #### L 501.4020, L100.0100, L500.4050, L501.2450 ####[facility] [address] [place], [address] Chloride [Moles/Vol] 101 mmol/L Normal 98-107 [facility] Comment on above: Order Comment: 'TROP ' Serial specimen #1, #2 or #3: 1 Performed By: #### L 501.4020, L100.0100, L500.4050, L501.2450 ####[facility] [address] [place], [address] CO2 [Moles/Vol] 28.0 mmol/L Normal 21.0-32.0 [facility] Comment on above: Order Comment: 'TROP ' Serial specimen #1, #2 or #3: 1 Performed By: #### L 501.4020, L100.0100, L500.4050, L501.2450 ####[facility] [address] [place], [address] Creatinine [Mass/Vol] 1.57 mg/dL High 0.70-1.30 [facility] Comment on above: Order Comment: 'TROP ' Serial specimen #1, #2 or #3: 1 Result Comment: The validity of the calculated GFR GFRAA in patients over70 years has not been determined. Clinical correlation isessential. Performed By: #### L 501.4020, L100.0100, L500.4050, L501.2450 ####[facility] [address] [place], [address] ECRCL 35.02 ml/min Normal [facility] Comment on above: Order Comment: 'TROP ' Serial specimen #1, #2 or #3: 1 Performed By: #### L 501.4020, L100.0100, L500.4050, L501.2450 ####[facility] [address] [place], [address] EST GFR - AA 59 mL/min Low >60 [facility] Comment on above: Order Comment: 'TROP ' Serial specimen #1, #2 or #3: 1 Result Comment: Afri can Romanian GFR Calc Performed By: #### L 501.4020, L100.0100, L500.4050, L501.2450 ####[facility] [address] [place], [address] GAP 8 Normal 5-15 [facility] Comment on above: Order Comment: 'TROP ' Serial specimen #1, #2 or #3: 1 Performed By: #### L 501.4020, L100.0100, L500.4050, L501.2450 ####[facility] [address] [place], [address] GFR/1.73 sq M.predicted among non-blacks MDRD (S/P/Bld) [Vol rate/Area] 49 mL/min/{1.73_m2} Low >60 [facility] Comment on above: Order Comment: 'TROP ' Serial specimen #1, #2 or #3: 1 Result Comment: Non- GFR Calc Performed By: #### L 501.4020, L100.0100, L500.4050, L501.2450 ####[facility] [address] [place], [address] Globulin (S) [Mass/Vol] 4.0 g/dL Normal 2.2-4.2 [facility] Comment on above: Order Comment: 'TROP ' Serial specimen #1, #2 or #3: 1 Performed By: #### L 501.4020, L100.0100, L500.4050, L501.2450 ####[facility] [address] [place], [address] Glucose [Mass/Vol] 135 mg/dL High 74-106 [facility] Comment on above: Order Comment: 'TROP ' Serial specimen #1, #2 or #3: 1 Result Comment: Fast ing Glucose result greater than or equal to 126 mg/dLsuggests DIABETES MELLITUS per A.D.A. criteria. Performed By: #### L 501.4020, L100.0100, L500.4050, L501.2450 ####[facility] [address] [place], [address] Potassium [Moles/Vol] 3.4 mmol/L Low 3.5-5.1 [facility] Comment on above: Order Comment: 'TROP ' Serial specimen #1, #2 or #3: 1 Performed By: #### L 501.4020, L100.0100, L500.4050, L501.2450 ####[facility] [address] [place], [address] Sodium [Moles/Vol] 137 mmol/L Normal 136-145 [facility] Comment on above: Order Comment: 'TROP ' Serial specimen #1, #2 or #3: 1 Performed By: #### L 501.4020, L100.0100, L500.4050, L501.2450 ####[facility] [address] [place], [address] T PROT 7.7 g/dL Normal 6.4-8.2 [facility] Comment on above: Order Comment: 'TROP ' Serial specimen #1, #2 or #3: 1 Performed By: #### L 501.4020, L100.0100, L500.4050, L501.2450 ####[facility] [address] [place], [address] Urea nitrogen [Mass/Vol] 24 mg/dL High 7-18 [facility] Comment on above: Order Comment: 'TROP ' Serial specimen #1, #2 or #3: 1 Performed By: #### L 501.4020, L100.0100, L500.4050, L501.2450 ####[facility] [address] [place], [address] Echo Complete W/ Contraston 05-02-2023 Echo Complete W/ Contrast Normal [facility] Emergency Department Summary on 05-02-2023 Emergency Department Summary Normal [facility] Gallbladderon 05-02-2023 Gallbladder Normal [facility] Ketones Test strip Ql (U)Ord ered By: Demetris Mcdonald on 05-02-2023 Ketones Ql (U) 5 mg/dl Negative [facility] L501.4020on 05-02-2023 TROPONIN-I HS 35 pg/mL Normal 3.0-78.0 [facility] Comment on above: Order Comment: 'TROP ' Serial specimen #1, #2 or #3: 1 Result Comment: Plea se Note: New Test Units and Gender Specific Reference Ranges. For more information see Policy Stat Procedure Boswell High Sensitivity Troponin (TNIH) and attachments. Performed By: #### L 501.4020, L100.0100, L500.4050, L501.2450 ####[facility] [address] [place], [address] Lipaseon 05-02-2023 Lipase [Catalytic activity/Vol] 94 U/L High 13-75 [facility] Comment on above: Order Comment: 'TROP ' Serial specimen #1, #2 or #3: 1 Result Comment: Plea se note:LIPASE revised reference range effective 23.New Lipase methodology. Expected to produce lower valuesthan the previous assay method.NEW Reference Range: 13 - 75 U/L Performed By: #### L 501.4020, L100.0100, L500.4050, L501.2450 ####[facility] [address] [place], [place], [address] Mucus LM Ql (Urine sed)Order ed By: Demetris Mcdonald on 05-02-2023 Mucus Ql (Urine sed) 0 SEEN /hpf [facility] Nitrite Test strip Ql (U)Ord ered By: Demetris Mcdonald on 05-02-2023 Nitrite Ql (U) Negative Negative [facility] No Panel InformationOrdered By: Demetris Mcdonald on 05-02-2023 Troponin I High Sensitivity 35 pg/mL 3.0-78.0 [facility] Comment on above: Please Note: New Carli t Units and Gender Specific Reference Ranges. For more information see Policy Stat Procedure Boswell High Sensitivity Troponin (TNIH) and attachments. Protein Test strip Ql (U)Ord ered By: Demetris Mcdonald on 05-02-2023 Protein Ql (U) 100 mg/dl Negative [facility] Squamous epithelial cells de tection in urine sediment by light microscopyOrdered By: Demetris Mcdonald on 05-02-2023 Epithelial cells.squamous LM Ql (Urine sed) 0-5 SEEN /hpf 0-5 [facility] Urinalysis, Completeon 05-02 AMORPHOUS 1+ URATE Normal [facility] Comment on above: Order Comment: CLEAN CATCH Performed By: #### L 400.0001 ####[facility] [address] [place], [address] EPI,SQUAMOUS 0-5 SEEN Normal 0-5 [facility] Comment on above: Order Comment: CLEAN CATCH Performed By: #### L 400.0001 ####[facility] [address] [place], [address] RBC 10-25 SEEN Normal 0-5 [facility] Comment on above: Order Comment: CLEAN CATCH Performed By: #### L 400.0001 ####[facility] [address] [place], [address] WBC 0-5 SEEN Normal 0-5 [facility] Comment on above: Order Comment: CLEAN CATCH Performed By: #### L 400.0001 ####[facility] [address] [place], [address] BACTERIA 0 SEEN Normal None Seen [facility] Comment on above: Order Comment: CLEAN CATCH Performed By: #### L 400.0001 ####[facility] [address] [place], [address] Mucus Ql (Urine sed) 0 SEEN Normal [facility] Comment on above: Order Comment: CLEAN CATCH Performed By: #### L 400.0001 ####[facility] [address] [place], [address] Urine blood detectionOrdered By: Demetris Mcdonald on 05-02-2023 RBC Ql (U) 150 /ul Negative [facility] RBC Ql (U) 10-25 SEEN /hpf 0-5 [facility] Urine clarityOrdered By: Rosana Mcdonald on 05-02-2023 Clarity (U) Sl. Cloudy Clear [facility] Urine color determinationOrd ered By: Demetris Mcdonald on 05-02-2023 Color (U) Yellow Yellow [facility] Urine glucose detectionOrder ed By: Demetris Mcdonald on 05-02-2023 Glucose Ql (U) 50 mg/dl Normal [facility] Urine leukocyte esterase det ection by dipstickOrdered By: Demetris Mcdonald on 05-02-2023 Leukocyte esterase Test strip Ql (U) 25 /ul Negative [facility] Urine pHOrdered By: Demetris Mcdonald on 05-02-2023 pH (U) 6.5 [pH] 5.0 - 8.0 [facility] Urine sediment bacteria coun t by microscopy (number/high power field)Ordered By: Demetris Mcdonald on 05-02-2023 Bacteria LM.HPF (Urine sed) [#/Area] 0 /[HPF] None Seen [facility] Urine specific gravity measu rementOrdered By: Demetris Mcdonald on 05-02-2023 Specific gravity (U) [Rel density] 1.020 1.002-1.030 [facility] Urobilinogen Auto test strip Ql (U)Ordered By: Demetris Mcdonald on 05-02-2023 Urobilinogen Ql (U) 1 mg/dl Normal [facility] .Auto Diffon 03-09-2018 Basophils Auto #/vol (Bld) 0.10 10 3/mcL Normal 0.00-0.19 [facility] ([place]) Comment on above: Performed By: #### C BC, ADIFF, ANEU, LIPID, GFR, CMP ####[address] [place], [place] [address] Basophils/100 WBC Auto (Bld) 0.6 % Normal 0.0-2.5 [facility] ([place]) Comment on above: Performed By: #### C BC, ADIFF, ANEU, LIPID, GFR, CMP ####[address] [place], [place] [address] Eosinophils 0.50 10 3/mcL High 0.00-0.40 [facility] ([place]) Comment on above: Performed By: #### C BC, ADIFF, ANEU, LIPID, GFR, CMP ####[address] [place], [place] [address] Eosinophils/100 leukocytes 5.9 % Normal 0.0-7.0 [facility] ([place]) Comment on above: Performed By: #### C BC, ADIFF, ANEU, LIPID, GFR, CMP ####[address] [place], [place] [address] Lymphocytes 1.50 10 3/mcL Normal 0.77-3.85 [facility] ([place]) Comment on above: Performed By: #### C BC, ADIFF, ANEU, LIPID, GFR, CMP ####[address] [place], [place] [address] Lymphocytes/100 leukocytes 16.1 % Normal 10.0-50.0 [facility] ([place]) Comment on above: Performed By: #### C BC, ADIFF, ANEU, LIPID, GFR, CMP ####[address] [place], [place] [address] Monocytes 0.60 10 3/mcL Normal 0.15-1.00 [facility] ([place]) Comment on above: Performed By: #### C BC, ADIFF, ANEU, LIPID, GFR, CMP ####[address] [place], [place] [address] Monocytes/100 leukocytes 6.7 % Normal 1.7-13.0 [facility] ([place]) Comment on above: Performed By: #### C BC, ADIFF, ANEU, LIPID, GFR, CMP ####[address] [place], [place] [address] Neutrophils/100 WBC Auto (Bld) 70.7 % Normal 37.0-80.0 [facility] ([place]) Comment on above: Performed By: #### C BC, ADIFF, ANEU, LIPID, GFR, CMP ####[address] [place], [place] [address] .GFRon 03-09-2018 eGFR (non-black) 49 ml/min/1.73sqm Normal [facility] ([place]) Comment on above: Result Comment: GFR Population mean for , Non- Americans Ages 20-29 = 116 mL/min/1.73 sq.m. Ages 30-39 = 107 mL/min/1.73 sq.m. Ages 40-49 = 99 mL/min/1.73 sq.m. Ages 50-59 = 93 mL/min/1.73 sq.m. Ages 60-69 = 85 mL/min/1.73 sq.m. Ages 70+ = 75 mL/min/1.73 sq.m.Chronic Kidney Disease: Less than 60 mL/min/1.73 square metersEnd Stage Renal Disease: Less than 15 mL/min/1.73 square meters Performed By: #### C BC, ADIFF, ANEU, LIPID, GFR, CMP ####[address] [place], [place] [address] eGFR (non-black) 59 ml/min/1.73sqm Normal [facility] ([place]) Comment on above: Result Comment: GFR Population mean for , Non- Americans Ages 20-29 = 116 mL/min/1.73 sq.m. Ages 30-39 = 107 mL/min/1.73 sq.m. Ages 40-49 = 99 mL/min/1.73 sq.m. Ages 50-59 = 93 mL/min/1.73 sq.m. Ages 60-69 = 85 mL/min/1.73 sq.m. Ages 70+ = 75 mL/min/1.73 sq.m.Chronic Kidney Disease: Less than 60 mL/min/1.73 square metersEnd Stage Renal Disease: Less than 15 mL/min/1.73 square meters Performed By: #### C BC, ADIFF, ANEU, LIPID, GFR, CMP ####[address] [place], [place] [address] .NEUABSon 03-09-2018 Neutrophils 6.60 10 3/mcL High 2.85-6.16 [facility] ([place]) Comment on above: Performed By: #### C BC, ADIFF, ANEU, LIPID, GFR, CMP ####[address] [place], [place] [address] CBCon 03-09-2018 Erythrocyte distribution width Auto Ratio (RBC) 13.3 % Normal 11.5-14.5 [facility] ([place]) Comment on above: Performed By: #### C BC, ADIFF, ANEU, LIPID, GFR, CMP ####[address] [place], [place] [address] Erythrocytes (RBC) 4.58 10 6/mcL Normal 4.04-6.13 [facility] ([place]) Comment on above: Performed By: #### C BC, ADIFF, ANEU, LIPID, GFR, CMP ####[address] [place] [address] Hematocrit (HCT) 43.7 % Normal 42.0-52.0 [facility] ([place]) Comment on above: Performed By: #### C BC, ADIFF, ANEU, LIPID, GFR, CMP ####[address] [place] [address] Hemoglobin mass conc (Bld) 15.2 G/dL Normal 14.0-18.0 [facility] ([place]) Comment on above: Performed By: #### C BC, ADIFF, ANEU, LIPID, GFR, CMP ####[address] [place] [address] MCH 33.2 pg High 27.0-31.2 [facility] ([place]) Comment on above: Performed By: #### C BC, ADIFF, ANEU, LIPID, GFR, CMP ####[address] [place], [place] [address] MCHC mass conc (RBC) 34.8 G/dL Normal 31.8-35.4 [facility] ([place]) Comment on above: Performed By: #### C BC, ADIFF, ANEU, LIPID, GFR, CMP ####[address] [place] [address] MCV 95.3 fL High 80.0-94.0 [facility] ([place]) Comment on above: Performed By: #### C BC, ADIFF, ANEU, LIPID, GFR, CMP ####[address] [place], [place] [address] Platelet mean volume (PMV) 7.3 fL Low 7.4-10.4 [facility] ([place]) Comment on above: Performed By: #### C BC, ADIFF, ANEU, LIPID, GFR, CMP ####[address] [place], [place] [address] Platelets 214 10 3/mcL Normal 130-400 [facility] ([place]) Comment on above: Performed By: #### C BC, ADIFF, ANEU, LIPID, GFR, CMP ####[address] [place], [place] [address] WBC (Leukocytes) 9.40 10 3/mcL Normal 4.60-10.80 [facility] ([place]) Comment on above: Performed By: #### C BC, ADIFF, ANEU, LIPID, GFR, CMP ####[address] [place], [place] [address] CMPon 03-09-2018 Bili Total 0.4 mg/dL Normal 0.2-1.0 [facility] ([place]) Comment on above: Performed By: #### C BC, ADIFF, ANEU, LIPID, GFR, CMP ####[address] [place], [place] [address] Alanine aminotransferase (ALT) 10 U/L Normal 10-35 [facility] ([place]) Comment on above: Performed By: #### C BC, ADIFF, ANEU, LIPID, GFR, CMP ####[address] [place], [place] [address] Albumin 4.3 G/dL Normal 3.4-4.8 [facility] ([place]) Comment on above: Performed By: #### C BC, ADIFF, ANEU, LIPID, GFR, CMP ####[address] [place], [place] [address] Albumin/Globulin Ratio 2.0 {ratio} Normal 1.1-2.5 [facility] ([place]) Comment on above: Performed By: #### C BC, ADIFF, ANEU, LIPID, GFR, CMP ####[address] [place], [place] [address] Alk Phos 66 IU/L Normal 40-135 [facility] ([place]) Comment on above: Performed By: #### C BC, ADIFF, ANEU, LIPID, GFR, CMP ####[address] [place], [place] [address] Aspartate aminotransferase (AST) 13 U/L Normal 10-40 [facility] ([place]) Comment on above: Performed By: #### C BC, ADIFF, ANEU, LIPID, GFR, CMP ####[address] [place], [place] [address] BUN/Creatinine Ratio 11 ratio Normal 7-27 [facility] ([place]) Comment on above: Performed By: #### C BC, ADIFF, ANEU, LIPID, GFR, CMP ####[address] [place], [place] [address] Calcium 9.1 mg/dL Normal 8.4-10.2 [facility] ([place]) Comment on above: Performed By: #### C BC, ADIFF, ANEU, LIPID, GFR, CMP ####[address] [place], [place] [address] Chloride 104 mmol/L Normal 98-107 [facility] ([place]) Comment on above: Performed By: #### C BC, ADIFF, ANEU, LIPID, GFR, CMP ####[address] [place], [place] [address] CO2 26 mmol/L Normal 23-31 [facility] ([place]) Comment on above: Performed By: #### C BC, ADIFF, ANEU, LIPID, GFR, CMP ####[address] [place], [place] [address] Creatinine 1.4 mg/dL High 0.6-1.2 [facility] ([place]) Comment on above: Performed By: #### C BC, ADIFF, ANEU, LIPID, GFR, CMP ####[address] [place], [place] [address] Electrolyte Balance 7.0 mEq/L Normal [facility] ([place]) Comment on above: Performed By: #### C BC, ADIFF, ANEU, LIPID, GFR, CMP ####[address] [place], [place] [address] Globulin 2.2 G/dL Normal [facility] ([place]) Comment on above: Performed By: #### C BC, ADIFF, ANEU, LIPID, GFR, CMP ####[address] [place], [place] [address] Glucose mass conc 115 mg/dL High 83-110 [facility] ([place]) Comment on above: Performed By: #### C BC, ADIFF, ANEU, LIPID, GFR, CMP ####[address] [place], [place] [address] Potassium molar conc 4.1 mmol/L Normal 3.5-5.1 [facility] ([place]) Comment on above: Performed By: #### C BC, ADIFF, ANEU, LIPID, GFR, CMP ####[address] [place], [place] [address] Protein 6.5 G/dL Normal 6.0-8.3 [facility] ([place]) Comment on above: Performed By: #### C BC, ADIFF, ANEU, LIPID, GFR, CMP ####[address] [place], [place] [address] Sodium 137 mmol/L Normal 136-146 [facility] ([place]) Comment on above: Performed By: #### C BC, ADIFF, ANEU, LIPID, GFR, CMP ####[address] [place], [place] [address] Urea nitrogen 15.3 mg/dL Normal 7.0-18.0 [facility] ([place]) Comment on above: Performed By: #### C BC, ADIFF, ANEU, LIPID, GFR, CMP ####[address] [place], [place] [address] LIPIDon 03-09-2018 Cholesterol 149 mg/dL Normal 131-200 [facility] ([place]) Comment on above: Result Comment: Chol esterol Reference Interval:Less than 200 [id number] Borderline high [id number] and above High risk Performed By: #### C BC, ADIFF, ANEU, LIPID, GFR, CMP ####[address] [place], [place] [address] HDL Cholesterol 36 mg/dL Normal 35-90 [facility] ([place]) Comment on above: Result Comment: HDL Reference Interval:Less than 40 Low - high risk60 or above Optimal/lowers risk Performed By: #### C BC, ADIFF, ANEU, LIPID, GFR, CMP ####[address] [place], [place] [address] LDL Cholesterol 75 mg/dL Normal 0-130 [facility] ([place]) Comment on above: Result Comment: LDL is a calculated result and requires a 12-hr fast.LDL Reference Interval:Less than 100 [id number] Near or above [id number] Borderline high [id number] High vuah194 and above Very high risk Performed By: #### C BC, ADIFF, ANEU, LIPID, GFR, CMP ####[address] [place], [place] [address] Triglyceride 191 mg/dL High 40-150 [facility] ([place]) Comment on above: Result Comment: Trig lyceride Reference Interval:Less than 150 [id number] Borderline high [id number] High wkks094 or higher Very high risk Performed By: #### C BC, ADIFF, ANEU, LIPID, GFR, CMP ####[address] [place], [place] [address] Vital Signs Date Time Vital Sign Value Performing Clinician Marielena nobles 05-11-2023 09:45-0400 Body temperature 98 [degF] Dr. Demetris Mcdonald Work Phone: [facility] 05-11-2023 09:45-0400 Diastolic blood pressure 69 mm[Hg] Dr. Demetris Mcdonald Work Phone: [facility] 05-11-2023 09:45-0400 Heart rate 72 /min Dr. Demetris Mcdonald Work Phone: [facility] 05-11-2023 09:45-0400 Respiratory rate 18 /min Dr. Demetris Mcdonald Work Phone: [facility] 05-11-2023 09:45-0400 SaO2% (BldA) [Mass fraction] 98 % Dr. Demetris Mcdonald Work Phone: [facility] 05-11-2023 09:45-0400 Systolic blood pressure 161 mm[Hg] Dr. Demetris Mcdonald Work Phone: [facility] 05-10-2023 12:05-0400 Body height 175.[address] Demetris Mcdonald Work Phone: [facility] 05-10-2023 12:05-0400 Body weight 74.[address] Demetris Mcdonald Work Phone: [facility] 05-02-2023 22:05-0400 Body mass index (BMI) [Ratio] 24.3 kg/m2 Dr. Demetris Mcdonald Work Phone: [facility] Encounters Encounter Date Encounter Type Care Provider Facility Start: 06-04-2023 Encounter for preprocedural cardiovascular examination [facility] Start: 05-11-2023 Non-patient / Non-visit Dr. Radha Mcdonald Work Phone: [facility] Work Phone: Start: 05-11-2023 Non-patient / Non-visit Dr. Radha Mcdonald Work Phone: [facility] Start: 05-10-2023 Non-patient / Non-visit Dr. Radha Mcdonald Work Phone: [facility] Work Phone: Start: 05-10-2023 Non-patient / Non-visit Dr. Radha Mcdonald Work Phone: [facility] Start: 05-09-2023 Non-patient / Non-visit Dr. Radha Mcdonald Work Phone: [facility] Start: 05-09-2023 Non-patient / Non-visit Dr. Radha Mcdonald Work Phone: [facility] Work Phone: Start: 05-09-2023 Non-patient / Non-visit Dr. Radha Mcdonald Work Phone: [facility] Start: 05-08-2023 Non-patient / Non-visit Dr. Radha Mcdonald Work Phone: [facility] Start: 05-07-2023 Non-patient / Non-visit Dr. Radha Mcdonald Work Phone: [facility] Start: 05-06-2023 Non-patient / Non-visit Dr. Radha Mcdonald Work Phone: [facility] Start: 05-06-2023 Non-patient / Non-visit Dr. Radha Mcdonald Work Phone: [facility] Work Phone: Start: 05-05-2023 Non-patient / Non-visit Dr. Radha Mcdonald Work Phone: [facility] Start: 05-04-2023 Non-patient / Non-visit Dr. Radha Mcdonald Work Phone: [facility] Start: 05-04-2023 Non-patient / Non-visit Dr. Radha Mcdonald Work Phone: [facility] Work Phone: Start: 05-03-2023 ambulatory [place]yl [place] Facility :[facility] Start: 05-03-2023 Non-patient / Non-visit Dr. Radha Mcdonald Work Phone: [facility] Start: 05-03-2023 Non-patient / Non-visit Dr. Radha Mcdonald Work Phone: [facility] Work Phone: Start: 05-02-2023 ambulatory Alivia Grant Facility :[facility] Start: 05-02-2023 End: 05-11-2023 Evaluation and management of inpatient Cheryl [place] Facility:[facility] Start: 05-02-[address] Niyah Mcdonald Work Phone: [facility] Start: 05-02-2023 Non-patient / Non-visit Dr. Radha Mcdonald Work Phone: [facility] Work Phone: Start: 05-02-2023 End: 05-11-2023 Admission to same day surgery center Dr. Demetris Mcdonald Work Phone: [facility] Start: 05-02-2023 End: 05-11-2023 Evaluation and management of inpatient Dr. Demetris Mcdonald Work Phone: [facility] Work Phone: Start: 03-09-2018 End: 03-14-2018 Ambulatory CHERYL BARTLETT Facility:[facility] Procedures Date Procedure Procedure Detail Performing Clinician Start: 05-11-2023 Plain X-ray abdomen Dr. Demetris Mcdonald Work Phone: Start: 05-10-2023 Plain X-ray abdomen Dr. Demetris Mcdonald Work Phone: Start: 05-09-2023 Plain X-ray abdomen Dr. Demetris Mcdonald Work Phone: Start: 05-08-2023 Plain X-ray abdomen Dr. Demetris Mcdonald Work Phone: Start: 05-07-2023 Plain X-ray abdomen Dr. Demetris Mcdonald Work Phone: Start: 05-06-2023 Plain X-ray abdomen Dr. Demetris Mcdonald Work Phone: Start: 05-05-2023 Plain X-ray abdomen Dr. Demetris Mcdonald Work Phone: Start: 05-05-2023 Plain chest X-ray Dr. Niyah Mcdonald Work Phone: Start: 05-04-[address] Caty Mcdonald Work Phone: Start: 05-04-2023 Diagnostic radiograp hy of abdomen Dr. Demetris Mcdonald Work Phone: Start: 05-03-2023 Radionuclide imaging of liver and/or biliary tract using radioactive isotope Dr. Demetris Mcdonald Work Phone: Start: 05-02-2023 US scan of gallbladder Dr. Demetris Mcdonald Work Phone: Start: 05-02-2023 Plain chest X-ray Dr. Niyah Mcdonald Work Phone: Start: 05-02-2023 CT of abdomen and pe lvis without contrast Dr. Demetris Mcdonald Work Phone: Plan of Treatment Date Care Activity Detail Author Start: 05-11-2023 Patient discharge [facility] Start: 05-08-2023 Consultation [facility] Start: 05-06-2023 Inhalation therapy procedure [facility] Start: 05-03-2023 Referral to occupati onal therapist [facility] Start: 05-03-2023 Referral to service [facility] Start: 05-02-2023 End: 05-03-2023 [facility] Start: 05-02-2023 Application of inter mittent pneumatic compression device [facility] Start: 05-02-2023 Following clinical p athway protocol [facility] Start: 05-02-2023 Aspiration precautions [facility] Start: 05-02-2023 Elevation of head of bed [facility] Start: 05-02-2023 Admission procedure [facility] Start: 05-02-2023 Consultation [facility] Start: 05-02-2023 Patient referral to dietitian [facility] Patient referral [facility] Work Phone: Payers Date Payer Category Payer Medicare [id number] 2023 Self-pay 2018 Medicare [id number] Unknown [id number] 2.16.8 [id number] Unknown [id number] 2.16.8 40.1.861909.3.579.2.462 Unknown [id number] 2.16.8 40.1.265670.3.579.2.462 Unknown [id number] 2.16.8 40.1.906926.3.579.2.462 Unknown [id number] 2.16.8 40.1.695288.3.579.2.462 Unknown [id number] 2.16.8 40.1.011709.3.579.2.462 Unknown [id number] 2.16.8 40.1.192613.3.579.2.462 Unknown [id number] 2.16.8 40.1.983049.3.579.2.462 Unknown [id number] 2.16.8 40.1.478769.3.579.2.462 Unknown [id number] 2.16.8 40.1.728520.3.579.2.462 Unknown [id number] 2.16.8 40.1.769442.3.579.2.462 Unknown [id number] 2.16.8 40.1.815649.3.579.2.462 Unknown [id number] 2.16.8 40.1.970375.3.579.2.462 Unknown [id number] 2.16.8 40.1.057438.3.579.2.462 Unknown [id number] 2.16.8 40.1.873163.3.579.2.462 Unknown [id number] 2.16.8 40.1.078976.3.579.2.462 Unknown [id number] 2.16.8 40.1.168736.3.579.2.462 Unknown [id number] 2.16.8 40.1.815227.3.579.2.462 Unknown [id number] 2.16.8 40.1.426296.3.579.2.462 Unknown [id number] 2.16.8 40.1.380380.3.579.2.462 Unknown [id number] 2.16.8 40.1.637246.3.579.2.462 Unknown [id number] 2.16.8 40.1.351437.3.579.2.462 Unknown [id number] 2.16.8 40.1.975054.3.579.2.462 Social History Date Type Detail Facility Start: 05-03-2023 Tobacco smoking stat [facility] Unknown if ever smoked [facility] Start: 1940 Sex Assigned At Male W [facility] Goals Date Patient Goal Desired Activity /State Functional Status Date Assessment Result Facility 05-11-2023 Functional status Chair [facility] Work Phone: Mental Status Date Assessment Result Facility 05-11-2023 Cognitive function Voice/Name [facility] Work Phone: Clinical Notes 05-02-2023 to 05-11-2023 Note Date & Type Note Facility 05-11-2023 Note [facility] 05-11-2023 Progress note Note Date/Time May 11, 2023 9:08am [facility] Medical Records Department [address] [place] [address] Progress Note - Surgery 05/11/23 0903 MR#: [id number] Acct: [id number] Name: SUPA POWELL Rep #:[id number] : 1940 83 From: Herber Barroso PCP: Cheryl Bartlett NP-C Status:ADM I N Location: [place] [address]-1 Subjective Subjective Patient seen and examined during AM rounds. He is found sitting out of bed in achair eating a regular breakfast. He is tolerating this well and appears inconvenienced by the interruption to his breakfast. He request to know whetherit be possible to go home today. He specifically denies abdominal pain, nausea,or vomiting. Objective Data Objective Data Vital Signs: Vital Signs Temp Pulse Resp BP Pulse Ox O2 Del Method 98.2 F 72 18 158/74 H 94 Room Air 05/11/23 04:12 05/11/23 07:23 05/11/23 07:23 05/11/23 04:12 05/11/23 07:33 05/11/23 07:33 Oxygen Delivery Method Room Air Weight: 164 lb 7.437 oz Body Mass Index (BMI) 24.3 Intake & Output: Intake and Output for Last 24 Hours 05/09/23 05/10/23 05/11/23 23:59 23:59 23:59 Intake Total 1636.67 / 1636.67 1446.75 / 1446.75 170 / 170 Output Total 300 / 400 500 / 500 1050 / 1050 Balance 1336.67 / 1236.67 946.75 / 946.75 -880 / -880 Lab / Micro Data 05/11/23 05:49 05/11/23 05:49 Labs: Laboratory Results - last 24 hr 05/11/23 05:49: WBC 7.1, RBC 3.93 L, Hgb 12.5 L, Hct 36.3 L, MCV 92.4, MCH 31.8,MCHC 34.4, RDW Std Deviation 45.2 H, RDW Coeff of Yari 13.2, Plt Count 193, MPV 8.2, Immature Gran % (Auto) 1.700 H, Neut % (Auto) 71.7 H, Lymph % (Auto) 13.1 L, Sebastian % (Auto) 7.6, Eos % (Auto) 5.6 H, Baso % (Auto) 0.3, Absolute Neuts (auto) 5.1, Absolute Lymphs (auto) 0.93, Nucleated RBC % 0, Sodium 139, Potassium 3.7, Chloride 110 H, Carbon Dioxide 25.0, Anion Gap 4 L, BUN 7, Creatinine1.24, Estim Creat Clear Calc 44.35, Est GFR (MDRD) Af Amer 71, Est GFR (MDRD) Non-Af 59 L, BUN/Creatinine Ratio 5.6 L, Glucose 103, Calcium 8.3 L Radiography Diagnostic Testing: Radiology Impression KUB X-Ray 05/10/23 09:50 IMPRESSION: There has been some improvement in the small bowel distention as compared to prior study. Electronically Signed: Gomez Beth MD at 12:14 EDT , Rhythm Strip Rhythm Strip: Sinus Tach Rate: 110 Ectopy: None Physical Exam Const no apparent distress Constitutional Narrative: Oriented to person, place, and time Resp normal respiratory effort GI GI Narrative: Mild abdominal distention persists, patient remains tympanitic to percussion andleft upper quadrant, nontender to palpation x4 quadrants Assessment & Plan Assessment/Plan (1) Ileus: PLAN: Abdominal distention modestly improved. KUB still shows persistent ileus with slight improvement in the small bowel affected in the diameter of the smallbowel. Patient is tolerating regular diet without difficulty (2) Leukocytosis: QUALIFIERS: Leukocytosis type: unspecified Qualified Code(s): D72.829 - Elevated white blood cell count, unspecified PLAN: Remains normalized (3) Cholelithiasis: QUALIFIERS: Cholelithiasis location: gallbladder and bile duct Cholecystitis presence: with cholecystitis Cholecystitis acuity: unspecified acuity Biliary obstruction: without biliary obstruction Qualified Code(s): K80.60 - Calculus of gallbladder and bile duct with cholecystitis, unspecified, without obstruction PLAN: HIDA normal for gallbladder visualization, but shows delayed parenchymal transit 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 Prior work-up shows cholelithiasis with gallbladder wall thickening on sonogram,yet this was read as unremarkable from patient's CT imaging of the abdomen. Patient's exam was largely unremarkable so HIDA imaging was pursued 05/03/2023 and radiology noted uptake by the gallbladder at 12 minutes?thereby rendering acute cholecystitis and probable. 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 Mr. Powell, once again, denies any nausea this morning and and appears to be tolerating regular diet. Still, he exhibits some abdominal distention and is tympanitic (this time to the left upper quadrant) and KUB shows some mild dilation of the small bowel. It is difficult to know how long this finding willpersist. Given that he does appear to be tolerating a diet I believe we should assess 1 more meal for tolerance and then consider discharge to home with close follow-up. To this end patient's son confirms that he will establish primary care following on 05/13/2023 if he is permitted to go home by then. Neuro: As needed Tylenol Pulm/CV: I-S, as needed antihypertensives given evidence of hypertension, echo performed FEN/GI: Trend electrolytes and creatinine. Continue soft regular diet. Azithromycin 1 g IV was given yesterday, but evidence of mild ileus persists : No current issues Heme/ID: Trend CBC, look for stop date on antibiotic in collaboration with hospitalist service Endo: No current issues Proph: SCDs Dispo: We will consider possible discharge to home if patient continues to demonstrate tolerance of diet. Charges/Coding Visit Charges Inpatient E&M: 33993 Subs Hosp L2 05/11/23 0908 <Electronically signed by Herber Hewitt MD> Cosigner Signature (if applicable): CC: ~ Signed [facility] Work Phone: 1(569) 366-361807-31-2023 Progress note Author Nava Hill [facility] May 10, 2023 2:28pm Note Date/Time May 10, 2023 11:3 8am [facility] Medical Records Department [address] [place] [id number] Progress Note - Hospitalist 05/10/23 1136 MR#: [id number] Acct: [id number] Name: SUPA POWELL Rep #:[id number] : 1940 83 From: Nava Hill MD PCP: Cheryl Bartlett NP-C Status:ADM I N Location: [place] [address] Reason for Visit Reason for Visit: Diagnoses Elevated white blood cell count, unspecified (05/02/23) Ileus, unspecified (05/02/23) Calculus of gallbladder without cholecystitis without obstruction (05/02/23) Calculus of gallbladder and bile duct with cholecystitis, unspecified, without obstruction (05/02/23) Upper abdominal pain, unspecified (05/02/23) Encounter for preprocedural cardiovascular examination (05/02/23) Subjective Subjective Patient feeling fairly well today, looking forward to eating lunch Objective Data Objective Data Vital Signs: Vital Signs Temp Pulse Resp BP Pulse Ox O2 Del Method 97.7 F L 88 19 H 132/63 H 98 Room Air 05/10/23 04:23 05/10/23 07:20 05/10/23 07:20 05/10/23 04:23 05/10/23 07:20 05/10/23 07:20 Oxygen Delivery Method Room Air Weight: 74.6 kg Body Mass Index (BMI) 24.3 Intake & Output: Intake and Output for Last 24 Hours 05/08/23 05/09/23 05/10/23 23:59 23:59 23:59 Intake Total 3463.33 / 3563.33 1636.67 / 1636.67 288.75 / 288.75 Output Total 150 / 350 300 / 400 500 / 500 Balance 3313.33 / 3213.33 1336.67 / 1236.67 -211.25 / -211.25 Lab / Micro Data 05/10/23 05:53 05/10/23 05:53 Labs: Laboratory Results - last 24 hr 05/10/23 05:53: WBC 9.2, RBC 4.22 L, Hgb 13.2, Hct 39.4 L, MCV 93.4, MCH 31.3, MCHC 33.5, RDW Std Deviation 45.1 H, RDW Coeff of Yari 13.2, Plt Count 207, MPV 8.2, Immature Gran % (Auto) 2.100 H, Neut % (Auto) 65.5, Lymph % (Auto) 16.1 L, Sebastian % (Auto) 9.1, Eos % (Auto) 6.7 H, Baso % (Auto) 0.5, Absolute Neuts (auto) 6.1, Absolute Lymphs (auto) 1.49, Nucleated RBC % 0, Sodium 137, Potassium 3.6, Chloride 109 H, Carbon Dioxide 22.0, Anion Gap 6, BUN 8, Creatinine 1.20, Estim Creat Clear Calc 45.82, Est GFR (MDRD) Af Amer 74, Est GFR (MDRD) Non-Af 61, BUN/Creatinine Ratio 6.7 L, Glucose 95, Calcium 8.3 L Rhythm Strip Rhythm Strip: Sinus Tach Rate: 110 Ectopy: None Physical Exam Narrative General: Alert, oriented, no apparent distress HEENT: Atraumatic, normocephalic Eyes: Anicteric, normal conjunctiva, extraocular movements grossly intact Neck: Supple Respiratory: Clear to auscultation bilaterally, normal respiratory effort Cardiovascular: Regular rate and rhythm GI: Slightly distended with no rebound, guarding, rigidity Extremities: Trace lower extremity edema Musculoskeletal: Moving all extremities Neuro: No overt focal neurological deficits Skin: No rashes appreciated Psych: Cooperative Assessment & Plan Assessment/Plan (1) Acute upper abdominal pain: (2) Leukocytosis: QUALIFIERS: Leukocytosis type: unspecified Qualified Code(s): D72.829 - Elevated white blood cell count, unspecified (3) Cholelithiasis: QUALIFIERS: Biliary obstruction: without biliary obstruction Cholecystitis acuity: unspecified acuity Cholecystitis presence: with cholecystitis Cholelithiasis location: gallbladder and bile duct Qualified Code(s): K80.60 - Calculus of gallbladder and bile duct with cholecystitis, unspecified, without obstruction (4) Pre-operative cardiovascular examination: PLAN: Plan Patient is an 83-year-old gentleman admitted with abdominal pain nausea and vomiting of 3 days duration #bdominal pain secondary to acute colonic pseudoobstruction (Racheal syndrome) ? Gallbladder ultrasound did show Cholelithiasis with gallbladder wall thickening. There is questionable pericholecystic fluid. These findings can be seen in cholecystitis. Patient had a negative sonographic Simpson''s sign. CT ofthe abdomen demonstrated Questionable haziness around the head of the pancreas which may be due to mild pancreatitis or duodenitis. Patient has been admitted to the surgical service. Definitive management deferred to general surgery ? 05/05/2023; Patient WBC count trending down chest x-ray obtained this morning due to decreased volume as well as concern for atelectasis versus developing pneumonia. KUB obtained the day prior demonstrated ileus gas pattern. 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 Case discussed with general surgeon Dr. Louie Hicks plan is for patient to be transferred to the intensive care unit for administration of neostigmine ?; was transferred to the medical intensive care unit on 05/08/2023 to receive neostigmine. The patient tolerated the medication well without any adverse reactions. Per nursing staff patient had a good response following administration of neostigmine. Patient abdominal distention markedly -05/10: Still somewhat distended, surgery following, repeat KUB ordered prior to advancing diet. We will continue to monitor on inpatient basis once diet advanced to verify tolerability. #Hypophosphatemia ? Corrected per protocol #Hypokalemia -corrected per protocol #Acute kidney injury ? Creatinine on admission was 1.57 rehydrated down to 1.09 subsequent monitoringwith daily electrolytes ordered 05/06/2023; GENOVEVA resolved -05/10: Continue to monitor hydration status, advance diet as tolerated 5. DVT prophylaxis ?lovenox subq Time spent in the patient's overall evaluation,decision-making process, review of diagnostic data, adjustment of management, discussion with other providers, nursing nursing and ancillary staff involved in patient's care documentation, 36minutes Charges/Coding Visit Charges Inpatient E&M: 14041 Subs Hosp L2 05/10/23 1428 <Electronically signed by Nava Hill MD> Cosigner Signature (if applicable): CC: ~ Signed [facility] Work Phone: 1(996) 650-829907-31-2023 Progress note Author Herber Hewitt [facility] May 10, 2023 10:54am Note Date/Time May 10, 2023 7:22 am [facility] Medical Records Department [address] [place] [address] Progress Note - Surgery 05/10/23721 MR#: [id number] Acct: [id number] Name: SUPA POWELL Rep #:[id number] : 1940 83 From: Herber Barroso PCP: Cheryl Bartlett, BELT CUTTER-C Status:ADM I N Location: [place] [address] Subjective Subjective Patient seen and examined during AM rounds. He is resting on my arrival to the room, but immediately arouses but whether it is possible for him to start solid food today. He denies any nausea, vomiting, or hiccuping. Objective Data Objective Data Vital Signs: Vital Signs Temp Pulse Resp BP Pulse Ox O2 Del Method 97.7 F L 67 22 H 132/63 H 96 Room Air 05/10/23 04:23 05/10/23 04:23 05/10/23 04:23 05/10/23 04:23 05/10/23 04:23 05/10/23 04:23 Oxygen Delivery Method Room Air Weight: 164 lb 7.437 oz Body Mass Index (BMI) 24.3 Intake & Output: Intake and Output for Last 24 Hours 05/08/23 05/09/23 05/10/23 23:59 23:59 23:59 Intake Total 3463.33 / 3563.33 1636.67 / 1636.67 50 / 50 Output Total 150 / 350 300 / 400 500 / 500 Balance 3313.33 / 3213.33 1336.67 / 1236.67 -450 / -450 Lab / Micro Data 05/10/23 05:53 05/10/23 05:53 Labs: Laboratory Results - last 24 hr 05/10/23 05:53: WBC 9.2, RBC 4.22 L, Hgb 13.2, Hct 39.4 L, MCV 93.4, MCH 31.3, MCHC 33.5, RDW Std Deviation 45.1 H, RDW Coeff of Yari 13.2, Plt Count 207, MPV 8.2, Immature Gran % (Auto) 2.100 H, Neut % (Auto) 65.5, Lymph % (Auto) 16.1 L, Sebastian % (Auto) 9.1, Eos % (Auto) 6.7 H, Baso % (Auto) 0.5, Absolute Neuts (auto) 6.1, Absolute Lymphs (auto) 1.49, Nucleated RBC % 0, Sodium 137, Potassium 3.6, Chloride 109 H, Carbon Dioxide 22.0, Anion Gap 6, BUN 8, Creatinine 1.20, Estim Creat Clear Calc 45.82, Est GFR (MDRD) Af Amer 74, Est GFR (MDRD) Non-Af 61, BUN/Creatinine Ratio 6.7 L, Glucose 95, Calcium 8.3 L Radiography Diagnostic Testing: Radiology Impression KUB X-Ray 05/09/23 05:15 IMPRESSION: Persistent diffuse bowel ileus with improving large bowel component. Electronically Signed: Antonio Galvez MD at 7:22 EDT , Rhythm Strip Rhythm Strip: Sinus Tach Rate: 110 Ectopy: None Physical Exam Const oriented x3 Resp Resp Narrative: Tachypneic with shallow inspirations GI GI Narrative: Abdominal distention improved but remains tympanitic. Nontender to palpation Assessment & Plan Assessment/Plan (1) Ileus: PLAN: Abdominal distention modestly improved. We will plan to repeat KUB which has shown evidence of ileus. If there are improvements we will plan to advance patient's diet. 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 Prior work-up shows cholelithiasis with gallbladder wall thickening on sonogram,yet this was read as unremarkable from patient's CT imaging of the abdomen. Patient's exam was largely unremarkable so HIDA imaging was pursued 05/03/2023 and radiology noted uptake by the gallbladder at 12 minutes?thereby rendering acute cholecystitis and probable. 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 Mr. Powell denies any nausea this morning and requests advancement to regular diet. Still, he exhibits some abdominal distention and is tympanitic (this timeto the left upper quadrant). Given his persistent distention, I would once again like to repeat a KUB to continue to objectively follow this issue. If it is improved I will look to further advance his diet. Neuro: As needed Tylenol Pulm/CV: I-S, as needed antihypertensives given evidence of hypertension, echo performed FEN/GI: Trend electrolytes and creatinine. Advance to regular soft diet given that KUB does show some small improvements in patient's ileus and he denies symptoms. : No current issues Heme/ID: Trend CBC, provide empiric Zosyn therapy?we will look to set a stop date with hospitalist service Endo: No current issues Proph: SCDs Dispo: Continue inpatient stay and monitor for tolerance of diet Charges/Coding Visit Charges Inpatient E&M: 39911 Init Hosp L2 05/10/23 1054 <Electronically signed by Herber Hewitt MD> Cosigner Signature (if applicable): CC: ~ Signed [facility] Work Phone: 1(749) 402-331507-30-2023 Progress note Author Annika Hicks [facility] May 09, 2023 12:19pm Note Date/Time May 09, 2023 8:55 am [facility] Medical Records Department [address] [place] [address] Progress Note - Surgery 05/09/23852 MR#: [id number] Acct: [id number] Name: SUPA POWELL Rep #:[id number] : 1940 83 From: Annika Hicks MD PCP: Cheryl Bartlett NP-C Status:ADM I N Location: [place] [address] Subjective Subjective Patient did have some results with the neostigmine-only brief bradycardia. Patient did also have a bowel movement this morning. KUB shows: Less distended but still has some distended small bowel. Objective Data Objective Data Vital Signs: Vital Signs Temp Pulse Resp BP Pulse Ox O2 Del Method 98.1 F 83 22 H 153/79 H 96 Room Air 05/09/23 08:00 05/09/23 08:00 05/09/23 08:00 05/09/23 08:00 05/09/23 08:00 05/09/23 08:00 Oxygen Delivery Method Room Air Weight: 164 lb 7.437 oz Body Mass Index (BMI) 24.3 Intake & Output: Intake and Output for Last 24 Hours 05/07/23 05/08/23 05/09/23 23:59 23:59 23:59 Intake Total 3281.67 / 3281.67 3463.33 / 3563.33 1316.67 / 1316.67 Output Total 150 / 350 300 / 300 Balance 3280.67 / 3280.67 3313.33 / 3213.33 1016.67 / 1016.67 Lab / Micro Data 05/09/23 03:55 05/09/23 03:55 Labs: Laboratory Results - last 24 hr 05/09/23 03:55: WBC 10.6, RBC 4.01 L, Hgb 12.6 L, Hct 37.8 L, MCV 94.3 H, MCH 31.4, MCHC 33.3, RDW Std Deviation 46.4 H, RDW Coeff of Yari 13.3, Plt Count 183,MPV 8.4, Immature Gran % (Auto) 1.600 H, Neut % (Auto) 75.4 H, Lymph % (Auto) 10.3 L, Sebastian % (Auto) 7.5, Eos % (Auto) 4.8, Baso % (Auto) 0.4, Absolute Neuts (auto) 8.0 H, Absolute Lymphs (auto) 1.09, Nucleated RBC % 0, Sodium 139, Potassium 4.0, Chloride 113 H, Carbon Dioxide 19.0 L, Anion Gap 7, BUN 9, Creatinine 1.12, Estim Creat Clear Calc 49.10, Est GFR (MDRD) Af Amer 80, Est GFR (MDRD) Non-Af 66, BUN/Creatinine Ratio 8.0 L, Glucose 78, Calcium 7.8 L, Phosphorus 3.1, Magnesium 1.8, Total Bilirubin 0.70, Direct Bilirubin 0.27, AST 19, ALT 44, Alkaline Phosphatase 49, Total Protein 4.9 L, Albumin 2.1 L, Globulin 2.8 Radiography Diagnostic Testing: Radiology Impression KUB X-Ray 05/08/23 06:49 IMPRESSION: Persistent markedly distended colon could be due to colonic ileus. Distal colonic obstruction is less likely. Electronically Signed: Wilbur Welch MD at 9:05 EDT , KUB X-Ray 05/09/23 05:15 IMPRESSION: Persistent diffuse bowel ileus with improving large bowel component. Electronically Signed: Antonio Galvez MD at 7:22 EDT , Rhythm Strip Rhythm Strip: Sinus Tach Rate: 110 Ectopy: None Physical Exam Const no apparent distress Resp normal respiratory effort Cardio regular rate GI GI Narrative: Abdomen firm?as patient is sitting in the chair?no guarding or rebound Inspection: abdominal distention Palpation: Negative for tender Assessment & Plan Assessment/Plan (1) Ileus: PLAN: KUB 05/09?colon distention improved, small bowel still distended (2) Leukocytosis: QUALIFIERS: Leukocytosis type: unspecified Qualified Code(s): D72.829 - Elevated white blood cell count, unspecified PLAN: Further improved and now normal hospital day 5 (10 from 12) (3) Cholelithiasis: QUALIFIERS: Biliary obstruction: without biliary obstruction Cholecystitis acuity: unspecified acuity Cholecystitis presence: with cholecystitis Cholelithiasis location: gallbladder and bile duct Qualified Code(s): K80.60 - Calculus of gallbladder and bile duct with cholecystitis, unspecified, without obstruction PLAN: HIDA normal for gallbladder visualization, but shows delayed parenchymal transit 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 We will advance patient's diet back to full liquids to allow him to get the Ensure. Okay to go to MS floor. Annika Hicks M.D. Pager: [phone] [facility] [address] [place] [address], [address] [place] [address] Office: [phone] Charges/Coding Visit Charges Inpatient E&M: 57531 Subs Hosp L2 05/09/23 1219 <Electronically signed by Annika Hicks MD> Cosigner Signature (if applicable): CC: ~ Signed [facility] Work Phone: 1(967) 669-604907-30-2023 Progress note Author Berto Youngblood [facility] May 09, 2023 8:36am Note Date/Time May 09, 2023 7:27 am [facility] Medical Records Department [address] [place] [address] Progress Note - Hospitalist 05/09/23 0725 MR#: [id number] Acct: [id number] Name: SUPA POWELL Rep #:[id number] : 1940 83 From: Berto Youngblood MD PCP: FRANKIE Haque Status:ADM I N Location: ICU [place] [address] 10-11 Reason for Visit Reason for Visit: Diagnoses Elevated white blood cell count, unspecified (05/02/23) Ileus, unspecified (05/02/23) Calculus of gallbladder without cholecystitis without obstruction (05/02/23) Calculus of gallbladder and bile duct with cholecystitis, unspecified, without obstruction (05/02/23) Upper abdominal pain, unspecified (05/02/23) Encounter for preprocedural cardiovascular examination (05/02/23) Subjective Subjective Patient was transferred to the medical intensive care unit on 05/08/2023 to receive neostigmine. The patient tolerated the medication well without any adverse reactions. Per nursing staff patient had a good response following administration of neostigmine Objective Data Objective Data Vital Signs: Vital Signs Temp Pulse Resp BP Pulse Ox O2 Del Method 98.0 F 73 16 154/74 H 95 Room Air 05/09/23 04:00 05/09/23 07:00 05/09/23 07:00 05/09/23 07:00 05/09/23 07:00 05/09/23 07:00 Oxygen Delivery Method Room Air Weight: 74.6 kg Body Mass Index (BMI) 24.3 Intake & Output: Intake and Output for Last 24 Hours 05/07/23 05/08/23 05/09/23 23:59 23:59 23:59 Intake Total 3281.67 / 3281.67 3463.33 / 3563.33 1056.67 / 1056.67 Output Total 150 / 350 300 / 300 Balance 3280.67 / 3280.67 3313.33 / 3213.33 756.67 / 756.67 Lab / Micro Data 05/09/23 03:55 05/09/23 03:55 Labs: Laboratory Results - last 24 hr 05/08/23 07:32: Sodium 137, Potassium 3.3 L, Chloride 109 H, Carbon Dioxide 23.0, Anion Gap 5, BUN 7, Creatinine 1.29, Estim Creat Clear Calc 42.63, Est GFR(MDRD) Af Amer 68, Est GFR (MDRD) Non-Af 56 L, BUN/Creatinine Ratio 5.4 L, Glucose 88, Calcium 8.3 L, Phosphorus 3.1, Magnesium 2.0 05/09/23 03:55: WBC 10.6, RBC 4.01 L, Hgb 12.6 L, Hct 37.8 L, MCV 94.3 H, MCH 31.4, MCHC 33.3, RDW Std Deviation 46.4 H, RDW Coeff of Yari 13.3, Plt Count 183,MPV 8.4, Immature Gran % (Auto) 1.600 H, Neut % (Auto) 75.4 H, Lymph % (Auto) 10.3 L, Sebastian % (Auto) 7.5, Eos % (Auto) 4.8, Baso % (Auto) 0.4, Absolute Neuts (auto) 8.0 H, Absolute Lymphs (auto) 1.09, Nucleated RBC % 0, Sodium 139, Potassium 4.0, Chloride 113 H, Carbon Dioxide 19.0 L, Anion Gap 7, BUN 9, Creatinine 1.12, Estim Creat Clear Calc 49.10, Est GFR (MDRD) Af Amer 80, Est GFR (MDRD) Non-Af 66, BUN/Creatinine Ratio 8.0 L, Glucose 78, Calcium 7.8 L, Phosphorus 3.1, Magnesium 1.8, Total Bilirubin 0.70, Direct Bilirubin 0.27, AST 19, ALT 44, Alkaline Phosphatase 49, Total Protein 4.9 L, Albumin 2.1 L, Globulin 2.8 Radiography Diagnostic Testing: Radiology Impression KUB X-Ray 05/08/23 06:49 IMPRESSION: Persistent markedly distended colon could be due to colonic ileus. Distal colonic obstruction is less likely. Electronically Signed: Wilbur Welch MD at 9:05 EDT , KUB X-Ray 05/09/23 05:15 IMPRESSION: Persistent diffuse bowel ileus with improving large bowel component. Electronically Signed: Antonio Galvez MD at 7:22 EDT , Rhythm Strip Rhythm Strip: Sinus Tach Rate: 110 Ectopy: None Physical Exam Narrative GENERAL: cooperative HEENT: Atraumatic; normocephalic EYES; Anicteric, Normal Conjunctiva NECK; supple, normal thyroid, RESPIRATORY: Diminished to auscultation CARDIOVASCULAR: Regular S1 S2, GI: Abdomen is distended and tympanitic to percussion : No Renal angle tenderness; EXTREMITIES: No edema, no clubbing, MUSCULOSKELETAL: no muscle wasting NEURO: Awake; no lateralizing signs. SKIN: No Rash PSYCH; Flat affect Assessment & Plan Assessment/Plan (1) Acute upper abdominal pain: (2) Leukocytosis: QUALIFIERS: Leukocytosis type: unspecified Qualified Code(s): D72.829 - Elevated white blood cell count, unspecified (3) Cholelithiasis: QUALIFIERS: Biliary obstruction: without biliary obstruction Cholecystitis acuity: unspecified acuity Cholecystitis presence: with cholecystitis Cholelithiasis location: gallbladder and bile duct Qualified Code(s): K80.60 - Calculus of gallbladder and bile duct with cholecystitis, unspecified, without obstruction (4) Pre-operative cardiovascular examination: PLAN: Plan Patient is an 83-year-old gentleman admitted with abdominal pain nausea and vomiting of 3 days duration 1. 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 Gallbladder ultrasound did show Cholelithiasis with gallbladder wall thickening. There is questionable pericholecystic fluid. These findings can be seen in cholecystitis. Patient had a negative sonographic Simpson''s sign. CT ofthe abdomen demonstrated Questionable haziness around the head of the pancreas which may be due to mild pancreatitis or duodenitis. Patient has been admitted to the surgical service. Definitive management deferred to general surgery ? 05/05/2023; Patient WBC count trending down chest x-ray obtained this morning due to decreased volume as well as concern for atelectasis versus developing pneumonia. KUB obtained the day prior demonstrated ileus gas pattern. 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 Case discussed with general surgeon Dr. Louie Hicks plan is for patient to be transferred to the intensive care unit for administration of neostigmine ? was transferred to the medical intensive care unit on 05/08/2023 to receive neostigmine. The patient tolerated the medication well without any adverse reactions. Per nursing staff patient had a good response following administration of neostigmine. Patient abdominal distention markedly 2. Hypophosphatemia ? Corrected per protocol 3. Hypokalemia -corrected per protocol 4. Acute kidney injury ? Creatinine on admission was 1.57 rehydrated down to 1.09 subsequent monitoringwith daily electrolytes ordered 05/06/2023; GENOVEVA resolved 5. DVT prophylaxis ? SCDs for now with plans to initiate low molecular weight heparin following patient surgical procedure Time spent in the patient's overall evaluation,decision-making process, review of diagnostic data, adjustment of management, discussion with other providers, nursing nursing and ancillary staff involved in patient's care documentation, 50 minutes Charges/Coding Visit Charges Inpatient E&M: 77667 Subs Hosp 05/09/23 0836 <Electronically signed by Berto Youngblood MD> Cosigner Signature (if applicable): CC: ~ Signed [facility] Work Phone: 1(295) 643-639007-30-2023 Consult note Author Ellis Bryant [facility] May 09, 2023 6:59am Note Date/Time May 09, 2023 6:18 am [facility] Medical Records Department [address] [place] [address] Consultation - Conservation Or Heritage Architect 05/09/23 0612 MR#: [id number] Acct: [id number] Name: SUPA POWELL Rep #:[id number] : 1940 83 From: Ellis Bryant DO PCP: FRANKIE Haque Status:ADM I N Location: ICU [id number] 1-1 Assessment & Plan Assessment/Plan (1) Ileus: PLAN: Plan RECOMMENDATIONS: 1. Neostigmine as needed, per general surgery. 2. Repeat KUB is pending. 3. Encourage incentive spirometer use while in bed. Mobilize patient as tolerated. 4. As the patient has no active ICU needs, we will follow peripherally. We will be available if any issues arise. IMPRESSIONS: 1. Colonic pseudoobstruction (Bridgeton syndrome) The patient developed progressive colonic distention despite conservative management, concerning for pseudoobstruction. Accordingly, the patient was transferred to the medical intensive care unit yesterday to receive neostigmine. The patient tolerated the medication well without any adverse reactions. He isclinically stable and maintaining appropriate oxygen saturations on room air. Will defer additional management to general surgery. This note was generated with [employer] dictation software. It may contain incorrectwords, spelling, and punctuation that were not noted in checking the note beforesigning. HPI Consult Data Date of Consult: 05/09/23 HPI Narrative Reason for Consultation: ICU management HPI Narrative: The patient is an 83-year-old male, with a history as outlined below, who presented to the emergency department on May 02 with nausea, vomiting and abdominal pain. The patient has a history of chronic tobacco dependency, but has never regularly seen a doctor for routine preventative healthcare maintenance. As part of his initial work-up in the emergency department, the patient was identified as having cholelithiasis and some gallbladder wall thickening. He was seen in consultation by general surgery. Subsequent HIDA scan, however, excluded acute cholecystitis. The patient then went on to develop an ileus, which then progressed to colonic dilation, following conservative management. The patient's findings and clinical state were discussed by general surgery withthe patient and his family. The decision was made to transfer him to the ICU sothat he could be administered neostigmine, over concerns for underlying Bridgeton syndrome. The patient did ultimately receive neostigmine on the afternoon of May 08. PFSH Medical History Poor eyesight Smoker Medical History no medical history Home Medications NK 05/02/23 [History Last Taken Unknown] Allergy/AdvReac Type Severity Reaction Status Date / Time No Known Allergies Allergy Verified 05/02/23 22:10 Surgical History no surgical history Social History (Updated 05/02/23 @ 15:[address] Demetris Mcdonald MD) Smoking Status: Current every day smoker tobacco type: cigarettes ROS ROS Narrative 10 systems were reviewed with pertinent positives as noted in the HPI above. Physical Exam Const alert and no apparent distress General Appearance: cooperative HEENT normocephalic and head/scalp atraumatic HEENT Narrative: A dentulous Eyes PERRL, EOMs intact bilaterally and conjunctivae normal Neck supple General: trachea midline Chest inspection of chest normal Resp normal respiratory effort Auscultation: diminished lung sounds; Negative for rales, rhonchi or wheezes Cardio regular rate and regular rhythm GI soft to palpation Inspection: abdominal distention Extremity no clubbing, cyanosis or edema Skin no rashes or lesions noted Neuro CN's II-XII intact bilaterally and no focal motor deficits Psych Mood & Affect: flat affect Lab / Micro Data 05/09/23 03:55 05/09/23 03:55 Labs: Laboratory Results - last 24 hr 05/08/23 07:32: Sodium 137, Potassium 3.3 L, Chloride 109 H, Carbon Dioxide 23.0, Anion Gap 5, BUN 7, Creatinine 1.29, Estim Creat Clear Calc 42.63, Est GFR(MDRD) Af Amer 68, Est GFR (MDRD) Non-Af 56 L, BUN/Creatinine Ratio 5.4 L, Glucose 88, Calcium 8.3 L, Phosphorus 3.1, Magnesium 2.0 05/09/23 03:55: WBC 10.6, RBC 4.01 L, Hgb 12.6 L, Hct 37.8 L, MCV 94.3 H, MCH 31.4, MCHC 33.3, RDW Std Deviation 46.4 H, RDW Coeff of Yrai 13.3, Plt Count 183,MPV 8.4, Immature Gran % (Auto) 1.600 H, Neut % (Auto) 75.4 H, Lymph % (Auto) 10.3 L, Sebastian % (Auto) 7.5, Eos % (Auto) 4.8, Baso % (Auto) 0.4, Absolute Neuts (auto) 8.0 H, Absolute Lymphs (auto) 1.09, Nucleated RBC % 0, Sodium 139, Potassium 4.0, Chloride 113 H, Carbon Dioxide 19.0 L, Anion Gap 7, BUN 9, Creatinine 1.12, Estim Creat Clear Calc 49.10, Est GFR (MDRD) Af Amer 80, Est GFR(MDRD) Non-Af 66, BUN/Creatinine Ratio 8.0 L, Glucose 78, Calcium 7.8 L, Phosphorus 3.1, Magnesium 1.8, Total Bilirubin 0.70, Direct Bilirubin 0.27, AST 19, ALT 44, Alkaline Phosphatase 49, Total Protein 4.9 L, Albumin 2.1 L, Globulin 2.8 Rhythm Strip Rhythm Strip: Sinus Tach Rate: 110 Ectopy: None Radiology Impression KUB X-Ray 05/08/23 06:49 IMPRESSION: Persistent markedly distended colon could be due to colonic ileus. Distal colonic obstruction is less likely. Electronically Signed: Wilbur Welch MD at 9:05 EDT , Charges/Coding Visit Charges Inpatient E&M: 41774 Init Hosp L2 05/09/23 0659 <Electronically signed by Ellis Bryant DO> Cosigner Signature (if applicable): CC: BELT CUTTERMitra Patrick; BELT CUTTERMitra Louie; BELT CUTTER-C Cheryl Bartlett; Yosef Caceres MD; Dr. Mohinder Block DO; Dr. Alivia Grant MD; Dr. Marie Blevins MD; Dr. Marie Tracy MD; Dr. Nena Wallace MD; Dr. Ozzy Samuels MD; Dr. Berto Youngblood MD; Dr. Ellis Bryant DO; Dr. Pedro Benitez DO; Dr. Blaine Perez MD; Dr. Jarocho Reveles DO; Dr. Chetan Duffy MD; Dr. Remedios Ott DO;Dr. Tru Couch MD; Dr. Samuel Rodriguez DO; Dr. Katherine Dior DO; Dr. Herber Hewitt MD; Dr. Anni Danielson MD; Dr. Adi Hernandez MD; Dr. Nava Hill MD; Dr. Supa Recinos MD; Dr. Alen Hu MD; Dr. Jason Montesinos MD; Adriel Nichole; CARLA Mijares; Thompson Holland MD~ Signed [facility] Work Phone: 1(402) 551-534407-29-2023 Progress note Author Berto Youngblood [facility] May 08, 2023 8:17am Note Date/Time May 08, 2023 7:07 am [facility] Medical Records Department [address] [place] [address] Progress Note - Hospitalist 05/08/23 0707 MR#: [id number] Acct: [id number] Name: SUPA POWELL Rep #:[id number] : 1940 83 From: Berto Youngblood MD PCP: Cheryl Bartlett, BELT CUTTER-C Status:ADM I N Location: [place] [address] Reason for Visit Reason for Visit: Diagnoses Elevated white blood cell count, unspecified (05/02/23) Ileus, unspecified (05/02/23) Calculus of gallbladder without cholecystitis without obstruction (05/02/23) Calculus of gallbladder and bile duct with cholecystitis, unspecified, without obstruction (05/02/23) Upper abdominal pain, unspecified (05/02/23) Encounter for preprocedural cardiovascular examination (05/02/23) Subjective Subjective Patient abdominal distention persist. Plan is for patient to be transferred to the intensive care unit for administration of neostigmine for his acute colonic pseudoobstruction Objective Data Objective Data Vital Signs: Vital Signs Temp Pulse Resp BP Pulse Ox O2 Del Method 98.4 F 84 18 154/74 H 97 Room Air 05/08/23 03:01 05/08/23 03:01 05/08/23 03:01 05/08/23 03:01 05/08/23 03:01 05/08/23 03:01 Oxygen Delivery Method Room Air Weight: 74.6 kg Body Mass Index (BMI) 24.3 Intake & Output: Intake and Output for Last 24 Hours 05/06/23 05/07/23 05/08/23 23:59 23:59 23:59 Intake Total 2593.33 / 2593.33 3281.67 / 3281.67 650 / 650 Output Total Balance 2593.33 / 2593.33 3280.67 / 3280.67 650 / 650 Lab / Micro Data 05/07/23 05:45 05/07/23 05:45 Radiography Diagnostic Testing: Radiology Impression KUB X-Ray 05/07/23 09:10 IMPRESSION: Gaseous distention of the colon down to the rectum. Electronically Signed: Gomez Beth MD at 9:41 EDT , Rhythm Strip Rhythm Strip: Sinus Tach Rate: 110 Ectopy: None Physical Exam Narrative GENERAL: cooperative HEENT: Atraumatic; normocephalic EYES; Anicteric, Normal Conjunctiva NECK; supple, normal thyroid, RESPIRATORY: Diminished to auscultation CARDIOVASCULAR: Regular S1 S2, GI: Abdomen is distended and tympanitic to percussion : No Renal angle tenderness; EXTREMITIES: No edema, no clubbing, MUSCULOSKELETAL: no muscle wasting NEURO: Awake; no lateralizing signs. SKIN: No Rash PSYCH; Flat affect Assessment & Plan Assessment/Plan (1) Acute upper abdominal pain: (2) Leukocytosis: QUALIFIERS: Leukocytosis type: unspecified Qualified Code(s): D72.829 - Elevated white blood cell count, unspecified (3) Cholelithiasis: QUALIFIERS: Biliary obstruction: without biliary obstruction Cholecystitis acuity: unspecified acuity Cholecystitis presence: with cholecystitis Cholelithiasis location: gallbladder and bile duct Qualified Code(s):K80.60 - Calculus of gallbladder and bile duct with cholecystitis, unspecified, without obstruction (4) Pre-operative cardiovascular examination: PLAN: Plan Patient is an 83-year-old gentleman admitted with abdominal pain nausea and vomiting of 3 days duration 1. 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 Gallbladder ultrasound did show Cholelithiasis with gallbladder wall thickening. There is questionable pericholecystic fluid. These findings can be seen in cholecystitis. Patient had a negative sonographic Simpson''s sign. CT ofthe abdomen demonstrated Questionable haziness around the head of the pancreas which may be due to mild pancreatitis or duodenitis. Patient has been admitted to the surgical service. Definitive management deferred to general surgery ? 05/05/2023; Patient WBC count trending down chest x-ray obtained this morning due to decreased volume as well as concern for atelectasis versus developing pneumonia. KUB obtained the day prior demonstrated ileus gas pattern. 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 Case discussed with general surgeon Dr. Louie Hicks plan is for patient to be transferred to the intensive care unit for administration of neostigmine 2. Hypophosphatemia ? Corrected per protocol 3. Hypokalemia -corrected per protocol 4. Acute kidney injury ? Creatinine on admission was 1.57 rehydrated down to 1.09 subsequent monitoringwith daily electrolytes ordered 05/06/2023; GENOVEVA resolved 5. DVT prophylaxis ? SCDs for now with plans to initiate low molecular weight heparin following patient surgical procedure Time spent in the patient's overall evaluation,decision-making process, review of diagnostic data, adjustment of management, discussion with other providers, nursing nursing and ancillary staff involved in patient's care documentation, 50 minutes Charges/Coding Visit Charges Inpatient E&M: 03196 Subs Hosp 05/08/23 0817 <Electronically signed by Berto Youngblood MD> Cosigner Signature (if applicable): CC: ~ Signed [facility] Work Phone: 1(604) 940-256507-29-2023 Progress note Author Annika Hicks [facility] May 08, 2023 8:01am Note Date/Time May 08, 2023 8:01 am [facility] Medical Records Department [address] [place] [address] Progress Note - Surgery 05/08/23756 MR#: [id number] Acct: [id number] Name: SUPA POWELL Rep #:[id number] : 1940 83 From: Annika Hicks MD PCP: Cheryl Bartlett NP-C Status:ADM I N Location: [place] [address] Subjective Subjective denies abd pain, abd still firm and distended Objective Data Objective Data Vital Signs: Vital Signs Temp Pulse Resp BP Pulse Ox O2 Del Method 98.4 F 84 18 154/74 H 97 Room Air 05/08/23 03:01 05/08/23 03:01 05/08/23 03:01 05/08/23 03:01 05/08/23 03:01 05/08/23 03:01 Oxygen Delivery Method Room Air Weight: 164 lb 7.437 oz Body Mass Index (BMI) 24.3 Intake & Output: Intake and Output for Last 24 Hours 05/06/23 05/07/23 05/08/23 23:59 23:59 23:59 Intake Total 2593.33 / 2593.33 3281.67 / 3281.67 650 / 650 Output Total Balance 2593.33 / 2593.33 3280.67 / 3280.67 650 / 650 Lab / Micro Data 05/07/23 05:45 05/07/23 05:45 Radiography Diagnostic Testing: Radiology Impression KUB X-Ray 05/07/23 09:10 IMPRESSION: Gaseous distention of the colon down to the rectum. Electronically Signed: Gomez Beth MD at 9:41 EDT , Rhythm Strip Rhythm Strip: Sinus Tach Rate: 110 Ectopy: None Physical Exam Const no apparent distress Resp normal respiratory effort Cardio regular rate GI GI Narrative: Abdomen firm no guarding or rebound Inspection: abdominal distention Palpation: Negative for tender Assessment & Plan Assessment/Plan (1) Ileus: PLAN: increased diameter of colon on KUB- ogilvies (2) Leukocytosis: QUALIFIERS: Leukocytosis type: unspecified Qualified Code(s): D72.829 - Elevated white blood cell count, unspecified PLAN: Further improved and now normal hospital day 5 (10 from 12) (3) Cholelithiasis: QUALIFIERS: Cholelithiasis location: gallbladder and bile duct Cholecystitis presence: with cholecystitis Cholecystitis acuity: unspecified acuity Biliary obstruction: without biliary obstruction Qualified Code(s): K80.60 - Calculus of gallbladder and bile duct with cholecystitis, unspecified, without obstruction PLAN: HIDA normal for gallbladder visualization, but shows delayed parenchymal transit 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 Also discussed with Dr. Youngblood and Dr. Bryant. Annika Hicks M.D. Pager: [phone] [facility] [address] [place] [address], [facility], [address] [place] [id number] Office: [phone] Charges/Coding Visit Charges Inpatient E&M: 59851 Subs Hosp L3 05/08/23 0801 <Electronically signed by Annika Hicks MD> Cosigner Signature (if applicable): CC: ~ Signed [facility] Work Phone: 1(741) 186-826807-28-2023 Progress note Author Berto Youngblood [facility] May 07, 2023 9:31am Note Date/Time May 07, 2023 7:38 am [facility] Medical Records Department [address] [place] [address] Progress Note - Hospitalist 05/07/2337 MR#: [id number] Acct: [id number] Name: SUPA POWELL Rep #:[id number] : 1940 83 From: Berto Youngblood MD PCP: Cheryl Bartlett NP-C Status:ADM I N Location: [place] [address] Reason for Visit Reason for Visit: Diagnoses Elevated white blood cell count, unspecified (05/02/23) Ileus, unspecified (05/02/23) Calculus of gallbladder without cholecystitis without obstruction (05/02/23) Calculus of gallbladder and bile duct with cholecystitis, unspecified, without obstruction (05/02/23) Upper abdominal pain, unspecified (05/02/23) Encounter for preprocedural cardiovascular examination (05/02/23) Subjective Subjective Imaging studies obtained the day prior did show improvement in the ileus pattern. Patient WBC count also continue to trend down. Objective Data Objective Data Vital Signs: Vital Signs Temp Pulse Resp BP Pulse Ox O2 Del Method 98.4 F 71 15 165/80 H 94 Room Air 05/07/23 02:37 05/07/23 07:09 05/07/23 07:09 05/07/23 02:37 05/07/23 07:09 05/07/23 07:09 Oxygen Delivery Method Room Air Weight: 74.6 kg Body Mass Index (BMI) 24.3 Intake & Output: Intake and Output for Last 24 Hours 05/05/23 05/06/23 05/07/23 23:59 23:59 23:59 Intake Total 3748.33 / 3748.33 2593.33 / 2593.33 1050 / 1050 Balance 3748.33 / 3748.33 2593.33 / 2593.33 1050 / 1050 Lab / Micro Data 05/07/23 05:45 05/07/23 05:45 Labs: Laboratory Results - last 24 hr 05/07/23 05:45: WBC 10.2, RBC 4.07 L, Hgb 12.9 L, Hct 38.1 L, MCV 93.6, MCH 31.7, MCHC 33.9, RDW Std Deviation 46.0 H, RDW Coeff of Yari 13.4, Plt Count 162,MPV 8.4, Immature Gran % (Auto) 0.900, Neut % (Auto) 73.1 H, Lymph % (Auto) 10.5L, Sebastian % (Auto) 8.7, Eos % (Auto) 6.5 H, Baso % (Auto) 0.3, Absolute Neuts (auto) 7.5, Absolute Lymphs (auto) 1.07, Nucleated RBC % 0, Sodium 137, Potassium 3.5, Chloride 111 H, Carbon Dioxide 19.0 L, Anion Gap 7, BUN 9, Creatinine 1.14, Estim Creat Clear Calc 48.24, Est GFR (MDRD) Af Amer 79, Est GFR (MDRD) Non-Af 65, BUN/Creatinine Ratio 7.9 L, Glucose 87, Calcium 8.0 L, Phosphorus 2.9, Magnesium 1.7 Radiography Diagnostic Testing: Radiology Impression KUB X-Ray 05/06/23 10:30 IMPRESSION: Improvement in the ileus pattern. Electronically Signed: Gomez Beth MD at 13:53 EDT , Rhythm Strip Rhythm Strip: Sinus Tach Rate: 110 Ectopy: None Physical Exam Narrative GENERAL: cooperative HEENT: Atraumatic; normocephalic EYES; Anicteric, Normal Conjunctiva NECK; supple, normal thyroid, RESPIRATORY: Diminished to auscultation CARDIOVASCULAR: Regular S1 S2, GI: Abdomen is distended and tympanitic to percussion : No Renal angle tenderness; EXTREMITIES: No edema, no clubbing, MUSCULOSKELETAL: no muscle wasting NEURO: Awake; no lateralizing signs. SKIN: No Rash PSYCH; Flat affect Assessment & Plan Assessment/Plan (1) Acute upper abdominal pain: (2) Leukocytosis: QUALIFIERS: Leukocytosis type: unspecified Qualified Code(s): D72.829 - Elevated white blood cell count, unspecified (3) Cholelithiasis: QUALIFIERS: Biliary obstruction: without biliary obstruction Cholecystitis acuity: unspecified acuity Cholecystitis presence: with cholecystitis Cholelithiasis location: gallbladder and bile duct Qualified Code(s): K80.60 - Calculus of gallbladder and bile duct with cholecystitis, unspecified, without obstruction (4) Pre-operative cardiovascular examination: PLAN: Plan Patient is an 83-year-old gentleman admitted with abdominal pain nausea and vomiting of 3 days duration 1. Abdominal pain ? Gallbladder ultrasound did show Cholelithiasis with gallbladder wall thickening. There is questionable pericholecystic fluid. These findings can be seen in cholecystitis. Patient had a negative sonographic Simpson''s sign. CT ofthe abdomen demonstrated Questionable haziness around the head of the pancreas which may be due to mild pancreatitis or duodenitis. Patient has been admitted to the surgical service. Definitive management deferred to general surgery ? 05/05/2023; Patient WBC count trending down chest x-ray obtained this morning due to decreased volume as well as concern for atelectasis versus developing pneumonia. KUB obtained the day prior demonstrated ileus gas pattern. ?05/06/2023; patient's ileus persists 05/07/2023; patient still has some abdominal distention 2. Hypophosphatemia ? Corrected per protocol 3. Hypokalemia -corrected per protocol 4. Acute kidney injury ? Creatinine on admission was 1.57 rehydrated down to 1.09 subsequent monitoringwith daily electrolytes ordered 05/06/2023; GENOVEVA resolved 5. DVT prophylaxis ? SCDs for now with plans to initiate low molecular weight heparin following patient surgical procedure Time spent in the patient's overall evaluation,decision-making process, review of diagnostic data, adjustment of management, discussion with other providers, nursing nursing and ancillary staff involved in patient's care documentation, 35minutes Charges/Coding Visit Charges Inpatient E&M: 83377 Subs Hosp L2 05/07/23 0931 <Electronically signed by Berto Youngblood MD> Cosigner Signature (if applicable): CC: ~ Signed [facility] Work Phone: 1(677) 788-921907-28-2023 Progress note Author Herber Hewitt [facility] May 07, 2023 8:33am Note Date/Time May 07, 2023 7:58 am [facility] Medical Records Department [address] [place] [address] Progress Note - Surgery 05/07/23 0758 MR#: [id number] Acct: [id number] Name: SUPA POWELL Rep #:[id number] : 1940 83 From: Herber Barroso PCP: Cheryl Bartlett NP-C Status:ADM I N Location: [place] [id number] Subjective Subjective Patient seen and examined during AM rounds. He reports that he is still having a little bit of hiccuping and burping. He denies any nausea. He repeatedly asked whether or not it would be possible for him to go home today. Overnight nursing reported that patient had 2 medium sized bowel movements and lots of gas. Objective Data Objective Data Vital Signs: Vital Signs Temp Pulse Resp BP Pulse Ox O2 Del Method 98.4 F 71 15 165/80 H 94 Room Air 05/07/23 02:37 05/07/23 07:09 05/07/23 07:09 05/07/23 02:37 05/07/23 07:09 05/07/23 07:09 Oxygen Delivery Method Room Air Weight: 164 lb 7.437 oz Body Mass Index (BMI) 24.3 Intake & Output: Intake and Output for Last 24 Hours 05/05/23 05/06/23 05/07/23 23:59 23:59 23:59 Intake Total 3748.33 / 3748.33 2593.33 / 2593.33 1050 / 1050 Balance 3748.33 / 3748.33 2593.33 / 2593.33 1050 / 1050 Lab / Micro Data 05/07/23 05:45 05/07/23 05:45 Labs: Laboratory Results - last 24 hr 05/07/23 05:45: WBC 10.2, RBC 4.07 L, Hgb 12.9 L, Hct 38.1 L, MCV 93.6, MCH 31.7, MCHC 33.9, RDW Std Deviation 46.0 H, RDW Coeff of Yari 13.4, Plt Count 162,MPV 8.4, Immature Gran % (Auto) 0.900, Neut % (Auto) 73.1 H, Lymph % (Auto) 10.5L, Sebastian % (Auto) 8.7, Eos % (Auto) 6.5 H, Baso % (Auto) 0.3, Absolute Neuts (auto) 7.5, Absolute Lymphs (auto) 1.07, Nucleated RBC % 0, Sodium 137, Potassium 3.5, Chloride 111 H, Carbon Dioxide 19.0 L, Anion Gap 7, BUN 9, Creatinine 1.14, Estim Creat Clear Calc 48.24, Est GFR (MDRD) Af Amer 79, Est GFR (MDRD) Non-Af 65, BUN/Creatinine Ratio 7.9 L, Glucose 87, Calcium 8.0 L, Phosphorus 2.9, Magnesium 1.7 Radiography Diagnostic Testing: Radiology Impression KUB X-Ray 05/06/23 10:30 IMPRESSION: Improvement in the ileus pattern. Electronically Signed: Gomez Beth MD at 13:53 EDT , Rhythm Strip Rhythm Strip: Sinus Tach Rate: 110 Ectopy: None Physical Exam Const Constitutional Narrative: Oriented and mildly agitated GI GI Narrative: Abdominal distention present, firm, nontender Assessment & Plan Assessment/Plan (1) Ileus: PLAN: Patient with hiccuping abdominal distention both improved. We will plan to repeat KUB which has shown evidence of ileus. If there are improvements we will plan to advance patient's diet as his last known substantial intake was 04/30/2023. (2) Leukocytosis: QUALIFIERS: Leukocytosis type: unspecified Qualified Code(s): D72.829 - Elevated white blood cell count, unspecified PLAN: Further improved and now normal hospital day 5 (10 from 12) (3) Cholelithiasis: QUALIFIERS: Cholelithiasis location: gallbladder and bile duct Cholecystitis presence: with cholecystitis Cholecystitis acuity: unspecified acuity Biliary obstruction: without biliary obstruction Qualified Code(s): K80.60 - Calculus of gallbladder and bile duct with cholecystitis, unspecified, without obstruction PLAN: HIDA normal for gallbladder visualization, but shows delayed parenchymal transit 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 Prior work-up shows cholelithiasis with gallbladder wall thickening on sonogram,yet this was read as unremarkable from patient's CT imaging of the abdomen. Patient's exam was largely unremarkable so HIDA imaging was pursued 05/03/2023 and radiology noted uptake by the gallbladder at 12 minutes?thereby rendering acute cholecystitis and probable. 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 Mr. Powell denies any nausea and repeatedly requests discharge to home, but has persistent abdominal distention. His motivation for leaving the hospital seems to be ever-increasing and I shared with him that I am concerned about letting him go too soon and experiencing a recurrence of the symptoms with which she presented. Given his persistent distention and questionable reporting, I would once again like to repeat a KUB to continue to objectively follow this issue. If it is improved I will look to further advance his diet. On a positive note Mr. Powell has resolved his leukocytosis. Neuro: As needed Dilaudid Pulm/CV: I-S, as needed antihypertensives given evidence of hypertension, echo performed FEN/GI: Trend electrolytes and creatinine, patient requires repletion of potassium and phosphorus once again. Continue full liquid diet for now. RepeatKUB today. : No current issues Heme/ID: Trend CBC, provide empiric Zosyn therapy Endo: No current issues Proph: SCDs Dispo: Continue inpatient stay, with reevaluation of disposition later today (patient confirms that he has an outpatient appointment to establish a new primary care provider) Charges/Coding Visit Charges Inpatient E&M: 12486 Subs Hosp L2 05/07/23 0833 <Electronically signed by Herber Hewitt MD> Cosigner Signature (if applicable): CC: ~ Signed [facility] Work Phone: 1(240) 451-167007-27-2023 Progress note Author Herber Hewitt [facility] May 06, 2023 11:48am Note Date/Time May 06, 2023 11:4 8am [facility] Medical Records Department [address] [place] [address] Progress Note - Surgery 05/06/23 1144 MR#: [id number] Acct: [id number] Name: SUPA POWELL Rep #:[id number] : 1940 83 From: Herber Barroso PCP: Cheryl Bartlett, BELT CUTTER-C Status:ADM I N Location: [place] [address] Subjective Subjective Patient seen and examined during AM rounds. He is found resting in bed but states that he had a restless night due to interruptions. He confirms that he had a number of bowel movements and has been passing gas. He states that his experience of hiccups and burping has been lessened. He still denies an appetite. Objective Data Objective Data Vital Signs: Vital Signs Temp Pulse Resp BP Pulse Ox O2 Del Method 97.8 F 88 18 143/72 H 94 Room Air 05/06/23 08:08 05/06/23 08:08 05/06/23 08:08 05/06/23 08:08 05/06/23 08:37 05/06/23 09:17 Oxygen Delivery Method Room Air Weight: 164 lb 7.437 oz Body Mass Index (BMI) 24.3 Intake & Output: Intake and Output for Last 24 Hours 05/04/23 05/05/23 05/06/23 23:59 23:59 23:59 Intake Total 2428.58 / 2578.58 3748.33 / 3748.33 1623.33 / 1623.33 Output Total 250 / 250 Balance 2178.58 / 2328.58 3748.33 / 3748.33 1623.33 / 1623.33 Lab / Micro Data 05/06/23 05:35 05/06/23 05:35 Labs: Laboratory Results - last 24 hr 05/06/23 05:35: WBC 12.1 H, RBC 4.18 L, Hgb 13.2, Hct 39.4 L, MCV 94.3 H, MCH 31.6, MCHC 33.5, RDW Std Deviation 45.7 H, RDW Coeff of Yari 13.3, Plt Count 171,MPV 8.6, Immature Gran % (Auto) 0.800, Neut % (Auto) 79.9 H, Lymph % (Auto) 7.4 L, Sebastian % (Auto) 7.7, Eos % (Auto) 4.0, Baso % (Auto) 0.2, Absolute Neuts (auto)9.7 H, Absolute Lymphs (auto) 0.90, Nucleated RBC % 0, Sodium 138, Potassium 3.4L, Chloride 114 H, Carbon Dioxide 20.0 L, Anion Gap 4 L, BUN 13, Creatinine 1.10, Estim Creat Clear Calc 49.99, Est GFR (MDRD) Af Amer 82, Est GFR (MDRD) Non-Af 68, BUN/Creatinine Ratio 11.8, Glucose 85, Calcium 8.2 L, Phosphorus 2.1 L, Magnesium 2.2 Rhythm Strip Rhythm Strip: Sinus Tach Rate: 110 Ectopy: None Physical Exam Const oriented x3 and no apparent distress Resp Resp Narrative: Slightly tachypneic GI GI Narrative: Decreased abdominal distention, but remains mildly tympanic, nontender to palpation x4 quadrants Assessment & Plan Assessment/Plan (1) Ileus: PLAN: Patient with hiccuping abdominal distention both improved. We will plan to repeat KUB which has shown evidence of ileus. If there are improvements we will plan to advance patient's diet as his last known substantial intake was 04/30/2023. (2) Leukocytosis: QUALIFIERS: Leukocytosis type: unspecified Qualified Code(s): D72.829 - Elevated white blood cell count, unspecified PLAN: Further improved now hospital day 4 (12 from 14) (3) Cholelithiasis: QUALIFIERS: Cholelithiasis location: gallbladder and bile duct Cholecystitis presence: with cholecystitis Cholecystitis acuity: unspecified acuity Biliary obstruction: without biliary obstruction Qualified Code(s): K80.60 - Calculus of gallbladder and bile duct with cholecystitis, unspecified, without obstruction PLAN: HIDA normal for gallbladder visualization, but shows delayed parenchymal transit 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 Prior work-up shows cholelithiasis with gallbladder wall thickening on sonogram,yet this was read as unremarkable from patient's CT imaging of the abdomen. Patient's exam was largely unremarkable so HIDA imaging was pursued 05/03/2023 and radiology noted uptake by the gallbladder at 12 minutes?thereby rendering acute cholecystitis and probable. 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 Once again patient states that he feels better today, however he denies an appetite and has persistent abdominal distention. This distention is mildly improved, but I would like to repeat a KUB to continue to objectively follow this issue. If it is improved I will lookto advance his diet. We may need to repeat a suppository again today which did result in some diarrhea yesterday. Overall, Mr. Powell's electrolytes are much improved over where they have been previously. Neuro: As needed Dilaudid Pulm/CV: I-S, as needed antihypertensives given evidence of hypertension, echo performed FEN/GI: Trend electrolytes and creatinine, patient requires repletion of potassium and phosphorus once again. Repeat KUB seems to show some modest improvement in small bowel loops, will advance patient's diet to full liquids totry to improve his nutrition, Gastrografin enema study did not demonstrate any signs of distal obstruction : No current issues Heme/ID: Trend CBC, provide empiric Zosyn therapy Endo: No current issues Proph: SCDs Dispo: Continue inpatient stay Charges/Coding Visit Charges Inpatient E&M: 66815 Subs Hosp L2 05/06/23 1148 <Electronically signed by Herber Hewitt MD> Cosigner Signature (if applicable): CC: ~ Signed [facility] Work Phone: 1(819) 415-329407-27-2023 Progress note Author Berto Youngblood [facility] May 06, 2023 8:32am Note Date/Time May 06, 2023 7:16 am [facility] Medical Records Department [address] [place] [address] Progress Note - Hospitalist 05/06/23 0714 MR#: [id number] Acct: [id number] Name: SUPA POWELL Rep #:[id number] : 1940 83 From: Berto Youngblood MD PCP: Cheryl Bartlett NP-Michael Status:ADM I N Location: [place] [address] Reason for Visit Reason for Visit: Diagnoses Elevated white blood cell count, unspecified (05/02/23) Ileus, unspecified (05/02/23) Calculus of gallbladder without cholecystitis without obstruction (05/02/23) Calculus of gallbladder and bile duct with cholecystitis, unspecified, without obstruction (05/02/23) Upper abdominal pain, unspecified (05/02/23) Encounter for preprocedural cardiovascular examination (05/02/23) Subjective Subjective Diagnostic data reviewed significant for potassium of 3.4 correction initiated. Imaging studies obtained the day prior did show evidence of persistent ileus. Objective Data Objective Data Vital Signs: Vital Signs Temp Pulse Resp BP Pulse Ox O2 Del Method 97.8 F 81 18 156/75 H 95 Room Air 05/06/23 05:45 05/06/23 06:48 05/06/23 06:48 05/06/23 05:45 05/06/23 05:45 05/06/23 06:00 Oxygen Delivery Method Room Air Weight: 74.6 kg Body Mass Index (BMI) 24.3 Intake & Output: Intake and Output for Last 24 Hours 05/04/23 05/05/23 05/06/23 23:59 23:59 23:59 Intake Total 2428.58 / 2578.58 3748.33 / 3748.33 1000 / 1000 Output Total 250 / 250 Balance 2178.58 / 2328.58 3748.33 / 3748.33 1000 / 1000 Lab / Micro Data 05/06/23 05:35 05/06/23 05:35 Labs: Laboratory Results - last 24 hr 05/05/23 05:46: Sodium 141, Potassium 3.1 L, Chloride 113 H, Carbon Dioxide 22.0, Anion Gap 6, BUN 15, Creatinine 1.15, Estim Creat Clear Calc 47.82, Est GFR (MDRD) Af Amer 78, Est GFR (MDRD) Non-Af 64, BUN/Creatinine Ratio 13.0, Glucose 94, Calcium 8.4 L 05/06/23 05:35: WBC 12.1 H, RBC 4.18 L, Hgb 13.2, Hct 39.4 L, MCV 94.3 H, MCH 31.6, MCHC 33.5, RDW Std Deviation 45.7 H, RDW Coeff of Yari 13.3, Plt Count 171,MPV 8.6, Immature Gran % (Auto) 0.800, Neut % (Auto) 79.9 H, Lymph % (Auto) 7.4 L, Sebastian % (Auto) 7.7, Eos % (Auto) 4.0, Baso % (Auto) 0.2, Absolute Neuts (auto)9.7 H, Absolute Lymphs (auto) 0.90, Nucleated RBC % 0, Sodium 138, Potassium 3.4L, Chloride 114 H, Carbon Dioxide 20.0 L, Anion Gap 4 L, BUN 13, Creatinine 1.10, Estim Creat Clear Calc 49.99, Est GFR (MDRD) Af Amer 82, Est GFR (MDRD) Non-Af 68, BUN/Creatinine Ratio 11.8, Glucose 85, Calcium 8.2 L, Phosphorus 2.1 L, Magnesium 2.2 Radiography Diagnostic Testing: Radiology Impression Chest X-Ray 05/05/23 05:55 IMPRESSION: Decreased lung volumes with increased atelectasis in the bilateral lung bases. Radiographic follow-up recommended to exclude developing pneumonia. Electronically Signed: Bala Gresham MD at 6:03 EDT , KUB X-Ray 05/05/23 09:07 IMPRESSION: Diffusely dilated loops of gas-filled bowel described may be consistent with ileus as previously noted. Correlate with recent studies. Electronically Signed: Yosef Bustamante, at 9:29 EDT , Rhythm Strip Rhythm Strip: Sinus Tach Rate: 110 Ectopy: None Physical Exam Narrative GENERAL: cooperative HEENT: Atraumatic; normocephalic EYES; Anicteric, Normal Conjunctiva NECK; supple, normal thyroid, RESPIRATORY: Diminished to auscultation CARDIOVASCULAR: Regular S1 S2, GI: Abdomen is distended and tympanitic to percussion : No Renal angle tenderness; EXTREMITIES: No edema, no clubbing, MUSCULOSKELETAL: no muscle wasting NEURO: Awake; no lateralizing signs. SKIN: No Rash PSYCH; Flat affect Assessment & Plan Assessment/Plan (1) Acute upper abdominal pain: (2) Leukocytosis: QUALIFIERS: Leukocytosis type: unspecified Qualified Code(s): D72.829 - Elevated white blood cell count, unspecified (3) Cholelithiasis: QUALIFIERS: Biliary obstruction: without biliary obstruction Cholecystitis acuity: unspecified acuity Cholecystitis presence: with cholecystitis Cholelithiasis location: gallbladder and bile duct Qualified Code(s): K80.60 - Calculus of gallbladder and bile duct with cholecystitis, unspecified, without obstruction (4) Pre-operative cardiovascular examination: PLAN: Plan Patient is an 83-year-old gentleman admitted with abdominal pain nausea and vomiting of 3 days duration 1. Abdominal pain ? Gallbladder ultrasound did show Cholelithiasis with gallbladder wall thickening. There is questionable pericholecystic fluid. These findings can be seen in cholecystitis. Patient had a negative sonographic Simpson''s sign. CT ofthe abdomen demonstrated Questionable haziness around the head of the pancreas which may be due to mild pancreatitis or duodenitis. Patient has been admitted to the surgical service. Definitive management deferred to general surgery ? 05/05/2023; Patient WBC count trending down chest x-ray obtained this morning due to decreased volume as well as concern for atelectasis versus developing pneumonia. KUB obtained the day prior demonstrated ileus gas pattern. ?05/06/2023; patient's ileus persists 2. Hypophosphatemia ? Corrected per protocol 3. Hypokalemia -corrected per protocol 4. Acute kidney injury ? Creatinine on admission was 1.57 rehydrated down to 1.09 subsequent monitoringwith daily electrolytes ordered 05/06/2023; GENOVEVA resolved 5. DVT prophylaxis ? SCDs for now with plans to initiate low molecular weight heparin following patient surgical procedure Time spent in the patient's overall evaluation,decision-making process, review of diagnostic data, adjustment of management, discussion with other providers, nursing nursing and ancillary staff involved in patient's care documentation, 35minutes Charges/Coding Visit Charges Inpatient E&M: 81728 Subs Hosp L2 05/06/23 0832 <Electronically signed by Berto Youngblood MD> Cosigner Signature (if applicable): CC: ~ Signed [facility] Work Phone: 1(128) 259-143807-26-2023 Progress note Author Berto Youngblood [facility] May 05, 2023 12:11pm Note Date/Time May 05, 2023 8:06 am [facility] Medical Records Department [address] [place] [address] Progress Note - Hospitalist 05/05/23801 MR#: [id number] Acct: [id number] Name: SUPA POWELL Rep #:[id number] : 1940 83 From: Berto Youngblood MD PCP: Cheryl Bartlett NP-C Status:ADM I N Location: [place] [address] Reason for Visit Reason for Visit: Diagnoses Elevated white blood cell count, unspecified (05/02/23) Calculus of gallbladder without cholecystitis without obstruction (05/02/23) Calculus of gallbladder and bile duct with cholecystitis, unspecified, without obstruction (05/02/23) Upper abdominal pain, unspecified (05/02/23) Encounter for preprocedural cardiovascular examination (05/02/23) Subjective Subjective Patient WBC count trending down chest x-ray obtained this morning due to decreased volume as well as concern for atelectasis versus developing pneumonia. KUB obtained the day prior demonstrated ileus gas pattern. Objective Data Objective Data Vital Signs: Vital Signs Temp Pulse Resp BP Pulse Ox O2 Del Method 98.1 F 96 22 H 169/90 H 94 Room Air 05/05/23 01:55 05/05/23 06:17 05/05/23 01:55 05/05/23 06:12 05/05/23 01:55 05/05/23 01:55 Oxygen Delivery Method Room Air Weight: 74.6 kg Body Mass Index (BMI) 24.3 Intake & Output: Intake and Output for Last 24 Hours 05/03/23 05/04/23 05/05/23 23:59 23:59 23:59 Intake Total 2780.33 / 2880.33 2428.58 / 2578.58 1355 / 1355 Output Total 650 / 725 250 / 250 Balance 2130.33 / 2155.33 2178.58 / 2328.58 1355 / 1355 Lab / Micro Data 05/05/23 05:46 05/05/23 05:46 Labs: Laboratory Results - last 24 hr 05/05/23 05:46: WBC 14.8 H, RBC 4.58 L, Hgb 14.4, Hct 42.9, MCV 93.7, MCH 31.4, MCHC 33.6, RDW Std Deviation 46.7 H, RDW Coeff of Yari 13.5, Plt Count 177, MPV 8.7, Immature Gran % (Auto) 0.700, Neut % (Auto) 84.9 H, Lymph % (Auto) 5.4 L, Sebastian % (Auto) 6.8, Eos % (Auto) 2.1, Baso % (Auto) 0.1, Absolute Neuts (auto) 12.6 H, Absolute Lymphs (auto) 0.80 L, Nucleated RBC % 0, Sodium 141, Potassium 3.1 L, Chloride 113 H, Carbon Dioxide 22.0, Anion Gap 6, BUN 15, Creatinine 1.15, Estim Creat Clear Calc 47.82, Est GFR (MDRD) Af Amer 78, Est GFR (MDRD) Non-Af 64, BUN/Creatinine Ratio 13.0, Glucose 94, Calcium 8.4 L Radiography Diagnostic Testing: Radiology Impression KUB X-Ray 05/04/23 07:55 IMPRESSION: Findings suggestive of ileus gas pattern. Electronically Signed: Gomez Beth MD at 12:19 EDT , Barium Enema 05/04/23 14:15 IMPRESSION: Negative single contrast enema. Electronically Signed: Gomez Beth MD at 15:01 EDT , Chest X-Ray 05/05/23 05:55 IMPRESSION: Decreased lung volumes with increased atelectasis in the bilateral lung bases. Radiographic follow-up recommended to exclude developing pneumonia. Electronically Signed: Bala Gresham MD at 6:03 EDT , Rhythm Strip Rhythm Strip: Sinus Tach Rate: 110 Ectopy: None Physical Exam Narrative GENERAL: cooperative HEENT: Atraumatic; normocephalic EYES; Anicteric, Normal Conjunctiva NECK; supple, normal thyroid, RESPIRATORY: Diminished to auscultation CARDIOVASCULAR: Regular S1 S2, GI: Abdomen is distended and tympanitic to percussion : No Renal angle tenderness; EXTREMITIES: No edema, no clubbing, MUSCULOSKELETAL: no muscle wasting NEURO: Awake; no lateralizing signs. SKIN: No Rash PSYCH; Flat affect Assessment & Plan Assessment/Plan (1) Acute upper abdominal pain: (2) Leukocytosis: QUALIFIERS: Leukocytosis type: unspecified Qualified Code(s): D72.829 - Elevated white blood cell count, unspecified (3) Cholelithiasis: QUALIFIERS: Biliary obstruction: without biliary obstruction Cholecystitis acuity: unspecified acuity Cholecystitis presence: with cholecystitis Cholelithiasis location: gallbladder and bile duct Qualified Code(s): K80.60 - Calculus of gallbladder and bile duct with cholecystitis, unspecified, without obstruction (4) Pre-operative cardiovascular examination: PLAN: Plan Patient is an 83-year-old gentleman admitted with abdominal pain nausea and vomiting of 3 days duration 1. Abdominal pain ? Gallbladder ultrasound did show Cholelithiasis with gallbladder wall thickening. There is questionable pericholecystic fluid. These findings can be seen in cholecystitis. Patient had a negative sonographic Simpson''s sign. CT ofthe abdomen demonstrated Questionable haziness around the head of the pancreas which may be due to mild pancreatitis or duodenitis. Patient has been admitted to the surgical service. Definitive management deferred to general surgery ? 05/05/2023; Patient WBC count trending down chest x-ray obtained this morning due to decreased volume as well as concern for atelectasis versus developing pneumonia. KUB obtained the day prior demonstrated ileus gas pattern. 2. Hypophosphatemia ? Corrected per protocol 3. Hypokalemia -corrected per protocol 4. Acute kidney injury ? Creatinine on admission was 1.57 rehydrated down to 1.09 subsequent monitoringwith daily electrolytes ordered 5. DVT prophylaxis ? SCDs for now with plans to initiate low molecular weight heparin following patient surgical procedure Time spent in the patient's overall evaluation,decision-making process, review of diagnostic data, adjustment of management, discussion with other providers, nursing nursing and ancillary staff involved in patient's care documentation, 50 minutes Charges/Coding Visit Charges Inpatient E&M: 01501 Subs Hosp L3 05/05/23 1211 <Electronically signed by Berto Youngblood MD> Cosigner Signature (if applicable): CC: ~ Signed [facility] Work Phone: 1(170) 908-707207-26-2023 Progress note Author Herber Hewitt [facility] May 05, 2023 8:34am Note Date/Time May 05, 2023 8:31 am [facility] Medical Records Department [address] [place] [address] Progress Note - Surgery 05/05/23828 MR#: [id number] Acct: [id number] Name: SUPA POWELL Rep #:[id number] : 1940 83 From: Herber Barroso PCP: Cheryl Bartlett BELT CUTTER-C Status:ADM I N Location: [place] [address] Subjective Subjective Patient seen and examined during AM rounds. He reports diarrhea overnight, but states that he has not passed gas this morning. He also denies an appetite. Hestates that he was short of breath overnight, but this is better after coughing up some mucus. Chest x-ray was obtained yesterday and shows concern for possible developing pneumonia. Objective Data Objective Data Vital Signs: Vital Signs Temp Pulse Resp BP Pulse Ox O2 Del Method 98.1 F 96 22 H 169/90 H 94 Room Air 05/05/23 01:55 05/05/23 06:17 05/05/23 01:55 05/05/23 06:12 05/05/23 01:55 05/05/23 01:55 Oxygen Delivery Method Room Air Weight: 164 lb 7.437 oz Body Mass Index (BMI) 24.3 Intake & Output: Intake and Output for Last 24 Hours 05/03/23 05/04/23 05/05/23 23:59 23:59 23:59 Intake Total 2780.33 / 2880.33 2428.58 / 2578.58 1355 / 1355 Output Total 650 / 725 250 / 250 Balance 2130.33 / 2155.33 2178.58 / 2328.58 1355 / 1355 Lab / Micro Data 05/05/23 05:46 05/05/23 05:46 Labs: Laboratory Results - last 24 hr 05/05/23 05:46: WBC 14.8 H, RBC 4.58 L, Hgb 14.4, Hct 42.9, MCV 93.7, MCH 31.4, MCHC 33.6, RDW Std Deviation 46.7 H, RDW Coeff of Yari 13.5, Plt Count 177, MPV 8.7, Immature Gran % (Auto) 0.700, Neut % (Auto) 84.9 H, Lymph % (Auto) 5.4 L, Sebastian % (Auto) 6.8, Eos % (Auto) 2.1, Baso % (Auto) 0.1, Absolute Neuts (auto) 12.6 H, Absolute Lymphs (auto) 0.80 L, Nucleated RBC % 0, Sodium 141, Potassium 3.1 L, Chloride 113 H, Carbon Dioxide 22.0, Anion Gap 6, BUN 15, Creatinine 1.15, Estim Creat Clear Calc 47.82, Est GFR (MDRD) Af Amer 78, Est GFR (MDRD) Non-Af 64, BUN/Creatinine Ratio 13.0, Glucose 94, Calcium 8.4 L Radiography Diagnostic Testing: Radiology Impression KUB X-Ray 05/04/23 07:55 IMPRESSION: Findings suggestive of ileus gas pattern. Electronically Signed: Gomez Beth MD at 12:19 EDT , Barium Enema 05/04/23 14:15 IMPRESSION: Negative single contrast enema. Electronically Signed: Gomez Beth MD at 15:01 EDT , Chest X-Ray 05/05/23 05:55 IMPRESSION: Decreased lung volumes with increased atelectasis in the bilateral lung bases. Radiographic follow-up recommended to exclude developing pneumonia. Electronically Signed: Bala Gresham MD at 6:03 EDT Reading Location ID and State: [facility] / [place] Tel , Service support , Rhythm Strip Rhythm Strip: Sinus Tach Rate: 110 Ectopy: None Physical Exam Const no apparent distress Constitutional Narrative: Oriented Resp Resp Narrative: Slightly shallow inspirations GI GI Narrative: Increased abdominal distention, nontender with palpation Assessment & Plan Assessment/Plan (1) Ileus: PLAN: Patient with hiccuping abdominal distention yesterday. KUB demonstrated diffuse distention of the small and large bowel through the splenic flexure. The distal segment to the splenic flexure was further evaluated with dedicated Gastrografin enema did not show any signs of mechanical obstruction. Suspect this is all secondary to patient's underlying infectious/inflammatory process yet to be identified. (2) Leukocytosis: QUALIFIERS: Leukocytosis type: unspecified Qualified Code(s): D72.829 - Elevated white blood cell count, unspecified PLAN: Further improved now hospital day 3 (14 from 17) (3) Cholelithiasis: QUALIFIERS: Cholelithiasis location: gallbladder and bile duct Cholecystitis presence: with cholecystitis Cholecystitis acuity: unspecified acuity Biliary obstruction: without biliary obstruction Qualified Code(s): K80.60 - Calculus of gallbladder and bile duct with cholecystitis, unspecified, without obstruction PLAN: HIDA normal for gallbladder visualization, but shows delayed parenchymal transit 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 Prior work-up shows cholelithiasis with gallbladder wall thickening on sonogram,yet this was read as unremarkable from patient's CT imaging of the abdomen. Patient's exam was largely unremarkable so HIDA imaging was pursued 05/03/2023 and radiology noted uptake by the gallbladder at 12 minutes?thereby rendering acute cholecystitis and probable. 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 Once again patient states that he feels better today, however he denies an appetite and has persistent abdominal distention. I would like to repeat his KUB to be sure that he is not developing any evidence of Racheal syndrome. If not, would consider potentially trying to stimulate bowel function from below with a suppository. We will continue to work to correct hiselectrolytes as this can play a role in this process. Neuro: As needed Dilaudid Pulm/CV: I-S, as needed antihypertensives given evidence of hypertension, echo performed FEN/GI: Trend electrolytes and creatinine, patient requires repletion of potassium once again, but is hyperchloremic. With ongoing abdominal distention,continue sips of clear liquid diet, Gastrografin enema study did not demonstrateany signs of distal obstruction : No current issues Heme/ID: Trend CBC, provide empiric Zosyn therapy Endo: No current issues Proph: SCDs Dispo: Continue inpatient stay Charges/Coding Visit Charges Inpatient E&M: 36072 Subs Hosp L2 05/05/23 0834 <Electronically signed by Herber Hewitt MD> Cosigner Signature (if applicable): CC: ~ Signed [facility] Work Phone: 1(157) 811-827907-25-2023 Progress note Author Herber Hewitt [facility] May 04, 2023 1:59pm Note Date/Time May 04, 2023 11:1 2am [facility] Medical Records Department [address] [place] [address] Progress Note - Surgery 05/04/23 1111 MR#: [id number] Acct: [id number] Name: SUPA POWELL Rep #:[id number] : 1940 83 From: Herber Barroso PCP: Cheryl Bartlett, BELT CUTTER-C Status:ADM I N Location: [place] [address] Subjective Subjective Patient seen and examined during AM rounds. He reports feeling better today. He states that he did well with his clear liquid diet and expresses an appetite. He is hiccuping this morning, but states that he does this from time to time even at home. He also wishes to know when he will be able to go home. Objective Data Objective Data Vital Signs: Vital Signs Temp Pulse Resp BP Pulse Ox O2 Del Method 97.7 F L 108 H 18 150/74 H 97 Room Air 05/04/23 10:05/04/23 10:05/04/23 10:05/04/23 10:00 05/04/23 10:05/04/23 10:00 Oxygen Delivery Method Room Air Weight: 164 lb 7.437 oz Body Mass Index (BMI) 24.3 Intake & Output: Intake and Output for Last 24 Hours 05/02/23 05/03/23 05/04/23 23:59 23:59 23:59 Intake Total 1050 / 1100 2780.33 / 2880.33 1303.33 / 1303.33 Output Total 150 / 450 650 / 725 250 / 250 Balance 900 / 650 2130.33 / 2155.33 1053.33 / 1053.33 Lab / Micro Data 05/04/23 06:29 05/04/23 06:29 Labs: Laboratory Results - last 24 hr 05/04/23 06:29: WBC 17.7 H, RBC 4.77, Hgb 15.5, Hct 44.3, MCV 92.9, MCH 32.5 H, MCHC 35.0, RDW Std Deviation 45.5 H, RDW Coeff of Yari 13.4, Plt Count 177, MPV 8.4, Immature Gran % (Auto) 0.800, Neut % (Auto) 87.5 H, Lymph % (Auto) 5.6 L, Sebastian % (Auto) 5.4, Eos % (Auto) 0.5, Baso % (Auto) 0.2, Absolute Neuts (auto) 15.5 H, Absolute Lymphs (auto) 0.99, Nucleated RBC % 0, Sodium 138, Potassium 3.0 L, Chloride 110 H, Carbon Dioxide 21.0, Anion Gap 7, BUN 16, Creatinine 1.17, Estim Creat Clear Calc 47.00, Est GFR (MDRD) Af Amer 76, Est GFR (MDRD) Non-Af 63, BUN/Creatinine Ratio 13.7, Glucose 109 H, Calcium 8.6, Phosphorus 1.8L, Magnesium 2.1, Total Bilirubin 1.10 H, Direct Bilirubin 0.53 H, AST 58 H, ALT99 H, Alkaline Phosphatase 67, Total Protein 6.0 L, Albumin 2.6 L, Globulin 3.4,Lipase 53 Radiography Diagnostic Testing: Radiology Impression Hepatobiliary Scan Nuclear Medicine 05/03/23 08:33 IMPRESSION: 1. Visualization of the gallbladder within 60 minutes post radiopharmaceutical administration excludes acute cholecystitis with 97% certitude. (Dimitrios et al, Nucl Med Liyah Krist[employer] Press pg. 35, 1981). 2. 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 Electronically Signed: Abelino Torres, at 12:36 EDT , Rhythm Strip Rhythm Strip: Sinus Tach Rate: 110 Ectopy: None Physical Exam Const no apparent distress Resp normal respiratory effort GI GI Narrative: Mildly distended and hiccuping. Soft and nontender to palpation x4 quadrants. Assessment & Plan Assessment/Plan (1) Leukocytosis: QUALIFIERS: Leukocytosis type: unspecified Qualified Code(s): D72.829 - Elevated white blood cell count, unspecified PLAN: Improved now hospital day 2 (17 from 24) (2) Cholelithiasis: QUALIFIERS: Cholelithiasis location: gallbladder and bile duct Cholecystitis presence: with cholecystitis Cholecystitis acuity: unspecified acuity Biliary obstruction: without biliary obstruction Qualified Code(s): K80.60 - Calculus of gallbladder and bile duct with cholecystitis, unspecified, without obstruction PLAN: HIDA normal yesterday for gallbladder, but shows delayed parenchymal transit 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 Prior work-up shows cholelithiasis with gallbladder wall thickening on sonogram,yet this was read as unremarkable from patient's CT imaging of the abdomen. Patient's exam was largely unremarkable so HIDA imaging was pursued 05/03/2023 and radiology noted uptake by the gallbladder at 12 minutes?thereby rendering acute cholecystitis and probable. 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 Patient states that he feels better today, however is hiccuping and exhibits abdominal distention. KUB was performed given this finding and he demonstrates an ileus pattern with this x-ray. Neuro: As needed Dilaudid Pulm/CV: I-S, as needed antihypertensives given evidence of hypertension with vitals, echo performed yesterday with only mild dysfunction FEN/GI: Trend electrolytes and creatinine, patient requires repletion of potassium and phosphorus for the second day in a row, continue sips of clear liquid diet and await the results of Gastrografin enema study since there is poor visualization of the descending colon beginning at the level of the splenicflexure : No current issues Heme/ID: Trend CBC, provide empiric Zosyn therapy Endo: No current issues Proph: SCDs Dispo: Continue inpatient stay Charges/Coding Visit Charges Inpatient E&M: 92261 Subs Hosp L2 05/04/23 6339 <Electronically signed by Herber Hewitt MD> Cosigner Signature (if applicable): CC: ~ Signed [facility] Work Phone: 1(688) 222-423507-25-2023 Progress note Author Berto Youngblood [facility] May 04, 2023 10:01am Note Date/Time May 04, 2023 7:47 am [facility] Medical Records Department [address] [place] [address] Progress Note - Hospitalist 05/04/23 0747 MR#: [id number] Acct: [id number] Name: SUPA POWELL Rep #:[id number] : 1940 83 From: Berto Youngblood MD PCP: Cheryl Bartlett NP-C Status:ADM I N Location: [place] [address] Reason for Visit Reason for Visit: Diagnoses Elevated white blood cell count, unspecified (05/02/23) Calculus of gallbladder without cholecystitis without obstruction (05/02/23) Calculus of gallbladder and bile duct with cholecystitis, unspecified, without obstruction (05/02/23) Upper abdominal pain, unspecified (05/02/23) Encounter for preprocedural cardiovascular examination (05/02/23) Subjective Subjective Patient seen appears stable at rest. HIDA scan was negative for acute cholecystitis. Case discussed with Dr. Hewitt. Plan is for patient to be assessed for possible discharge home Objective Data Objective Data Vital Signs: Vital Signs Temp Pulse Resp BP Pulse Ox O2 Del Method 97.7 F L 92 22 H 163/89 H 95 Room Air 05/04/23 04:46 05/04/23 04:48 05/04/23 04:46 05/04/23 06:52 05/04/23 04:46 05/04/23 04:46 Oxygen Delivery Method Room Air Weight: 74.6 kg Body Mass Index (BMI) 24.3 Intake & Output: Intake and Output for Last 24 Hours 05/02/23 05/03/23 05/04/23 23:59 23:59 23:59 Intake Total 1050 / 1100 2780.33 / 2880.33 1143.33 / 1143.33 Output Total 150 / 450 650 / 725 250 / 250 Balance 900 / 650 2130.33 / 2155.33 893.33 / 893.33 Lab / Micro Data 05/04/23 06:29 05/04/23 06:29 Labs: Laboratory Results - last 24 hr 05/03/23 05:20: B-Natriuretic Peptide 76.6 05/04/23 06:29: WBC 17.7 H, RBC 4.77, Hgb 15.5, Hct 44.3, MCV 92.9, MCH 32.5 H, MCHC 35.0, RDW Std Deviation 45.5 H, RDW Coeff of Yari 13.4, Plt Count 177, MPV 8.4, Immature Gran % (Auto) 0.800, Neut % (Auto) 87.5 H, Lymph % (Auto) 5.6 L, Sebastian % (Auto) 5.4, Eos % (Auto) 0.5, Baso % (Auto) 0.2, Absolute Neuts (auto) 15.5 H, Absolute Lymphs (auto) 0.99, Nucleated RBC % 0, Sodium 138, Potassium 3.0 L, Chloride 110 H, Carbon Dioxide 21.0, Anion Gap 7, BUN 16, Creatinine 1.17, Estim Creat Clear Calc 47.00, Est GFR (MDRD) Af Amer 76, Est GFR (MDRD) Non-Af 63, BUN/Creatinine Ratio 13.7, Glucose 109 H, Calcium 8.6, Phosphorus 1.8L, Magnesium 2.1, Total Bilirubin 1.10 H, Direct Bilirubin 0.53 H, AST 58 H, ALT99 H, Alkaline Phosphatase 67, Total Protein 6.0 L, Albumin 2.6 L, Globulin 3.4,Lipase 53 Radiography Diagnostic Testing: Radiology Impression Echocardiogram 05/02/23 21:38 Interpretation Summary Normal LV size. Left ventricular systolic function is normal. The estimated ejection fraction is 65 %. Stage 1 diastolic dysfunction. Contrast injection was performed. Ordering Physician: Chetan Duffy Referring Physician: Cheryl Bartlett BELT CUTTER-C Performed By: Justin Brown RCS Hepatobiliary Scan Nuclear Medicine 05/03/23 08:33 IMPRESSION: 1. Visualization of the gallbladder within 60 minutes post radiopharmaceutical administration excludes acute cholecystitis with 97% certitude. (Aj, Nucl Med Liyah Kristel Press pg. 35, 1981). 2. 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 Electronically Signed: Abelino Torres, at 12:36 EDT , Rhythm Strip Rhythm Strip: Sinus Tach Rate: 110 Ectopy: None Physical Exam Narrative GENERAL: cooperative HEENT: Atraumatic; normocephalic EYES; Anicteric, Normal Conjunctiva NECK; supple, normal thyroid, RESPIRATORY: Diminished to auscultation CARDIOVASCULAR: Regular S1 S2, GI: soft, normoactive bowel sounds, : No Renal angle tenderness; EXTREMITIES: No edema, no clubbing, MUSCULOSKELETAL: no muscle wasting NEURO: Awake; no lateralizing signs. SKIN: No Rash PSYCH; Flat affect Assessment & Plan Assessment/Plan (1) Acute upper abdominal pain: (2) Leukocytosis: QUALIFIERS: Leukocytosis type: unspecified Qualified Code(s): D72.829 - Elevated white blood cell count, unspecified (3) Cholelithiasis: QUALIFIERS: Biliary obstruction: without biliary obstruction Cholecystitis acuity: unspecified acuity Cholecystitis presence: with cholecystitis Cholelithiasis location: gallbladder and bile duct Qualified Code(s): K80.60 - Calculus of gallbladder and bile duct with cholecystitis, unspecified, without obstruction (4) Pre-operative cardiovascular examination: PLAN: Plan Patient is an 83-year-old gentleman admitted with abdominal pain nausea and vomiting of 3 days duration 1. Abdominal pain ? Gallbladder ultrasound did show Cholelithiasis with gallbladder wall thickening. There is questionable pericholecystic fluid. These findings can be seen in cholecystitis. Patient had a negative sonographic Simpson''s sign. CT ofthe abdomen demonstrated Questionable haziness around the head of the pancreas which may be due to mild pancreatitis or duodenitis. Patient has been admitted to the surgical service. Definitive management deferred to general surgery 2. Hypophosphatemia ? Corrected per protocol 3. Hypokalemia -corrected per protocol 4. Acute kidney injury ? Creatinine on admission was 1.57 rehydrated down to 1.09 subsequent monitoringwith daily electrolytes ordered 5. DVT prophylaxis ? SCDs for now with plans to initiate low molecular weight heparin following patient surgical procedure Time spent in the patient's overall evaluation,decision-making process, review of diagnostic data, adjustment of management, discussion with other providers, nursing nursing and ancillary staff involved in patient's care documentation, 35minutes Charges/Coding Visit Charges Inpatient E&M: 80342 Subs Hosp L2 05/04/23 1001 <Electronically signed by Berto Youngblood MD> Cosigner Signature (if applicable): CC: ~ Signed [facility] Work Phone: 1(342) 709-264607-24-2023 Progress note Author Berto Youngblood [facility] May 03, 2023 1:18pm Note Date/Time May 03, 2023 8:34 am [facility] Medical Records Department [address] [place] [address] Progress Note - Hospitalist 05/03/23 0830 MR#: [id number] Acct: [id number] Name: SUPA POWELL Rep #:[id number] : 1940 83 From: Berto Youngblood MD PCP: FRANKIE Haque Status:ADM I N Location: [place] [address] Reason for Visit Reason for Visit: Diagnoses Elevated white blood cell count, unspecified (05/02/23) Calculus of gallbladder without cholecystitis without obstruction (05/02/23) Calculus of gallbladder and bile duct with cholecystitis, unspecified, without obstruction (05/02/23) Upper abdominal pain, unspecified (05/02/23) Encounter for preprocedural cardiovascular examination (05/02/23) Subjective Subjective Patient is an 83-year-old gentleman admitted with abdominal pain nausea and vomiting of 3 days duration Objective Data Objective Data Vital Signs: Vital Signs Temp Pulse Resp BP Pulse Ox O2 Del Method 97.4 F L 92 16 154/87 H 94 Room Air 05/03/23 05:20 05/03/23 05:22 05/03/23 05:20 05/03/23 06:32 05/03/23 05:20 05/03/23 05:20 Oxygen Delivery Method Room Air Weight: 74.6 kg Body Mass Index (BMI) 24.3 Intake & Output: Intake and Output for Last 24 Hours 05/01/23 05/02/23 05/03/23 23:59 23:59 23:59 Intake Total 1050 / 1100 50 / 50 Output Total 150 / 450 650 / 650 Balance 900 / 650 -600 / -600 Lab / Micro Data 05/03/23 05:20 05/03/23 05:20 Labs: Laboratory Results - last 24 hr 05/02/23 15:29: WBC 24.7 H, RBC 5.32, Hgb 17.0 H, Hct 49.4, MCV 92.9, MCH 32.0, MCHC 34.4, RDW Std Deviation 45.1 H, RDW Coeff of Yari 13.2, Plt Count 211, MPV 8.4, Immature Gran % (Auto) 0.400, Neut % (Auto) 91.8 H, Lymph % (Auto) 3.0 L, Sebastian % (Auto) 4.6, Eos % (Auto) 0.0, Baso % (Auto) 0.2, Absolute Neuts (auto) 22.7 H, Absolute Lymphs (auto) 0.73 L, Nucleated RBC % 0, Differential Comment SCANNED, Sodium 137, Potassium 3.4 L, Chloride 101, Carbon Dioxide 28.0, Anion Gap 8, BUN 24 H, Creatinine 1.57 H, Estim Creat Clear Calc 35.02, Est GFR (MDRD)Af Amer 59 L, Est GFR (MDRD) Non-Af 49 L, BUN/Creatinine Ratio 15.3, Glucose 135H, Calcium 9.7, Total Bilirubin 0.90, AST 19, ALT 36, Alkaline Phosphatase 82, Troponin I High Sens 35, Total Protein 7.7, Albumin 3.7, Globulin 4.0, Albumin/Globulin Ratio 0.9, Lipase 94 H 05/02/23 18:34: Urine Color Yellow, Urine Clarity Sl. Cloudy, Urine pH 6.5, Ur Specific [place] 1.020, Urine Protein 100 H, Urine Glucose (UA) 50 H, Urine Ketones 5 H, Urine Occult Blood 150 H, Urine Nitrite Negative, Urine Bilirubin Negative, Urine Urobilinogen 1 H, Ur Leukocyte Esterase 25 H, Urine RBC 10-25 SEEN, Urine WBC 0- 5 SEEN, Ur Squamous Epith Cells 0-5 SEEN, Amorphous Sediment 1+ URATE, Urine Bacteria 0 SEEN, Urine Mucus 0 SEEN 05/03/23 05:20: WBC 21.3 H, RBC 4.59 L, Hgb 14.7, Hct 42.8, MCV 93.2, MCH 32.0, MCHC 34.3, RDW Std Deviation 45.6 H, RDW Coeff of Yari 13.3, Plt Count 166, MPV 7.9, Immature Gran % (Auto) 0.500, Neut % (Auto) 89.4 H, Lymph % (Auto) 3.9 L, Sebastian % (Auto) 6.0, Eos % (Auto) 0.1, Baso % (Auto) 0.1, Absolute Neuts (auto) 19.0 H, Absolute Lymphs (auto) 0.83, Nucleated RBC % 0, Sodium 139, Potassium 3.4 L, Chloride 110 H, Carbon Dioxide 24.0, Anion Gap 5, BUN 18, Creatinine 1.09, Estim Creat Clear Calc 50.45, Est GFR (MDRD) Af Amer 83, Est GFR (MDRD) Non-Af 68, BUN/Creatinine Ratio 16.5, Glucose 106, Calcium 8.4 L, Phosphorus 1.8L, Magnesium 1.9, Total Bilirubin 0.90, AST 26, ALT 41, Alkaline Phosphatase 66,B-Natriuretic Peptide 76.6, Total Protein 6.1 L, Albumin 3.0 L, Globulin 3.1, Albumin/Globulin Ratio 1.0, Lipase 35 Radiography Diagnostic Testing: Radiology Impression Abdomen/Pelvis CT 05/02/23 15:19 IMPRESSION: Questionable haziness around the head of the pancreas which may be due to mild pancreatitis or duodenitis. No fluid collections are seen. No other acute abnormalities are identified. Electronically Signed: Stiven Rodriges MD at 16:15 EDT , Chest X-Ray 05/02/23 15:50 IMPRESSION: No acute findings in the chest. Electronically Signed: Stiven Rodriges MD at 16:30 EDT , Gallbladder Ultrasound 05/02/23 16:43 IMPRESSION: Cholelithiasis with gallbladder wall thickening. There is questionable pericholecystic fluid. These findings can be seen in cholecystitis. Patient had a negative sonographic Simpson''s sign. Electronically Signed: Stiven Rodriges MD at 19:18 EDT , Rhythm Strip Rhythm Strip: Sinus Tach Rate: 110 Ectopy: None Physical Exam Narrative GENERAL: cooperative HEENT: Atraumatic; normocephalic EYES; Anicteric, Normal Conjunctiva NECK; supple, normal thyroid, RESPIRATORY: Diminished to auscultation CARDIOVASCULAR: Regular S1 S2, GI: soft, normoactive bowel sounds, : No Renal angle tenderness; EXTREMITIES: No edema, no clubbing, MUSCULOSKELETAL: no muscle wasting NEURO: Awake; no lateralizing signs. SKIN: No Rash PSYCH; Flat affect Assessment & Plan Assessment/Plan (1) Acute upper abdominal pain: (2) Leukocytosis: QUALIFIERS: Leukocytosis type: unspecified Qualified Code(s): D72.829 - Elevated white blood cell count, unspecified (3) Cholelithiasis: QUALIFIERS: Biliary obstruction: without biliary obstruction Cholecystitis acuity: unspecified acuity Cholecystitis presence: with cholecystitis Cholelithiasis location: gallbladder and bile duct Qualified Code(s): K80.60 - Calculus of gallbladder and bile duct with cholecystitis, unspecified, without obstruction (4) Pre-operative cardiovascular examination: PLAN: Plan Patient is an 83-year-old gentleman admitted with abdominal pain nausea and vomiting of 3 days duration 1. Abdominal pain ? Gallbladder ultrasound did show Cholelithiasis with gallbladder wall thickening. There is questionable pericholecystic fluid. These findings can be seen in cholecystitis. Patient had a negative sonographic Simpson''s sign. CT ofthe abdomen demonstrated Questionable haziness around the head of the pancreas which may be due to mild pancreatitis or duodenitis. Patient has been admitted to the surgical service. Definitive management deferred to general surgery 2. Hypophosphatemia ? Corrected per protocol 3. Hypokalemia -corrected per protocol 4. Acute kidney injury ? Creatinine on admission was 1.57 rehydrated down to 1.09 subsequent monitoringwith daily electrolytes ordered 5. DVT prophylaxis ? SCDs for now with plans to initiate low molecular weight heparin following patient surgical procedure Time spent in the patient's overall evaluation,decision-making process, review of diagnostic data, adjustment of management, discussion with other providers, nursing nursing and ancillary staff involved in patient's care documentation, 50 Minutes Charges/Coding Visit Charges Inpatient E&M: 08856 [facility] Hosp L3 05/03/23 1318 <Electronically signed by Berto Youngblood MD> Cosigner Signature (if applicable): CC: ~ Signed [facility] Work Phone: 1(950) 627-621507-24-2023 Progress note Author Herber Hewitt [facility] May 03, 2023 10:54am Note Date/Time May 03, 2023 9:47 am [facility] Medical Records Department [address] [place] [address] Progress Note - Surgery 05/03/23 0946 MR#: [id number] Acct: [id number] Name: SUPA POWELL Rep #:[id number] : 1940 83 From: Herber Barroso PCP: MIKKI HaqueC Status:ADM I N Location: [place] [address] Subjective Subjective Patient seen and examined during AM rounds. Is found resting in bed. He deniesany nausea or vomiting overnight. He states that he is thirsty. He denies any abdominal pain this morning. Objective Data Objective Data Vital Signs: Vital Signs Temp Pulse Resp BP Pulse Ox O2 Del Method 97.4 F L 92 16 154/87 H 94 Room Air 05/03/23 05:20 05/03/23 05:22 05/03/23 05:20 05/03/23 06:32 05/03/23 05:20 05/03/23 09:04 Oxygen Delivery Method Room Air Weight: 164 lb 7.437 oz Body Mass Index (BMI) 24.3 Intake & Output: Intake and Output for Last 24 Hours 05/01/23 05/02/23 05/03/23 23:59 23:59 23:59 Intake Total 1050 / 1100 1100 / 1100 Output Total 150 / 450 650 / 650 Balance 900 / 650 450 / 450 Lab / Micro Data 05/03/23 05:20 05/03/23 05:20 Labs: Laboratory Results - last 24 hr 05/02/23 15:29: WBC 24.7 H, RBC 5.32, Hgb 17.0 H, Hct 49.4, MCV 92.9, MCH 32.0, MCHC 34.4, RDW Std Deviation 45.1 H, RDW Coeff of Yari 13.2, Plt Count 211, MPV 8.4, Immature Gran % (Auto) 0.400, Neut % (Auto) 91.8 H, Lymph % (Auto) 3.0 L, Sebastian % (Auto) 4.6, Eos % (Auto) 0.0, Baso % (Auto) 0.2, Absolute Neuts (auto) 22.7 H, Absolute Lymphs (auto) 0.73 L, Nucleated RBC % 0, Differential Comment SCANNED, Sodium 137, Potassium 3.4 L, Chloride 101, Carbon Dioxide 28.0, Anion Gap 8, BUN 24 H, Creatinine 1.57 H, Estim Creat Clear Calc 35.02, Est GFR (MDRD)Af Amer 59 L, Est GFR (MDRD) Non-Af 49 L, BUN/Creatinine Ratio 15.3, Glucose 135H, Calcium 9.7, Total Bilirubin 0.90, AST 19, ALT 36, Alkaline Phosphatase 82, Troponin I High Sens 35, Total Protein 7.7, Albumin 3.7, Globulin 4.0, Albumin/Globulin Ratio 0.9, Lipase 94 H 05/02/23 18:34: Urine Color Yellow, Urine Clarity Sl. Cloudy, Urine pH 6.5, Ur Specific [place] 1.020, Urine Protein 100 H, Urine Glucose (UA) 50 H, Urine Ketones 5 H, Urine Occult Blood 150 H, Urine Nitrite Negative, Urine Bilirubin Negative, Urine Urobilinogen 1 H, Ur Leukocyte Esterase 25 H, Urine RBC 10-25 SEEN, Urine WBC 0- 5 SEEN, Ur Squamous Epith Cells 0-5 SEEN, Amorphous Sediment 1+ URATE, Urine Bacteria 0 SEEN, Urine Mucus 0 SEEN 05/03/23 05:20: WBC 21.3 H, RBC 4.59 L, Hgb 14.7, Hct 42.8, MCV 93.2, MCH 32.0, MCHC 34.3, RDW Std Deviation 45.6 H, RDW Coeff of Yari 13.3, Plt Count 166, MPV 7.9, Immature Gran % (Auto) 0.500, Neut % (Auto) 89.4 H, Lymph % (Auto) 3.9 L, Sebastian % (Auto) 6.0, Eos % (Auto) 0.1, Baso % (Auto) 0.1, Absolute Neuts (auto) 19.0 H, Absolute Lymphs (auto) 0.83, Nucleated RBC % 0, Sodium 139, Potassium 3.4 L, Chloride 110 H, Carbon Dioxide 24.0, Anion Gap 5, BUN 18, Creatinine 1.09, Estim Creat Clear Calc 50.45, Est GFR (MDRD) Af Amer 83, Est GFR (MDRD) Non-Af 68, BUN/Creatinine Ratio 16.5, Glucose 106, Calcium 8.4 L, Phosphorus 1.8L, Magnesium 1.9, Total Bilirubin 0.90, AST 26, ALT 41, Alkaline Phosphatase 66,B-Natriuretic Peptide 76.6, Total Protein 6.1 L, Albumin 3.0 L, Globulin 3.1, Albumin/Globulin Ratio 1.0, Lipase 35 Radiography Diagnostic Testing: Radiology Impression Abdomen/Pelvis CT 05/02/23 15:19 IMPRESSION: Questionable haziness around the head of the pancreas which may be due to mild pancreatitis or duodenitis. No fluid collections are seen. No other acute abnormalities are identified. Electronically Signed: Stiven Rodriges MD at 16:15 EDT , Chest X-Ray 05/02/23 15:50 IMPRESSION: No acute findings in the chest. Electronically Signed: Stiven Rodriges MD at 16:30 EDT , Gallbladder Ultrasound 05/02/23 16:43 IMPRESSION: Cholelithiasis with gallbladder wall thickening. There is questionable pericholecystic fluid. These findings can be seen in cholecystitis. Patient had a negative sonographic Simpson''s sign. Electronically Signed: Stiven Rodriges MD at 19:18 EDT , Rhythm Strip Rhythm Strip: Sinus Tach Rate: 110 Ectopy: None Physical Exam Const no apparent distress Constitutional Narrative: Oriented to person and place Resp normal respiratory effort GI GI Narrative: Nondistended, soft, minimally tender to palpation bilateral upper quadrants. Negative Simpson sign. Assessment & Plan Assessment/Plan (1) Leukocytosis: QUALIFIERS: Leukocytosis type: unspecified Qualified Code(s): D72.829 - Elevated white blood cell count, unspecified (2) Cholelithiasis: QUALIFIERS: Cholelithiasis location: gallbladder and bile duct Cholecystitis presence: with cholecystitis Cholecystitis acuity: unspecified acuity Biliary obstruction: without biliary obstruction Qualified Code(s): K80.60 - Calculus of gallbladder and bile duct with cholecystitis, unspecified, without obstruction (3) Acute upper abdominal pain: PLAN: Plan This is a 83-year-old male, with minimal medical community contact, who presentsfor intractable nausea and vomiting as well as some associated abdominal pain. Prior work-up shows cholelithiasis with gallbladder wall thickening on sonogram,yet this was read as unremarkable from patient's CT imaging of the abdomen. Patient's exam has been largely unremarkable with negative Simpson sign. Continuing work-up for this frail 83-year-old gentleman with minimal health history as to both his current fitness for surgery and need for an operation. To help better understand his gallbladder issue I would like him to go for a HIDA scan today to see if there is visualization of the gallbladder. We will plan to visit with both him and his family regarding this and the work-up initiated by hospitalist service. Appreciate their input. Neuro: As needed Dilaudid Pulm/CV: I-S, as needed antihypertensives given evidence of hypertension with vitals, cardiac work-up per hospitalist service FEN/GI: Trend electrolytes and creatinine, clear liquid diet and n.p.o. past midnight, trend CMP, follow-up HIDA : No current issues Heme/ID: Trend CBC, provide empiric Zosyn therapy Endo: No current issues Proph: SCDs Dispo: Continue inpatient stay Charges/Coding Visit Charges Inpatient E&M: 92119 Subs Hosp L2 05/03/23 1054 <Electronically signed by Herber Hewitt MD> Cosigner Signature (if applicable): CC: ~ Signed [facility] Work Phone: 1(356) 138-788307-24-2023 Progress note Author Chetan Duffy [facility] May 03, 2023 6:23am Note Date/Time May 02, 2023 9:16 pm [facility] Medical Records Department [address] [place] [address] Progress Note - Hospitalist 05/02/232114 MR#: [id number] Acct: [id number] Name: SUPA POWELL Rep #:[id number] : 1940 83 From: Chetan Duffy MD PCP: FRANKIE Haque Status:ADM I N Location: [place] [address] Reason for Visit Reason for Visit: Diagnoses Elevated white blood cell count, unspecified (05/02/23) Calculus of gallbladder without cholecystitis without obstruction (05/02/23) Upper abdominal pain, unspecified (07/23/23) Subjective Subjective Patient is an 83-year-old male with a significant history of tobacco abuse but have not seen a doctor for many years presents to the emergency department with abdominal pain. Patient is unable to elaborate on the exact position of the pain. However he states that his pain is with eating. Reports of nausea or vomiting. A week before presentation he has some chest pain but the chest pain has since resolved. Objective Data Objective Data Vital Signs: Vital Signs Temp Pulse Resp BP Pulse Ox O2 Del Method 96.8 F L 70 19 H 181/88 H 93 Room Air 05/02/23 20:43 05/02/23 20:43 05/02/23 20:43 05/02/23 20:43 05/02/23 20:43 05/02/23 20:43 Oxygen Delivery Method Room Air Weight: 76.4 kg Body Mass Index (BMI) 24.8 Intake & Output: Intake and Output for Last 24 Hours 04/30/23 05/01/23 05/02/23 23:59 23:59 23:59 Intake Total 1050 / 1050 Output Total 150 / 150 Balance 900 / 900 Lab / Micro Data 05/03/23 05:20 05/03/23 05:20 Labs: Laboratory Results - last 24 hr 05/02/23 15:29: WBC 24.7 H, RBC 5.32, Hgb 17.0 H, Hct 49.4, MCV 92.9, MCH 32.0, MCHC 34.4, RDW Std Deviation 45.1 H, RDW Coeff of Yari 13.2, Plt Count 211, MPV 8.4, Immature Gran % (Auto) 0.400, Neut % (Auto) 91.8 H, Lymph % (Auto) 3.0 L, Sebastian % (Auto) 4.6, Eos % (Auto) 0.0, Baso % (Auto) 0.2, Absolute Neuts (auto) 22.7 H, Absolute Lymphs (auto) 0.73 L, Nucleated RBC % 0, Differential Comment SCANNED, Sodium 137, Potassium 3.4 L, Chloride 101, Carbon Dioxide 28.0, Anion Gap 8, BUN 24 H, Creatinine 1.57 H, Estim Creat Clear Calc 35.02, Est GFR (MDRD)Af Amer 59 L, Est GFR (MDRD) Non-Af 49 L, BUN/Creatinine Ratio 15.3, Glucose 135H, Calcium 9.7, Total Bilirubin 0.90, AST 19, ALT 36, Alkaline Phosphatase 82, Troponin I High Sens 35, Total Protein 7.7, Albumin 3.7, Globulin 4.0, Albumin/Globulin Ratio 0.9, Lipase 94 H 05/02/23 18:34: Urine Color Yellow, Urine Clarity Sl. Cloudy, Urine pH 6.5, Ur Specific [place] 1.020, Urine Protein 100 H, Urine Glucose (UA) 50 H, Urine Ketones 5 H, Urine Occult Blood 150 H, Urine Nitrite Negative, Urine Bilirubin Negative, Urine Urobilinogen 1 H, Ur Leukocyte Esterase 25 H, Urine RBC 10-25 SEEN, Urine WBC 0- 5 SEEN, Ur Squamous Epith Cells 0-5 SEEN, Amorphous Sediment 1+ URATE, Urine Bacteria 0 SEEN, Urine Mucus 0 SEEN Radiography Diagnostic Testing: Radiology Impression Abdomen/Pelvis CT 05/02/23 15:19 IMPRESSION: Questionable haziness around the head of the pancreas which may be due to mild pancreatitis or duodenitis. No fluid collections are seen. No other acute abnormalities are identified. Electronically Signed: Stiven Rodriges MD at 16:15 EDT , Chest X-Ray 05/02/23 15:50 IMPRESSION: No acute findings in the chest. Electronically Signed: Stiven Rodriges MD at 16:30 EDT , Gallbladder Ultrasound 05/02/23 16:43 IMPRESSION: Cholelithiasis with gallbladder wall thickening. There is questionable pericholecystic fluid. These findings can be seen in cholecystitis. Patient had a negative sonographic Simpson''s sign. Electronically Signed: Stiven Rodriges MD at 19:18 EDT , Rhythm Strip Rhythm Strip: Sinus Tach Rate: 110 Ectopy: None Physical Exam Narrative Physical exam: General: Well-nourished, well-developed. Head: Normocephalic, atraumatic, no tenderness Eyes: Vision is grossly intact. EOMI ENT, no trauma, moist mucous membranes, no rhinorrhea Neck: Nontender, No thyromegaly. CVS: Regular rate and rhythm. S1-S2 present. No murmur, gallop or rub. Respiratory : Diminished; mild wheezing; mild rhonchi chest wall nontender Abdomen: Soft, nontender, nondistended, normal bowel sounds, no masses : Deferred Back: Nontender, no CVA tenderness, no midline spinal tenderness, deformities, step-offs Extremities: Nontender full range of motion, no trauma Skin: Normal color, no trauma, abrasions Neuro: Alert, oriented, cranial nerves II through XII grossly intact. Psychiatry: Normal mood. Normal affect. Not depressed. Not anxious. Assessment & Plan Assessment/Plan (1) Acute upper abdominal pain: (2) Leukocytosis: QUALIFIERS: Leukocytosis type: unspecified Qualified Code(s): D72.829 - Elevated white blood cell count, unspecified (3) Cholelithiasis: QUALIFIERS: Biliary obstruction: without biliary obstruction Cholecystitis acuity: unspecified acuity Cholecystitis presence: with cholecystitis Cholelithiasis location: gallbladder and bile duct Qualified Code(s): K80.60 - Calculus of gallbladder and bile duct with cholecystitis, unspecified, without obstruction (4) Pre-operative cardiovascular examination: PLAN: Plan Preoperative cardiovascular examination Patient with T wave inversions in lead V1 to V4 and T wave flattening in lateralleads. We will get BNP and echocardiogram for baseline. Patient has no active chest pain although he had chest pain a week before presentation. If echocardiogram is okay I think is reasonable to go on with surgery. Leukocytosis/cholelithiasis/abdominal pain/Possible duodenitis. Radiologist interpretation of CT scan with Questionable haziness around the headof the pancreas which may be due to mild pancreatitis or duodenitis. No fluid collections are seen. No other acute abnormalities are identified. CT abdomen and pelvis was independently interpreted by Hospitalist and I agree. Cannot rule out cholecystitis. Agree with Zosyn and pain control.. Also will add scheduled Protonix to regimen.Check lipase. Elevated creatinine Unclear whether GENOVEVA or CKD. No records in community system. Gentle IV fluids. Trend CMP DVT prophylaxis: SCD ordered. Time spent in the patient's overall evaluation,decision-making process, review of diagnostic data, adjustment of management, discussion with other providers, nursing nursing and ancillary staff involved in patient's care documentation, 30minutes. Total clinical time spent by myself addressing the patient's medical issues, reviewing all the data, and collaborating with the patient's care team: 45 minutes Charges/Coding Visit Charges Inpatient E&M: 10081 Subs Hosp L3 05/03/23 0623 <Electronically signed by Chetan Duffy MD> Cosigner Signature (if applicable): CC: ~ Signed [facility] Work Phone: 1(456) 585-276907-24-2023 Discharge summary Author Demetris Mcdonald [facility] May 03, 2023 12:04am Note Date/Time May 02, 2023 3:22 pm [facility] Medical Records Department [address] [place] [address] Emergency Department Summary 05/02/23 MR#: [id number] Acct: [id number] Name: SUPA POWELL Rep #:[id number] : 1940 83 From: Demetris Mcdonald MD PCP: Cheryl Bartlett NP-C Status:ADM I N Location: [place] [address] HPI History of Present Illness Chief Complaint: General Illness Informant: patient and family (son) Onset/Context/Timing Onset: Days (2) Narrative Narrative: 83-year-old patient very poor historian presents with his son for vomiting for the past 2 days, unable to keep any fluids down. States he has been having someoff and on periumbilical abdominal pain that he cannot describe further. It is not currently there. Due to gaze ago he also was having chest pain substernal that he also cannot describe but he does say that he was sweating for a good half hour without any good reason while he was having the pain. Chronic cough unchanged nonproductive, he is a smoker, does not have any known medical problems but that is because he states he has not seen a doctor in past 50+ years. No known fevers or chills. No known contacts with similar symptoms that he knows of. No diarrhea. States he is urinating but less than normal. Denies any travel out of the area recently. Son states he basically stays at home all the time. [facility] Medical History no medical history no medical history Home Medications NK 05/02/23 [History Last Taken Unknown] Allergy/AdvReac Type Severity Reaction Status Date / Time No Known Allergies Allergy Verified 05/02/23 14:40 Social History (Updated 05/02/23 @ 15:[address] Demetris Mcdonald MD) Smoking Status: Current every day smoker tobacco type: cigarettes ROS ROS ED Constitutional Constitutional ED: Reports weakness; Denies chills or fever(s) Eyes Eyes: Denies change in vision or diplopia ENT ENT ED: Denies rhinorrhea or sore throat Cardiovascular Cardiovascular: Reports chest pain; Denies palpitations Respiratory/Chest Respiratory/Chest: Reports cough; Denies dyspnea Gastrointestinal Gastrointestinal: Reports abdominal pain, nausea and vomiting; Denies diarrhea or melena Genitourinary Genitourinary ED: Denies dysuria, hematuria or urinary frequency Musculoskeletal Musculoskeletal: Denies back pain or neck pain Integumentary Denies abscess or rash Neurologic Neurologic: Denies headache(s), paresthesias or weakness Psychiatric Psychiatric: Denies anxiety or suicidal thoughts EXAM Physical Exam Const Vital Signs: 05/02/23 14:40 05/02/23 15:18 05/02/23 16:40 Temperature 98 F Temperature Source Temporal Pulse Rate 120 H 91 Respiratory Rate 20 H 15 Respiratory Effort Normal Non-Labored Respiratory Pattern Normal Blood Pressure 129/90 H Blood Pressure Mean 103 Pulse Ox 95 97 Oxygen Delivery Method Room Air Room Air 05/02/23 18:00 Temperature Temperature Source Pulse Rate 93 Respiratory Rate 15 Respiratory Effort Respiratory Pattern Blood Pressure Blood Pressure Mean Pulse Ox 97 Oxygen Delivery Method Room Air Positive well nourished and well developed General Appearance ED: well developed and NAD HEENT Reports moist mucous membranes normocephalic and atraumatic Eyes PERRL and EOMs intact bilaterally Neck full ROM and supple Resp normal respiratory effort Resp Narrative: Very faint/diminished breath sounds, symmetric, with end expiratory wheezes throughout. Effort and Inspection: able to speak in complete sentences Cardio regular rate and regular rhythm Cardio Narrative: Very faint heart sounds Rate: tachycardic GI non-tender and non-distended Auscultation: normoactive bowel sounds Palpation: soft Back/Spine no CVA tenderness General Back: other FROM Extremity normal to inspection and no calf tenderness General Extremety ED: Negative for edema, pulses abnormal or tenderness General Extremity: Negative for edema or pulses abnormal Neuro oriented x3, CN's II-XII intact bilaterally and no sensory deficits noted Sensorium / Orientation: awake and alert Motor Exam: strength 5/5 throughout Psych mental status grossly normal Skin no rashes or lesions noted and no wounds MDM MDM MDM Narrative Medical decision making narrative: Differential here includes lower lobe pneumonia, acute coronary syndrome/myocardial infarction, bowel obstruction, cholecystitis, pancreatitis, other GI functional process, including viral gastritis. Started with EKG, chestx-ray, CT of the abdomen and pelvis and labs/urinalysis. Chest x-ray 2 views ofmy interpretation shows no sign of pneumonia radiology in agreement. CT of the abdomen/pelvis images are reviewed, as well as the interpretation and agree withit, some potential radiographic signs of pancreatitis. I also note that he may have a few small gallstones however CT is not the best test for this, so I addedan ultrasound since there was not a better explanation for his significant leukocytosis, his lipase is only 94, slightly elevated, total bilirubin is normal, arguing against an obstructive biliary process. On recheck the patient after IV fluids and Zofran he is doing well and not in significant pain declinesan offer for analgesics his tachycardia is much better after the fluids. His EKG shows no acute ischemic abnormality and his high-sensitivity troponin is within normal limits. I reviewed the gallbladder ultrasound images and report which I agree with, basically a stone lodged in the neck of the gallbladder is a thickened wall mildpericholecystic fluid consistent with early acute cholecystitis, although sonographic Simpson was negative. Empiric Zosyn started, and it took a while to get urine from the patient. He tried multiple times to urinate, the nurses did a bladder scan and he was over 800 cc. He was able to give us about 150 cc urine with over 600 cc still left in his bladder but since he felt okay and did not feel comfortable, and did not want a catheter we held off. Family states that he has had issues urinating for some time, standing up and sitting down multipletimes to try to get urine out. Discussed with surgery Dr. Hewitt. He saw and evaluated patient, no clinical positive Simpson's which I concur with, certainly cholecystitis is in the differential diagnosis but this may not be and he does have some inflammation around the duodenum, unclear if he needs to have his gallbladder out for this ornot given his age and general health, will also consult medicine I discussed with. Will be admitted regardless. Lab Data Attestation: I reviewed the patient's lab results. Labs: Laboratory Results - last 24 hr 05/02/23 05/02/23 15:29 18:34 WBC 24.7 H RBC 5.32 Hgb 17.0 H Hct 49.4 MCV 92.9 MCH 32.0 MCHC 34.4 RDW Std Deviation 45.1 H RDW Coeff of Yari 13.2 Plt Count 211 MPV 8.4 Immature Gran % (Auto) 0.400 Neut % (Auto) 91.8 H Lymph % (Auto) 3.0 L Sebastian % (Auto) 4.6 Eos % (Auto) 0.0 Baso % (Auto) 0.2 Absolute Neuts (auto) 22.7 H Absolute Lymphs (auto) 0.73 L Nucleated RBC % 0 Differential Comment SCANNED Sodium 137 Potassium 3.4 L Chloride 101 Carbon Dioxide 28.0 Anion Gap 8 BUN 24 H Creatinine 1.57 H Estim Creat Clear Calc 35.02 Est GFR (MDRD) Af Amer 59 L Est GFR (MDRD) Non-Af 49 L BUN/Creatinine Ratio 15.3 Glucose 135 H Calcium 9.7 Total Bilirubin 0.90 AST 19 ALT 36 Alkaline Phosphatase 82 Troponin I High Sens 35 Total Protein 7.7 Albumin 3.7 Globulin 4.0 Albumin/Globulin Ratio 0.9 Lipase 94 H Urine Color Yellow Urine Clarity Sl. Cloudy Urine pH 6.5 Ur Specific [place]view 1.020 Urine Protein 100 H Urine Glucose (UA) 50 H Urine Ketones 5 H Urine Occult Blood 150 H Urine Nitrite Negative Urine Bilirubin Negative Urine Urobilinogen 1 H Ur Leukocyte Esterase 25 H Urine RBC 10-25 SEEN Urine WBC 0-5 SEEN Ur Squamous Epith Cells 0-5 SEEN Amorphous Sediment 1+ URATE Urine Bacteria 0 SEEN Urine Mucus 0 SEEN Radiography Diagnostic Testing: Clinical Impression(s) from Imaging Studies Abdomen/Pelvis CT 05/02/23 15:19 IMPRESSION: Questionable haziness around the head of the pancreas which may be due to mild pancreatitis or duodenitis. No fluid collections are seen. No other acute abnormalities are identified. Electronically Signed: Stiven D. Breckwoldt, MD at 16:15 EDT , Chest X-Ray 05/02/23 15:50 IMPRESSION: No acute findings in the chest. Electronically Signed: Stiven Rodriges MD at 16:30 EDT , Gallbladder Ultrasound 05/02/23 16:43 IMPRESSION: Cholelithiasis with gallbladder wall thickening. There is questionable pericholecystic fluid. These findings can be seen in cholecystitis. Patient had a negative sonographic Simpson''s sign. Electronically Signed: Stiven Rodriges MD at 19:18 EDT , Rhythm Strip Rhythm Strip: Sinus Tach Rate: 110 Ectopy: None EKG Initial EKG: Attestation: I personally reviewed and interpreted this EKG as follows: Interpretation: Sinus Rhythm, No Acute Injury Pattern and Inverted T-Waves(ant-sept) Prior EKG tracings: not available for review Prior: No Prior Management Discussion w/another healthcare provider: Irrigationist (Surgery) Discharge Plan Dx/Rx/DC Orders Clinical Impression: Acute upper abdominal pain, Leukocytosis, Cholelithiasis Disposition Disposition: Acute Care Hospital [facility] What to do if you have Problems For any increased pain, shortness of breath, bleeding, nausea or vomiting, chestpain, or any unexpected problems, contact your Primary Care Provider. Call [facility] ([phone]) or report to the closest Emergency Room. Call 911 if necessary. 05/03/23 0004 <Electronically signed by Demetris Mcdonald MD> Cosigner Signature (if applicable): CC: FRANKIE Bartlett ~ Signed [facility] Work Phone: 1(986) 412-864407-23-2023 History and physical note Author Herber Hewitt [facility] May 02, 2023 8:51pm Note Date/Time May 02, 2023 8:41 pm [facility] Medical Records Department [address] [place] [address] History & Physical Exam 05/02/232034 MR#: [id number] Acct: [id number] Name: SUPA POWELL Rep #:[id number] : 1940 83 From: Herber Barroso PCP: Cheryl Bartlett, BELT CUTTER-C Status:REG E R Location: ED HPI - General General Date of Service: 05/02/23 Chief Complaint: Nausea vomiting and inability to tolerate oral intake HPI Narrative SUPA POWELL, is a 83 M who presents to [facility] at the prompting of his daughter after developing intractable nausea and vomiting on 04/30/2023. Patient lives with his son and he states his son brought him breakfast the morning his symptoms started. He states his breakfast consisted of a [employer] sausage biscuit. Shortly thereafter he began with nausea, vomiting, and some sweating. He states he had a rather large bowel movement thesame day, but since has not had any further bowel activity. He has been unable to tolerate further oral intake since this time and patient's daughter reports that the vomitus has been described as brown like feces. In addition to the above the remarks of some abdominal discomfort which she states actually originated in his chest and then moved down into the stomach. Despite request for further details he is unable to provide this information. Patient's ER work-up is notable for CBC that demonstrates a leukocytosis and left shift as well as increased hemoglobin. Notably patient's LFTs and bilirubin are completely within normal limits. His lipase is mildly elevated at94. CT of the abdomen pelvis was originally performed and shows evidence of possible mild pancreatitis versus duodenitis. Gallbladder was read by radiologyas normal and yet follow-up right upper quadrant ultrasound on clinical suspicion demonstrates evidence of gallbladder wall thickening to 8 mm width andsome trace pericholecystic fluid. Patient's daughter, and Mr. Powell agrees, relates that her father has very minimal contact with the medical community. Apparently 2 to 3 years ago he underwent injections for macular degeneration in his eyes before giving this up. Prior to this he has had very limited medical following even for maintenance care. To this end he has never had a colonoscopy. He does not take any medications and is unaware of any allergies. He reports at the age of 21 he wasdiagnosed with a busted appendix but when he went in to see a doctor he was given a series of shots and then dismissed home. He assumes that everything healed well and he has not had any subsequent troubles. He has no prior surgical history. He does smoke and states that he has done so since about the age of 4. At his most he smoked approximately 1 pack/day but is down to less than half a pack per day currently. He has limited activity simply shuffling between his room, his son's room, and the outdoor deck. He admits that he is otherwise isolated. [facility] Medical History no medical history Home Medications NK 05/02/23 [History Last Taken Unknown] Allergy/AdvReac Type Severity Reaction Status Date / Time No Known Allergies Allergy Verified 05/02/23 14:40 Social History (Updated 05/02/23 @ 15:[address] Demetris Mcdonald MD) Smoking Status: Current every day smoker tobacco type: cigarettes ROS Constitutional Constitutional: Reports anorexia, night sweats, weakness and weight loss; Denieschills Gastrointestinal Gastrointestinal: Reports abdominal pain, constipation, nausea and vomiting Vital Signs Vital Signs Vital Signs: 05/02/23 14:40 05/02/23 15:18 05/02/23 16:40 Temperature 98 F Temperature Source Temporal Pulse Rate 120 H 91 Respiratory Rate 20 H 15 Respiratory Effort Normal Non-Labored Respiratory Pattern Normal Blood Pressure 129/90 H Blood Pressure Mean 103 Pulse Ox 95 97 Oxygen Delivery Method Room Air Room Air 05/02/23 18:00 Temperature Temperature Source Pulse Rate 93 Respiratory Rate 15 Respiratory Effort Respiratory Pattern Blood Pressure Blood Pressure Mean Pulse Ox 97 Oxygen Delivery Method Room Air Weight Weight: 168 lb 6.931 oz Body Mass Index (BMI) 24.8 Physical Exam Resp normal respiratory effort GI GI Narrative: No scars, nondistended, soft, mildly tender to palpation right upper quadrant. Negative Simpson sign. Mild tenderness to palpation in the right lower quadrant. No visible or palpable hernia. Results Lab / Micro Data 05/02/23 15:29 05/02/23 15:29 Labs: Laboratory Results - last 24 hr 05/02/23 15:29: WBC 24.7 H, RBC 5.32, Hgb 17.0 H, Hct 49.4, MCV 92.9, MCH 32.0, MCHC 34.4, RDW Std Deviation 45.1 H, RDW Coeff of Yari 13.2, Plt Count 211, MPV 8.4, Immature Gran % (Auto) 0.400, Neut % (Auto) 91.8 H, Lymph % (Auto) 3.0 L, Sebastian % (Auto) 4.6, Eos % (Auto) 0.0, Baso % (Auto) 0.2, Absolute Neuts (auto) 22.7 H, Absolute Lymphs (auto) 0.73 L, Nucleated RBC % 0, Differential Comment SCANNED, Sodium 137, Potassium 3.4 L, Chloride 101, Carbon Dioxide 28.0, Anion Gap 8, BUN 24 H, Creatinine 1.57 H, Estim Creat Clear Calc 35.02, Est GFR (MDRD)Af Amer 59 L, Est GFR (MDRD) Non-Af 49 L, BUN/Creatinine Ratio 15.3, Glucose 135H, Calcium 9.7, Total Bilirubin 0.90, AST 19, ALT 36, Alkaline Phosphatase 82, Troponin I High Sens 35, Total Protein 7.7, Albumin 3.7, Globulin 4.0, Albumin/Globulin Ratio 0.9, Lipase 94 H 05/02/23 18:34: Urine Color Yellow, Urine Clarity Sl. Cloudy, Urine pH 6.5, Ur Specific [place] 1.020, Urine Protein 100 H, Urine Glucose (UA) 50 H, Urine Ketones 5 H, Urine Occult Blood 150 H, Urine Nitrite Negative, Urine Bilirubin Negative, Urine Urobilinogen 1 H, Ur Leukocyte Esterase 25 H, Urine RBC 10-25 SEEN, Urine WBC 0- 5 SEEN, Ur Squamous Epith Cells 0-5 SEEN, Amorphous Sediment 1+ URATE, Urine Bacteria 0 SEEN, Urine Mucus 0 SEEN Rhythm Strip Rhythm Strip: Sinus Tach Rate: 110 Ectopy: None Radiology Impression Abdomen/Pelvis CT 05/02/23 15:19 IMPRESSION: Questionable haziness around the head of the pancreas which may be due to mild pancreatitis or duodenitis. No fluid collections are seen. No other acute abnormalities are identified. Electronically Signed: Stiven Rodriges MD at 16:15 EDT , Chest X-Ray 05/02/23 15:50 IMPRESSION: No acute findings in the chest. Electronically Signed: Stiven Rodriges MD at 16:30 EDT , Gallbladder Ultrasound 05/02/23 16:43 IMPRESSION: Cholelithiasis with gallbladder wall thickening. There is questionable pericholecystic fluid. These findings can be seen in cholecystitis. Patient had a negative sonographic Simpson''s sign. Electronically Signed: Stiven Rodriges MD at 19:18 EDT , Assessment & Plan Assessment/Plan (1) Leukocytosis: (2) Cholelithiasis: (3) Acute upper abdominal pain: PLAN: Plan This is a 83-year-old male, with minimal medical community contact, who presentsfor intractable nausea and vomiting as well as some associated abdominal pain. History is very difficult to elicit both due to his lack of contact with the medical community as well as his seeming unwillingness to divulge much information. ER work-up is remarkable for significantly elevated white blood cell count as well as sonographic evidence of cholelithiasis and some gallbladder wall thickening. In my independent review of the imaging and hearing patient's story firsthand, I would question whether or not this actually represents primary gastroenteritis with an incidental finding of cholelithiasis and even possible chronic cholecystitis. However, given his reports of an inability to tolerate p.o. intake and his elevated white blood cell count, I find he warrants inpatient admission and further evaluation. Based on his exam demonstrated only mild evidence of cholecystitis and readily evident frailty, I would like to have our hospitalist service weigh in on his case as well as provide some risk stratification for Mr. Powell's risk for a general anesthetic. We will plan to reassess tomorrow and make a decision for surgery. Neuro: As needed Dilaudid Pulm/CV: I-S, as needed antihypertensives given evidence of hypertension with vitals, cardiac work-up per hospitalist service? FEN/GI: Trend electrolytes and creatinine, clear liquid diet and n.p.o. past midnight, trend CMP : No current issues Heme/ID: Trend CBC, provide empiric Zosyn therapy Endo: No current issues Proph: SCDs Dispo: Admit to inpatient with consult to hospitalist service 05/02/232050 <Electronically signed by Herber Hewitt MD> Cosigner Signature (if applicable): CC: BELT CUTTER-C Cheryl Bartlett; Dr. Herber Hewitt MD~ Signed [facility] Work Phone: 1(216) 300-941707-23-2023 [facility] Nava Hill [facility] May 11, 2023 12:58pm Note Date/Time May 11, 2023 12: 55pm [facility] Medical Records Department [address] [place] [id number] Instructions for Home/Discharge Instructions 05/11/23 1248 MR#: [id number] Acct: [id number] Name: SUPA POWELL Rep #:[id number] : 1940 83 From: Herber Barroso PCP: FRANKIE Haque Status:ADM I N Discharge Instructions Diet Discharge Diet: Soft diet (Low fiber) Activity Discharge Activity: May Shower Dressing / Incision Call your doctor if you observe: Fever of 101 or Higher, Inability to have a bowel movement, Prolonged hiccupping and Uncontrolled pain Follow Up Care Please Follow Up With: pcp When: within one week of discharge Test Results: Test results from this visit will be discussed in further detail at your follow- up appointment, if applicable. Discharge Plan Admission Admit Date/Time: 05/02/23 20:30 Primary Reason for Your Visit: Concern for cholecystitis and ileus Attending Provider: Nava Hill Primary Care Provider: Cheryl Bartlett NP Consulting Providers: Herber Hewitt; Alivia Grant; Mohinder Block; Marie Blevins; Marie Tracy; Nena Wallace; Katherine Dior; Berto Youngblood; Yosef Caceres; Pedro Benitez; Blaine Perez; Chetan Duffy; Adriel Nichole; Jarocho Reveles; Remedios Ott; Samuel Rodriguez; Anni Danielson; Adi Hernandez; Alen Hu; Supa Recinos; Nava Hill; Thompson Holland; Cheryl Louie NP; Elias Mays; Ozzy Samuels; Ellis Bryant; Tru Couch; Jason Montesinos; Lisa Patrick NP Instructions Additional Instructions / Restrictions: Patient should work to continue bowel regimen. I have suggested that he consider regular prune juice administration and suppositories if not having regular bowel movements. Discharge Orders/Prescriptions Prescriptions: No Action NK Referrals / Follow Up: Cheryl Bartlett NP, [facility] CUTTER-C [Primary Care Provider] - Disposition Disposition (needs filled in before D/C Order can be placed): Home, Self Care 05/11/23 1256<Electronically signed by Herber Hewitt MD>Herber Hewitt MD CC: BELT CUTTER-C Lisa Patrick; [employer] CUTTER-C Cheryl Louie; BELT CUTTER-C Cheryl Bartlett; Yosef Caceres MD; Dr. Mohinder Block DO; Dr. Alivia Grant MD; Dr. Marie Blevins MD; Dr. Marie Tracy MD; Dr. Nena Wallace MD; Dr. Ozzy Samuels MD; Dr. Berto Youngblood MD; Dr. Ellis Bryant DO; Dr. Pedro Benitez DO; Dr. Blaine Perez MD; Dr. Jarocho Reveles DO; Dr. Chetan Duffy MD; Dr. Remedios Ott DO;Dr. Tru Couch MD; Dr. Samuel Rodriguez DO; Dr. Katherine Dior DO; Dr. Herber Hewitt MD; Dr. Anni Danielson MD; Dr. Adi Hernandez MD; Dr. Nava Hill MD; Dr. Supa Recinos MD; Dr. Alen Hu MD; Dr. Jason Montesinos MD; Adriel Nichole; CARLA Mijares; Thompson Holland MD ~ Signed ADDENDUM by Dr. Nava Hill MD on 05/11/23 at 1258 -Would recommend lab work (BMP and phosphorus) to check your potassium, phosphorus, kidney function in 2 to 3 days through your primary care physician'soffice. We will follow with the PCP on , this can be ordered at that appointment 05/11/23 1258<Electronically signed by Nava Hill MD>Nava Hill MD cc: BELT CUTTER-C Lisa Patrick; BELT CUTTERNoniC Cheryl Louie; BELT CUTTER-C Cheryl Bartlett; Yosef Caceres MD; Dr. Mohinder Block DO; Dr. Alivia Grant MD; Dr. Marie Blevins MD; Dr. Marie Tracy MD; Dr. Nena Wallace MD; Dr. Ozzy Samuels MD; Dr. Berto Youngblood MD; Dr. Ellis Bryant DO; Dr. Pedro Benitez DO; Dr. Blaine Perez MD; Dr. Jarocho Reveles DO; Dr. Chetan Duffy MD; Dr. Remedios Ott DO;Dr. Tru Couch MD; Dr. Samuel Rodriguez DO; Dr. Katherine Dior DO; Dr. Herber Hewitt MD; Dr. Anni Danielson MD; Dr. Adi Hernandez MD; Dr. Nava Hill MD; Dr. Supa Recinos MD; Dr. Alen Hu MD; Dr. Jason Montesinos MD; Adriel Nichole; CARLA Mijares; Thompson Holland MD ~* Signed [facility] Work Phone: Discharge summary Author Herber Hewitt [facility] May 11, 2023 1:22pm Note Date/Time May 11, 2023 12: 57pm [facility] Medical Records Department [address] [place], [place] [address] [address] Discharge Summary 05/11/23 1256 MR#: [id number] Acct: [id number] Name: SUPA POWELL Rep #:[id number] : 1940 83 From: Herber Barroso PCP: FRANKIE Haque Status:ADM I N Location: [place] [address] Providers Date of Admission: 05/02/23 Primary Care Physician: FRANKIE Haque Consultations 05/02/23 20:30 Consult: Hospitalist Routine Consulting Provider: Perry Vicente Reason for Consult: Risk stratification in frail elderly pt w/o medical hx EMERGENT Consult: No MD Notified: Yes Date Notified: 05/02/23 Time Notified: 20:33 Method of Notification: Verbal 05/08/23 08:15 Consult: Conservation Or Heritage Architect / Pulmonary Medicine Routine Consulting Provider: [facility] Reason for Consult: icu management EMERGENT Consult: No MD Notified: Yes Date Notified: 05/08/23 Time Notified: 08:15 Method of Notification: Verbal Reason For Visit: CHOLECYSTITIS Diagnosis Discharge Diagnosis (1) Acute upper abdominal pain: Status: Acute Code(s): R10.10 - Upper abdominal pain, unspecified (2) Leukocytosis: Status: Acute Code(s): D72.829 - Elevated white blood cell count, unspecified Qualifiers: Leukocytosis type: unspecified Qualified Code(s): D72.829 - Elevated white blood cell count, unspecified Plan: Remains normalized (3) Cholelithiasis: Status: Acute Code(s): K80.20 - Calculus of gallbladder without cholecystitis without obstruction Qualifiers: Biliary obstruction: without biliary obstruction Cholecystitis acuity: unspecified acuity Cholecystitis presence: with cholecystitis Cholelithiasis location: gallbladder and bile duct Qualified Code(s): K80.60 - Calculus of gallbladder and bile duct with cholecystitis, unspecified, without obstruction Plan: HIDA normal for gallbladder visualization, but shows delayed parenchymal transitconcerning for polyclonal cell dysfunction (4) Pre-operative cardiovascular examination: Status: Acute Code(s): Z01.810 - Encounter for preprocedural cardiovascular examination Plan This is a 83-year-old male, with minimal medical community contact, who presentsfor intractable nausea and vomiting as well as some associated abdominal pain. Prior work-up shows cholelithiasis with gallbladder wall thickening on sonogram,yet this was read as unremarkable from patient's CT imaging of the abdomen. Patient's exam was largely unremarkable so HIDA imaging was pursued 05/03/2023 and radiology noted uptake by the gallbladder at 12 minutes?thereby rendering acute cholecystitis and probable. 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 Mr. Powell, once again, denies any nausea this morning and and appears to be tolerating regular diet. Still, he exhibits some abdominal distention and is tympanitic (this time to the left upper quadrant) and KUB shows some mild dilation of the small bowel. It is difficult to know how long this finding willpersist. Given that he does appear to be tolerating a diet I believe we should assess 1 more meal for tolerance and then consider discharge to home with close follow-up. To this end patient's son confirms that he will establish primary care following on 05/13/2023 if he is permitted to go home by then. Neuro: As needed Tylenol Pulm/CV: I-S, as needed antihypertensives given evidence of hypertension, echo performed FEN/GI: Trend electrolytes and creatinine. Continue soft regular diet. Azithromycin 1 g IV was given yesterday, but evidence of mild ileus persists : No current issues Heme/ID: Trend CBC, look for stop date on antibiotic in collaboration with hospitalist service Endo: No current issues Proph: SCDs Dispo: We will consider possible discharge to home if patient continues to demonstrate tolerance of diet. Medications at Discharge Home Medications NK 05/02/23 Hospital Course Operations None Procedures None Summary of Care Provided Hospital Course: Patient is an 83-year-old male who was admitted via the ER on 05/02/2022 with reports of abdominal pain and associated nausea and vomiting. Although CT was unremarkable for findings within the gallbladder, emergency medicine obtained right upper quadrant ultrasound which demonstrated evidence of cholelithiasis, gallbladder wall thickening, and possible pericholecystic fluid. With these features radiology stated that they could not exclude cholecystitis. Patient did have mild tenderness on exam but had a negative Simpson sign and given the unknowns with the rest of his medical history as he has had limited contact withmedical personnel through recent decades, I remained suspicious for an alternative source of his leukocytosis that started at 24,000 on intake. Therefore on 05/03/2023 I obtained HIDA imaging which demonstrated visualization of the gallbladder at 12 minutes into the study?effectively excluding cholecystitis. After this negative result, patient was returned to a diet, but the following day, 05/04/2023, he was noted to have some significant abdominal distention and a KUB was obtained which showed diffuse small bowel dilation consistent with an ileus pattern. Visualization of the left colon was suboptimal so a contrast enema was performed and showed no evidence of distal obstruction. Therefore I trialed a period of some bowel rest and suppositories,but patient's small bowel remained distended and included the right side of his colon as well. Concerned this could represent a postinfectious ileus I, jointlywith the hospitalist service, continued Zosyn that had begun empirically for presumptive diagnosis of cholecystitis. It was noted that patient had some evidence for possible pneumonia on his 05/05/2023 chest x-ray. Hospitalist service, however, felt that no further work-up was required given that he was already receiving his antibiotic therapy. Gradually, Mr. Powell experienced progressive distention of his abdomen and further distention of his right colon,specifically. Therefore, on 05/08/2023 he was transferred to the ICU for administration of neostigmine. Mr. Powell experienced a favorable result with this medication and his colonic distention dissipated. Still, after return to the floor he persisted with some small bowel dilatation and therefore was administered 1 g of azithromycin IV. He reported no further difficulties with nausea or vomiting and therefore his diet was advanced. He tolerated this advancement to a regular diet for 3 full meals and it was decided that he shouldbe granted discharged home as the duration of this small bowel/abdominal distention could persist somewhat indefinitely and he had obviously demonstratedthe ability to take nutrition orally. Establishment of a primary care provider was 1 condition of his discharge and this was arranged for 2 days from date of discharge. On day of discharge Mr. Powell and his family expressed comfort withthe discharge plan and we reviewed foods to consider remaining on until his abdominal distention improved further. I also recommended continuing some natural laxative agents such as prune juice and consideration of a suppository if not having a bowel movement each day. Hospitalist service confirmed that patient had been appropriately treated with empiric antibiotic coverage and did not request further medications upon discharge. Weight / BMI Weight Weight: 164 lb 7.437 oz Body Mass Index (BMI) 24.3 ABG / Lab / Microbiology Data 05/11/23 05:49 05/11/23 05:49 Laboratory: Laboratory Results - last 24 hr 05/11/23 05:49: WBC 7.1, RBC 3.93 L, Hgb 12.5 L, Hct 36.3 L, MCV 92.4, MCH 31.8,MCHC 34.4, RDW Std Deviation 45.2 H, RDW Coeff of Yari 13.2, Plt Count 193, MPV 8.2, Immature Gran % (Auto) 1.700 H, Neut % (Auto) 71.7 H, Lymph % (Auto) 13.1 L, Sebastian % (Auto) 7.6, Eos % (Auto) 5.6 H, Baso % (Auto) 0.3, Absolute Neuts (auto) 5.1, Absolute Lymphs (auto) 0.93, Nucleated RBC % 0, Sodium 139, Potassium 3.7, Chloride 110 H, Carbon Dioxide 25.0, Anion Gap 4 L, BUN 7, Creatinine 1.24, Estim Creat Clear Calc 44.35, Est GFR (MDRD) Af Amer 71, Est GFR (MDRD) Non-Af 59 L, BUN/Creatinine Ratio 5.6 L, Glucose 103, Calcium 8.3 L Radiography Diagnostic Testing: Radiology Impression KUB X-Ray 05/11/23 05:55 IMPRESSION: Since prior study, there has been improvement in the small bowel gaseous distention. Electronically Signed: Gomez Beth MD at 9:10 EDT , D/C Instructions Discharge Diet: Soft diet (Low fiber) Call your doctor if you observe: Fever of 101 or Higher, Inability to have a bowel movement, Prolonged hiccupping and Uncontrolled pain Please Follow Up With: pcp When: within one week of discharge Meaningful Use Info Meaningful Use Diagnoses (Choose all that apply): None applicable Discharge Plan Admission Admit Date/Time: 05/02/23 20:30 Primary Reason for Your Visit: Concern for cholecystitis and ileus Attending Provider: Nava Hill Primary Care Provider: Cheryl Bartlett NP Consulting Providers: Herber Hewitt; Alivia Grant; Mohinder Block; Marie Blevins; Marie Tracy; Nena Wallace; Katherine Dior; Berto Youngblood; Yosef Caceres; Pedro Benitez; Blaine Perez; Chetan Duffy; Adriel Nichole; Jarocho Reveles; Remedios Ott; Samuel Rodriguez; Anni Danielson; Adi Hernandez; Alen Hu; Supa Recinos; Nava Hill; Thompson Holland; Cheryl Louie NP; Elias Mays; Ozyz Samuels; Ellis Bryant; Tru Couch; Jason Montesinos; Lisa Patrick BELT CUTTER Instructions Additional Instructions / Restrictions: Patient should work to continue bowel regimen. I have suggested that he consider regular prune juice administration and suppositories if not having regular bowel movements. Discharge Orders/Prescriptions Prescriptions: No Action NK Referrals / Follow Up: Cheryl Bartlett NP, BELT CUTTER-C [Primary Care Provider] - Disposition Disposition (needs filled in before D/C Order can be placed): Home, Self Care 05/11/23 1322 <Electronically signed by Herber Hewitt MD> Cosigner Signature (if applicable): CC: BELT CUTTER-C Cheryl Bartlett; Dr. Herber Hewitt MD~ Signed [facility] Work Phone: Evaluation note* Diagnosis Onset Date Resolution Status Acute upper abdominal pain a cute Cholelithiasis acute Ileus acute Leukocytosis acute Pre-operative cardiovascular examination acute [facility] Work Phone: Progress note Author Nava Hill [facility] May 11, 2023 12:56pm Note Date/Time May 11, 2023 12: 49pm [facility] Medical Records Department [facility] [place] [address] Progress Note - Hospitalist 05/11/23 1249 MR#: [id number] Acct: [id number] Name: SUPA POWELL Rep #:[id number] : 1940 83 From: Nava Hill MD PCP: Cheryl Bartlett, BELT CUTTER-C Status:ADM I N Location: MS3 [id number] Reason for Visit Reason for Visit: Diagnoses Elevated white blood cell count, unspecified (05/02/23) Ileus, unspecified (05/02/23) Calculus of gallbladder without cholecystitis without obstruction (05/02/23) Calculus of gallbladder and bile duct with cholecystitis, unspecified, without obstruction (05/02/23) Upper abdominal pain, unspecified (05/02/23) Encounter for preprocedural cardiovascular examination (05/02/23) Subjective Subjective Patient feeling much better today, tolerated food yesterday and tolerating breakfast today, possible DC if tolerating lunch Objective Data Objective Data Vital Signs: Vital Signs Temp Pulse Resp BP Pulse Ox O2 Del Method 98 F 72 18 161/69 H 98 Room Air 05/11/23 09:45 05/11/23 09:45 05/11/23 09:45 05/11/23 09:45 05/11/23 09:45 05/11/23 10:41 Oxygen Delivery Method Room Air Weight: 74.6 kg Body Mass Index (BMI) 24.3 Intake & Output: Intake and Output for Last 24 Hours 05/09/23 05/10/23 05/11/23 23:59 23:59 23:59 Intake Total 1636.67 / 1636.67 1446.75 / 1446.75 1029.75 / 1029.75 Output Total 300 / 400 500 / 500 1350 / 1350 Balance 1336.67 / 1236.67 946.75 / 946.75 -320.25 / -320.25 Lab / Micro Data 05/11/23 05:49 05/11/23 05:49 Labs: Laboratory Results - last 24 hr 05/11/23 05:49: WBC 7.1, RBC 3.93 L, Hgb 12.5 L, Hct 36.3 L, MCV 92.4, MCH 31.8,MCHC 34.4, RDW Std Deviation 45.2 H, RDW Coeff of Yari 13.2, Plt Count 193, MPV 8.2, Immature Gran % (Auto) 1.700 H, Neut % (Auto) 71.7 H, Lymph % (Auto) 13.1 L, Sebastian % (Auto) 7.6, Eos % (Auto) 5.6 H, Baso % (Auto) 0.3, Absolute Neuts (auto) 5.1, Absolute Lymphs (auto) 0.93, Nucleated RBC % 0, Sodium 139, Potassium 3.7, Chloride 110 H, Carbon Dioxide 25.0, Anion Gap 4 L, BUN 7, Creatinine 1.24, Estim Creat Clear Calc 44.35, Est GFR (MDRD) Af Amer 71, Est GFR (MDRD) Non-Af 59 L, BUN/Creatinine Ratio 5.6 L, Glucose 103, Calcium 8.3 L Radiography Diagnostic Testing: Radiology Impression KUB X-Ray 05/11/23 05:55 IMPRESSION: Since prior study, there has been improvement in the small bowel gaseous distention. Electronically Signed: Gomez Beth MD at 9:10 EDT Reading Location ID and State: [facility] / [place] , Service support , Rhythm Strip Rhythm Strip: Sinus Tach Rate: 110 Ectopy: None Physical Exam Narrative General: Alert, oriented, no apparent distress HEENT: Atraumatic, normocephalic Eyes: extraocular movements grossly intact Neck: Supple Respiratory: normal respiratory effort Cardiovascular: no edema appreciated GI: Slightly firm, nontender, no rebound, guarding, rigidity Extremities: Moving all extremities Neuro: No overt focal neurological deficits Psych: Cooperative Assessment & Plan Assessment/Plan (1) Acute upper abdominal pain: (2) Leukocytosis: QUALIFIERS: Leukocytosis type: unspecified Qualified Code(s): D72.829 - Elevated white blood cell count, unspecified (3) Cholelithiasis: QUALIFIERS: Cholelithiasis location: gallbladder and bile duct Cholecystitis presence: with cholecystitis Cholecystitis acuity: unspecified acuity Biliary obstruction: without biliary obstruction Qualified Code(s): K80.60 - Calculus of gallbladder and bile duct with cholecystitis, unspecified, without obstruction (4) Pre-operative cardiovascular examination: PLAN: Plan Patient is an 83-year-old gentleman admitted with abdominal pain nausea and vomiting of 3 days duration #abdominal pain secondary to acute colonic pseudoobstruction (Racheal syndrome) ? Gallbladder ultrasound did show Cholelithiasis with gallbladder wall thickening. There is questionable pericholecystic fluid. These findings can be seen in cholecystitis. Patient had a negative sonographic Simpson''s sign. CT ofthe abdomen demonstrated Questionable haziness around the head of the pancreas which may be due to mild pancreatitis or duodenitis. Patient has been admitted to the surgical service. Definitive management deferred to general surgery ? 05/05/2023; Patient WBC count trending down chest x-ray obtained this morning due to decreased volume as well as concern for atelectasis versus developing pneumonia. KUB obtained the day prior demonstrated ileus gas pattern. ?05/06/2023; patient's ileus persists 05/07/2023; patient still has some abdominal distention 05/08/2023 patient presentation consistent with acute colonic pseudoobstruction (Bridgeton syndrome). Case discussed with general surgeon Dr. Louie Hicks plan is for patient to be transferred to the intensive care unit for administration of neostigmine ?; was transferred to the medical intensive care unit on 05/08/2023 to receive neostigmine. The patient tolerated the medication well without any adverse reactions. Per nursing staff patient had a good response following administration of neostigmine. Patient abdominal distention markedly -05/10: Still somewhat distended, surgery following, repeat KUB ordered prior to advancing diet. We will continue to monitor on inpatient basis once diet advanced to verify tolerability. -05/11: Proving, possible DC today per surgery if patient is tolerating diet #Hypophosphatemia ? Corrected per protocol #Hypokalemia -corrected per protocol -Would advise patient to have BMP through primary care physician's office in 2 to 3 days to check potassium and phosphorus. Patient has appointment with PCP this for further continuity of care #Acute kidney injury ? Creatinine on admission was 1.57 rehydrated down to 1.09 subsequent monitoringwith daily electrolytes ordered 05/06/2023; GENOVEVA resolved -05/10: Continue to monitor hydration status, advance diet as tolerated #Hypertension -Patient treated with supportive care during his admission, patient did continueto be hypertensive however but day of discharge a daily medication had not yet been started and given he is going home and already has PCP appointment will defer starting new medication to PCP 5. DVT prophylaxis ?lovenox subq Time spent in the patient's overall evaluation,decision-making process, review of diagnostic data, adjustment of management, discussion with other providers, nursing nursing and ancillary staff involved in patient's care documentation, 36minutes Charges/Coding Visit Charges Inpatient E&M: 23020 Subs Hosp L2 05/11/23 1256 <Electronically signed by Nava Hill MD> Cosigner Signature (if applicable): CC: ~ Signed [facility] Work Phone: Summary Purpose Family History No Family History Records FoundNo Family History Records Found Advance Directives No Advanced Directives Records Found Advance Directive Response Recorded Date/ Time Living Will No May 02, 2023 10:06pm Power of Propellant Charge Loader No May 02 10:06pm Chief Complaint and Reason for Visit Chief Complaint CHOLECYSTITIS general illness CHOLECYSTITIS CHOLECYSTITIS CHOLECYSTITIS CHOLECYSTITIS CHOLECYSTITIS CHOLECYSTITIS CHOLECYSTITIS CHOLECYSTITIS CHOLECYSTITIS CHOLECYSTITIS CHOLECYSTITIS CHOLECYSTITIS CHOLECYSTITIS CHOLECYSTITIS CHOLECYSTITIS CHOLECYSTITIS CHOLECYSTITIS CHOLECYSTITIS CHOLECYSTITIS CHOLECYSTITIS Reason for Visit Acute upper abdomina l pain Cholelithiasis Ileus Leukocytosis Pre-operative cardiovascular examination Additional Source Comments (unrecognized sect ion and content) No Status Records FoundNo Status Records Found INFORMATION SOURCE (unrecogn ized section and content) DATE CREATED AUTHOR 03/30/2018 [facility] ([place]) DATE CREATED AUTHOR AUTHOR'S ORGANIZ ATION 06/05/2023 [facility] Care Teams (unrecognized sec tion and content) Team Status: Active Member Role Status Dates Cheryl Bartlett BELT CUTTER, BELT CUTTER-C Primary Care Provider Active Team Status: Active Member Role Status Dates Dr. Demetris Mcdonald MD Emergency Provider Active Cheryl Bartlett BELT CUTTER, BELT CUTTER-C Primary Care Provider Active Dr. Alivia Grant MD Other Provider Active Dr. Mohinder Block , DO Other Provider Active Dr. Marie Blevins MD Other Provider Active Dr. Marie Tracy MD Other Provider Active Dr. Nena Wallace MD Other Provider Active Dr. Katherine Dior , DO Other Provider Active Dr. Berto Youngblood MD Other Provider Active Yosef Caceres MD Other Provider Active Dr. Pedro Benitez , DO Other Provider Active Dr. Blaine Perez MD Other Provider Active Dr. Chetan Duffy MD Other Provider Active Dr. Adriel Nichole MD Other Provider Active Dr. Jarocho Reveles , DO Other Provider Active Dr. Remedios Ott , DO Other Provider Active Dr. Samuel Rodriguez , DO Other Provider Active Dr. Anni Danielson MD Other Provider Active Dr. Adi Hernandez MD Other Provider Active Dr. Alen Hu MD Other Provider Active Dr. Supa Recinos MD Other Provider Active Dr. Nava Hill MD Referring Provider, Other Provid er Active Dr. Thompson Holland MD Other Provider Active Cheryl Louie BELT CUTTER, BELT CUTTER-C Other Provider Active Elias AGUIRRE Other Provider Active Dr. Herber Hewitt MD Attending Provider Active Team Status: Active Member Role Status Dates Dr. Demetris Mcdonald MD Emergency Provider Active Cheryl Bartlett BELT CUTTER, BELT CUTTER-C Primary Care Provider Active Dr. Alivia Grant MD Other Provider Active Dr. Mohinder Block , DO Other Provider Active Dr. Marie Bleivns MD Other Provider Active Dr. Marie Tracy MD Other Provider Active Dr. Nena Wallace MD Other Provider Active Dr. Katherine Dior , DO Other Provider Active Dr. Berto Youngblood MD Other Provider Active Yosef Caceres MD Other Provider Active Dr. Pedro Benitez , DO Other Provider Active Dr. Blaine Perez MD Other Provider Active Dr. Chetan Duffy MD Attending Provider, Other Pro vider Active Dr. Adriel Nichole MD Other Provider Active Dr. Jarocho Reveles , DO Other Provider Active Dr. Remedios Ott , DO Other Provider Active Dr. Samuel Rodriguez , DO Other Provider Active Dr. Anni Danielson MD Other Provider Active Dr. Adi Hernandez MD Other Provider Active Dr. Alen Hu MD Other Provider Active Dr. Supa Recinos MD Other Provider Active Dr. Nava Hill MD Other Provider Active Dr. Thompson Holland MD Other Provider Active Cheryl Louie NP, BELT CUTTER-C Other Provider Active Elias AGUIRRE Other Provider Active Dr. Herber Hewitt MD Admit Provider, R eferring Provider, Other Provider Active Team Status: Active Member Role Status Dates Cheryl Bartlett NP, BELT CUTTER-C Primary Care Provider Active Dr. Guillermo Huynh MD Attending Provider Active Team Status: Active Member Role Status Dates Dr. Demetris Mcdonald MD Emergency Provider Active Cheryl Bartlett BELT CUTTER, BELT CUTTER-C Primary Care Provider Active Dr. Alivia Grant MD Other Provider Active Dr. Mohinder Block , DO Other Provider Active Dr. Marie Blevins MD Other Provider Active Dr. Marie Tracy MD Other Provider Active Dr. Nena Wallace MD Other Provider Active Dr. Katherine Dior , DO Other Provider Active Dr. Berto Youngblood MD Other Provider Active Yosef Caceres MD Other Provider Active Dr. Pedro Benitez , DO Other Provider Active Dr. Blaine Perez MD Other Provider Active Dr. Chetan Duffy MD Other Provider Active Dr. Adriel Nichole MD Other Provider Active Dr. Jarocho Reveles , DO Other Provider Active Dr. Remedios Ott , DO Other Provider Active Dr. Samuel Rodriguez , DO Other Provider Active Dr. Anni Danielson MD Other Provider Active Dr. Adi Hernandez MD Other Provider Active Dr. Alen Hu MD Other Provider Active Dr. Supa Recinos MD Other Provider Active Dr. Nava Hill MD Other Provider Active Dr. Thompson Holland MD Other Provider Active Cheryl Louie BELT CUTTER, BELT CUTTER-C Other Provider Active Elias AGUIRRE Other Provider Active Dr. Herber Hewitt MD Admit Provider, A ttending Provider, Other Provider Active Team Status: Active Member Role Status Dates Dr. Demetris Mcdonald MD Emergency Provider Active Cheryl Bartlett BELT CUTTER, BELT CUTTER-C Primary Care Provider Active Dr. Alivia Grant MD Other Provider Active Dr. Mohinder Block , DO Other Provider Active Dr. Marie Blevins MD Other Provider Active Dr. Marie Tracy MD Other Provider Active Dr. Nena Wallace MD Other Provider Active Dr. Katherine Dior , DO Other Provider Active Dr. Berto Youngblood MD Attending Provider, Other Provid er Active Yosef Caceres MD Other Provider Active Dr. Pedro Benitez , DO Other Provider Active Dr. Blaine Perez MD Other Provider Active Dr. Chetan Duffy MD Other Provider Active Dr. Adriel Nichole MD Other Provider Active Dr. Jarocho Reveles , DO Other Provider Active Dr. Remedios Ott , DO Other Provider Active Dr. Samuel Rodriguez , DO Other Provider Active Dr. Anni Danielson MD Other Provider Active Dr. Adi Hernandez MD Other Provider Active Dr. Alen Hu MD Other Provider Active Dr. Supa Recinos MD Other Provider Active Dr. Nava Hill MD Other Provider Active Dr. Thompson Holland MD Other Provider Active Cheryl Louie BELT CUTTER, BELT CUTTER-C Other Provider Active Elias AGUIRRE Other Provider Active Dr. Herber Hewitt MD Admit Provider, Other Provider Active Team Status: Active Member Role Status Dates Dr. Demetris Mcdonald MD Emergency Provider Active Cheryl Bartlett BELT CUTTER, BELT CUTTER-C Primary Care Provider Active Dr. Alivia Grant MD Other Provider Active Dr. Mohinder Block , DO Other Provider Active Dr. Marie Blevins MD Other Provider Active Dr. Marie Tracy MD Other Provider Active Dr. Nena Wallace MD Other Provider Active Dr. Katherine Dior , DO Other Provider Active Dr. Berto Youngblood MD Other Provider Active Yosef Caceres MD Other Provider Active Dr. Pedro Benitez , DO Other Provider Active Dr. Blaine Perez MD Other Provider Active Dr. Chetan Duffy MD Other Provider Active Dr. Adriel Nichole MD Other Provider Active Dr. Jarocho Reveles , DO Other Provider Active Dr. Remedios Ott , DO Other Provider Active Dr. Samuel Rodriguez , DO Other Provider Active Dr. Anni Danielson MD Other Provider Active Dr. Adi Hernandez MD Other Provider Active Dr. Alen Hu MD Other Provider Active Dr. Supa Recinos MD Other Provider Active Dr. Nava Hill MD Other Provider Active Dr. Thompson Holland MD Other Provider Active Cheryl Louie BELT CUTTER, BELT CUTTER-C Other Provider Active Elias AGUIRRE Other Provider Active Dr. Herber Hewitt MD Admit Provider, Other Provider Active Dr. Annika Hicks MD Attending Provider Active Team Status: Active Member Role Status Dates Dr. Demetris Mcdonald MD Emergency Provider Active Cheryl Bartlett BELT CUTTER, BELT CUTTER-C Primary Care Provider Active Dr. Alivai Garnt MD Other Provider Active Dr. Mohinder Block , DO Other Provider Active Dr. Marie Blevins MD Other Provider Active Dr. Marie Tracy MD Other Provider Active Dr. Nena Wallace MD Other Provider Active Dr. Katherine Dior , DO Other Provider Active Dr. Berto Youngblood MD Attending Provider, Other Provid er Active Yosef Caceres MD Other Provider Active Dr. Pedro Benitez , DO Other Provider Active Dr. Blaine Perez MD Other Provider Active Dr. Chetan Duffy MD Other Provider Active Dr. Adriel Nichole MD Other Provider Active Dr. Jarocho Reveles , DO Other Provider Active Dr. Remedios Ott , DO Other Provider Active Dr. Samuel Rodriguez , DO Other Provider Active Dr. Anni Danielson MD Other Provider Active Dr. Adi Hernandez MD Other Provider Active Dr. Alen Hu MD Other Provider Active Dr. Supa Recinos MD Other Provider Active Dr. Nava Hill MD Other Provider Active Dr. Thompson Holland MD Other Provider Active Cheryl Louie BELT CUTTER, BELT CUTTER-C Other Provider Active Elias AGUIRRE Other Provider Active Dr. Herber Hewitt MD Admit Provider, Other Provider Active Dr. Ozzy Samuels MD Other Provider Active Dr. Tru Couch MD Other Provider Active Dr. Ellis Bryant , DO Other Provider Active Lisa Patrick BELT CUTTER, BELT CUTTER-C Other Provider Active Dr. Jason Montesinos MD Other Provider Active Team Status: Active Member Role Status Dates Dr. Demetris Mcdonald MD Emergency Provider Active Cheryl Bartlett BELT CUTTER, BELT CUTTER-C Primary Care Provider Active Dr. Berto Youngblood MD Other Provider Active Dr. Herber Hewitt MD Admit Provider, Other Provider Active Dr. Alivia Grant MD Other Provider Active Dr. Mohinder Block , DO Other Provider Active Dr. Marie Blevins MD Other Provider Active Dr. Marie Tracy MD Other Provider Active Dr. Nena Wallace MD Other Provider Active Dr. Katherine Dior , DO Other Provider Active Yosef Caceres MD Other Provider Active Dr. Pedro Benitez , DO Other Provider Active Dr. Blaine Perez MD Other Provider Active Dr. Chetan Duffy MD Other Provider Active Dr. Adriel Nichole MD Other Provider Active Dr. Jarocho Reveles , DO Other Provider Active Dr. Remedios Ott , DO Other Provider Active Dr. Samuel Rodriguez , DO Other Provider Active Dr. Anni Danielson MD Other Provider Active Dr. Adi Hernandez MD Other Provider Active Dr. Alen Hu MD Other Provider Active Dr. Supa Recinos MD Other Provider Active Dr. Nava Hill MD Other Provider Active Dr. Thompson Holland MD Other Provider Active Cheryl Louie BELT CUTTER, BELT CUTTER-C Other Provider Active Elias AGUIRRE Other Provider Active Dr. Ozzy Samuels MD Other Provider Active Dr. Ellis Bryant , DO Attending Provider, Other Provide r Active Dr. Tru Couch MD Other Provider Active Dr. Jason Montesinos MD Other Provider Active Lisa Patrick BELT CUTTER, BELT CUTTER-C Other Provider Active Team Status: Active Member Role Status Dates Dr. Demetris Mcdonald MD Emergency Provider Active Cheryl Bartlett BELT CUTTER, BELT CUTTER-C Primary Care Provider Active Dr. Berto Youngblood MD Attending Provider, Other Provid er Active Dr. Herber Hewitt MD Admit Provider, Other Provider Active Dr. Alivia Grant MD Other Provider Active Dr. Mohinder Block , DO Other Provider Active Dr. Marie Blevins MD Other Provider Active Dr. Marie Tracy MD Other Provider Active Dr. Nena Wallace MD Other Provider Active Dr. Katherine Dior , DO Other Provider Active Yosef Caceres MD Other Provider Active Dr. Pedro Benitez , DO Other Provider Active Dr. Blaine Perez MD Other Provider Active Dr. Chetan Duffy MD Other Provider Active Dr. Adriel Nichole MD Other Provider Active Dr. Jarocho Reveles , DO Other Provider Active Dr. Remedios Ott , DO Other Provider Active Dr. Samuel Rodriguez , DO Other Provider Active Dr. Anni Danielson MD Other Provider Active Dr. Adi Hernandez MD Other Provider Active Dr. Alen Hu MD Other Provider Active Dr. Supa Recinos MD Other Provider Active Dr. Nava Hill MD Other Provider Active Dr. Thompson Holland MD Other Provider Active Cheryl Louie BELT CUTTER, BELT CUTTER-C Other Provider Active Elias AGUIRRE Other Provider Active Dr. Ozzy Samuels MD Other Provider Active Dr. Ellis Bryant , DO Other Provider Active Dr. Tru Couch MD Other Provider Active Dr. Jason Montesinos MD Other Provider Active Lisa Patrick BELT CUTTER, BELT CUTTER-C Other Provider Active Team Status: Active Member Role Status Dates Dr. Demetris Mcdonald MD Emergency Provider Active Cheryl Bartlett BELT CUTTER, BELT CUTTER-C Primary Care Provider Active Dr. Berto Youngblood MD Other Provider Active Dr. Herber Hewitt MD Admit Provider, Other Provider Active Dr. Alivia Grant MD Other Provider Active Dr. Mohinder Block , DO Other Provider Active Dr. Marie Blevins MD Other Provider Active Dr. Marie Tracy MD Other Provider Active Dr. Nena Wallace MD Other Provider Active Dr. Katherine Dior , DO Other Provider Active Yosef Caceres MD Other Provider Active Dr. Pedro Benitez , DO Other Provider Active Dr. Blaine Perez MD Other Provider Active Dr. Chetan Duffy MD Other Provider Active Dr. Adriel Nichole MD Other Provider Active Dr. Jarocho Reveles , DO Other Provider Active Dr. Remedios Ott , DO Other Provider Active Dr. Samuel Rodriguez , DO Other Provider Active Dr. Anni Danielson MD Other Provider Active Dr. Adi Hernandez MD Other Provider Active Dr. Alen Hu MD Other Provider Active Dr. Supa Recinos MD Other Provider Active Dr. Nava Hill MD Other Provider Active Dr. Thompson Holland MD Other Provider Active Cheryl Louie BELT CUTTER, BELT CUTTER-C Other Provider Active Elias AGUIRRE Other Provider Active Dr. Ozzy Samuels MD Other Provider Active Dr. Ellis Bryant , DO Other Provider Active Dr. Tru Couch MD Other Provider Active Dr. Jason Montesinos MD Other Provider Active Lisa Patrick BELT CUTTER, BELT CUTTER-C Other Provider Active Dr. Annika Hicks MD Attending Provider Active Team Status: Active Member Role Status Dates Dr. Demetris Mcdonald MD Emergency Provider Active Cheryl Bartlett BELT CUTTER, BELT CUTTER-C Primary Care Provider Active Dr. Berto Youngblood MD Other Provider Active Dr. Herber Hewitt MD Admit Provider, A ttending Provider, Other Provider Active Dr. Alivia Grant MD Other Provider Active Dr. Mohinder Block , DO Other Provider Active Dr. Marie Blevins MD Other Provider Active Dr. Marie Tracy MD Other Provider Active Dr. Nena Wallace MD Other Provider Active Dr. Katherine Dior , DO Other Provider Active Yosef Caceres MD Other Provider Active Dr. Pedro Benitez , DO Other Provider Active Dr. Blaine Perez MD Other Provider Active Dr. Chetan Duffy MD Other Provider Active Dr. Adriel Nichole MD Other Provider Active Dr. Jarocho Reveles , DO Other Provider Active Dr. Remedios Ott , DO Other Provider Active Dr. Samuel Rodriguez , DO Other Provider Active Dr. Anni Danielson MD Other Provider Active Dr. Adi Hernandez MD Other Provider Active Dr. Alen Hu MD Other Provider Active Dr. Supa Recinos MD Other Provider Active Dr. Nava Hill MD Other Provider Active Dr. Thompson Holland MD Other Provider Active Cheryl Louie BELT CUTTER, BELT CUTTER-C Other Provider Active Elias AGUIRRE Other Provider Active Dr. Ozzy Samuels MD Other Provider Active Dr. Ellis Bryant , DO Other Provider Active Dr. Tru Couch MD Other Provider Active Dr. Jason Montesinos MD Other Provider Active Lisa Patrick BELT CUTTER, BELT CUTTER-C Other Provider Active Team Status: Active Member Role Status Dates Dr. Demetris Mcdonald MD Emergency Provider Active Cheryl Bartlett BELT CUTTER, BELT CUTTER-C Primary Care Provider Active Dr. Berto Youngblood MD Other Provider Active Dr. Herber Hewitt MD Admit Provider, Other Provider Active Dr. Alivia Grant MD Other Provider Active Dr. Mohinder Block , DO Other Provider Active Dr. Marie Blevins MD Other Provider Active Dr. Marie Tracy MD Other Provider Active Dr. Nena Wallace MD Other Provider Active Dr. Katherine Dior , DO Other Provider Active Yosef Caceres MD Other Provider Active Dr. Pedro Benitez , DO Other Provider Active Dr. Blaine Perez MD Other Provider Active Dr. Chetan Duffy MD Other Provider Active Dr. Adriel Nichole MD Other Provider Active Dr. Jarocho Reveles , DO Other Provider Active Dr. Remedios Ott , DO Other Provider Active Dr. Samuel Tereletsky , DO Other Provider Active Dr. Anni Danielson MD Other Provider Active Dr. Adi Hernandez MD Other Provider Active Dr. Alen Hu MD Other Provider Active Dr. Supa Recinos MD Other Provider Active Dr. Nava Hill MD Attending Provider, Other Provid er Active Dr. Thompson Holland MD Other Provider Active Cheryl Louie BELT CUTTER, BELT CUTTER-C Other Provider Active Elias AGUIRRE Other Provider Active Dr. Ozzy Samuels MD Other Provider Active Dr. Ellis Bryant , DO Other Provider Active Dr. Tru Couch MD Other Provider Active Dr. Jason Montesinos MD Other Provider Active Lisa Patrick BELT CUTTER, BELT CUTTER-C Other Provider Active Team Status: Inactive Member Role Status Dates Dr. Demetris Mcdonald MD Emergency Provider Active Cheryl Bartlett BELT CUTTER, BELT CUTTER-C Primary Care Provider Active Dr. Berto Youngblood MD Other Provider Active Dr. Herber Hewitt MD Admit Provider, Other Provider Active Dr. Alivia Grant MD Other Provider Active Dr. Mohinder Block , DO Other Provider Active Dr. Marie Blevins MD Other Provider Active Dr. Marie Tracy MD Other Provider Active Dr. Nena Wallace MD Other Provider Active Dr. Katherine Dior , DO Other Provider Active Yosef Caceres MD Other Provider Active Dr. Pedro Benitez , DO Other Provider Active Dr. Blaine Perez MD Other Provider Active Dr. Chetan Duffy MD Other Provider Active Dr. Adriel Nichole MD Other Provider Active Dr. Jarocho Reveles , DO Other Provider Active Dr. Remedios Ott , DO Other Provider Active Dr. Samuel Rodriguez , DO Other Provider Active Dr. Anni Danielson MD Other Provider Active Dr. Adi Hernandez MD Other Provider Active Dr. Alen Hu MD Other Provider Active Dr. Supa Recinos MD Other Provider Active Dr. Nava Hill MD Attending Provider, Other Provid er Active Dr. Thompson Holland MD Other Provider Active Cheryl Louie BELT CUTTER, BELT CUTTER-C Other Provider Active Elias AGUIRRE Other Provider Active Dr. Ozzy Samuels MD Other Provider Active Dr. Ellis Bryant , DO Other Provider Active Dr. Tur Couch MD Other Provider Active Dr. Jason Montesinos MD Other Provider Active Lisa Patrick BELT CUTTER, BELT CUTTER-C Other Provider Active FOR RECORDS PERTAINING TO PATIENTS WHO ARE OR HAVE BEEN ENROLLED IN A CHEMICAL DEPENDENCY/SUBSTANCEABUSE PROGRAM, SOME INFORMATION MAY BE OMITTED. This clinical summary was aggregated from multiple sources. Caution should be exercised in using it in the provision of clinical care. This summary normalizes information from multiple sources, and as a consequence, information in this document may materially change the coding, format and clinical context of patient data. In addition, data may be omitted in some cases. CLINICAL DECISIONS SHOULD BE BASED ON THE PRIMARY CLINICAL RECORDS. [facility] [employer] [facility]. provides no warranty or guarantee of the accuracy or completeness of information in this document.
--- NOTE | 2025-09-08 06:39 | PCA ---
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 [employer] STATES, HOSPITALIST SAID, WAITING FOR DAYSHIFT BECAUSE HE CAN'T SEE PT.
--- NOTE | 2025-09-08 06:59 | HP.PCM.HOS_ITS ---
HPI - General HPI Narrative NATHALIE POWELL, edilma a 85 M who presents [ ] [facility] Medical History Parkinson disease Smoker Poor eyesight Home Medications ?Medication ?Instructions ?Recorded ?Last Taken ?Type NK 05/02/23 Unknown History Allergy/AdvReac Type Severity Reaction Status Date / Time No Known Allergies Allergy Verified 09/07/25 23:39 Social History Smoking Status: Current every day smoker tobacco type: cigarettes Vital Signs Vital Signs Vital Signs: 09/07/25 23:37 09/08/25 00:04 09/08/25 01:37 Temperature 97.8 F Temperature Source Oral Pulse Rate 106 H 95 Respiratory Rate 18 18 Respiratory Effort Normal Respiratory Pattern Normal Blood Pressure 159/71 H Blood Pressure Mean 100 Pulse Ox 95 99 Oxygen Delivery Method Room Air Room Air 09/08/25 03:00 09/08/25 03:47 09/08/25 03:47 Temperature 98.2 F 98.2 F Temperature Source Oral Pulse Rate 92 88 90 Respiratory Rate 18 14 18 Respiratory Effort Respiratory Pattern Blood Pressure 102/54 L 102/54 L Blood Pressure Mean 70 70 Pulse Ox 95 99 95 Oxygen Delivery Method Room Air Room Air 09/08/25 04:47 09/08/25 06:00 Temperature 98.3 F 98.2 F Temperature Source Oral Oral Pulse Rate 92 85 Respiratory Rate 18 16 Respiratory Effort Respiratory Pattern Blood Pressure 141/93 H 142/64 H Blood Pressure Mean 109 90 Pulse Ox 92 93 Oxygen Delivery Method Room Air Room Air Weight Weight: 74.9 kg Body Mass Index (BMI) 24.3 Results Lab / Micro Data 09/07/25 23:47 09/07/25 23:47 Labs: Laboratory Results - last 24 hr 09/07/25 23:47: WBC 16.1 H, RBC 4.37 L, Hgb 13.4, Hct 41.2, MCV 94.3 H, MCH 30.7, MCHC 32.5, RDW Std Deviation 50.0 H, RDW Coeff of Yari 14.4, Plt Count 236, MPV 8.4, Immature Gran % (Auto) 0.700, Neut % (Auto) 89.6 H, Lymph % (Auto) 4.3 L, Beckham % (Auto) 4.5, Eos % (Auto) 0.7, Baso % (Auto) 0.2, Absolute Neuts (auto) 14.4 H, Absolute Lymphs (auto) 0.70 L, Nucleated RBC % 0, PT 13.7, INR 1.0, APTT 32.2, Sodium 141, Potassium 4.0, Chloride 107, Carbon Dioxide 21.1, Anion Gap 13, BUN 30 H, Creatinine 1.51 H, Estim Creat Clear Calc 35.12 L, Est GFR (MDRD) Non-Af 45 L, BUN/Creatinine Ratio 19.7, Glucose 125 H, Lactic Acid < 1.0, Calcium 9.3, Total Bilirubin 0.49, AST 17, ALT 11, Alkaline Phosphatase 82, Total Protein 6.9, Albumin 4.0, Globulin 2.9, Albumin/Globulin Ratio 1.4 Micro: Microbiology 09/07/25 23:55 Mucosa - Nose SARS-CoV-2, Influenza & RSV (PCR) - Final ABG Data ABG results: ABG 09/08/25 00:09 Specimen Type AGUEDA Sample Site Not entered VBG pH 7.36 VBG pO2 29 VBG HCO3 24 VBG Total CO2 25 VBG O2 Sat (Calc) 53 VBG Base Excess -2 L POC Mix VBG pCO2 Pt Tmp 41.4 O2 Delivery Device Room Air Imaging Radiology Impression Chest X-Ray 09/07/25 23:59 IMPRESSION: Mild left pleuropulmonary inflammtory process. Faint right basal infiltrates Reading Location: [place] [id number]
--- NOTE | 2025-09-08 08:31 | ED.RN ---
Paul notified that his dad will be transferred to [place] in [place], due to not having a urologist here this weekend.
--- NOTE | 2025-09-08 08:45 | ED.RN ---
0835 report called to joshua Adames receiving nurse.
== END 2025-09-08 08:52 | disposition short-term general hospital (02) ==
PROVIDERS: Emergency Provider Specialist/Technologist Athletic Trainer; PCP Nurse Practitioner Primary Care; Visit Provider Specialist/Technologist Athletic Trainer
DX: J18.9 Pneumonia, unspecified organism (principal); G20.A1 Parkinson's disease without dyskinesia, without mention of fluctuations; R53.1 Weakness; F17.210 Nicotine dependence, cigarettes, uncomplicated; R33.9 Retention of urine, unspecified; R31.9 Hematuria, unspecified
CPT/HCPCS: 71045; 80053; 82803; 83605; 85025; 85610; 85730; 87040; 87631; 93005; 96361; 96365; 99285; A4216; J0696